=== PATIENT | male | born 1945 | race Caucasian/White ===

== ENCOUNTER 2016-11-22 09:30 | Emergency (ER) | payer OTHER ==
[~2016-11-22] VITALS: Ht 195.6 cm; Wt 130.0 kg
[~2016-11-22 09:30] MED LIST: BENA20TA PO; FURO40TA PO; GLIP10TA6 PO; METF500T4 PO; POTA-243 PO; SIMV20TA PO; SITA1TAB2 PO; VERA1TAB17 PO
[2016-11-22 09:32] VITALS: BP 136/83; PULSE 110; RESP 24; TEMP 98.4; O2SAT 94
[2016-11-22 11:00] VITALS: BP 168/97; PULSE 106; RESP 20; O2SAT 94
[2016-11-22 11:43] VITALS: O2SAT 94
[2016-11-22] MEDS ORDERED: SODIUM CHLORIDE 0.9% FLUSH 10 ML FLUSH IVF PRN (11:45)
[2016-11-22 11:57] LABS: AUTOMATED NEUTROPHIL # 4.5 TH/MM3 (1.8-7.7); BASOPHIL # 0.1 TH/MM3 (0-0.2); BASOPHIL % 1.2 % (0.0-2.0); EOSINOPHIL # 0.4 TH/MM3 (0-0.4); EOSINOPHIL % 5.2 % (0.0-4.0); HEMO FLAGS DIFF FINAL; LYMPH % 18.1 % (9.0-44.0); LYMPHOCYTE # 1.3 TH/MM3 (1.0-4.8); MEAN CELL VOLUME 92.7 FL (80.0-100.0); MEAN CORPUSCULAR HEMOGLOBIN 30.9 PG (27.0-34.0); MEAN CORPUSCULAR HGB CONC 33.3 % (32.0-36.0); MONO % 11.9 % (0.0-8.0); NEUT % 63.6 % (16.0-70.0); PLATELET COUNT 286 TH/MM3 (150-450); RED BLOOD COUNT 3.77 MIL/MM3 (4.50-5.90); RED CELL DISTRIBUTION WIDTH 13.7 % (11.6-17.2); WHITE BLOOD COUNT 7.1 TH/MM3 (4.0-11.0)
--- NOTE | 2016-11-22 12:01 | PD ---
HPI Chief Complaint: Edema Time Seen by Provider: 11:26 Travel History International Travel<30 days: No Contact w/Intl Traveler<30days: No Traveled to known affect area: No History of Present Illness HPI Patient is a 68-year-old male presenting to evaluation of bilateral lower extremity edema, worse on the right than the left. Patient presents with neighbors who noticed his legs were swollen and he has wounds to his legs as well. Patient is legally blind and was unable to assess it. Patient states is painful, a 6 out of 10 and feels like pins and needles. He denies any fever, chills, nausea, vomiting, chest pain, shortness of breath. Patient has a history significant for type 2 diabetes, likely not well controlled patient does not have a voice glucometer. He also has a history of hypertension, hyperlipidemia. He denies any history of congestive heart failure. Patient has been applying lotion to his legs. He has no other complaints at this time. PFSH Past Medical History Cardiovascular Problems: Yes High Cholesterol: Yes Diabetes: Yes Patient Takes Glucophage: Yes Hypertension: Yes Past Surgical History Eye Surgery: Yes (bernardo ) Social History Alcohol Use: Yes Tobacco Use: No Substance Use: No Allergies-Medications (Allergen,Severity, Reaction): Coded Allergies: Sulfa (Sulfonamide Antibiotics) (Unverified Allergy, Severe, TONGUE SWELLING, 11/22/16) Reported Meds & Prescriptions Reported Meds & Active Scripts Active Keflex (Cephalexin) 500 Mg Cap 500 Mg PO Q12H 10 Days Reported Verapamil ER 24 HR (Verapamil HCl) 240 Mg Tab 240 Mg PO BID Simvastatin 20 Mg Tab 20 Mg PO HS Klor-Con 10 (Potassium Chloride) 10 Meq Tab 10 Meq PO DAILY Metformin ER (Metformin HCl) 500 Mg Nicanor 500 Mg PO DAILY With evening meal Januvia (Sitagliptin Phosphate) 100 Mg Tab 100 Mg PO DAILY Glipizide 10 Mg Tab 10 Mg PO HS Take 30 minutes before a meal Furosemide 40 Mg Tab 40 Mg PO DAILY Benazepril (Benazepril HCl) 20 Mg Tab 20 Mg PO BID Review of Systems Except as stated in HPI: all other systems reviewed are Neg Cardiovascular: Positive: Tachycardia, Edema Respiratory: No: Shortness of Breath Gastrointestinal: No: Nausea, Abdominal Pain Musculoskeletal: Positive: Myalgias Physical Exam Narrative GENERAL: Obese, well-developed, alert male. Resting comfortably in no acute distress. SKIN: Warm and dry. Chronic ulcerations to bilateral lower extremities. Left first toe is erythematous and edematous with a central scabbed lesion. HEAD: Atraumatic. Normocephalic. EYES: Pupils equal and round. No scleral icterus. No injection or drainage. ENT: No nasal bleeding or discharge. Mucous membranes pink and moist. NECK: Trachea midline. No JVD. CARDIOVASCULAR: Tachycardic. RESPIRATORY: No accessory muscle use. Clear to auscultation. Breath sounds equal bilaterally. GASTROINTESTINAL: Abdomen soft, non-tender, nondistended. Hepatic and splenic margins not palpable. MUSCULOSKELETAL: Extremities without clubbing, cyanosis. 1+ edema to the right lower extremity, trace edema to the left lower extremity. 2+ dorsalis pedal pulses bilaterally. No obvious deformities. NEUROLOGICAL: Awake and alert. No obvious cranial nerve deficits. Motor grossly within normal limits. Five out of 5 muscle strength in the arms and legs. Normal speech. PSYCHIATRIC: Appropriate mood and affect; insight and judgment normal. Data Data Last Documented VS Vital Signs Date Time Temp Pulse Resp B/P (MAP) Pulse Ox O2 Delivery O2 Flow Rate FiO2 11/22/16 13:59 11/22/16 13:30 97 19 97 Room Air 11/22/16 09:32 98.4 Orders Orders Complete Blood Count With Diff (11/22/16 11:36) Comprehensive Metabolic Panel (11/22/16 11:36) B-Type Natriuretic Peptide (11/22/16 11:36) Magnesium (Mg) (11/22/16 11:36) Urinalysis - C+S If Indicated (11/22/16 11:36) Iv Access Insert/Monitor (11/22/16 11:36) Electrocardiogram (11/22/16 11:36) Ecg Monitoring (11/22/16 11:36) Oximetry (11/22/16 11:36) Oxygen Administration (11/22/16 11:36) Chest, Single Ap (11/22/16 11:36) Us Leg Venous Doppler (11/22/16 11:36) Sodium Chloride 0.9% Flush (Ns Flush) (11/22/16 11:45) Blood Culture (11/22/16 11:36) Furosemide Inj (Lasix Inj) (11/22/16 13:00) Metoprolol Tartrate Inj (Lopressor Inj) (11/22/16 13:30) Ceftriaxone Inj (Rocephin Inj) (11/22/16 14:45) Labs Laboratory Tests Test 11/22/16 10:55 11/22/16 11:40 White Blood Count 7.1 TH/MM3 Red Blood Count 3.77 MIL/MM3 Hemoglobin 11.7 GM/DL Hematocrit 35.0 % Mean Corpuscular Volume 92.7 FL Mean Corpuscular Hemoglobin 30.9 PG Mean Corpuscular Hemoglobin Concent 33.3 % Red Cell Distribution Width 13.7 % Platelet Count 286 TH/MM3 Mean Platelet Volume 8.0 FL Neutrophils (%) (Auto) 63.6 % Lymphocytes (%) (Auto) 18.1 % Monocytes (%) (Auto) 11.9 % Eosinophils (%) (Auto) 5.2 % Basophils (%) (Auto) 1.2 % Neutrophils # (Auto) 4.5 TH/MM3 Lymphocytes # (Auto) 1.3 TH/MM3 Monocytes # (Auto) 0.8 TH/MM3 Eosinophils # (Auto) 0.4 TH/MM3 Basophils # (Auto) 0.1 TH/MM3 CBC Comment DIFF FINAL Differential Comment Blood Urea Nitrogen 19 MG/DL Creatinine 1.48 MG/DL Random Glucose 111 MG/DL Total Protein 7.5 GM/DL Albumin 3.4 GM/DL Calcium Level 8.8 MG/DL Magnesium Level 1.7 MG/DL Alkaline Phosphatase 68 U/L Aspartate Amino Transf (AST/SGOT) 10 U/L Alanine Aminotransferase (ALT/SGPT) 15 U/L Total Bilirubin 0.5 MG/DL Sodium Level 142 MEQ/L Potassium Level 4.1 MEQ/L Chloride Level 107 MEQ/L Carbon Dioxide Level 26.4 MEQ/L Anion Gap 9 MEQ/L Estimat Glomerular Filtration Rate 47 ML/MIN B-Type Natriuretic Peptide 360 PG/ML Urine Color LIGHT-YELLOW Urine Turbidity CLEAR Urine pH 5.5 Urine Specific [place] 1.005 Urine Protein NEG mg/dL Urine Glucose (UA) NEG mg/dL Urine Ketones NEG mg/dL Urine Occult Blood NEG Urine Nitrite NEG Urine Bilirubin NEG Urine Urobilinogen LESS THAN 2.0 MG/DL Urine Leukocyte Esterase NEG Urine WBC LESS THAN 1 /hpf Microscopic Urinalysis Comment CULT NOT INDICATED MDM Medical Decision Making Medical Screen Exam Complete: Yes Emergency Medical Condition: Yes Interpretation(s) Vital Signs Date Time Temp Pulse Resp B/P (MAP) Pulse Ox O2 Delivery O2 Flow Rate FiO2 11/22/16 11:43 94 Room Air 11/22/16 11:00 106 20 168/97 (120) 94 11/22/16 10:50 90 20 Room Air 11/22/16 09:32 98.4 110 24 136/83 (100) 94 Room Air Differential Diagnosis Cellulitis versus chronic venous stasis ulceration versus less likely DVT versus sepsis versus other Narrative Course Patient is a 71 year-old male presenting to emergency Department for evaluation of bilateral lower extremity edema worse on the right than the left as well as sores to his right lower leg. Sores appear chronic in nature, there was mild edema noted. Labs and imaging ordered and pending. Patient's vital signs are stable, is mildly tachycardic on arrival, heart rate is currently 104. CBC is unremarkable no acute abnormalities identified. BNP is 360, Lasix 40 mg IV times one dose given. Chemistry with a BUN and creatinine of 19/1.48 Urinalysis unremarkable Right lower extremity ultrasound is negative for DVT, chest x-ray shows normal exam except for mild diffuse interstitial prominence. Again findings appear consistent in nature, patient does not appear to be septic , he appears well, labs are reassuring. Discussed with my attending physician. Patient was placed on Keflex prophylactically. He is encouraged to follow up with his primary doctor. Patient is encouraged to keep legs elevated, maintain adequate fluid intake. He was encouraged to return to emergency department for any new or worsening symptoms. Patient was given dose of Lopressor prior to leaving the emergency department. He missed his midday dose of carvedilol. Patient also reported that he is on a water pill and potassium at home which she does not have with him. Diagnosis Primary Impression: Diabetic ulcer of right lower leg Additional Impressions: Leg edema Elevated brain natriuretic peptide (BNP) level Referrals: Primary Care Physician 2 days Patient Instructions: General Instructions, Leg Edema (ED) Additional Instructions: Keep legs elevated Follow-up with your primary doctor Continue medications as previously prescribed Return to emergency department for any new or worsening symptoms Complete full course of antibiotics as prescribed Med/Other Pt SpecificInfo: Prescription(s) given Scripts Mupirocin Topical (Mupirocin Topical) 2 % Oint 1 APPLIC TOPICAL BID for Mgmt Bacterial Infection, #22 GM 1 Refill Prov: Shagufta Kauffman 11/22/16 Cephalexin (Keflex) 500 Mg Cap 500 MG PO Q12H for Infection for 10 Days, CAP 0 Refills Prov: Shagufta Kauffman 11/22/16 Disposition: 01 DISCHARGE HOME Condition: Stable Shagufta Kauffman Nov 22, 2016 12:01
[2016-11-22 12:12] LABS: BLOOD, URINE NEG (NEG); GLUCOSE,URINE NEG (NEG); KETONE, URINE NEG (NEG); NITRITE,URINE NEG (NEG); PH, URINE 5.5 (5.0-8.5); URINE COLOR LIGHT-YELLOW (YELLW/STRAW)
[2016-11-22 12:18] LABS: COMMENT (UR) CULT NOT INDICATED; CULTURE IF INDICATED CULT NOT INDICATED
--- NOTE | 2016-11-22 12:18 | RADRPT ---
EXAM DATE/TIME: 11/22/2016 11:52 [facility] COMPARISON: No previous studies available for comparison. INDICATIONS : Right leg edema. MEDICAL HISTORY : Hypercholesterolemia. Hypertension. Diabetes. SURGICAL HISTORY : Bilateral eye surgery. ENCOUNTER: Initial ACUITY: 2 weeks PAIN SCORE: 6/10 LOCATION: Right leg. TECHNIQUE: Venous ultrasound of the leg was performed from the inguinal ligament to the proximal calf. Real-yuimko e, color Doppler and spectral tracing, compression and augmentation techniques were used. FINDINGS: There is normal compressibility of the deep venous system from the inguinal region to the proximal ca lf. No echogenic clot is seen in the lumen of the common femoral, femoral, popliteal, and posterior tibial veins. There is a normal response of the venous system to proximal and distal augmentation an d respiration. CONCLUSION: No evidence of deep venous thrombosis within the right lower extremity. Loki Cowan MD on November 22, 2016 at 12:16 Board Certified Radiologist. This report was verified electronically.
[2016-11-22 12:25] LABS: ALKALINE PHOSPHATASE 68 U/L (45-117); ALT (GPT) 15 U/L (12-78); AST (GOT) 10 U/L (15-37); BLOOD UREA NITROGEN 19 MG/DL (7-18); GLOMERULAR FILTRATION RATE 47 ML/MIN (>89); MAGNESIUM 1.7 MG/DL (1.5-2.5); POTASSIUM 4.1 MEQ/L (3.5-5.1); SODIUM (NA) 142 MEQ/L (136-145); TOTAL BILIRUBIN ADULT 0.5 MG/DL (0.2-1.0)
[2016-11-22 12:26] LABS: ANION GAP 9 MEQ/L (5-15); BICARBONATE 26.4 MEQ/L (21.0-32.0); CHLORIDE 107 MEQ/L (98-107)
--- NOTE | 2016-11-22 12:42 | RADRPT ---
EXAM DATE/TIME: 11/22/2016 11:46 [facility] COMPARISON: No previous studies available for comparison. INDICATIONS : Short of breath. MEDICAL HISTORY : None. SURGICAL HISTORY : None. ENCOUNTER: Initial ACUITY: 1 day PAIN SCORE: 0/10 LOCATION: Bilateral chest FINDINGS: A single view of the chest demonstrates the lungs to be symmetrically aerated without evidence of mas s, infiltrate or effusion. The cardiomediastinal contours are unremarkable. Osseous structures are intact. CONCLUSION: Normal examination except for mild diffuse interstitial prominence. Zeeshan Oliveira MD on November 22, 2016 at 12:41 Board Certified Radiologist. This report was verified electronically.
[2016-11-22] MEDS ORDERED: FUROSEMIDE 40 MG/4 ML VIAL IV PUSH ONE (13:00)
[2016-11-22] MEDS ORDERED: CEPH-460 PO (13:11)
[2016-11-22 13:30] VITALS: BP 149/87; PULSE 97; RESP 19; O2SAT 97
[2016-11-22] MEDS ORDERED: METOPROLOL TARTRATE 5 MG/5 ML VIAL IV PUSH ONE (13:30)
[2016-11-22] MEDS ORDERED: MUPI2OIN TOPICAL (14:34)
--- NOTE | 2016-11-22 20:59 | EKG ---
Date Performed: 11/22/2016 Time Performed: 11:49:43 PTAGE: 71 years EKG: ATRIAL FIBRILLATION WITH RAPID VENTRICULAR RESPONSE MODERATE INTRAVENTRICULAR CONDUCTION DE LAY ABNORMAL RHYTHM ECG Compared to the PREVIOUS TRACING a fib now present DOCTOR: Elsa Whitten Interpretating Date/Time 11/22/2016 20:58:53
== END 2016-11-22 14:48 | disposition home or self-care (01) ==
LOC: NEPE 09:30
DX: E11.622 Type 2 diabetes mellitus with other skin ulcer (principal); L97.919 Non-pressure chronic ulcer of unspecified part of right lower leg with unspecified severity; I10 Essential (primary) hypertension; Z79.84 Long term (current) use of oral hypoglycemic drugs
CPT/HCPCS: 71010; 80053; 81001; 83735; 83880; 85025; 87040; 93005; 93971; 96372; 96374; 99285; J0696; J1940

== ENCOUNTER 2017-01-01 19:13 | Inpatient (IN) | payer OTHER, MEDICARE ==
[~2017-01-01] VITALS: Ht 190.5 cm; Wt 134.3 kg
[~2017-01-01 19:13] MED LIST changes: +CEPH-460 PO; +KLOR10TA PO; +MUPI2OIN TOPICAL; -POTA-243 PO
[2017-01-01 19:17] VITALS: BP 137/90; PULSE 123; RESP 18; TEMP 98.2; O2SAT 92
[2017-01-01 19:56] VITALS: BP 149/116; PULSE 102; RESP 20; O2SAT 94
[2017-01-01 20:01] VITALS: RESP 20; O2SAT 94
--- NOTE | 2017-01-01 20:05 | PD ---
HPI Chief Complaint: Edema Time Seen by Provider: 19:43 Travel History International Travel<30 days: No Contact w/Intl Traveler<30days: No Traveled to known affect area: No History of Present Illness HPI The patient is a 71 year old male who presents to the [facility] emergency department with a history of reportedly experiencing chest tightness that began yesterday evening. The patient reports that the pain is been coming and going. He reports the pain at this time is a 4 out of 10 in severity. He denies ever having this in the past. He denies any prior history of myocardial infarction or congestive heart failure. He does however report having lower extremity edema and being on a water pill for this. He did take this is morning. He denies taking his aspirin today. He reports that he normally takes an adult aspirin in the evening. The patient additionally reports having new onset of edema of his scrotum. He denies ever having swelling of the site in the past. He reports that he has been able to urinate, however it seems to be spreading everywhere. He denies having any dysuria. He denies having any abdominal pain, nausea, vomiting, or diarrhea. He reports having some dyspnea on exertion. The patient reports that he is currently on an antibiotic for open wounds on his legs. The patient has the prescription bottle available in his pocket. The prescription is for Augmentin 875 mg filled by his primary care physician, Dr. Mullen. Otherwise on review of systems, the patient denies having any recent known fevers, cough, congestion, neck pain, other urinary symptoms, or neurologic symptoms. Unfortunately, the patient is a poor historian regarding his medical history. The patient is unsure of the medications that he is on. The patient is also legally blind and has no written down record of his medications. [facility] Past Medical History Narrative Medical The patient's past medical history is significant for according to the electronic medical record and history of hyperlipidemia, diabetes mellitus, hypertension, history of being blind, history of lower extremity edema, history of phlebitis. Hx Anticoagulant Therapy: Yes (asa) Cardiovascular Problems: Yes High Cholesterol: Yes Diabetes: Yes Patient Takes Glucophage: Yes Hypertension: Yes Tetanus Vaccination: < 5 Years Influenza Vaccination: No Past Surgical History Narrative Surgical Patient's past surgical history is significant for eye surgery. Eye Surgery: Yes (bernardo ) Social History Alcohol Use: Yes Tobacco Use: No Substance Use: No Allergies-Medications (Allergen,Severity, Reaction): Coded Allergies: Sulfa (Sulfonamide Antibiotics) (Unverified Allergy, Severe, TONGUE SWELLING, 01/01/17) Reported Meds & Prescriptions Reported Meds & Active Scripts Active Mupirocin Topical (Mupirocin) 2 % Oint 1 Applic TOPICAL BID Keflex (Cephalexin) 500 Mg Cap 500 Mg PO Q12H 10 Days Reported Verapamil ER 24 HR (Verapamil HCl) 240 Mg Tab 240 Mg PO BID Simvastatin 20 Mg Tab 20 Mg PO HS Klor-Con 10 (Potassium Chloride) 10 Meq Tab 10 Meq PO DAILY Metformin ER (Metformin HCl) 500 Mg Nicanor 500 Mg PO DAILY With evening meal Januvia (Sitagliptin Phosphate) 100 Mg Tab 100 Mg PO DAILY Glipizide 10 Mg Tab 10 Mg PO HS Take 30 minutes before a meal Furosemide 40 Mg Tab 40 Mg PO DAILY Benazepril (Benazepril HCl) 20 Mg Tab 20 Mg PO BID Review of Systems Except as stated in HPI: all other systems reviewed are Neg General / Constitutional: No: Fever Eyes: No: Visual changes HENT: No: Headaches Cardiovascular: Positive: Chest Pain or Discomfort, Edema, No: Dyspnea on exertion Respiratory: Positive: Shortness of Breath Gastrointestinal: No: Nausea, Vomiting, Diarrhea, Abdominal Pain Genitourinary: No: Dysuria Musculoskeletal: No: Pain Skin: No Rash Neurologic: No: Weakness Psychiatric: No: Depression Endocrine: No: Polydipsia Hematologic/Lymphatic: No: Easy Bruising Physical Exam Narrative General: The patient is a well-developed well-nourished male in no acute distress. The patient is disheveled appearing on examination. Head and Neck exam: Head is normocephalic atraumatic. Eyes: EOMI, pupils are equal round and reactive to light. Nose: Midline septum with pink mucous membranes Mouth: Dentition unremarkable. Moist mucus membranes. Posterior oropharynx is not erythematous. No tonsillar hypertrophy. Uvula midline. Airway patent. Neck: No palpable lymphadenopathy. No nuchal rigidity. No thyromegaly. Cardiovascular: Irregularly irregular with a rate in the 120 without murmurs, gallops, or rubs. Intermittent pulse deficit to the extremities consistent with atrial fibrillation on simultaneous auscultation and palpation of the radial artery. Lungs: He has decreased breath sounds in bilateral bases. No rhonchi, no crackles. Abdomen: Soft, without tenderness to palpation in all 4 quadrants of the abdomen. No guarding, rebound, or rigidity. Normal bowel sounds are audible. No tenderness on palpation of McBurney's point. Extremities: No clubbing or cyanosis. The patient has 2+ pitting edema bilateral lower extremities. The patient has wounds noted on the right lower extremity that appear to be related to venous stasis changes, some ulceration is noted. No obvious infection is noted at this time. There is minimal drainage. The drainage will be cultured. 2+ pulses in all 4 extremities. Back: No spinous process tenderness to palpation. No costovertebral angle tenderness to palpation. Neurologic Exam: Grossly nonfocal. Skin Exam: Skin is warm and dry. Data Data Last Documented VS Vital Signs Date Time Temp Pulse Resp B/P (MAP) Pulse Ox O2 Delivery O2 Flow Rate FiO2 01/01/17 20:33 94 18 147/75 (99) 94 Nasal Cannula 2.00 01/01/17 19:17 98.2 Orders Orders Electrocardiogram (01/01/17 19:58) Complete Blood Count With Diff (01/01/17 19:58) Comprehensive Metabolic Panel (01/01/17 19:58) Creatine Kinase (Cpk) (01/01/17 19:58) Ckmb (Isoenzyme) Profile (01/01/17 19:58) Troponin I (01/01/17 19:58) B-Type Natriuretic Peptide (01/01/17 19:58) Prothrombin Time / Inr (Pt) (01/01/17 19:58) Act Partial Throm Time (Ptt) (01/01/17 19:58) C-Reactive Protein (Crp) (01/01/17 19:58) Lipase (01/01/17 19:58) Urinalysis - C+S If Indicated (01/01/17 19:58) Magnesium (Mg) (01/01/17 19:58) Thyroid Stimulating Hormone (01/01/17 19:58) Chest, Single Ap (01/01/17 19:58) Iv Access Insert/Monitor (01/01/17 19:58) Ecg Monitoring (01/01/17 19:58) Oximetry (01/01/17 19:58) Aspirin Chew (Aspirin Chew) (01/01/17 20:15) Nitroglycerin 2% Oint (Nitroglycerin 2% (01/01/17 20:15) Nitroglycerin Sl (Nitrostat Sl) (01/01/17 20:15) Diltiazem Inj (Cardizem Inj) (01/01/17 20:15) Diltiazem Inj (Cardizem Inj) (01/01/17 20:15) Furosemide Inj (Lasix Inj) (01/01/17 21:45) Admit Order (Ed Use Only) (01/01/17 21:46) Labs Laboratory Tests Test 01/01/17 20:05 01/01/17 21:00 White Blood Count 7.1 TH/MM3 Red Blood Count 4.15 MIL/MM3 Hemoglobin 12.6 GM/DL Hematocrit 38.2 % Mean Corpuscular Volume 92.1 FL Mean Corpuscular Hemoglobin 30.3 PG Mean Corpuscular Hemoglobin Concent 32.9 % Red Cell Distribution Width 15.7 % Platelet Count 259 TH/MM3 Mean Platelet Volume 8.0 FL Neutrophils (%) (Auto) 69.1 % Lymphocytes (%) (Auto) 15.9 % Monocytes (%) (Auto) 10.3 % Eosinophils (%) (Auto) 3.6 % Basophils (%) (Auto) 1.1 % Neutrophils # (Auto) 4.9 TH/MM3 Lymphocytes # (Auto) 1.1 TH/MM3 Monocytes # (Auto) 0.7 TH/MM3 Eosinophils # (Auto) 0.3 TH/MM3 Basophils # (Auto) 0.1 TH/MM3 CBC Comment DIFF FINAL Differential Comment Prothrombin Time 11.8 SEC Prothromb Time International Ratio 1.1 RATIO Activated Partial Thromboplast Time 23.6 SEC Blood Urea Nitrogen 21 MG/DL Creatinine 1.88 MG/DL Random Glucose 90 MG/DL Total Protein 6.4 GM/DL Albumin 3.4 GM/DL Calcium Level 8.6 MG/DL Magnesium Level 1.3 MG/DL Alkaline Phosphatase 63 U/L Aspartate Amino Transf (AST/SGOT) 22 U/L Alanine Aminotransferase (ALT/SGPT) 30 U/L Total Bilirubin 0.7 MG/DL Sodium Level 138 MEQ/L Potassium Level 3.6 MEQ/L Chloride Level 105 MEQ/L Carbon Dioxide Level 23.9 MEQ/L Anion Gap 9 MEQ/L Estimat Glomerular Filtration Rate 35 ML/MIN Total Creatine Kinase 82 U/L Troponin I 0.03 NG/ML C-Reactive Protein LESS THAN 0.29 MG/DL B-Type Natriuretic Peptide 522 PG/ML Lipase 294 U/L Thyroid Stimulating Hormone 3rd Gen 3.160 uIU/ML Urine Color LIGHT-YELLOW Urine Turbidity CLEAR Urine pH 5.5 Urine Specific [place] 1.003 Urine Protein NEG mg/dL Urine Glucose (UA) NEG mg/dL Urine Ketones NEG mg/dL Urine Occult Blood NEG Urine Nitrite NEG Urine Bilirubin NEG Urine Urobilinogen LESS THAN 2.0 MG/DL Urine Leukocyte Esterase NEG Urine RBC LESS THAN 1 /hpf Urine WBC LESS THAN 1 /hpf Microscopic Urinalysis Comment CULT NOT INDICATED MDM Medical Decision Making Medical Screen Exam Complete: Yes Emergency Medical Condition: Yes Medical Record Reviewed: Yes Interpretation(s) Last Impressions Chest X-Ray 01/01/171957 Signed Impressions: Service Date/Time: Sunday, January 01, 2017 20:10 - CONCLUSION: CHF Oneal Robbins MD Differential Diagnosis Acute coronary syndrome, versus congestive heart failure, versus atrial fibrillation with RVR, versus sepsis related to a skin infection Narrative Course During the course of the patients emergency department visit, the patients history, examination, and differential diagnosis were reviewed with the patient. The patient was placed on a school bus monitor with oximetry and frequent blood pressure monitoring. The patient had IV access obtained and blood work sent for analysis. The patient was placed on a school bus monitor with oximetry and blood pressure monitoring. An ECG was done on arrival. The patient's ECG reveals atrial fibrillation with RVR with heart rate of 113, QRS duration is 118 ms, QTC 399 ms. Moderate intraventricular conduction delay is noted. No acute ST segment elevation is noted. T waves are inverted in V4, V5, V6. The patient was initially provided aspirin 324 mg by mouth 1. Nitroglycerin sublingual to 5 minutes 3, nitroglycerin 1 inch to the chest wall. Cardizem 20 mg bolus followed by a drip if his heart rate is not maintained less than 100 bpm. The patients laboratory studies were reviewed and remarkable for a white count of 7.1, hemoglobin 12.6, platelets 259 with 10.3 monocytes, CMP is remarkable for a BUN of 21, creatinine 1.88, magnesium 1.3, initial set of cardiac enzymes are negative, C-reactive protein less than 0.29, BNP is 522, lipase 294, TSH 3.16, PT 11.8, PTT 23.6, urinalysis within normal limits, x-ray reveals fluid overload consistent with congestive heart failure. I review the records reveals that the patient has previously had atrial fibrillation on an ECG done in November during an emergency department visit. A prior BNP also revealed elevation at and November. The patient was given Lasix 60 mg IV. The patient will be admitted to the hospital for continued evaluation and treatment. The patients results were discussed with the patient, including the plan of care. I explained that further testing and/ or monitoring is indicated based on the patients history, examination, and/ or laboratory findings. Therefore, I recommended admission for additional evaluation. The patient expressed understanding and was agreeable with this plan. The patient was admitted to the hospital in stable condition and sent to a bed under the care of the [facility] service. Physician Communication Physician Communication The patient's case is discussed with Dr. Pryor who did agree to admit the patient for further evaluation and treatment at this time. Diagnosis Primary Impression: Atrial fibrillation with RVR Additional Impression: Acute exacerbation of congestive heart failure Qualified Codes: I50.9 - Heart failure, unspecified Admitting Information Admitting Physician Requests: Admit Yajaira Oliveros MD Jan 01, 2017 20:05
[2017-01-01] MEDS ORDERED: DILTIAZEM HCL 25 MG/5 ML VIAL IV ONE (20:15)
[2017-01-01] MEDS ORDERED: ASPIRIN 81 MG CHEW TAB CHEW ONE (20:15)
[2017-01-01] MEDS ORDERED: NITROGLYCERIN 0.4 MG SL 25 TABS/BTL SL PRN (20:15)
[2017-01-01] MEDS ORDERED: DILTIAZEM INJ 125 MG in SODIUM CHLORIDE 0.9% INJ 100 ML IV PRN (20:15)
[2017-01-01] MEDS ORDERED: NITROGLYCERIN 2% OINT 1 GM PACKET TOPICAL ONE (20:15)
--- NOTE | 2017-01-01 20:26 | RADRPT ---
EXAM DATE/TIME: 01/01/2017 20:10 [facility] COMPARISON: CHEST SINGLE AP, November 22, 2016, 11:46. INDICATIONS : Chest pain. MEDICAL HISTORY : Hypercholesterolemia. Hypertension. Diabetes. SURGICAL HISTORY : Bilateral eye surgery. ENCOUNTER: Initial ACUITY: 1 day PAIN SCORE: 5/10 LOCATION: Bilateral chest FINDINGS: Cardiac silhouette is enlarged. There is diffuse bilateral interstitial prominence and perihilar and basilar alveolar opacities with small effusions. CONCLUSION: CHF Oneal Robbins MD on January 01, 2017 at 20:24 Board Certified Radiologist. This report was verified electronically.
[2017-01-01 20:31] LABS: AUTOMATED NEUTROPHIL # 4.9 TH/MM3 (1.8-7.7); BASOPHIL # 0.1 TH/MM3 (0-0.2); BASOPHIL % 1.1 % (0.0-2.0); EOSINOPHIL # 0.3 TH/MM3 (0-0.4); EOSINOPHIL % 3.6 % (0.0-4.0); HEMATOCRIT 38.2 % (39.0-51.0); HEMO FLAGS DIFF FINAL; LYMPH % 15.9 % (9.0-44.0); LYMPHOCYTE # 1.1 TH/MM3 (1.0-4.8); MEAN CELL VOLUME 92.1 FL (80.0-100.0); MEAN CORPUSCULAR HEMOGLOBIN 30.3 PG (27.0-34.0); MEAN CORPUSCULAR HGB CONC 32.9 % (32.0-36.0); MONO % 10.3 % (0.0-8.0); NEUT % 69.1 % (16.0-70.0); PLATELET COUNT 259 TH/MM3 (150-450); RED BLOOD COUNT 4.15 MIL/MM3 (4.50-5.90); RED CELL DISTRIBUTION WIDTH 15.7 % (11.6-17.2); WHITE BLOOD COUNT 7.1 TH/MM3 (4.0-11.0)
[2017-01-01 20:33] VITALS: BP 147/75; PULSE 94; RESP 18; O2SAT 94
[2017-01-01 20:38] LABS: APTT (PATIENT) 23.6 SEC (24.3-30.1); INTERNATIONAL NORMALIZED RATIO 1.1 RATIO; PROTHROMBIN TIME - PATIENT 11.8 SEC (9.8-11.6)
[2017-01-01 20:50] LABS: ALT (GPT) 30 U/L (12-78); ANION GAP 9 MEQ/L (5-15); AST (GOT) 22 U/L (15-37); BICARBONATE 23.9 MEQ/L (21.0-32.0); BLOOD UREA NITROGEN 21 MG/DL (7-18); CHLORIDE 105 MEQ/L (98-107); GLOMERULAR FILTRATION RATE 35 ML/MIN (>89); MAGNESIUM 1.3 MG/DL (1.5-2.5); POTASSIUM 3.6 MEQ/L (3.5-5.1); SODIUM (NA) 138 MEQ/L (136-145)
[2017-01-01 20:58] LABS: ALKALINE PHOSPHATASE 63 U/L (45-117); TOTAL BILIRUBIN ADULT 0.7 MG/DL (0.2-1.0)
[2017-01-01 21:07] LABS: CREATINE KINASE 82 U/L (39-308)
[2017-01-01 21:23] LABS: BLOOD, URINE NEG (NEG); COMMENT (UR) CULT NOT INDICATED; CULTURE IF INDICATED CULT NOT INDICATED; GLUCOSE,URINE NEG (NEG); KETONE, URINE NEG (NEG); NITRITE,URINE NEG (NEG); PH, URINE 5.5 (5.0-8.5); URINE COLOR LIGHT-YELLOW (YELLW/STRAW)
[2017-01-01] MEDS ORDERED: FUROSEMIDE 40 MG/4 ML VIAL IV PUSH ONE (21:45)
[2017-01-01] MEDS ORDERED: NALOXONE HCL 0.4 MG/ML AMP IV PUSH PRN (22:15)
[2017-01-01] MEDS ORDERED: POTASSIUM CHLORIDE 20 MEQ CONTROLLED RELEASE TAB PO ONE (22:15)
[2017-01-01 22:45] VITALS: BP 151/78; PULSE 89; RESP 18; O2SAT 94
[2017-01-02] VITALS (10 sets, daily range): BP systolic 126–161; BP diastolic 80–92; PULSE 96–133; RESP 18–28; TEMP 96.7–98.1; O2SAT 88–95
--- NOTE | 2017-01-02 02:14 | HHI.HP ---
HPI Service [facility] Primary Care Physician Kandy Mullen MD Admission Diagnosis Cp R/o [place], chf exacerbation, afib with rvr Diagnoses: Chief Complaint: cp,sob Travel History International Travel<30 Days: No Contact w/Intl Traveler <30 Da: No Traveled to Known Affected Are: No History of Present Illness Written by CATARINA Calhoun acting as scribe for [Konstantin] on 01/02/17 at 02: 11. 71 y/o male with a history of HTN, DM, Irregular heart beat ? AFIB, bilateral lymphedema, and blindness presented to the ED with scrotum swelling, chest pain and shortness of breath. He states for the last 3 days his scrotum has been swollen and he has been short of breath. Yesterday he had a slight tightening chest pain prior to taking a 2 mile walk and after the walk it was worse, and he could not catch his breath and his legs began to swell. He states he takes diuretics at home but is unsure why. He does complain of a non productive cough , and mild fever (unknown temp). Denies dysuria, diarrhea,nausea, or vomiting. PCP: Dr Mullen Review of Systems Except as stated in HPI: all other systems reviewed are Neg Past Family Social History Past Medical History HTN DM CHF unknown Irregular heartbeat Lymphedema Blind Afib not on any medication Past Surgical History eye surgeries x 17 Reported Medications Reported Meds & Active Scripts Active Mupirocin Topical (Mupirocin) 2 % Oint 1 Applic TOPICAL BID Keflex (Cephalexin) 500 Mg Cap 500 Mg PO Q12H 10 Days Reported Verapamil ER 24 HR (Verapamil HCl) 240 Mg Tab 240 Mg PO BID Simvastatin 20 Mg Tab 20 Mg PO HS Klor-Con 10 (Potassium Chloride) 10 Meq Tab 10 Meq PO DAILY Metformin ER (Metformin HCl) 500 Mg Nicanor 500 Mg PO DAILY With evening meal Januvia (Sitagliptin Phosphate) 100 Mg Tab 100 Mg PO DAILY Glipizide 10 Mg Tab 10 Mg PO HS Take 30 minutes before a meal Furosemide 40 Mg Tab 40 Mg PO DAILY Benazepril (Benazepril HCl) 20 Mg Tab 20 Mg PO BID Allergies: Coded Allergies: Sulfa (Sulfonamide Antibiotics) (Unverified Allergy, Severe, TONGUE SWELLING, 01/01/17) Active Ordered Medications Current Medications Medications (Trade) Dose Ordered Sig/Rosalie Route Start Time Stop Time Status Last Admin (Nitrostat Sl) 0.4 mg Q5M PRN SL 01/01/17 20:15 01/01/17 20:24 (NS Flush) 2 ml UNSCH PRN IV FLUSH 01/01/17 22:15 (NS Flush) 2 ml BID IV FLUSH 01/02/17 09:00 (Narcan Inj) 0.4 mg UNSCH PRN IV PUSH 01/01/17 22:15 (Ecotrin Ec) 325 mg DAILY PO 01/02/17 09:00 (Lasix Inj) 40 mg BID@,18 IV PUSH 01/02/17 09:00 Family History Mom: rheumatic fever, heart disease Social History Tobacco use: Quit 20 years ago Alcohol use: Socially Illicit drug use: Denies Patient lives alone Physical Exam Vital Signs Vital Signs Date Time Temp Pulse Resp B/P (MAP) Pulse Ox O2 Delivery O2 Flow Rate FiO2 01/02/17 01:41 28 01/02/17 01:16 96.7 109 20 126/91 (103) 93 01/02/17 00:55 01/02/17 00:41 96 20 137/90 (106) 93 Nasal Cannula 4.00 01/01/17 22:45 89 18 151/78 (102) 94 Nasal Cannula 4.00 01/01/17 20:33 94 18 147/75 (99) 94 Nasal Cannula 2.00 01/01/17 20:01 20 94 Nasal Cannula 3.00 01/01/17 19:56 102 20 89 Room Air 01/01/17 19:56 102 20 149/116 (127) 94 Nasal Cannula 3.00 01/01/17 19:17 98.2 123 18 137/90 (106) 92 Room Air Physical Exam GENERAL: This is a well-nourished, blind patient, in no apparent distress. Only sob on exertion. SKIN: Weeping bilateral legs with open lesions HEAD: Atraumatic. Normocephalic. EYES: Pupils equal round and reactive. ENT: Nose without bleeding, purulent drainage or septal hematoma. Airway patent. NECK: Trachea midline. No JVD CARDIOVASCULAR: Regular rate and irregular rhythm without murmurs, gallops, or rubs. RESPIRATORY: Diminished breath sounds No wheezes, rales, or rhonchi. GASTROINTESTINAL: Abdomen soft, non-tender, nondistended. No guarding. MUSCULOSKELETAL: Bilateral lower extremity edema. No calf tenderness. NEUROLOGICAL: Awake and alert. Motor and sensory grossly within normal limits. Normal speech. Laboratory Laboratory Tests Test 01/01/17 20:05 01/01/17 21:00 White Blood Count 7.1 Red Blood Count 4.15 Hemoglobin 12.6 Hematocrit 38.2 Mean Corpuscular Volume 92.1 Mean Corpuscular Hemoglobin 30.3 Mean Corpuscular Hemoglobin Concent 32.9 Red Cell Distribution Width 15.7 Platelet Count 259 Mean Platelet Volume 8.0 Neutrophils (%) (Auto) 69.1 Lymphocytes (%) (Auto) 15.9 Monocytes (%) (Auto) 10.3 Eosinophils (%) (Auto) 3.6 Basophils (%) (Auto) 1.1 Neutrophils # (Auto) 4.9 Lymphocytes # (Auto) 1.1 Monocytes # (Auto) 0.7 Eosinophils # (Auto) 0.3 Basophils # (Auto) 0.1 CBC Comment DIFF FINAL Differential Comment Prothrombin Time 11.8 Prothromb Time International Ratio 1.1 Activated Partial Thromboplast Time 23.6 Blood Urea Nitrogen 21 Creatinine 1.88 Random Glucose 90 Total Protein 6.4 Albumin 3.4 Calcium Level 8.6 Magnesium Level 1.3 Alkaline Phosphatase 63 Aspartate Amino Transf (AST/SGOT) 22 Alanine Aminotransferase (ALT/SGPT) 30 Total Bilirubin 0.7 Sodium Level 138 Potassium Level 3.6 Chloride Level 105 Carbon Dioxide Level 23.9 Anion Gap 9 Estimat Glomerular Filtration Rate 35 Total Creatine Kinase 82 Troponin I 0.03 C-Reactive Protein LESS THAN 0.29 B-Type Natriuretic Peptide 522 Lipase 294 Thyroid Stimulating Hormone 3rd Gen 3.160 Urine Color LIGHT-YELLOW Urine Turbidity CLEAR Urine pH 5.5 Urine Specific [place] 1.003 Urine Protein NEG Urine Glucose (UA) NEG Urine Ketones NEG Urine Occult Blood NEG Urine Nitrite NEG Urine Bilirubin NEG Urine Urobilinogen LESS THAN 2.0 Urine Leukocyte Esterase NEG Urine RBC LESS THAN 1 Urine WBC LESS THAN 1 Microscopic Urinalysis Comment CULT NOT INDICATED Date/Time Source Procedure Growth Status 01/01/17 22:45 Wound Leg Gram Stain Pending Received 01/01/17 22:45 Wound Leg Wound Culture Pending Received Result Diagram: 01/01/17200401/01/172004 Imaging Last Impressions Chest X-Ray 01/01/171957 Signed Impressions: Service Date/Time: Sunday, January 01, 2017 20:10 - CONCLUSION: CHF MD Noemi Cornejo VTE Risk Assessment Noemi VTE Risk Assessment: Mod/High Risk (score >= 2) Caprini Risk Assessment Model Point Value = 1 Point Value = 2 Point Value = 3 Point Value = 5 Age 41-60 Minor surgery BMI > 25 kg/m2 Swollen legs Varicose veins or History of unexplained or recurrent spontaneous Oral contraceptives or hormone replacement Sepsis (< 1 month) Serious lung disease, including pneumonia (< 1 month) Abnormal pulmonary function Acute myocardial infarction Congestive heart failure (< 1 month) History of inflammatory bowel disease Medical patient at bed rest Age 61-74 Arthroscopic surgery Major open surgery (> 45 min) Laparoscopic surgery (> 45 min) Malignancy Confined to bed (> 72 hours) Immobilizing plaster cast Central venous access Age >= 75 History of VTE Family history of VTE Factor V Leiden Prothrombin [id number] Lupus anticoagulant Anticardiolipin antibodies Elevated serum homocysteine Heparin-induced thrombocytopenia Other congenital or acquired thrombophilia Stroke (< 1 month) Elective arthroplasty Hip, pelvis, or leg fracture Acute spinal cord injury (< 1 month) Prophylaxis Regimen Total Risk Factor Score Risk Level Prophylaxis Regimen 0-1 Low Early ambulation 2 Moderate Order ONE of the following: *Sequential Compression Device (SCD) *Heparin 5000 units SQ BID 3-4 Higher Order ONE of the following medications: *Heparin 5000 units SQ TID *Enoxaparin/Lovenox 40 mg SQ daily (WT < 150 kg, CrCl > 30 mL/min) *Enoxaparin/Lovenox 30 mg SQ daily (WT < 150 kg, CrCl > 10-29 mL/min) *Enoxaparin/Lovenox 30 mg SQ BID (WT < 150 kg, CrCl > 30 mL/min) AND/OR *Sequential Compression Device (SCD) 5 or more Highest Order ONE of the following medications: *Heparin 5000 units SQ TID (Preferred with Epidurals) *Enoxaparin/Lovenox 40 mg SQ daily (WT < 150 kg, CrCl > 30 mL/min) *Enoxaparin/Lovenox 30 mg SQ daily (WT < 150 kg, CrCl > 10-29 mL/min) *Enoxaparin/Lovenox 30 mg SQ BID (WT < 150 kg, CrCl > 30 mL/min) AND *Sequential Compression Device (SCD) Assessment and Plan Problem List: (1) CHF exacerbation ICD Code: I50.9 - Heart failure, unspecified (2) Afib ICD Code: I48.91 - Unspecified atrial fibrillation Status: Chronic Assessment and Plan 71 y/o male with a history of HTN, DM, Irregular heart beat ? AFIB, bilateral lymphedema, and blindness presented to the ED with scrotum swelling, chest pain and shortness of breath. CHF exacerbation, new onset Chest x ray reviewed and shows CHF BNP 522 -Lasix IV BID -2 D echo ordered -Consult cardiology for assistance Afib, new onset EKG reviewed and shows Afib RVR -Cardizem given in ED, hold drip for now -Patient will need intermediate manager anticoagulation, he does not want Coumadin, and states he falls down about once a month. Chest pain, atypical, r/o ACS Troponin .03 -ASA ordered -Serial troponin and EKG DM, chronic -Accu checks with SSI -Order home medications when med rec is verified HTN, chronic -Order home medications when med rec is verified DVT prophylaxis: Lovenox This note was transcribed by phil [Sandra Arroyo]. I, Dr. Alia Pryor personally performed the history, physical exam, and medical decision making; and confirmed the accuracy of the information in the transcribed note. Authenticated by Dr. Alia Pryor on 01/02/17 at 02:11. Discussed Condition With Patient and RN Physician Certification 2 Midnight Certification Type: Admission for Inpatient Services Order for Inpatient Services The services are ordered in accordance with Medicare regulations or non- Medicare payer requirements, as applicable. In the case of services not specified as inpatient-only, they are appropriately provided as inpatient services in accordance with the 2-midnight benchmark. Estimated LOS (days): 2 days is the estimated time the patient will need to remain in the hospital, assuming treatment plan goals are met and no additional complications. Post-Hospital Plan: Home Problem Qualifiers (1) CHF exacerbation: Qualified Codes: I50.23 - Acute on chronic systolic (congestive) heart failure (2) Afib: Qualified Codes: I48.91 - Unspecified atrial fibrillation Sandra Arroyo Jan 02, 2017 02:14 Alia Pryor MD Jan 11, 2017 12:10
[2017-01-02] MEDS ORDERED: GLUCAGON 1 MG/ML VIAL OTHER PRN (03:00)
[2017-01-02] MEDS ORDERED: DEXTROSE 50% IN WATER 50 ML VIAL(D50) IV PUSH PRN (03:00)
[2017-01-02] MEDS: ENOXAPARIN SODIUM 150 MG/ML SYRINGE SQ SCH ×2 (06:23→15:00)
[2017-01-02] MEDS: INSULIN ASPART SUPPLEMENTAL SCALE SQ SCH ×4 (08:00→21:16)
[2017-01-02] MEDS: ASPIRIN EC 325 MG TABEC PO SCH (08:50)
[2017-01-02] MEDS: FUROSEMIDE 40 MG/4 ML VIAL IV PUSH SCH ×2 (08:51→17:43)
[2017-01-02] MEDS: SODIUM CHLORIDE 0.9% FLUSH 10 ML FLUSH IV FLUSH SCH ×2 (08:52→21:14)
[2017-01-02 09:13] LABS: AUTOMATED NEUTROPHIL # 6.6 TH/MM3 (1.8-7.7); BASOPHIL # 0.1 TH/MM3 (0-0.2); BASOPHIL % 0.9 % (0.0-2.0); EOSINOPHIL # 0.2 TH/MM3 (0-0.4); EOSINOPHIL % 2.7 % (0.0-4.0); HEMO FLAGS DIFF FINAL; LYMPH % 13.6 % (9.0-44.0); LYMPHOCYTE # 1.2 TH/MM3 (1.0-4.8); MEAN CELL VOLUME 92.1 FL (80.0-100.0); MEAN CORPUSCULAR HEMOGLOBIN 29.9 PG (27.0-34.0); MEAN CORPUSCULAR HGB CONC 32.4 % (32.0-36.0); MONO % 9.1 % (0.0-8.0); NEUT % 73.7 % (16.0-70.0); PLATELET COUNT 239 TH/MM3 (150-450); RED BLOOD COUNT 4.45 MIL/MM3 (4.50-5.90); WHITE BLOOD COUNT 8.9 TH/MM3 (4.0-11.0)
[2017-01-02 10:50] LABS: BLOOD UREA NITROGEN 19 MG/DL (7-18); GLOMERULAR FILTRATION RATE 44 ML/MIN (>89)
[2017-01-02 11:30] LABS: ALKALINE PHOSPHATASE 65 U/L (45-117); ALT (GPT) 31 U/L (12-78); AST (GOT) 32 U/L (15-37); BICARBONATE 17.6 MEQ/L (21.0-32.0); TOTAL BILIRUBIN ADULT 0.9 MG/DL (0.2-1.0)
[2017-01-02 11:44] LABS: CREATINE KINASE 88 U/L (39-308)
[2017-01-02 11:46] LABS: ANION GAP 13 MEQ/L (5-15); CHLORIDE 93 MEQ/L (98-107); POTASSIUM 3.6 MEQ/L (3.5-5.1)
[2017-01-02 11:49] LABS: SODIUM (NA) 124 MEQ/L (136-145)
--- NOTE | 2017-01-02 11:50 | RADRPT ---
EXAM DATE/TIME: 01/02/2017 09:01 [place] COMPARISON: No previous studies available for comparison. INDICATIONS : Bilateral leg swelling. MEDICAL HISTORY : Hypertension. Hypercholesterolemia. Diabetic. SURGICAL HISTORY : Eye surgery. ENCOUNTER: Initial ACUITY: 1 day PAIN SCORE: 0/10 LOCATION: Bilateral leg. TECHNIQUE: Venous ultrasound of the left and right leg was performed from the inguinal ligament to the proximal calf. Real-time, color Doppler and spectral tracing, compression and augmentation techniques were us ed. FINDINGS: RIGHT LEG: There is normal compressibility of the deep venous system from the inguinal region to the proximal ca lf. No echogenic clot is seen in the lumen of the common femoral, femoral, popliteal, and posterior tibial veins. There is a normal response of the venous system to proximal and distal augmentation an d respiration. Edema is identified in the soft tissues of the lower leg. LEFT LEG: There is normal compressibility of the deep venous system from the inguinal region to the proximal ca lf. No echogenic clot is seen in the lumen of the common femoral, femoral, popliteal, and posterior tibial veins. There is a normal response of the venous system to proximal and distal augmentation an d respiration. Edema is identified in the soft tissues of the lower leg. CONCLUSION: 1. Edema in the soft tissues of the lower legs bilaterally. 2. However, no sonographic or Doppler findings of deep venous thrombosis Bandar Ricks MD on January 02, 2017 at 11:47 Board Certified Radiologist. This report was verified electronically.
--- NOTE | 2017-01-02 12:37 | PD.WCN.NOT ---
Wound Consult Description: Consult placed for wound management of bilateral lower extremity wounds per Dr Pryor Communicated with: Dr Lew Recommendation: Every 3 days and PRN for saturation or dislodgement: Cleanse right lower anterior leg with wound cleanser and gauze. Apply Maxorb II over wound bed and cover with 4x4 gauze. Secure with rolled gauze and tape. Do not apply tape to skin. Additional Information: Patient seen on for wound evaluation of right lower extremity. Left lower extremity is reddened, hard, tight, with a cobblestone appearance yet intact and dry. Right lower anterior leg is noted with 2 open areas with the proximal wound measuring 1.7cm x 1.3cm x 0.1cm of moist red non granulating tissue and yellow tissue with minimal yellow exudate noted on wound bed. Just underneath this wound bed is another wound measuring 4.8cm x 1.6cm x 0.1cm with a moist red non granulating wound bed and yellow tissue with ~50% dried yellow exudate and ~50% moist friable exudate. The wounds on right lower anterior leg are not actively draining nor have an odor. Periwound is noted with reddened hard cobblestone appearance. Wounds were cleansed with wound cleanser and gauze. Maxorb II was applied over wound beds and covered with 4x4 gauze secured with rolled gauze and tape. No tape was applied to skin. Justina Morillo [facility] Jan 02, 2017 12:37
--- NOTE | 2017-01-02 15:06 | HHI.HP ---
HPI Primary Care Physician Kandy Mullen MD History of Present Illness 71 y/o male with a history past medical history significant for HTN, DM, atrial fibrillation, bilateral lymphedema, and blindness presented to the ED with scrotum swelling, chest pain and shortness of breath. He states for the last 3 days his scrotum has been swollen and he has been short of breath. Yesterday he had a slight tightening chest pain prior to taking a 2 mile walk. He does complain of a non productive cough, and mild fever (unknown temp). Denies dysuria, diarrhea,nausea, or vomiting. Cardiology consulted for Afib and CHF management. Review of Systems Consitutional: DENIES: Fatigue, Fever, Chills, Weight gain, Weight loss Eyes: DENIES: Amaurosis Fugax, Change in vision HEENT: DENIES: Lightheadedness, Change in hearing Respiratory: COMPLAINS OF: See HPI, Shortness of breath Cardiovascular: COMPLAINS OF: See HPI, Chest pain Gastrointestinal: DENIES: Nausea, Vomiting, Change in bowel habits, Reflux, Bloody stools, Melena Genitourinary: DENIES: Urinary incontinence, Difficulty voiding Integumentary: DENIES: Rash Neurologic: DENIES: Tingling or numbness, Memory problems, Poor Balance, Stroke symptoms Musculoskeletal: DENIES: Joint pain, Muscle pain, Limited range of motion, Back pain Psychiatric: DENIES: Anxiety, Depression, Sleep disturbances Hematologic: DENIES: Bruising tendencies, Bleeding tendencies Endocrine: DENIES: Weight gain, Weight loss, Thyroid disease Past Family Social History Allergies: Coded Allergies: Sulfa (Sulfonamide Antibiotics) (Unverified Allergy, Severe, TONGUE SWELLING, 01/01/17) Past Medical History HTN DM CHF unknown Irregular heartbeat Lymphedema Blind Afib not on any medication Past Surgical History eye surgeries x 17 Reported Medications Reported Meds & Active Scripts Active Mupirocin Topical (Mupirocin) 2 % Oint 1 Applic TOPICAL BID Keflex (Cephalexin) 500 Mg Cap 500 Mg PO Q12H 10 Days Reported Verapamil ER 24 HR (Verapamil HCl) 240 Mg Tab 240 Mg PO BID Simvastatin 20 Mg Tab 20 Mg PO HS Klor-Con 10 (Potassium Chloride) 10 Meq Tab 10 Meq PO DAILY Metformin ER (Metformin HCl) 500 Mg Nicanor 500 Mg PO DAILY With evening meal Januvia (Sitagliptin Phosphate) 100 Mg Tab 100 Mg PO DAILY Glipizide 10 Mg Tab 10 Mg PO HS Take 30 minutes before a meal Furosemide 40 Mg Tab 40 Mg PO DAILY Benazepril (Benazepril HCl) 20 Mg Tab 20 Mg PO BID Active Ordered Medications Current Medications Medications (Trade) Dose Ordered Sig/Rosalie Route Start Time Stop Time Status Last Admin (Nitrostat Sl) 0.4 mg Q5M PRN SL 01/01/17 20:15 01/01/17 20:24 (NS Flush) 2 ml UNSCH PRN IV FLUSH 01/01/17 22:15 (NS Flush) 2 ml BID IV FLUSH 01/02/17 09:00 01/02/17 08:52 (Narcan Inj) 0.4 mg UNSCH PRN IV PUSH 01/01/17 22:15 (Ecotrin Ec) 325 mg DAILY PO 01/02/17 09:00 01/02/17 08:50 (Lasix Inj) 40 mg BID@09,18 IV PUSH 01/02/17 09:00 01/02/17 08:51 (D50w (Vial) Inj) 50 ml UNSCH PRN IV PUSH 01/02/17 03:00 (Glucagon Inj) 1 mg UNSCH PRN OTHER 01/02/17 03:00 (NovoLOG SUPPLEMENTAL SCALE) 1 ACHS SLIDING SCALE SQ 01/02/17 08:00 01/02/17 12:35 (Lovenox Inj) 130 mg Q12H SQ 01/02/17 03:00 01/02/17 06:23 (Duoneb Neb) 1 ampule Q6HR NEB PRN NEB 01/02/17 10:00 Physical Exam Vital Signs Vital Signs Date Time Temp Pulse Resp B/P (MAP) Pulse Ox O2 Delivery O2 Flow Rate FiO2 01/02/17 12:15 98.0 133 18 128/89 (102) 88 01/02/17 08:00 97.6 115 22 148/92 (110) 91 01/02/17 04:10 97.0 102 20 141/84 (103) 92 01/02/17 02:09 101 01/02/17 01:41 28 01/02/17 01:16 96.7 109 20 126/91 (103) 93 01/02/17 00:55 01/02/17 00:41 96 20 137/90 (106) 93 Nasal Cannula 4.00 01/01/17 22:45 89 18 151/78 (102) 94 Nasal Cannula 4.00 01/01/17 20:33 94 18 147/75 (99) 94 Nasal Cannula 2.00 01/01/17 20:01 20 94 Nasal Cannula 3.00 01/01/17 19:56 102 20 89 Room Air 01/01/17 19:56 102 20 149/116 (127) 94 Nasal Cannula 3.00 01/01/17 19:17 98.2 123 18 137/90 (106) 92 Room Air Physical Exam GENERAL: Well-nourished, well-developed patient. SKIN: Warm and dry. HEAD: Normocephalic. EYES: No scleral icterus. No injection or drainage. NECK: Supple, trachea midline. No JVD or lymphadenopathy. CARDIOVASCULAR: Regular rate and rhythm without murmurs, gallops, or rubs. RESPIRATORY: Breath sounds equal bilaterally. No accessory muscle use. GASTROINTESTINAL: Abdomen soft, non-tender, nondistended. EXTREMITIES: No cyanosis, or +++edema. Laboratory Laboratory Tests Test 01/01/17 20:05 01/01/17 21:00 01/02/17 05:45 01/02/17 08:15 White Blood Count 7.1 8.9 Red Blood Count 4.15 4.45 Hemoglobin 12.6 13.3 Hematocrit 38.2 41.0 Mean Corpuscular Volume 92.1 92.1 Mean Corpuscular Hemoglobin 30.3 29.9 Mean Corpuscular Hemoglobin Concent 32.9 32.4 Red Cell Distribution Width 15.7 16.0 Platelet Count 259 239 Mean Platelet Volume 8.0 8.4 Neutrophils (%) (Auto) 69.1 73.7 Lymphocytes (%) (Auto) 15.9 13.6 Monocytes (%) (Auto) 10.3 9.1 Eosinophils (%) (Auto) 3.6 2.7 Basophils (%) (Auto) 1.1 0.9 Neutrophils # (Auto) 4.9 6.6 Lymphocytes # (Auto) 1.1 1.2 Monocytes # (Auto) 0.7 0.8 Eosinophils # (Auto) 0.3 0.2 Basophils # (Auto) 0.1 0.1 CBC Comment DIFF FINAL DIFF FINAL Differential Comment Prothrombin Time 11.8 Prothromb Time International Ratio 1.1 Activated Partial Thromboplast Time 23.6 Blood Urea Nitrogen 21 19 Creatinine 1.88 1.56 Random Glucose 90 66 Total Protein 6.4 6.8 Albumin 3.4 3.3 Calcium Level 8.6 8.5 Magnesium Level 1.3 Alkaline Phosphatase 63 65 Aspartate Amino Transf (AST/SGOT) 22 32 Alanine Aminotransferase (ALT/SGPT) 30 31 Total Bilirubin 0.7 0.9 Sodium Level 138 124 Potassium Level 3.6 3.6 Chloride Level 105 93 Carbon Dioxide Level 23.9 17.6 Anion Gap 9 13 Estimat Glomerular Filtration Rate 35 44 Total Creatine Kinase 82 88 Troponin I 0.03 0.02 C-Reactive Protein LESS THAN 0.29 B-Type Natriuretic Peptide 522 Lipase 294 Thyroid Stimulating Hormone 3rd Gen 3.160 Urine Color LIGHT-YELLOW Urine Turbidity CLEAR Urine pH 5.5 Urine Specific [place] 1.003 Urine Protein NEG Urine Glucose (UA) NEG Urine Ketones NEG Urine Occult Blood NEG Urine Nitrite NEG Urine Bilirubin NEG Urine Urobilinogen LESS THAN 2.0 Urine Leukocyte Esterase NEG Urine RBC LESS THAN 1 Urine WBC LESS THAN 1 Microscopic Urinalysis Comment CULT NOT INDICATED Hematology Comments Test 01/02/17 12:25 Total Creatine Kinase 78 Troponin I 0.03 Date/Time Source Procedure Growth Status 01/01/17 22:45 Wound Leg Gram Stain - Final Resulted 01/01/17 22:45 Wound Leg Wound Culture - Preliminary IMMATURE GROWTH - REINCUBATE Resulted Result Diagram: 01/02/17 0815 01/02/17 0545 Imaging Last Impressions Lower Extremity Ultrasound 01/02/17 0000 Signed Impressions: Service Date/Time: Monday, January 02, 2017 09:01 - CONCLUSION: 1. Edema in the soft tissues of the lower legs bilaterally. 2. However, no sonographic or Doppler findings of deep venous thrombosis Bandar Ricks MD Chest X-Ray 01/01/171957 Signed Impressions: Service Date/Time: Sunday, January 01, 2017 20:10 - CONCLUSION: CHF MD Noemi Cornejo VTE Risk Assessment Noemi VTE Risk Assessment: Mod/High Risk (score >= 2) Caprini Risk Assessment Model Point Value = 1 Point Value = 2 Point Value = 3 Point Value = 5 Age 41-60 Minor surgery BMI > 25 kg/m2 Swollen legs Varicose veins or History of unexplained or recurrent spontaneous Oral contraceptives or hormone replacement Sepsis (< 1 month) Serious lung disease, including pneumonia (< 1 month) Abnormal pulmonary function Acute myocardial infarction Congestive heart failure (< 1 month) History of inflammatory bowel disease Medical patient at bed rest Age 61-74 Arthroscopic surgery Major open surgery (> 45 min) Laparoscopic surgery (> 45 min) Malignancy Confined to bed (> 72 hours) Immobilizing plaster cast Central venous access Age >= 75 History of VTE Family history of VTE Factor V Leiden Prothrombin [id number] Lupus anticoagulant Anticardiolipin antibodies Elevated serum homocysteine Heparin-induced thrombocytopenia Other congenital or acquired thrombophilia Stroke (< 1 month) Elective arthroplasty Hip, pelvis, or leg fracture Acute spinal cord injury (< 1 month) Prophylaxis Regimen Total Risk Factor Score Risk Level Prophylaxis Regimen 0-1 Low Early ambulation 2 Moderate Order ONE of the following: *Sequential Compression Device (SCD) *Heparin 5000 units SQ BID 3-4 Higher Order ONE of the following medications: *Heparin 5000 units SQ TID *Enoxaparin/Lovenox 40 mg SQ daily (WT < 150 kg, CrCl > 30 mL/min) *Enoxaparin/Lovenox 30 mg SQ daily (WT < 150 kg, CrCl > 10-29 mL/min) *Enoxaparin/Lovenox 30 mg SQ BID (WT < 150 kg, CrCl > 30 mL/min) AND/OR *Sequential Compression Device (SCD) 5 or more Highest Order ONE of the following medications: *Heparin 5000 units SQ TID (Preferred with Epidurals) *Enoxaparin/Lovenox 40 mg SQ daily (WT < 150 kg, CrCl > 30 mL/min) *Enoxaparin/Lovenox 30 mg SQ daily (WT < 150 kg, CrCl > 10-29 mL/min) *Enoxaparin/Lovenox 30 mg SQ BID (WT < 150 kg, CrCl > 30 mL/min) AND *Sequential Compression Device (SCD) Assessment and Plan Problem List: (1) CHF exacerbation ICD Codes: I50.9 - Heart failure, unspecified Plan: 71 y/o M with CHF symptoms, atrial fibrillation, and severe hyponatremia. EKG shows atrial fibrillation, ?old. No acute ST changes. Troponin negative. Recommendations 1. IV Lasix 40mg IV BID 2. Strict I&O 3. Daily weight 4. Low salt diet 5. Rate control for Afib with Cardizem drip 6. OAC recommended 7. Get 2Dechocardiogram to assess LV systolic function. 8. Nephro consult 9. TSH, Free T3 and T4 Thank you for the opportunity to take part in the care of this patient Further management to be determine (2) Afib ICD Codes: I48.91 - Unspecified atrial fibrillation (3) Laceration of right wrist ICD Codes: S61.511A - Laceration without foreign body of right wrist, initial encounter Status: Acute Problem Qualifiers (1) CHF exacerbation: Qualified Codes: I50.9 - Heart failure, unspecified (2) Afib: Qualified Codes: I48.91 - Unspecified atrial fibrillation Bahman Engel MD Jan 02, 2017 15:06
--- NOTE | 2017-01-02 15:43 | EKG ---
Date Performed: 01/01/2017 Time Performed: 19:38:57 PTAGE: 71 years EKG: ATRIAL FIBRILLATION WITH RAPID VENTRICULAR RESPONSE WITH ABERRANT CONDUCTION OR VENTRICULAR PREMATURE COMPLEXES BORDERLINE RIGHT AXIS DEVIATION LOW QRS VOLTAGE IN EXTREMITY LEADS MODERATE INTR AVENTRICULAR CONDUCTION DELAY NONSPECIFIC ST & T-WAVE ABNORMALITY ABNORMAL RHYTHM ECG INTERPRETATION BASED ON A DEFAULT AGE OF 40 YEARS Compared to prior tracing no significant change PREVIOUS TRACING : 11/22/2016 11.49 DOCTOR: Vinh Segura Interpretating Date/Time 01/02/2017 15:43:14
--- NOTE | 2017-01-02 15:43 | EKG ---
Date Performed: 01/02/2017 Time Performed: 02:47:48 PTAGE: 71 years EKG: Atrial fibrillation with rapid ventricular response with multifocal PVCs or aberrant ventri cular conduction Incomplete LBBB Poor R wave progression - probable normal variant Anterolateral ST-T changes are nonspecific Low QRS voltages in limb leads Abnormal ECG Compared to prior tracing no sig nificant change PREVIOUS TRACING : 01/01/2017 19.38 DOCTOR: Vinh Segura Interpretating Date/Time 01/02/2017 15:43:28
--- NOTE | 2017-01-02 15:44 | EKG ---
Date Performed: 01/02/2017 Time Performed: 09:41:04 PTAGE: 71 years EKG: ATRIAL FIBRILLATION WITH RAPID VENTRICULAR RESPONSE BORDERLINE RIGHT AXIS DEVIATION LOW QRS VOLTAGE IN EXTREMITY LEADS NONSPECIFIC ST & T-WAVE ABNORMALITY ABNORMAL RHYTHM ECG Compared to prior tracing no significant change PREVIOUS TRACING : 01/02/2017 02.47 DOCTOR: Vinh Segura Interpretating Date/Time 01/02/2017 15:43:37
[2017-01-02] MEDS: SODIUM CHLORIDE 0.9% FLUSH 10 ML FLUSH IV FLUSH PRN (17:43)
[2017-01-03] VITALS (11 sets, daily range): BP systolic 120–160; BP diastolic 80–98; PULSE 111–139; RESP 17–22; TEMP 97.2–98.4; O2SAT 92–99
[2017-01-03 02:31] LABS: BLOOD GAS BASE EXCESS 0.2 mmol/L (-2-2); BLOOD GAS CARBOXYHEMOGLOBIN 1.4 % (0-4); BLOOD GAS HCO3 24 mmol/L (22-26); BLOOD GAS METHEMOGLOBIN 0.6 % (0-2); BLOOD GAS O2 HGB SATURATION 89 % (90-100); BLOOD GAS OXYGEN CONTENT 15.8 Vol % (12.0-20.0); BLOOD GAS PCO2 34 mmHg (38-42); BLOOD GAS PO2 61 mmHG (61-120); BLOOD GAS TOTAL HGB 12.7 G/DL (12.0-16.0); TEMP CORR TO 98.6
[2017-01-03 02:32] LABS: CRITICAL VALUE YES; DRAW SITE LT RADIAL; LITER FLOW 12 L/M; NUMBER OF ARTERIAL PUNCTURES 1; OXYGEN DEVICE NONREB MASK; STAT NO; ULNAR PULSE PRESENT
[2017-01-03] MEDS: RESP: ALBUTEROL 2.5 MG/IPRATROPIUM 0.5 MG NEB (PRN) NEB (03:01)
[2017-01-03] MEDS: ENOXAPARIN SODIUM 150 MG/ML SYRINGE SQ SCH ×2 (03:33→14:40)
[2017-01-03] MEDS: RESP: ALBUTEROL 2.5 MG/IPRATROPIUM 0.5 MG NEB (SCH) NEB ×4 (04:00→21:32)
[2017-01-03] MEDS: INSULIN ASPART SUPPLEMENTAL SCALE SQ SCH ×4 (08:00→21:00)
[2017-01-03] MEDS: FUROSEMIDE 40 MG/4 ML VIAL IV PUSH SCH ×2 (08:07→17:50)
[2017-01-03] MEDS: SODIUM CHLORIDE 0.9% FLUSH 10 ML FLUSH IV FLUSH SCH ×2 (08:07→20:35)
[2017-01-03] MEDS: ASPIRIN EC 325 MG TABEC PO SCH (08:07)
[2017-01-03 08:28] LABS: HEMATOCRIT 37.3 % (39.0-51.0); MEAN CELL VOLUME 91.9 FL (80.0-100.0); MEAN CORPUSCULAR HGB CONC 33.8 % (32.0-36.0); PLATELET COUNT 206 TH/MM3 (150-450); RED BLOOD COUNT 4.06 MIL/MM3 (4.50-5.90); RED CELL DISTRIBUTION WIDTH 15.9 % (11.6-17.2); REVIEW FLAG FINAL; WHITE BLOOD COUNT 7.7 TH/MM3 (4.0-11.0)
[2017-01-03 09:23] LABS: BICARBONATE 25.2 MEQ/L (21.0-32.0)
[2017-01-03] MEDS: SODIUM CHLORIDE 0.9% FLUSH 10 ML FLUSH IV FLUSH PRN (17:50)
--- NOTE | 2017-01-03 18:34 | HHI.PR ---
Subjective Remarks Hypokalemia present this morning. She's had good diuresis through time. Decrease edema and peripheral limbs. Hypoxia remains. Hyponatremia improved. Objective Vital Signs Date Time Temp Pulse Resp B/P (MAP) Pulse Ox O2 Delivery O2 Flow Rate FiO2 01/03/17 16:00 98.1 121 20 120/86 (97) 98 01/03/17 15:46 99 Aerosol Mask 8.00 01/03/17 12:00 97.3 139 20 137/83 (101) 96 01/03/17 09:16 Partial Rebreather 01/03/17 08:00 117 01/03/17 08:00 97.6 126 19 148/85 (106) 96 01/03/17 06:04 98.4 124 22 160/80 (106) 92 01/03/17 05:48 93 Partial Rebreather 12.00 01/03/17 04:30 97 60 01/03/17 03:01 92 Partial Rebreather 12.00 01/03/17 00:00 97.2 111 22 152/98 (116) 92 01/02/17 20:00 132 01/02/17 20:00 98.1 128 22 161/86 (111) 93 I/O 01/02/17 01/02/17 01/02/17 01/03/17 01/03/17 01/03/17 07:00 15:00 23:00 07:00 15:00 23:00 Intake Total 480 ml 120 ml 1320 ml 600 ml 1440 ml Output Total 2400 ml 1680 ml 500 ml 350 ml Balance -1920 ml 120 ml -360 ml 100 ml 1090 ml Intake Oral 480 ml 120 ml 1320 ml 600 ml 1440 ml Output Urine Total 2400 ml 1680 ml 500 ml 350 ml # Bowel Movements 0 0 0 Result Diagram: 01/03/17 0656 01/03/17655 Objective Remarks GENERAL: NAD, A&Ox3 HEAD: Normocephalic. NECK: Supple, trachea midline. No lymphadenopathy. EYES: No scleral icterus. No injection or drainage. CARDIOVASCULAR: Regular rate and rhythm without murmurs, gallops, or rubs. RESPIRATORY: Breath sounds equal bilaterally. No accessory muscle use. Crackles at bases. GASTROINTESTINAL: Abdomen soft, non-tender, nondistended. MUSCULOSKELETAL: No cyanosis. Lower extremity edema present. SKIN: Warm and dry. NEURO: No focal neurological deficitis. A/P Problem List: (1) CHF exacerbation ICD Code: I50.9 - Heart failure, unspecified (2) Afib ICD Code: I48.91 - Unspecified atrial fibrillation Assessment and Plan Assessment and Plan 71-year-old male admitted secondary to CHF exacerbation and hypoxia. Hypoxia Pulmonary edema Peripheral edema Possible CHF Echocardiogram pending Cardiology following BNP was elevated admitted If echocardiogram is within normal limits we'll consider evaluation for pulmonary embolism Afib, new onset Afib RVR Stabilized after Cardizem Patient has no interest in anticoagulation Chest pain Negative workup Diabetes mellitus type 2 Follow blood sugars Insulin sliding scale Diabetic diet Hypertension Continue home treatments Follow blood pressures DVT prophylaxis Lovenox Problem Qualifiers (1) CHF exacerbation: Qualified Codes: I50.9 - Heart failure, unspecified (2) Afib: Qualified Codes: I48.91 - Unspecified atrial fibrillation Gurwinder Lew MD Jan 03, 2017 18:34
[2017-01-03] MEDS ORDERED: POTASSIUM CHLORIDE 10 MEQ CONTROLLED RELEASE TAB PO ONE (18:45)
--- NOTE | 2017-01-03 20:28 | ECHRPT ---
Indication: heart failure CONCLUSIONS Mildly dilated left ventricle. Wall thickness is normal. The left ventricular systolic function is severely reduced with an estimated ejection fraction less than 20%. There is diffuse global hypokinesis. Mitral annular calcification is present. Mild thickening of the mitral valve leaflet. Aortic valve sclerosis is present. The estimated pulmonary arterial pressure is 22 mmHg. BP: 151 / 78 HR: 125 Rhythm: Atrial fibrillation MEASUREMENTS (Male / Female) Normal Values Technical Quality:Good 2D ECHO LV Diastolic Diameter PLAX 6.2 cm 4.2 - 5.9 / 3.9 - 5.3 cm LV Systolic Diameter PLAX 5.9 cm IVS Diastolic Thickness 0.9 cm 0.6 - 1.0 / 0.6 - 0.9 cm LVPW Diastolic Thickness 0.8 cm 0.6 - 1.0 / 0.6 - 0.9 cm LV Relative Wall Thickness 0.3 RV Internal Dim ED PLAX 2.1 cm LA Systolic Diameter LX 4.6 cm 3.0 - 4.0 / 2.7 - 3.8 cm DOPPLER MV Peak Velocity 96.4 cm/s MV Peak Gradient 3.7 mmHg MV Mean Velocity 46.2 cm/s MV Mean Gradient 1.0 mmHg Mitral E Point Velocity 68.1 cm/s TR Peak Velocity 174.0 cm/s TR Peak Gradient 12.1 mmHg Right Atrial Pressure 10.0 mmHg Pulmonary Artery Systolic Pressu 22.1 mmHg Right Ventricular Systolic Press 22.1 mmHg FINDINGS LEFT VENTRICLE Mildly dilated left ventricle. Wall thickness is normal. The left ventricular systolic function is severely reduced with an estimated ejection fraction less than 20%. There is diffuse global hypokinesis. RIGHT VENTRICLE Normal right ventricular size and systolic function. LEFT ATRIUM The left atrial size is normal. RIGHT ATRIUM The right atrial size is normal. ATRIAL SEPTUM Normal atrial septal thickness without atrial level shunting by limited color doppler interrogation. AORTA The aortic root and proximal ascending aorta are normal in size on limited imaging. MITRAL VALVE Mitral annular calcification is present. Mild thickening of the mitral valve leaflet. AORTIC VALVE Aortic valve sclerosis is present. TRICUSPID VALVE The estimated pulmonary arterial pressure is 22 mmHg. PULMONARY VALVE No pulmonary valve regurgitation or stenosis. VESSELS The inferior vena cava is normal in size. PERICARDIUM No pericardial effusion. Elsa Whitten MD, FACC (Electronically Signed) Final Date:03 January 2017 20:27
[2017-01-04] VITALS (10 sets, daily range): BP systolic 117–186; BP diastolic 80–86; PULSE 114–126; RESP 18–20; TEMP 96.3–97.6; O2SAT 94–100
[2017-01-04] MEDS: ENOXAPARIN SODIUM 150 MG/ML SYRINGE SQ SCH ×2 (02:56→15:43)
[2017-01-04] MEDS: RESP: ALBUTEROL 2.5 MG/IPRATROPIUM 0.5 MG NEB (SCH) NEB ×4 (03:52→21:53)
[2017-01-04] MEDS: INSULIN ASPART SUPPLEMENTAL SCALE SQ SCH ×4 (08:00→20:19)
[2017-01-04] MEDS: ASPIRIN EC 325 MG TABEC PO SCH (08:09)
[2017-01-04] MEDS: FUROSEMIDE 40 MG/4 ML VIAL IV PUSH SCH ×2 (08:10→18:18)
[2017-01-04] MEDS: SODIUM CHLORIDE 0.9% FLUSH 10 ML FLUSH IV FLUSH SCH ×2 (08:10→20:23)
[2017-01-04 09:01] LABS: AUTOMATED NEUTROPHIL # 4.4 TH/MM3 (1.8-7.7); BASOPHIL # 0.1 TH/MM3 (0-0.2); BASOPHIL % 0.8 % (0.0-2.0); EOSINOPHIL # 0.2 TH/MM3 (0-0.4); EOSINOPHIL % 3.7 % (0.0-4.0); HEMATOCRIT 37.5 % (39.0-51.0); HEMO FLAGS DIFF FINAL; LYMPH % 17.7 % (9.0-44.0); LYMPHOCYTE # 1.2 TH/MM3 (1.0-4.8); MEAN CELL VOLUME 92.7 FL (80.0-100.0); MEAN CORPUSCULAR HEMOGLOBIN 30.5 PG (27.0-34.0); MEAN CORPUSCULAR HGB CONC 32.9 % (32.0-36.0); MONO % 12.5 % (0.0-8.0); NEUT % 65.3 % (16.0-70.0); PLATELET COUNT 198 TH/MM3 (150-450); RED BLOOD COUNT 4.04 MIL/MM3 (4.50-5.90); RED CELL DISTRIBUTION WIDTH 16.4 % (11.6-17.2); WHITE BLOOD COUNT 6.8 TH/MM3 (4.0-11.0)
[2017-01-04 09:23] LABS: AST (GOT) 16 U/L (15-37); BLOOD UREA NITROGEN 21 MG/DL (7-18); CHLORIDE 106 MEQ/L (98-107); GLOMERULAR FILTRATION RATE 45 ML/MIN (>89); POTASSIUM 3.4 MEQ/L (3.5-5.1); SODIUM (NA) 141 MEQ/L (136-145)
[2017-01-04 09:36] LABS: ALKALINE PHOSPHATASE 56 U/L (45-117); ANION GAP 11 MEQ/L (5-15); BICARBONATE 23.6 MEQ/L (21.0-32.0)
[2017-01-04 09:41] LABS: ALT (GPT) 23 U/L (12-78); TOTAL BILIRUBIN ADULT 0.8 MG/DL (0.2-1.0)
[2017-01-04] MEDS ORDERED: IOHEXOL 350 MG/ML 10 ML VIAL (for RAD DIAG) IVCONTRAST ONE (11:24)
--- NOTE | 2017-01-04 11:49 | RADRPT ---
EXAM DATE/TIME: 01/04/2017 11:11 [facility] COMPARISON: No previous studies available for comparison. INDICATIONS : Persisting hypoxia; evaluate for pulmonary embolism. IV CONTRAST: 99 cc Omnipaque 350 (iohexol) IV RADIATION DOSE: 23.37 CTDIvol (mGy) MEDICAL HISTORY : Cardiovascular disease. Hypertension. Diabetes mellitus type 2. SURGICAL HISTORY : None. ENCOUNTER: Initial ACUITY: 1 day PAIN SCALE: 0/10 LOCATION: chest TECHNIQUE: Volumetric scanning of the chest was performed using a pulmonary embolism protocol MIP images were re constructed. Using automated exposure control and adjustment of the mA and/or kV according to patien t size, radiation dose was kept as low as reasonably achievable to obtain optimal diagnostic quality images. DICOM format image data is available electronically for review and comparison. Follow-up recommendations for detected pulmonary nodules are based at a minimum on nodule size and pa tient risk factors according to Fleischner Society Guidelines. FINDINGS: PULMONARY ARTERIES: Pulmonary arteries are visualized to the proximal subsegmental level without evidence for intralumina l filling defect. More distal subsegmental branches are suboptimally visualized. Main pulmonary arter y is prominent in size measuring up to 3.6 in meters. LUNGS: Moderate to severe bilateral anterior upper lobe paraseptal emphysema. Bilateral upper lobe groundgla ss opacities and bilateral airspace consolidation in the lower lobes presumably compressive atelectas is secondary to pleural effusions. PLEURAE: Moderate bilateral, right greater left, pleural effusions. These measure simple fluid in density. MEDIASTINUM: Coronary calcifications. Heart is mildly enlarged. No significant pericardial effusion. No gross medi astinal adenopathy. MUSCULOSKELETAL: Bony remodeling involving the posterior right ninth rib, likely secondary prior trauma. No abnormal l ytic or blastic bony lesions. MISCELLANEOUS: The visualized upper abdominal organs demonstrate no acute abnormality. CONCLUSION: 1. Moderate to severe anterior upper lobe paraseptal emphysema. 2. Cardiomegaly with perihilar groundglass opacities consistent with pulmonary edema. 3. Moderate bilateral, right greater then left, simple pleural effusions with associated airspace dis ease in the lower lobes, presumably compressive atelectasis. 4. Coronary artery calcifications. Ralph Wynn MD on January 04, 2017 at 11:40 Board Certified Radiologist. This report was verified electronically.
--- NOTE | 2017-01-04 15:56 | ECHRPT ---
Indication: EF assessment of CHF CONCLUSIONS Limited study. Doppler interrogation of valves not done. The left ventricular systolic function is severely reduced with an estimated ejection fraction of 15-20%. Global hypokinesis. Mild left ventricular e nlargment with normal wall thickeness. Mild to moderate mitral annular calcification. Trileaflet aortic valve. Possible mild aortic sclerosis. BP: 186 / 80 HR: 139 Rhythm: Other MEASUREMENTS (Male / Female) Normal Values Technical Quality:Good 2D ECHO LV Diastolic Diameter PLAX 5.9 cm 4.2 - 5.9 / 3.9 - 5.3 cm LV Systolic Diameter PLAX 5.4 cm IVS Diastolic Thickness 1.3 cm 0.6 - 1.0 / 0.6 - 0.9 cm LVPW Diastolic Thickness 1.3 cm 0.6 - 1.0 / 0.6 - 0.9 cm LV Relative Wall Thickness 0.4 FINDINGS LEFT VENTRICLE Limited study. Doppler interrogation of valves not done. The left ventricular systolic function is severely reduced with an estimated ejection fraction of 15-20%. Global hypokinesis. Mild left ventricular e nlargment with normal wall thickeness. RIGHT VENTRICLE Normal right ventricular size and systolic function. LEFT ATRIUM The left atrial size is normal. RIGHT ATRIUM The right atrial size is normal. ATRIAL SEPTUM Normal atrial septal thickness AORTA The aortic root and proximal ascending aorta are normal in size on limited imaging. MITRAL VALVE Moderate mitral annular calcification. AORTIC VALVE Trileaflet aortic valve. Possible mild aortic sclerosis. TRICUSPID VALVE Structurally normal tricuspid valve. PULMONARY VALVE The pulmonary valve is not well visualized. VESSELS The inferior vena cava is normal in size. PERICARDIUM No pericardial effusion. Benoit Briceño MD (Electronically Signed) Final Date:04 January 2017 15:55
--- NOTE | 2017-01-04 16:50 | HHI.PR ---
Subjective Remarks Patient continues to diurese well. Hypoxia remains, though slightly improved. CTA of chest obtained today and shows no evidence of pulmonary embolus. He does have evidence of mild to moderate pleural effusion and scarring of the lungs which may represent COPD. Undiagnosed Baseline hypoxia could be present. Objective Vital Signs Date Time Temp Pulse Resp B/P (MAP) Pulse Ox O2 Delivery O2 Flow Rate FiO2 01/04/17 12:00 96.9 114 20 117/81 (93) 97 01/04/17 09:19 97 Nasal Cannula 4.00 01/04/17 08:00 96.9 114 19 120/86 (97) 94 01/04/17 04:30 136/82 (100) 01/04/17 04:00 96.4 116 18 186/80 (115) 97 01/04/17 03:55 94 Nasal Cannula 4.00 01/04/17 00:00 01/03/17 21:32 94 Nasal Cannula 4.00 01/03/17 20:00 121 01/03/17 20:00 98.4 130 17 127/87 (100) 92 I/O 01/03/17 01/03/17 01/03/17 01/04/17 01/04/17 01/04/17 07:00 15:00 23:00 07:00 15:00 23:00 Intake Total 600 ml 1440 ml 240 ml 240 ml Output Total 500 ml 350 ml 550 ml Balance 100 ml 1090 ml -310 ml 240 ml Intake Oral 600 ml 1440 ml 240 ml 240 ml Output Urine Total 500 ml 350 ml 550 ml # Bowel Movements 0 0 Result Diagram: 01/04/17 0728 01/04/17 0728 Objective Remarks GENERAL: NAD, A&Ox3 HEAD: Normocephalic. NECK: Supple, trachea midline. No lymphadenopathy. EYES: No scleral icterus. No injection or drainage. CARDIOVASCULAR: Regular rate and rhythm without murmurs, gallops, or rubs. RESPIRATORY: Breath sounds equal bilaterally. No accessory muscle use. Crackles at bases. GASTROINTESTINAL: Abdomen soft, non-tender, nondistended. MUSCULOSKELETAL: No cyanosis. Lower extremity edema present. SKIN: Warm and dry. NEURO: No focal neurological deficitis. A/P Problem List: (1) CHF exacerbation ICD Code: I50.9 - Heart failure, unspecified (2) Afib ICD Code: I48.91 - Unspecified atrial fibrillation Assessment and Plan Assessment and Plan 71-year-old male admitted secondary to CHF exacerbation and hypoxia. Continue diuresis and monitor for resolution of hypoxia. Hypoxia persists after fluid balance is achieved patient may need to discharge on oxygen. Labs reviewed. Slight increase in creatinine which may be secondary to diuresis. Continue to follow renal function. Labs ordered. Hypoxia Pulmonary edema Peripheral edema Possible CHF Echocardiogram pending Cardiology following BNP was elevated admitted If echocardiogram is within normal limits we'll consider evaluation for pulmonary embolism Afib, new onset Afib RVR Stabilized after Cardizem Patient has no interest in anticoagulation Chest pain Negative workup Diabetes mellitus type 2 Follow blood sugars Insulin sliding scale Diabetic diet Hypertension Continue home treatments Follow blood pressures DVT prophylaxis Lovenox Problem Qualifiers (1) CHF exacerbation: Qualified Codes: I50.9 - Heart failure, unspecified (2) Afib: Qualified Codes: I48.91 - Unspecified atrial fibrillation Gurwinder Lew MD Jan 04, 2017 16:50
[2017-01-04] MEDS ORDERED: PILL SPLITTER OTHER PRN (18:15)
[2017-01-04] MEDS ORDERED: METOPROLOL TARTRATE 25 MG TAB PO ONE (18:15)
[2017-01-05] VITALS (8 sets, daily range): BP systolic 94–144; BP diastolic 70–88; PULSE 58–130; RESP 19–21; TEMP 96.8–98.1; O2SAT 94–97
[2017-01-05] MEDS: ENOXAPARIN SODIUM 150 MG/ML SYRINGE SQ SCH ×2 (03:40→15:04)
[2017-01-05] MEDS: RESP: ALBUTEROL 2.5 MG/IPRATROPIUM 0.5 MG NEB (SCH) NEB ×4 (04:21→21:14)
[2017-01-05 06:04] LABS: AUTOMATED NEUTROPHIL # 4.5 TH/MM3 (1.8-7.7); BASOPHIL # 0.1 TH/MM3 (0-0.2); BASOPHIL % 0.9 % (0.0-2.0); EOSINOPHIL # 0.2 TH/MM3 (0-0.4); EOSINOPHIL % 3.6 % (0.0-4.0); HEMATOCRIT 35.5 % (39.0-51.0); HEMO FLAGS DIFF FINAL; LYMPH % 16.7 % (9.0-44.0); LYMPHOCYTE # 1.1 TH/MM3 (1.0-4.8); MEAN CELL VOLUME 92.8 FL (80.0-100.0); MEAN CORPUSCULAR HGB CONC 33.4 % (32.0-36.0); MONO % 10.9 % (0.0-8.0); NEUT % 67.9 % (16.0-70.0); PLATELET COUNT 209 TH/MM3 (150-450); RED BLOOD COUNT 3.83 MIL/MM3 (4.50-5.90); WHITE BLOOD COUNT 6.6 TH/MM3 (4.0-11.0)
[2017-01-05 06:24] LABS: ALT (GPT) 23 U/L (12-78); ANION GAP 10 MEQ/L (5-15); AST (GOT) 17 U/L (15-37); BLOOD UREA NITROGEN 23 MG/DL (7-18); CHLORIDE 103 MEQ/L (98-107); GLOMERULAR FILTRATION RATE 43 ML/MIN (>89); POTASSIUM 3.3 MEQ/L (3.5-5.1); SODIUM (NA) 138 MEQ/L (136-145)
[2017-01-05 06:26] LABS: ALKALINE PHOSPHATASE 66 U/L (45-117); TOTAL BILIRUBIN ADULT 0.6 MG/DL (0.2-1.0)
[2017-01-05] MEDS: INSULIN ASPART SUPPLEMENTAL SCALE SQ SCH ×4 (08:00→20:21)
[2017-01-05] MEDS: ASPIRIN EC 325 MG TABEC PO SCH (08:04)
[2017-01-05] MEDS: FUROSEMIDE 40 MG/4 ML VIAL IV PUSH SCH ×2 (08:04→17:32)
[2017-01-05] MEDS: SODIUM CHLORIDE 0.9% FLUSH 10 ML FLUSH IV FLUSH SCH ×2 (08:05→20:18)
[2017-01-05] MEDS ORDERED: POTASSIUM CHLORIDE 10 MEQ CONTROLLED RELEASE TAB PO ONE (08:30)
[2017-01-05] MEDS ORDERED: METOPROLOL TARTRATE 25 MG TAB PO SCH ×2 (09:00→21:00)
[2017-01-05] MEDS ORDERED: LACTULOSE SYRUP 20 GM/30 ML CUP PO PRN (13:15)
[2017-01-05] MEDS ORDERED: LACTULOSE SYRUP 20 GM/30 ML CUP PO ONE (13:15)
[2017-01-05] MEDS ORDERED: METOPROLOL TARTRATE 25 MG TAB PO ONE (13:15)
[2017-01-05] MEDS ORDERED: MAGNESIUM OXIDE 400 MG TAB PO ONE (15:00)
--- NOTE | 2017-01-05 15:12 | HHI.PR ---
Subjective Remarks Continue diuresis. Fluid loss may be causing electrolyte disturbance leading to tachycardia. Patient tachycardia overnight and has recurrent tachycardia today. Electrolytes replaced and beta harpal added. Objective Vital Signs Date Time Temp Pulse Resp B/P (MAP) Pulse Ox O2 Delivery O2 Flow Rate FiO2 01/05/17 12:00 98.1 130 20 94/70 (78) 96 01/05/17 08:00 97.1 58 19 123/88 (100) 97 01/05/17 07:30 95 Nasal Cannula 4.00 01/05/17 00:00 97.5 126 20 144/79 (100) 97 01/04/17 21:53 98 Nasal Cannula 4.00 01/04/17 20:03 126 01/04/17 20:00 96.3 121 20 126/81 (96) 96 01/04/17 16:00 97.6 119 19 136/82 (100) 100 I/O 01/04/17 01/04/17 01/04/17 01/05/17 01/05/17 01/05/17 07:00 15:00 23:00 07:00 15:00 23:00 Intake Total 240 ml 240 ml 1740 ml 240 ml 240 ml Output Total 550 ml 1450 ml 1000 ml Balance -310 ml 240 ml 290 ml -760 ml 240 ml Intake Oral 240 ml 240 ml 1740 ml 240 ml 240 ml Output Urine Total 550 ml 1450 ml 1000 ml # Bowel Movements 1 Result Diagram: 01/05/1751701/05/17517 Objective Remarks GENERAL: NAD, A&Ox3 HEAD: Normocephalic. NECK: Supple, trachea midline. No lymphadenopathy. EYES: No scleral icterus. No injection or drainage. CARDIOVASCULAR: Regular rate and rhythm without murmurs, gallops, or rubs. RESPIRATORY: Breath sounds equal bilaterally. No accessory muscle use. Crackles at bases. GASTROINTESTINAL: Abdomen soft, non-tender, nondistended. MUSCULOSKELETAL: No cyanosis. Lower extremity edema present. SKIN: Warm and dry. NEURO: No focal neurological deficitis. A/P Problem List: (1) CHF exacerbation ICD Code: I50.9 - Heart failure, unspecified (2) Afib ICD Code: I48.91 - Unspecified atrial fibrillation Assessment and Plan Assessment and Plan 71-year-old male admitted secondary to CHF exacerbation and hypoxia. Continue diuresis and monitor for resolution of hypoxia. 2 episodes of tachycardia. Treated with metoprolol added as a baseline preventative treatment and electrolytes are being addressed. Hypoxia persists after fluid balance is achieved patient may need to discharge on oxygen. Labs reviewed. Slight increase in creatinine which may be secondary to diuresis. Continue to follow renal function. Labs ordered. Hypoxia Pulmonary edema Peripheral edema Possible CHF Echocardiogram pending Cardiology following BNP was elevated admitted If echocardiogram is within normal limits we'll consider evaluation for pulmonary embolism Afib, new onset Afib RVR Stabilized after Cardizem Patient has no interest in anticoagulation Chest pain Negative workup Diabetes mellitus type 2 Follow blood sugars Insulin sliding scale Diabetic diet Hypertension Continue home treatments Follow blood pressures DVT prophylaxis Lovenox Problem Qualifiers (1) CHF exacerbation: Qualified Codes: I50.9 - Heart failure, unspecified (2) Afib: Qualified Codes: I48.91 - Unspecified atrial fibrillation Gurwinder Lew MD Jan 05, 2017 15:12
[2017-01-05] MEDS ORDERED: DILTIAZEM HCL 60 MG TAB PO ONE (16:00)
[2017-01-05] MEDS ORDERED: DIGOXIN 0.25 MG TAB PO ONE (16:45)
[2017-01-05] MEDS: DILTIAZEM HCL 30 MG TAB PO SCH (20:17)
[2017-01-05] MEDS: DOCUSATE SODIUM 100 MG CAP PO SCH (20:17)
[2017-01-05] MEDS ORDERED: ACETAMINOPHEN/HYDROcodone 325 MG/5 MG TAB PO ONE (20:45)
[2017-01-06] VITALS (9 sets, daily range): BP systolic 117–143; BP diastolic 75–91; PULSE 101–116; RESP 17–20; TEMP 95.5–98; O2SAT 87–98
[2017-01-06] MEDS: RESP: ALBUTEROL 2.5 MG/IPRATROPIUM 0.5 MG NEB (SCH) NEB ×4 (03:17→21:14)
[2017-01-06] MEDS: ENOXAPARIN SODIUM 150 MG/ML SYRINGE SQ SCH ×2 (04:12→15:00)
[2017-01-06] MEDS: DILTIAZEM HCL 30 MG TAB PO SCH ×4 (04:17→21:07)
[2017-01-06 07:46] LABS: HEMATOCRIT 38.9 % (39.0-51.0); MEAN CELL VOLUME 92.8 FL (80.0-100.0); MEAN CORPUSCULAR HEMOGLOBIN 30.9 PG (27.0-34.0); MEAN CORPUSCULAR HGB CONC 33.3 % (32.0-36.0); PLATELET COUNT 218 TH/MM3 (150-450); RED BLOOD COUNT 4.19 MIL/MM3 (4.50-5.90); RED CELL DISTRIBUTION WIDTH 15.9 % (11.6-17.2); REVIEW FLAG FINAL; WHITE BLOOD COUNT 5.9 TH/MM3 (4.0-11.0)
[2017-01-06] MEDS: INSULIN ASPART SUPPLEMENTAL SCALE SQ SCH ×4 (08:00→21:28)
[2017-01-06 08:12] LABS: MAGNESIUM 1.7 MG/DL (1.5-2.5); POTASSIUM 3.5 MEQ/L (3.5-5.1)
[2017-01-06] MEDS: MAGNESIUM OXIDE 400 MG TAB PO SCH (09:07)
[2017-01-06] MEDS: ASPIRIN EC 325 MG TABEC PO SCH (09:07)
[2017-01-06] MEDS: SODIUM CHLORIDE 0.9% FLUSH 10 ML FLUSH IV FLUSH SCH ×2 (09:08→21:08)
[2017-01-06] MEDS: DOCUSATE SODIUM 100 MG CAP PO SCH ×2 (09:08→21:07)
[2017-01-06] MEDS: FUROSEMIDE 40 MG TAB PO SCH (09:11)
--- NOTE | 2017-01-06 14:32 | HHI.PR ---
Subjective Remarks Today it appears diuresis has been pushed to maximum. Patient demonstrates on his blood work a concentration of his hemoglobin and his creatinine has started to increase. She has no new complaints. Oxygen is still present. Wound cultures have resulted. Objective Vital Signs Date Time Temp Pulse Resp B/P (MAP) Pulse Ox O2 Delivery O2 Flow Rate FiO2 01/06/17 12:00 98.0 114 17 143/80 (101) 94 01/06/17 11:13 97 Nasal Cannula 4.00 01/06/17 08:00 96.9 105 18 137/90 (106) 96 01/06/17 04:00 95.5 116 20 123/91 (102) 94 01/06/17 03:21 98 01/06/17 00:00 96.2 109 20 125/84 (98) 95 01/05/17 20:02 115 01/05/17 20:00 96.8 112 21 125/83 (97) 95 01/05/17 16:00 98.1 74 19 135/71 (92) 95 01/05/17 15:52 94 Nasal Cannula 4.00 I/O 01/05/17 01/05/17 01/05/17 01/06/17 01/06/17 01/06/17 07:00 15:00 23:00 07:00 15:00 23:00 Intake Total 240 ml 240 ml 1440 ml 240 ml Output Total 1000 ml 1850 ml 150 ml Balance -760 ml 240 ml -410 ml 90 ml Intake Oral 240 ml 240 ml 1440 ml 240 ml Output Urine Total 1000 ml 1850 ml 150 ml # Bowel Movements 3 Result Diagram: 01/06/1770601/06/17706 Objective Remarks GENERAL: NAD, A&Ox3 HEAD: Normocephalic. NECK: Supple, trachea midline. No lymphadenopathy. EYES: No scleral icterus. No injection or drainage. CARDIOVASCULAR: Regular rate and rhythm without murmurs, gallops, or rubs. RESPIRATORY: Breath sounds equal bilaterally. No accessory muscle use. Crackles at bases. GASTROINTESTINAL: Abdomen soft, non-tender, nondistended. MUSCULOSKELETAL: No cyanosis. Lower extremity edema present. SKIN: Warm and dry. NEURO: No focal neurological deficitis. A/P Problem List: (1) CHF exacerbation ICD Code: I50.9 - Heart failure, unspecified (2) Afib ICD Code: I48.91 - Unspecified atrial fibrillation Assessment and Plan Assessment and Plan 71-year-old male admitted secondary to CHF exacerbation and hypoxia. Diuresis transition to maintenance. Oxygen challenge, walk test ordered. Patient may need oxygen at discharge. By mouth antibiotic selection of possible based on wound cultures. Plan for discharge of this patient tomorrow, if renal function stable. Hypoxia Pulmonary edema Peripheral edema Possible CHF Echocardiogram pending Cardiology following BNP was elevated admitted If echocardiogram is within normal limits we'll consider evaluation for pulmonary embolism Afib, new onset Afib RVR Stabilized after Cardizem Patient has no interest in anticoagulation Chest pain Negative workup Diabetes mellitus type 2 Follow blood sugars Insulin sliding scale Diabetic diet Hypertension Continue home treatments Follow blood pressures DVT prophylaxis Lovenox Problem Qualifiers (1) CHF exacerbation: Qualified Codes: I50.9 - Heart failure, unspecified (2) Afib: Qualified Codes: I48.91 - Unspecified atrial fibrillation Gurwinder Lew MD Jan 06, 2017 14:31
[2017-01-07] VITALS (9 sets, daily range): BP systolic 112–139; BP diastolic 67–96; PULSE 102–123; RESP 18–22; TEMP 96.5–97.9; O2SAT 91–96
[2017-01-07] MEDS: ENOXAPARIN SODIUM 150 MG/ML SYRINGE SQ SCH ×2 (03:00→15:00)
[2017-01-07] MEDS: RESP: ALBUTEROL 2.5 MG/IPRATROPIUM 0.5 MG NEB (SCH) NEB (03:44)
[2017-01-07] MEDS: DILTIAZEM HCL 30 MG TAB PO SCH ×2 (04:23→10:02)
[2017-01-07 07:45] LABS: HEMATOCRIT 37.2 % (39.0-51.0); MEAN CELL VOLUME 93.5 FL (80.0-100.0); MEAN CORPUSCULAR HEMOGLOBIN 30.5 PG (27.0-34.0); MEAN CORPUSCULAR HGB CONC 32.7 % (32.0-36.0); PLATELET COUNT 219 TH/MM3 (150-450); RED BLOOD COUNT 3.98 MIL/MM3 (4.50-5.90); RED CELL DISTRIBUTION WIDTH 15.7 % (11.6-17.2); REVIEW FLAG FINAL; WHITE BLOOD COUNT 5.9 TH/MM3 (4.0-11.0)
[2017-01-07] MEDS: INSULIN ASPART SUPPLEMENTAL SCALE SQ SCH ×4 (08:00→20:25)
[2017-01-07 08:19] LABS: BICARBONATE 24.9 MEQ/L (21.0-32.0); POTASSIUM 3.7 MEQ/L (3.5-5.1)
[2017-01-07] MEDS: ASPIRIN EC 325 MG TABEC PO SCH (10:01)
[2017-01-07] MEDS: DOCUSATE SODIUM 100 MG CAP PO SCH ×2 (10:02→20:23)
[2017-01-07] MEDS: FUROSEMIDE 40 MG TAB PO SCH (10:02)
[2017-01-07] MEDS: SODIUM CHLORIDE 0.9% FLUSH 10 ML FLUSH IV FLUSH SCH ×2 (10:02→20:23)
[2017-01-07] MEDS: MAGNESIUM OXIDE 400 MG TAB PO SCH (10:03)
[2017-01-07] MEDS ORDERED: OXYGENDME NAS.CANULA (10:36)
--- NOTE | 2017-01-07 10:39 | HHI.FF ---
Face to Face Verification Diagnosis: (1) CHF exacerbation (2) Afib (3) Hypoxia Physical Therapy Order: Evaluate and Treat Home Health Nursing Order: Signs/symptoms of disease process CHF education Oxygen administration education Wound care and dressing changes I have seen patient Gurwinder Rodriguez on 01/07/17. My clinical findings support the need for the requested home health care services because: Ltd mobility - disease progression Patient has SOB Deconditioned w/ increased weakness Limited ability to care for self Need for psychosocial assistance High risk of falls Infection w/ risk of complications I certify that my clinical findings support that this patient is homebound because: Unsteady gait/balance Unsafe to leave home unassisted Unable to use public transportation Poor cardiac reserve Gurwinder Lew MD Jan 07, 2017 10:38
[2017-01-07] MEDS ORDERED: CARD180C5 PO (10:49)
[2017-01-07] MEDS ORDERED: LISI2.5T3 PO (10:49)
[2017-01-07] MEDS ORDERED: ASPI325T33 PO (10:49)
[2017-01-07] MEDS ORDERED: CARV3.125 PO (10:49)
--- NOTE | 2017-01-07 12:56 | HHI.PR ---
Subjective Remarks No new complaints from the patient. He failed his walk test will need home oxygen. Ejection fraction is estimated at 15-20%. This patient may need likely , awaiting cardiology input. Objective Vital Signs Date Time Temp Pulse Resp B/P (MAP) Pulse Ox O2 Delivery O2 Flow Rate FiO2 01/07/17 12:44 96 Nasal Cannula 2.00 01/07/17 12:00 96.7 118 18 137/96 (110) 96 01/07/17 08:00 111 01/07/17 08:00 97.1 102 19 136/78 (97) 92 01/07/17 04:00 97.9 122 19 125/90 (102) 91 01/07/17 00:00 97.3 123 18 139/67 (91) 92 01/06/17 21:05 95 Nasal Cannula 2.00 01/06/17 20:00 97.7 101 18 123/75 (91) 87 01/06/17 16:00 97.1 107 18 117/82 (94) 93 I/O 01/06/17 01/06/17 01/06/17 01/07/17 01/07/17 01/07/17 07:00 15:00 23:00 07:00 15:00 23:00 Intake Total 240 ml 1440 ml 240 ml Output Total 150 ml 1950 ml 200 ml Balance 90 ml -510 ml 40 ml Intake Oral 240 ml 1440 ml 240 ml Output Urine Total 150 ml 1950 ml 200 ml # Bowel Movements 0 Result Diagram: 01/07/17 0735 01/07/17 0735 Objective Remarks GENERAL: NAD, A&Ox3 HEAD: Normocephalic. NECK: Supple, trachea midline. No lymphadenopathy. EYES: No scleral icterus. No injection or drainage. CARDIOVASCULAR: Regular rate and rhythm without murmurs, gallops, or rubs. RESPIRATORY: Breath sounds equal bilaterally. No accessory muscle use. Crackles at bases. GASTROINTESTINAL: Abdomen soft, non-tender, nondistended. MUSCULOSKELETAL: No cyanosis. Lower extremity edema present. SKIN: Warm and dry. NEURO: No focal neurological deficitis. A/P Problem List: (1) CHF exacerbation ICD Code: I50.9 - Heart failure, unspecified (2) Afib ICD Code: I48.91 - Unspecified atrial fibrillation Assessment and Plan Assessment and Plan 71-year-old male admitted secondary to CHF exacerbation and hypoxia. Diuresis transition to maintenance. Oxygen challenge, walk test performed and patient failed. Oxygen will be set up for home. Discharge pending. Cardiology clearance pending. Opinion regarding LifeVest pending. Hypoxia Pulmonary edema Peripheral edema Possible CHF Echocardiogram pending Cardiology following BNP was elevated admitted If echocardiogram is within normal limits we'll consider evaluation for pulmonary embolism Afib, new onset Afib RVR Stabilized after Cardizem Patient has no interest in anticoagulation Chest pain Negative workup Diabetes mellitus type 2 Follow blood sugars Insulin sliding scale Diabetic diet Hypertension Continue home treatments Follow blood pressures DVT prophylaxis Lovenox Problem Qualifiers (1) CHF exacerbation: Qualified Codes: I50.9 - Heart failure, unspecified (2) Afib: Qualified Codes: I48.91 - Unspecified atrial fibrillation Gurwinder Lew MD Jan 07, 2017 12:56
[2017-01-07] MEDS ORDERED: AMPI500C8 PO (13:08)
[2017-01-07] MEDS ORDERED: LACTTAB8 PO (13:08)
[2017-01-07] MEDS ORDERED: LEVA500T33 PO (13:08)
[2017-01-07] MEDS ORDERED: DIGOXIN 0.5 MG/2 ML VIAL IV PUSH ONE (13:15)
[2017-01-07] MEDS: FUROSEMIDE 40 MG/4 ML VIAL IV PUSH SCH ×2 (15:03→21:04)
--- NOTE | 2017-01-07 15:49 | MB ---
cc: GAYATHRI CHOWDHURY M.D. DATE OF CONSULTATION: 01/07/2017. REASON FOR CONSULTATION: Uncompensated heart failure, atrial fibrillation with fast ventricular response. HISTORY OF PRESENT ILLNESS: Mr. Pryor is a 71-year-old gentleman with history of high blood pressure, hyperlipidemia, diabetes mellitus, obesity, atrial fibrillation admitted to the emergency room due to atrial fibrillation with fast ventricular response and uncompensated COPD. During hospitalization, echocardiogram indicated an ejection fraction of around 15%. The patient can barely walk a couple of steps without shortness of breath. Heart rate currently very difficult to control. I was consulted for further management. The chart was reviewed. The patient was evaluated. 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 ALLERGIES: SULFA. SOCIAL HISTORY: He stopped smoking ten years ago. He drinks once every two to three months. FAMILY HISTORY: Noncontributory to his current medical condition. MEDICATIONS: He is on: 1. Cardizem. 2. Lisinopril. 3. Coreg. 4. Lovenox. 5. Lasix. REVIEW OF SYSTEMS: Currently he refers shortness of breath even moving from the bed. No vomiting. No fever. PHYSICAL EXAMINATION: GENERAL: Alert, fully oriented. VITAL SIGNS: His blood pressure is 137/96, pulse of 118, respiratory rate of 20 to 22. LUNGS: Some minimal basal crackles. CARDIOVASCULAR: S1-S2 tachycardic irregular. ABDOMEN: Abdomen obese, no mass. No bruits. EXTREMITIES: Edema +2 to 3. EKGS: Electrocardiogram indicates atrial fibrillation, diffuse S-T changes. LABS: Creatinine 1.69, potassium 3.7, magnesium is 3.9 yesterday. Troponin less than 0.03. BNP on hospitalization at the beginning was 522 and that needs to be repeated. INR 1.1. ASSESSMENT AND RECOMMENDATIONS: Mr. Pryor has an ejection fraction of 15%. Apparently he is in active heart failure. Also his heart rate is very difficult to control. He was on Cardizem IV and Cardizem p.o. At this point, I need a new BNP. I am going to put him on Lasix IV for three doses, 40 milligrams q. 8 hours x3 and then re-evaluate him in the morning. Based on the labs, I am going to increase the Coreg to 6.25 twice a day. I am going to increase the Cardizem to 240 milligrams a day and increase the lisinopril to 20 milligrams a day. I was thinking about putting the patient on Entresto but I do not think he can afford the medication. I have added Digoxin 0.5 milligrams IV bolus and further evaluation in the morning. The creatinine is 1.67. He is still on Lovenox 130 twice a day; he is at 1 mg/kg; that will be re-evaluated in the morning based on the creatinine clearance. The gentleman was doing okay until suddenly. Ischemic workup will be necessary. I discussed the case with the gentleman. He is not showing too much interest in his condition. His condition is of care. His prognosis is guarded. I discussed the case with the admitting doctor. MD SEBASTIAN Dawkins/YVETTE /1:23 PM /3:39 PM
[2017-01-07] MEDS: RESP: ALBUTEROL 2.5 MG/IPRATROPIUM 0.5 MG NEB (PRN) NEB (16:29)
[2017-01-07] MEDS: CARVEDILOL 6.25 MG TAB PO SCH (20:23)
[2017-01-07] MEDS ORDERED: CARVEDILOL 3.125 MG TAB PO SCH (21:00)
[2017-01-08] VITALS: BP 118/86; PULSE 112; RESP 22; TEMP 97.1; O2SAT 93
[2017-01-08 04:00] VITALS: BP 120/82; PULSE 98; RESP 22; TEMP 96.2; O2SAT 93
[2017-01-08] MEDS: FUROSEMIDE 40 MG/4 ML VIAL IV PUSH SCH ×2 (06:30→15:00)
[2017-01-08 06:32] LABS: BICARBONATE 26.4 MEQ/L (21.0-32.0)
[2017-01-08 08:00] VITALS: BP 152/95; PULSE 104; RESP 19; TEMP 96.3; O2SAT 95
[2017-01-08] MEDS: INSULIN ASPART SUPPLEMENTAL SCALE SQ SCH ×4 (08:00→20:55)
[2017-01-08] MEDS ORDERED: LISINOPRIL 20 MG TAB PO SCH (09:00)
[2017-01-08] MEDS ORDERED: DILTIAZEM-CD 180 MG CAP ER PO SCH (09:00)
[2017-01-08] MEDS ORDERED: LISINOPRIL 5 MG TAB PO SCH (09:00)
[2017-01-08] MEDS: SODIUM CHLORIDE 0.9% FLUSH 10 ML FLUSH IV FLUSH SCH ×2 (09:00→20:55)
[2017-01-08] MEDS ORDERED: REGADENOSON INJ 0.4 MG/5 ML SYR ONE (09:10)
[2017-01-08] MEDS: CARVEDILOL 6.25 MG TAB PO SCH (10:03)
[2017-01-08] MEDS: DILTIAZEM-CD 240 MG CAP ER PO SCH (10:03)
[2017-01-08] MEDS: MAGNESIUM OXIDE 400 MG TAB PO SCH (10:04)
[2017-01-08] MEDS: ASPIRIN EC 325 MG TABEC PO SCH (10:04)
[2017-01-08] MEDS: DOCUSATE SODIUM 100 MG CAP PO SCH ×2 (10:04→20:54)
[2017-01-08] MEDS: ENOXAPARIN SODIUM 40 MG/0.4 ML SYRINGE SQ SCH (10:04)
[2017-01-08 16:00] VITALS: BP 141/83; PULSE 100; RESP 18; TEMP 97.5; O2SAT 98
--- NOTE | 2017-01-08 16:41 | HHI.PR ---
Subjective Remarks Feeling better Objective Vital Signs Date Time Temp Pulse Resp B/P (MAP) Pulse Ox O2 Delivery O2 Flow Rate FiO2 01/08/17 08:00 96.3 104 19 152/95 (114) 95 01/08/17 04:00 96.2 98 22 120/82 (95) 93 01/08/17 00:00 97.1 112 22 118/86 (97) 93 01/07/17 21:26 110 01/07/17 20:00 97.2 112 22 112/90 (97) 93 I/O 01/07/17 01/07/17 01/07/17 01/08/17 01/08/17 01/08/17 07:00 15:00 23:00 07:00 15:00 23:00 Intake Total 240 ml 1440 ml 480 ml Output Total 200 ml 2050 ml 1600 ml Balance 40 ml -610 ml -1120 ml Intake Oral 240 ml 1440 ml 480 ml Output Urine Total 200 ml 2050 ml 1600 ml # Bowel Movements 0 0 Result Diagram: 01/07/17 0735 01/08/17 0514 Imaging Alert, fully oriented, in bed Lungs: ventilated Heart: S1, S2 irregular Andomen: soft, no mass Ext: edema+2. PVD Last Impressions CT Angiography 01/04/17 0000 Signed Impressions: Service Date/Time: December 11:11 - CONCLUSION: 1. Moderate to severe anterior upper lobe paraseptal emphysema. 2. Cardiomegaly with perihilar groundglass opacities consistent with pulmonary edema. 3. Moderate bilateral, right greater then left, simple pleural effusions with associated airspace disease in the lower lobes, presumably compressive atelectasis. 4. Coronary artery calcifications. Ralph Wynn MD Lower Extremity Ultrasound 01/02/17 0000 Signed Impressions: Service Date/Time: Monday, January 02, 2017 09:01 - CONCLUSION: 1. Edema in the soft tissues of the lower legs bilaterally. 2. However, no sonographic or Doppler findings of deep venous thrombosis Bandar Ricks MD Chest X-Ray 01/01/171957 Signed Impressions: Service Date/Time: Sunday, January 01, 2017 20:10 - CONCLUSION: CHF Oneal Robbins MD Current Medications Medications (Trade) Dose Ordered Sig/Rosalie Route Start Time Stop Time Status Last Admin (Nitrostat Sl) 0.4 mg Q5M PRN SL 01/01/17 20:15 01/01/17 20:24 (NS Flush) 2 ml UNSCH PRN IV FLUSH 01/01/17 22:15 01/03/17 17:50 (NS Flush) 2 ml BID IV FLUSH 01/02/17 09:00 01/08/17 09:00 (Narcan Inj) 0.4 mg UNSCH PRN IV PUSH 01/01/17 22:15 (Ecotrin Ec) 325 mg DAILY PO 01/02/17 09:00 01/08/17 10:04 (D50w (Vial) Inj) 50 ml UNSCH PRN IV PUSH 01/02/17 03:00 (Glucagon Inj) 1 mg UNSCH PRN OTHER 01/02/17 03:00 (NovoLOG SUPPLEMENTAL SCALE) 1 ACHS SLIDING SCALE SQ 01/02/17 08:00 01/06/17 21:28 (Duoneb Neb) 1 ampule Q6HR NEB PRN NEB 01/02/17 10:00 01/07/17 16:29 (Pill Splitter) 1 ea UNSCH PRN OTHER 01/04/17 18:15 (Colace) 100 mg BID PO 01/05/17 21:00 01/08/17 10:04 (Lactulose Liq) 30 ml DAILY PRN PO 01/05/17 13:15 (Mag-Ox) 400 mg DAILY PO 01/06/17 09:00 01/09/17 08:59 01/08/17 10:04 (Coreg) 6.25 mg Q12HR PO 01/07/17 21:00 01/08/17 10:03 (Cardizem Cd) 240 mg DAILY PO 01/08/17 09:00 01/08/17 10:03 (Prinivil) 20 mg DAILY PO 01/08/17 09:00 01/08/17 10:04 (Lasix Inj) 40 mg Q8HR IV PUSH 01/07/17 14:00 01/08/17 15:00 (Lovenox Inj) 40 mg Q24H SQ 01/08/17 09:00 01/08/17 10:04 Assessment and Plan Problem List: (1) CHF exacerbation ICD Codes: I50.9 - Heart failure, unspecified Plan: Medication modified yesterday HR control. Doing better EF 15% Aldactone added will need a defib vest before DH (2) Afib ICD Codes: I48.91 - Unspecified atrial fibrillation Plan: HR control Coreg increased Will continue on current management Problem Qualifiers (1) CHF exacerbation: Qualified Codes: I50.9 - Heart failure, unspecified (2) Afib: Qualified Codes: I48.91 - Unspecified atrial fibrillation Antoine Renee MD Jan 08, 2017 16:41
--- NOTE | 2017-01-08 17:36 | HHI.PR ---
Subjective Remarks Patient eating dinner sitting on the edge of the bed Denied chest pain or short of breath He has lost 3 edema in the lower extremity Plan is to wait for LifeVest and continue cardiac workup Increase heart rate and increased creatinine today Objective Vitals Vital Signs Date Time Temp Pulse Resp B/P (MAP) Pulse Ox O2 Delivery O2 Flow Rate FiO2 01/08/17 16:00 97.5 100 18 141/83 (102) 98 01/08/17 08:00 96.3 104 19 152/95 (114) 95 01/08/17 04:00 96.2 98 22 120/82 (95) 93 01/08/17 00:00 97.1 112 22 118/86 (97) 93 01/07/17 21:26 110 01/07/17 20:00 97.2 112 22 112/90 (97) 93 I/O 01/07/17 01/07/17 01/07/17 01/08/17 01/08/17 01/08/17 07:00 15:00 23:00 07:00 15:00 23:00 Intake Total 240 ml 1440 ml 480 ml Output Total 200 ml 2050 ml 1600 ml 800 ml Balance 40 ml -610 ml -1120 ml -800 ml Intake Oral 240 ml 1440 ml 480 ml Output Urine Total 200 ml 2050 ml 1600 ml 800 ml # Bowel Movements 0 0 Result Diagram: 01/07/17 0735 01/08/17 0514 Objective Remarks GENERAL: Well nourished/well developed patient in no apparent distress CARDIOVASCULAR: Regular rate and rhythm without murmurs, gallops or rubs. RESPIRATORY: Bibasilar crackles. GASTROINTESTINAL: Abdomen soft, non-tender, nondistended. Normal active bowel sounds MUSCULOSKELETAL: Extremities without clubbing, cyanosis, but with 3+ pitting edema. NEURO: Alert & Oriented x4 to person, place, time, and situation. Moves all ext x4 A/P Problem List: (1) CHF exacerbation ICD Code: I50.9 - Heart failure, unspecified (2) Afib ICD Code: I48.91 - Unspecified atrial fibrillation Assessment and Plan Hypoxia Pulmonary edema CHF with lower extremity edema EF 15% New onset A. fib with RVR Diabetes mellitus Hypertension DVT prophylaxis with Lovenox Plan: Cardiology following, started on CHF regimen but the harpal, LAUREN inhibitor, diuretic Diuresis with Lasix Follow BMP and BNP Accu-Chek with ISS Continue home meds for hypertension Echocardiogram reviewed Problem Qualifiers (1) CHF exacerbation: Qualified Codes: I50.9 - Heart failure, unspecified (2) Afib: Qualified Codes: I48.91 - Unspecified atrial fibrillation Randy Shankar MD Jan 08, 2017 17:36
[2017-01-08 20:00] VITALS: BP 118/77; PULSE 80; RESP 20; TEMP 97.2; O2SAT 99
[2017-01-08] MEDS: CARVEDILOL 12.5 MG TAB PO SCH (20:54)
[2017-01-09] VITALS (7 sets, daily range): BP systolic 122–153; BP diastolic 67–96; PULSE 81–102; RESP 16–20; TEMP 96.1–97.2; O2SAT 90–98
[2017-01-09] MEDS: INSULIN ASPART SUPPLEMENTAL SCALE SQ SCH ×4 (07:55→21:00)
[2017-01-09 08:30] LABS: BICARBONATE 29.8 MEQ/L (21.0-32.0)
[2017-01-09 08:31] LABS: POTASSIUM 4.4 MEQ/L (3.5-5.1)
[2017-01-09] MEDS: ASPIRIN EC 325 MG TABEC PO SCH (10:46)
[2017-01-09] MEDS: DOCUSATE SODIUM 100 MG CAP PO SCH ×2 (10:46→21:42)
[2017-01-09] MEDS: SODIUM CHLORIDE 0.9% FLUSH 10 ML FLUSH IV FLUSH SCH ×2 (10:47→21:46)
[2017-01-09] MEDS: DILTIAZEM-CD 240 MG CAP ER PO SCH (10:47)
[2017-01-09] MEDS: LISINOPRIL 20 MG TAB PO SCH (10:47)
[2017-01-09] MEDS: SPIRONOLACTONE 25 MG TAB PO SCH (10:47)
[2017-01-09] MEDS: CARVEDILOL 12.5 MG TAB PO SCH ×2 (10:47→21:42)
[2017-01-09] MEDS: ENOXAPARIN SODIUM 40 MG/0.4 ML SYRINGE SQ SCH (10:48)
--- NOTE | 2017-01-09 11:15 | RADRPT ---
EXAM DATE/TIME: 01/08/2017 08:48 [facility] COMPARISON: No previous studies available for comparison. INDICATIONS : Atrial fibrillation. Congestive heart failure. DOSE: 30 mCi Tc99m Myoview at stress. 30.8 mCi Tc99m Myoview at rest. 0.4 mg Lexiscan STRESS SYMPTOMS: None noted. EJECTION FRACTION: Less than 25% MEDICAL HISTORY : Hypertension. SURGICAL HISTORY : None. ENCOUNTER: Initial ACUITY: 1 day PAIN SCALE: 4/10 LOCATION: Bilateral chest TECHNIQUE: The patient underwent pharmacologic stress with infusion of prescribed dose. Continuous ECG tracing was monitored during stress. Gated SPECT imaging was performed after stress and conventional SPECT i maging was performed at rest. The examination was performed on a SPECT/CT scanner, both attenuation and non-corrected datasets were reviewed. FINDINGS: DISTRIBUTION: The maximum perfused segment at stress is in the septal wall. PERFUSION STUDY: Prominence of the left ventricular cavity above the stress and rest images. There are fixed moderate severity perfusion defects involving the apex and apical segments of the anterior and inferior wall. No evidence of redistribution. The summed stress score is 4. GATED STUDY: Very poor wall motion seen on the gated images. CONCLUSION: 1. No evidence of stress-induced ischemia. 2. Fixed perfusion defects involving the apex and apical segments suggest prior infarction. 3. Very poor wall motion with global hypokinesia and possible dilation of left ventricular cavity. T his suggests possible cardiomyopathy. RISK CATEGORY: Intermediate (1-3% Annual Mortality Rate) Raheem Chanel MD on January 09, 2017 at 10:57 Board Certified Radiologist. This report was verified electronically.
--- NOTE | 2017-01-09 15:31 | HHI.PR ---
Subjective Remarks Resting in bed , mild short of breath, significant swelling in the lower extremity with status dermatitis and weeping on the right leg Objective Vitals Vital Signs Date Time Temp Pulse Resp B/P (MAP) Pulse Ox O2 Delivery O2 Flow Rate FiO2 01/09/17 12:00 96.9 89 16 142/67 (92) 90 01/09/17 08:00 96.5 98 18 126/88 (101) 92 01/09/17 04:00 96.1 102 18 153/96 (115) 91 01/09/17 00:00 96.1 87 20 122/87 (99) 98 01/08/17 20:30 Nasal Cannula 2.00 01/08/17 20:00 97.2 80 20 118/77 (91) 99 01/08/17 16:00 97.5 100 18 141/83 (102) 98 I/O 01/08/17 01/08/17 01/08/17 01/09/17 01/09/17 01/09/17 07:00 15:00 23:00 07:00 15:00 23:00 Intake Total 480 ml 480 ml Output Total 1600 ml 800 ml 1100 ml 250 ml Balance -1120 ml -800 ml -620 ml -250 ml Intake Oral 480 ml 480 ml Output Urine Total 1600 ml 800 ml 1100 ml 250 ml # Bowel Movements 0 Result Diagram: 01/07/17 0735 01/09/17 0610 Objective Remarks GENERAL: Well nourished/well developed patient in no apparent distress CARDIOVASCULAR: Regular rate and rhythm without murmurs, gallops or rubs. RESPIRATORY: Bibasilar crackles. GASTROINTESTINAL: Abdomen soft, non-tender, nondistended. Normal active bowel sounds MUSCULOSKELETAL: Extremities without clubbing, cyanosis, but with 3+ pitting edema. NEURO: Alert & Oriented x4 to person, place, time, and situation. Moves all ext x4 A/P Problem List: (1) CHF exacerbation ICD Code: I50.9 - Heart failure, unspecified (2) Afib ICD Code: I48.91 - Unspecified atrial fibrillation Assessment and Plan Hypoxia Pulmonary edema CHF with lower extremity edema EF 15% New onset A. fib with RVR Diabetes mellitus Hypertension DVT prophylaxis with Lovenox Plan: Cardiology following, started on CHF regimen but the harpal, LAUREN inhibitor, diuretic Diuresis with Lasix Follow BMP and BNP, creatinine dropped today to 1.4 Accu-Chek with ISS Continue home meds for hypertension Echocardiogram reviewed Problem Qualifiers (1) CHF exacerbation: Qualified Codes: I50.9 - Heart failure, unspecified (2) Afib: Qualified Codes: I48.91 - Unspecified atrial fibrillation Randy Shankar MD Jan 09, 2017 15:31
[2017-01-10] VITALS (10 sets, daily range): BP systolic 122–156; BP diastolic 69–90; PULSE 67–109; RESP 16–22; TEMP 96.9–98.9; O2SAT 90–95
[2017-01-10] MEDS: INSULIN ASPART SUPPLEMENTAL SCALE SQ SCH ×4 (07:34→21:42)
[2017-01-10] MEDS: SPIRONOLACTONE 25 MG TAB PO SCH (08:03)
[2017-01-10] MEDS: SODIUM CHLORIDE 0.9% FLUSH 10 ML FLUSH IV FLUSH SCH ×2 (08:03→21:41)
[2017-01-10] MEDS: ENOXAPARIN SODIUM 40 MG/0.4 ML SYRINGE SQ SCH (08:03)
[2017-01-10] MEDS: CARVEDILOL 12.5 MG TAB PO SCH ×2 (08:03→21:41)
[2017-01-10] MEDS: ASPIRIN EC 325 MG TABEC PO SCH (08:04)
[2017-01-10] MEDS: DOCUSATE SODIUM 100 MG CAP PO SCH ×2 (08:04→21:41)
[2017-01-10] MEDS: DILTIAZEM-CD 240 MG CAP ER PO SCH (08:04)
[2017-01-10] MEDS: LISINOPRIL 20 MG TAB PO SCH (08:04)
[2017-01-10 08:39] LABS: BICARBONATE 27.4 MEQ/L (21.0-32.0)
--- NOTE | 2017-01-10 12:43 | HHI.PR ---
Subjective Remarks Patient is desating in the 80's had to be placed on a partial Rebreather mask. Patient denies cp denies fevers or chills afebrile tachycardic with HR into 110's Objective Vitals Vital Signs Date Time Temp Pulse Resp B/P (MAP) Pulse Ox O2 Delivery O2 Flow Rate FiO2 01/10/17 11:48 92 Partial Rebreather 15.00 01/10/17 08:17 94 Nasal Cannula 3.00 01/10/17 08:00 97.4 99 16 142/84 (103) 94 01/10/17 04:00 Nasal Cannula 3.00 01/10/17 04:00 98.6 109 20 156/85 (108) 92 01/10/17 00:00 Nasal Cannula 2.00 01/10/17 00:00 98.6 67 22 150/90 (110) 90 01/09/17 20:12 82 01/09/17 20:00 Nasal Cannula 2.00 01/09/17 20:00 97.2 95 20 127/82 (97) 97 01/09/17 16:00 96.3 81 17 122/72 (89) 91 I/O 01/09/17 01/09/17 01/09/17 01/10/17 01/10/17 01/10/17 07:00 15:00 23:00 07:00 15:00 23:00 Intake Total 480 ml 400 ml 480 ml Output Total 1100 ml 250 ml 1100 ml 300 ml Balance -620 ml -250 ml -700 ml 180 ml Intake Oral 480 ml 400 ml 480 ml Output Urine Total 1100 ml 250 ml 1100 ml 300 ml # Bowel Movements 0 Result Diagram: 01/07/17 0735 01/10/1717 Imaging Last Impressions Myocardial Perfusion Scan Nuc Med 01/08/17 0000 Signed Impressions: Service Date/Time: Sunday, January 08, 2017 08:48 - CONCLUSION: 1. No evidence of stress-induced ischemia. 2. Fixed perfusion defects involving the apex and apical segments suggest prior infarction. 3. Very poor wall motion with global hypokinesia and possible dilation of left ventricular cavity. This suggests possible cardiomyopathy. RISK CATEGORY: Intermediate (1-3%% Annual Mortality Rate) Raheem Chanel MD CT Angiography 01/04/17 0000 Signed Impressions: Service Date/Time: December 11:11 - CONCLUSION: 1. Moderate to severe anterior upper lobe paraseptal emphysema. 2. Cardiomegaly with perihilar groundglass opacities consistent with pulmonary edema. 3. Moderate bilateral, right greater then left, simple pleural effusions with associated airspace disease in the lower lobes, presumably compressive atelectasis. 4. Coronary artery calcifications. Ralph Wynn MD Lower Extremity Ultrasound 01/02/17 0000 Signed Impressions: Service Date/Time: Monday, January 02, 2017 09:01 - CONCLUSION: 1. Edema in the soft tissues of the lower legs bilaterally. 2. However, no sonographic or Doppler findings of deep venous thrombosis Bandar Ricks MD Chest X-Ray 01/01/171957 Signed Impressions: Service Date/Time: Sunday, January 01, 2017 20:10 - CONCLUSION: CHF Oneal Robbins MD Objective Remarks AAOx3, moderate respiratory distress Diminished breath sounds BL, with diminished diffuse expiratory rhonchi and wheezing. S1S2 with regular rate and rhythm, no MRG abdomen soft, NT, ND RLE has 4 ulcers with purulent discharge and erythema surrounding the anterior leg. Medications and IVs Current Medications Medications (Trade) Dose Ordered Sig/Rosalie Route Start Time Stop Time Status Last Admin (Nitrostat Sl) 0.4 mg Q5M PRN SL 01/01/17 20:15 01/01/17 20:24 (NS Flush) 2 ml UNSCH PRN IV FLUSH 01/01/17 22:15 01/03/17 17:50 (NS Flush) 2 ml BID IV FLUSH 01/02/17 09:00 01/10/17 08:03 (Narcan Inj) 0.4 mg UNSCH PRN IV PUSH 01/01/17 22:15 (Ecotrin Ec) 325 mg DAILY PO 01/02/17 09:00 01/10/17 08:04 (D50w (Vial) Inj) 50 ml UNSCH PRN IV PUSH 01/02/17 03:00 (Glucagon Inj) 1 mg UNSCH PRN OTHER 01/02/17 03:00 (NovoLOG SUPPLEMENTAL SCALE) 1 ACHS SLIDING SCALE SQ 01/02/17 08:00 01/06/17 21:28 (Duoneb Neb) 1 ampule Q6HR NEB PRN NEB 01/02/17 10:00 01/07/17 16:29 (Pill Splitter) 1 ea UNSCH PRN OTHER 01/04/17 18:15 (Colace) 100 mg BID PO 01/05/17 21:00 01/10/17 08:04 (Lactulose Liq) 30 ml DAILY PRN PO 01/05/17 13:15 (Cardizem Cd) 240 mg DAILY PO 01/08/17 09:00 01/10/17 08:04 (Lovenox Inj) 40 mg Q24H SQ 01/08/17 09:00 01/10/17 08:03 (Coreg) 12.5 mg Q12HR PO 01/08/17 21:00 01/10/17 08:03 (Prinivil) 40 mg DAILY PO 01/09/17 09:00 01/10/17 08:04 (Aldactone) 25 mg DAILY PO 01/09/17 09:00 01/10/17 08:03 Urinary Catheter: No Vascular Central Line Catheter: No A/P Problem List: (1) CHF exacerbation ICD Code: I50.9 - Heart failure, unspecified Plan: The patient was admitted to the medical floor Cardiology consulted and following the patient. Was treated with IV Lasix, however not on IV Lasix now, as per records IV Lasix discontinued on 01/[address] Renee. 2-D echocardiogram showed a severely reduced left ventricular systolic function with an estimated ejection fraction of 15-20%. Global hypokinesis. Mild left ventricular enlargement with normal wall thickness. Mild to moderate mitral annular calcification and possible mild aortic sclerosis. I will resume Lasix 40 mg IV twice a day, repeat a chest x-ray and then an ABG stat. (2) Afib ICD Code: I48.91 - Unspecified atrial fibrillation Status: Chronic Plan: And Lori to monitor on telemetry. Telemetry shows rate controlled atrial fibrillation. Tenial diltiazem, carvedilol as per cardiology recommendations. The patient will need to be on chronic anti-correlation as Chads Vasc score is elevated (3) Acute hypoxemic respiratory failure ICD Code: J96.01 - Acute respiratory failure with hypoxia Plan: Patient today with moderate respiratory distress, oxygen saturation dropped down to the 80s as per RN verbal report and the patient has to be placed on a partial rebreather mask. I will check an ABG stat, chest x-ray stat, give Lasix 40 mg IV once and Solu- Medrol 125 maintenance IV once. The patient will be also transferred to the intensive care unit for closer monitoring. (4) New onset atrial fibrillation ICD Code: I48.91 - Unspecified atrial fibrillation Plan: Patient seen by cardiology who recommended and started the patient on Lasix 40 mg every 8 hours for 3 days, however did not get any more Lasix after this was discontinued. Coreg dose increased to 6.25 mg twice a day as well as Cardizem which was increased to 240 mg a day. LAUREN inhibitor dose was increased to 20 g per day. TSH obtained and was normal. Ischemic workup included troponins which remained negative. Nuclear stress testing was negative with signs of prior infarction. Nuclear stress testing also showed very poor wall motion with global hypokinesia and possible dilation of the left ventricular cavity. Suggesting possible cardiomyopathy. (5) HTN (hypertension) ICD Code: I10 - Essential (primary) hypertension Plan: Blood pressure with acceptable control on Coreg, diltiazem, lisinopril. Lori to monitor vital signs. (6) Cellulitis ICD Code: L03.90 - Cellulitis, unspecified Plan: Wound culture obtained on 01/01/17 grew Proteus Rainer arteries, Pseudomonas aeruginosa and Enterococcus faecalis. We'll start the patient on ceftazidime and ampicillin and consult infectious disease for further management. Continue with wound care management. Assessment and Plan GI prophylaxis: I'll add a PPI since patient is going to get a steroids. DVT prophylaxis: On Lovenox subcutaneous at therapeutic dose. 35 minutes of critical care time spent on patient care. Discharge Planning Transfer the patient to the intensive care unit. Problem Qualifiers (1) CHF exacerbation: Qualified Codes: I50.23 - Acute on chronic systolic (congestive) heart failure (2) Afib: Qualified Codes: I48.91 - Unspecified atrial fibrillation (3) HTN (hypertension): Qualified Codes: I10 - Essential (primary) hypertension (4) Cellulitis: Qualified Codes: L03.115 - Cellulitis of right lower limb River Joy MD Jan 10, 2017 12:43
[2017-01-10 13:33] LABS: BLOOD GAS BASE EXCESS 3.4 mmol/L (-2-2); BLOOD GAS CARBOXYHEMOGLOBIN 1.9 % (0-4); BLOOD GAS HCO3 27 mmol/L (22-26); BLOOD GAS METHEMOGLOBIN 0.8 % (0-2); BLOOD GAS O2 HGB SATURATION 89 % (90-100); BLOOD GAS OXYGEN CONTENT 14.8 Vol % (12.0-20.0); BLOOD GAS PCO2 42 mmHg (38-42); BLOOD GAS PO2 67 mmHg (61-120); BLOOD GAS TOTAL HGB 11.8 G/DL (12.0-16.0); TEMP CORR TO 98.6
[2017-01-10 13:34] LABS: CRITICAL VALUE YES; DRAW SITE RT RADIAL; LITER FLOW 15 L/M; NUMBER OF ARTERIAL PUNCTURES 1; OXYGEN DEVICE PARTIAL REBREATHER; STAT YES
[2017-01-10] MEDS ORDERED: methylPREDNISolone SOD SUCC 125 MG/2 ML VIAL IV PUSH ONE (14:00)
[2017-01-10] MEDS ORDERED: FUROSEMIDE 40 MG/4 ML VIAL IV PUSH ONE (14:00)
[2017-01-10] MEDS: cefTAZidime INJ 1,000 MG in SODIUM CHLORIDE 0.9% INJ 100 ML IV SCH (14:35)
--- NOTE | 2017-01-10 14:44 | RADRPT ---
EXAM DATE/TIME: 01/10/2017 12:49 [facility] COMPARISON: CT PULMONARY ANGIOGRAM, January 04, 2017, 11:11. CHEST SINGLE AP, January 01, 2017, 20:10. INDICATIONS : Shortness of breath. MEDICAL HISTORY : Hypertension. Hypercholesterolemia. Diabetes SURGICAL HISTORY : Eye surgery ENCOUNTER: Subsequent ACUITY: 1 week PAIN SCORE: 0/10 LOCATION: Bilateral chest FINDINGS: Perihilar infiltrates are noted consistent with moderate pulmonary edema versus pneumonia. Clinical correlation is recommended. The heart is enlarged. Moderate-sized bilateral pleural effusions are n oted. CONCLUSION: 1. Perihilar infiltrates consistent with moderate pulmonary edema versus pneumonia. Clinical correl ation is recommended. 2. Moderate-sized bilateral pleural effusions. 3. Cardiomegaly. Loki Cowan MD on January 10, 2017 at 14:26 Board Certified Radiologist. This report was verified electronically.
[2017-01-10] MEDS: AMPICILLIN INJ 1,000 MG in SODIUM CHLORIDE 0.9% INJ 100 ML IV SCH ×2 (16:00→23:11)
--- NOTE | 2017-01-10 16:31 | PD.ID.CON ---
History of Present Illness Service ID Consult Requested By Dr Torres Reason for Consult cellulitis RLE Primary Care Physician Kandy Mullen MD Diagnoses: History of Present Illness 71 y/o male with a history past medical history significant for HTN, DM, atrial fibrillation, bilateral lymphedema, and blindness presented to the ED with scrotum swelling, chest pain and shortness of breath. x 3 days Chest pain, non productive cough, and mild fever (unknown temp). Denies dysuria, diarrhea,nausea , or vomiting. Cardiology ff Afib and CHF management. Pt was noted to have superficial wound on R stephens and his cultreu grew proteus, enterococcus and PSAE No fever No leukocytosis Pt was transferred to ICU 2/ resp distress Review of Systems ROS Limitations: Poor Historian Past Family Social History Allergies: Coded Allergies: Sulfa (Sulfonamide Antibiotics) (Unverified Allergy, Severe, TONGUE SWELLING, 01/01/17) Past Medical History [place] DM CHF unknown Irregular heartbeat Lymphedema Blind Afib not on any medication Past Surgical History eye surgeries x 17 Active Ordered Medications Medications where reviewed in EMR Antibiotics Include: ampicillin ceftazidime Family History mother : rheumatic fever Social History remote Tobacco. + ETOH. No Illicit Drugs. Physical Exam Vital Signs Vital Signs Date Time Temp Pulse Resp B/P (MAP) Pulse Ox O2 Delivery O2 Flow Rate FiO2 01/10/17 16:00 98.9 81 21 143/73 (96) 93 01/10/17 12:00 96.9 86 17 122/69 (86) 90 01/10/17 11:48 92 Partial Rebreather 15.00 01/10/17 08:17 94 Nasal Cannula 3.00 01/10/17 08:00 97.4 99 16 142/84 (103) 94 01/10/17 04:00 Nasal Cannula 3.00 01/10/17 04:00 98.6 109 20 156/85 (108) 92 01/10/17 00:00 Nasal Cannula 2.00 01/10/17 00:00 98.6 67 22 150/90 (110) 90 01/09/17 20:12 82 01/09/17 20:00 Nasal Cannula 2.00 01/09/17 20:00 97.2 95 20 127/82 (97) 97 Physical Exam CONSTITUTIONAL/GENERAL: This is an adequately nourished patient, in no apparent distress. On Bypap TUBES/LINES/DRAINS: SKIN: No jaundice, rashes, or lesions. Skin temperature appropriate. Not diaphoretic. HEAD: Atraumatic. Normocephalic. EYES: Pupils equal and round and reactive. Extraocular motions intact. No scleral icterus. No injection or drainage. Fundi not examined. ENT: Hearing grossly normal. Nose without bleeding or purulent drainage. Oral mucosae without visible erythema, exudates, masses, or lesions. NECK: Trachea midline. Supple, nontender. CARDIOVASCULAR: Regular rate and rhythm without murmurs, gallops, or rubs. No JVD. Peripheral pulses symmetric. RESPIRATORY/CHEST: Symmetric, labored respirations. Clear to auscultation. Breath sounds equal bilaterally. No wheezes, rales, or rhonchi. GASTROINTESTINAL: Abdomen soft, non-tender, nondistended. No hepato-splenomegaly , or palpable masses. No guarding. Bowel sounds present. GENITOURINARY: Without palpable bladder distension. MUSCULOSKELETAL: Extremities without clubbing, cyanosis, BLE 3+ edema with chronic hyperpigmentation and mild erythema and clean based superficial partial thickness skin wound with minimal serous d/c. No joint tenderness or effusion noted. No calf tenderness. No mottling or clubbing. LYMPHATICS: No palpable cervical or supraclavicular adenopathy. NEUROLOGICAL: Awake and alert. Motor and sensory grossly within normal limits. Follows commands. Moves all extremities. PSYCHIATRIC: No obvious anxiety/depression. no apparent hallucinations or other psychotic thought process. Laboratory Laboratory Tests Test 01/10/17 07:17 01/10/17 13:23 Blood Urea Nitrogen 22 Creatinine 1.50 Random Glucose 141 Calcium Level 8.9 Sodium Level 139 Potassium Level 4.0 Chloride Level 103 Carbon Dioxide Level 27.4 Anion Gap 9 Estimat Glomerular Filtration Rate 46 B-Type Natriuretic Peptide 969 Blood Gas Puncture Site RT RADIAL Blood Gas Patient Temperature 98.6 Blood Gas HCO3 27 Blood Gas Base Excess 3.4 Blood Gas Oxygen Saturation 89 Arterial Blood pH 7.44 Arterial Blood Partial Pressure CO2 42 Arterial Blood Partial Pressure O2 67 Arterial Blood Oxygen Content 14.8 Arterial Blood Carboxyhemoglobin 1.9 Arterial Blood Methemoglobin 0.8 Blood Gas Hemoglobin 11.8 Oxygen Delivery Device PARTIAL REBREATHER Blood Gas Liter Flow 15 Date/Time Source Procedure Growth Status 01/10/17 11:39 Wound Leg Gram Stain Pending Received 01/10/17 11:39 Wound Leg Wound Culture Pending Received Result Diagram: 01/07/17 0735 01/10/17 0717 Imaging Last Impressions Myocardial Perfusion Scan Nuc Med 01/08/17 0000 Signed Impressions: Service Date/Time: Sunday, January 08, 2017 08:48 - CONCLUSION: 1. No evidence of stress-induced ischemia. 2. Fixed perfusion defects involving the apex and apical segments suggest prior infarction. 3. Very poor wall motion with global hypokinesia and possible dilation of left ventricular cavity. This suggests possible cardiomyopathy. RISK CATEGORY: Intermediate (1-3%% Annual Mortality Rate) Raheem Chanel MD CT Angiography 01/04/17 0000 Signed Impressions: Service Date/Time: December 11:11 - CONCLUSION: 1. Moderate to severe anterior upper lobe paraseptal emphysema. 2. Cardiomegaly with perihilar groundglass opacities consistent with pulmonary edema. 3. Moderate bilateral, right greater then left, simple pleural effusions with associated airspace disease in the lower lobes, presumably compressive atelectasis. 4. Coronary artery calcifications. Ralph Wynn MD Lower Extremity Ultrasound 01/02/17 0000 Signed Impressions: Service Date/Time: Monday, January 02, 2017 09:01 - CONCLUSION: 1. Edema in the soft tissues of the lower legs bilaterally. 2. However, no sonographic or Doppler findings of deep venous thrombosis Bandar Ricks MD Chest X-Ray 01/01/171957 Signed Impressions: Service Date/Time: Sunday, January 01, 2017 20:10 - CONCLUSION: CHF Oneal Robbins MD Assessment and Plan Assessment and Plan REsp distress BLE edema with cellulitis Superficial ulceration colonized vs superficially infected, polimicrobical DC ampicillin' Augmentin cont ceftazidime Discussed Condition With Kiesha Fernandes MD Jan 10, 2017 16:31
[2017-01-10] MEDS: FUROSEMIDE 40 MG/4 ML VIAL IV PUSH SCH (17:34)
[2017-01-10] MEDS: RESP: ALBUTEROL 2.5 MG/IPRATROPIUM 0.5 MG NEB (PRN) NEB (21:39)
[2017-01-11] VITALS (14 sets, daily range): BP systolic 107–165; BP diastolic 77–99; PULSE 85–130; RESP 17–29; TEMP 97.8–98.6; O2SAT 89–96
[2017-01-11] MEDS: ENOXAPARIN SODIUM 150 MG/ML SYRINGE SQ SCH ×2 (03:00→14:12)
[2017-01-11] MEDS: cefTAZidime INJ 1,000 MG in SODIUM CHLORIDE 0.9% INJ 100 ML IV SCH ×2 (03:00→14:11)
[2017-01-11] MEDS: INSULIN ASPART SUPPLEMENTAL SCALE SQ SCH ×4 (08:00→21:00)
[2017-01-11] MEDS: DOCUSATE SODIUM 100 MG CAP PO SCH (08:21)
[2017-01-11] MEDS: LISINOPRIL 20 MG TAB PO SCH (08:21)
[2017-01-11] MEDS: SPIRONOLACTONE 25 MG TAB PO SCH (08:21)
[2017-01-11] MEDS: ASPIRIN EC 325 MG TABEC PO SCH (08:21)
[2017-01-11] MEDS: DILTIAZEM-CD 240 MG CAP ER PO SCH (08:22)
[2017-01-11] MEDS: FUROSEMIDE 40 MG/4 ML VIAL IV PUSH SCH ×2 (08:22→18:00)
[2017-01-11] MEDS: AMOXICILLIN/CLAVULANATE K 500 MG TAB PO SCH ×3 (08:23→21:18)
[2017-01-11] MEDS: SODIUM CHLORIDE 0.9% FLUSH 10 ML FLUSH IV FLUSH SCH (08:23)
[2017-01-11] MEDS: CARVEDILOL 12.5 MG TAB PO SCH ×2 (08:25→21:18)
[2017-01-11 15:31] LABS: AUTOMATED NEUTROPHIL # 8.9 TH/MM3 (1.8-7.7); BASOPHIL % 0.1 % (0.0-2.0); EOSINOPHIL % 0.1 % (0.0-4.0); HEMATOCRIT 37.8 % (39.0-51.0); HEMO FLAGS DIFF FINAL; LYMPH % 6.4 % (9.0-44.0); LYMPHOCYTE # 0.7 TH/MM3 (1.0-4.8); MEAN CELL VOLUME 93.2 FL (80.0-100.0); MEAN CORPUSCULAR HEMOGLOBIN 30.6 PG (27.0-34.0); MEAN CORPUSCULAR HGB CONC 32.8 % (32.0-36.0); MONO % 9.3 % (0.0-8.0); NEUT % 84.1 % (16.0-70.0); PLATELET COUNT 265 TH/MM3 (150-450); RED BLOOD COUNT 4.06 MIL/MM3 (4.50-5.90); RED CELL DISTRIBUTION WIDTH 16.3 % (11.6-17.2); WHITE BLOOD COUNT 10.6 TH/MM3 (4.0-11.0)
[2017-01-11 15:48] LABS: ANION GAP 10 MEQ/L (5-15); AST (GOT) 19 U/L (15-37); BICARBONATE 30.5 MEQ/L (21.0-32.0); BLOOD UREA NITROGEN 30 MG/DL (7-18); CHLORIDE 101 MEQ/L (98-107); GLOMERULAR FILTRATION RATE 36 ML/MIN (>89); POTASSIUM 4.1 MEQ/L (3.5-5.1); SODIUM (NA) 141 MEQ/L (136-145)
[2017-01-11 15:52] LABS: ALKALINE PHOSPHATASE 66 U/L (45-117); ALT (GPT) 25 U/L (12-78); TOTAL BILIRUBIN ADULT 0.6 MG/DL (0.2-1.0)
[2017-01-11] MEDS ORDERED: LACTULOSE SYRUP 20 GM/30 ML CUP PO PRN (19:00)
[2017-01-11] MEDS ORDERED: SENNOSIDES 8.6 MG TAB PO PRN (19:00)
[2017-01-11] MEDS ORDERED: MAGNESIUM HYDROXIDE SUSP 30 ML CUP PO PRN (19:00)
[2017-01-11] MEDS ORDERED: BISACODYL 10 MG SUPP RECTAL PRN (19:00)
--- NOTE | 2017-01-11 19:07 | HHI.PR ---
Subjective Remarks late entry - patient seen earlier at 1:45 pm Patient states breathing is much improved denies fevers/chills creatinine trending up On ventimask with and fio2 of 50% Objective Vitals Vital Signs Date Time Temp Pulse Resp B/P (MAP) Pulse Ox O2 Delivery O2 Flow Rate FiO2 01/11/17 18:00 89 01/11/17 16:00 91 01/11/17 16:00 98.6 91 29 120/77 (91) 94 01/11/17 14:00 85 01/11/17 12:00 94 01/11/17 12:00 98.5 97 26 107/79 (88) 94 01/11/17 10:00 111 01/11/17 08:36 93 Venturi Mask 6.00 50 01/11/17 08:00 130 01/11/17 08:00 90 Partial Non-Rebreather 15.00 01/11/17 08:00 97.9 130 25 107/84 (92) 89 01/11/17 06:00 89 01/11/17 04:00 93 01/11/17 04:00 98.3 93 17 165/99 (121) 90 01/11/17 02:00 97 01/11/17 00:00 88 01/11/17 00:00 97.8 88 21 149/80 (103) 93 01/10/17 22:00 97 01/10/17 21:35 95 Partial Rebreather 15.00 01/10/17 20:00 94 Partial Non-Rebreather 15.00 01/10/17 20:00 98.6 90 22 139/86 (103) 92 01/10/17 20:00 90 I/O 01/10/17 01/10/17 01/10/17 01/11/17 01/11/17 01/11/17 07:00 15:00 23:00 07:00 15:00 23:00 Intake Total 480 ml 200 ml 200 ml 100 ml 1320 ml Output Total 300 ml 100 ml 400 ml 1100 ml Balance 180 ml -100 ml -200 ml 200 ml 100 ml 220 ml Intake Oral 480 ml 1320 ml IV Total 200 ml 200 ml 100 ml Output Urine Total 300 ml 100 ml 400 ml 1100 ml # Voids 1 # Bowel Movements 1 2 Result Diagram: 01/11/17 1500 11/2/17 1500 Imaging Last Impressions Chest X-Ray 01/10/17 0000 Signed Impressions: Service Date/Time: Tuesday, January 10, 2017 12:49 - CONCLUSION: 1. Perihilar infiltrates consistent with moderate pulmonary edema versus pneumonia. Clinical correlation is recommended. 2. Moderate-sized bilateral pleural effusions. 3. Cardiomegaly. Loki Cowan MD Myocardial Perfusion Scan Nuc Med 01/08/17 0000 Signed Impressions: Service Date/Time: Sunday, January 08, 2017 08:48 - CONCLUSION: 1. No evidence of stress-induced ischemia. 2. Fixed perfusion defects involving the apex and apical segments suggest prior infarction. 3. Very poor wall motion with global hypokinesia and possible dilation of left ventricular cavity. This suggests possible cardiomyopathy. RISK CATEGORY: Intermediate (1-3%% Annual Mortality Rate) Raheem Chanel MD CT Angiography 01/04/17 0000 Signed Impressions: Service Date/Time: December 11:11 - CONCLUSION: 1. Moderate to severe anterior upper lobe paraseptal emphysema. 2. Cardiomegaly with perihilar groundglass opacities consistent with pulmonary edema. 3. Moderate bilateral, right greater then left, simple pleural effusions with associated airspace disease in the lower lobes, presumably compressive atelectasis. 4. Coronary artery calcifications. Ralph Wynn MD Lower Extremity Ultrasound 01/02/17 0000 Signed Impressions: Service Date/Time: Monday, January 02, 2017 09:01 - CONCLUSION: 1. Edema in the soft tissues of the lower legs bilaterally. 2. However, no sonographic or Doppler findings of deep venous thrombosis Bandar Ricks MD Objective Remarks AAOx3, mild tachypnea, nad Diminished breath sounds BL, with diminished diffuse expiratory rhonchi and wheezing - improved from previous day S1S2 with regular rate and rhythm, no MRG abdomen soft, NT, ND RLE has 4 ulcers with purulent discharge and erythema surrounding the anterior leg. Medications and IVs Current Medications Medications (Trade) Dose Ordered Sig/Rosalie Route Start Time Stop Time Status Last Admin (Nitrostat Sl) 0.4 mg Q5M PRN SL 01/01/17 20:15 01/01/17 20:24 (NS Flush) 2 ml UNSCH PRN IV FLUSH 01/01/17 22:15 01/03/17 17:50 (NS Flush) 2 ml BID IV FLUSH 01/02/17 09:00 01/11/17 08:23 (Narcan Inj) 0.4 mg UNSCH PRN IV PUSH 01/01/17 22:15 (Ecotrin Ec) 325 mg DAILY PO 01/02/17 09:00 01/11/17 08:21 (D50w (Vial) Inj) 50 ml UNSCH PRN IV PUSH 01/02/17 03:00 (Glucagon Inj) 1 mg UNSCH PRN OTHER 01/02/17 03:00 (NovoLOG SUPPLEMENTAL SCALE) 1 ACHS SLIDING SCALE SQ 01/02/17 08:00 01/11/17 11:40 (Duoneb Neb) 1 ampule Q6HR NEB PRN NEB 01/02/17 10:00 01/10/17 21:39 (Pill Splitter) 1 ea UNSCH PRN OTHER 01/04/17 18:15 (Colace) 100 mg BID PO 01/05/17 21:00 01/11/17 08:21 (Lactulose Liq) 30 ml DAILY PRN PO 01/05/17 13:15 01/11/17 08:44 (Cardizem Cd) 240 mg DAILY PO 01/08/17 09:00 01/11/17 08:22 (Coreg) 12.5 mg Q12HR PO 01/08/17 21:00 01/11/17 08:25 (Prinivil) 40 mg DAILY PO 01/09/17 09:00 01/11/17 08:21 (Aldactone) 25 mg DAILY PO 01/09/17 09:00 01/11/17 08:21 (Lovenox Inj) 130 mg Q12H SQ 01/10/17 15:00 01/11/17 14:12 Ceftazidime 1000 mg/Sodium Chloride 100 ml @ 200 mls/hr Q12H IV 01/10/17 15:00 01/11/17 14:11 (Lasix Inj) 40 mg BID@09,18 IV PUSH 01/10/17 18:00 01/11/17 18:00 (Augmentin) 500 mg Q8HR PO 01/11/17 06:00 01/11/17 13:03 Urinary Catheter: No Vascular Central Line Catheter: No A/P Problem List: (1) CHF exacerbation ICD Code: I50.9 - Heart failure, unspecified Plan: The patient was admitted to the medical floor Cardiology consulted and following the patient. Was treated with IV Lasix, however not on IV Lasix now, as per records IV Lasix discontinued on 01/[address] Renee. 2-D echocardiogram showed a severely reduced left ventricular systolic function with an estimated ejection fraction of 15-20%. Global hypokinesis. Mild left ventricular enlargement with normal wall thickness. Mild to moderate mitral annular calcification and possible mild aortic sclerosis. I will resume Lasix 40 mg IV twice a day, repeat a chest x-ray and then an ABG stat. 01/11 Due to rise in creatinine will decrease Lasix dose to once a day. Patient respiratory status improving. Patient down to Ventimask form Non rebreather mask. Continue to provide supplemental oxygen to keep oxygen saturations more than 92%. (2) Afib ICD Code: I48.91 - Unspecified atrial fibrillation Status: Chronic Plan: And Lori to monitor on telemetry. Telemetry shows rate controlled atrial fibrillation. Tenial diltiazem, carvedilol as per cardiology recommendations. The patient will need to be on chronic anticoagulation as Chads Vasc score is elevated 01/11 Continue lovenox 130 mg SQ BID (3) Acute hypoxemic respiratory failure ICD Code: J96.01 - Acute respiratory failure with hypoxia Plan: Patient today with moderate respiratory distress, oxygen saturation dropped down to the 80s as per RN verbal report and the patient has to be placed on a partial rebreather mask. I will check an ABG stat, chest x-ray stat, give Lasix 40 mg IV once and Solu- Medrol 125 maintenance IV once. The patient will be also transferred to the intensive care unit for closer monitoring. 01/11 patient still with hypoxemic respiratory failure. ABG ordered on 06/10 showed a pH of 7.44, oxygen saturation of 89% with a PCO2 42. Continue supplemental oxygen, IV Lasix (4) New onset atrial fibrillation ICD Code: I48.91 - Unspecified atrial fibrillation Plan: Patient seen by cardiology who recommended and started the patient on Lasix 40 mg every 8 hours for 3 days, however did not get any more Lasix after this was discontinued. Coreg dose increased to 6.25 mg twice a day as well as Cardizem which was increased to 240 mg a day. LAUREN inhibitor dose was increased to 20 g per day. TSH obtained and was normal. Ischemic workup included troponins which remained negative. Nuclear stress testing was negative with signs of prior infarction. Nuclear stress testing also showed very poor wall motion with global hypokinesia and possible dilation of the left ventricular cavity. Suggesting possible cardiomyopathy. On Lovenox therapeutic dose for anticoagulation. (5) HTN (hypertension) ICD Code: I10 - Essential (primary) hypertension Plan: Blood pressure with stable control on Coreg, diltiazem, lisinopril. And Lori to monitor vital signs. (6) Cellulitis ICD Code: L03.90 - Cellulitis, unspecified Plan: Wound culture obtained on 01/01/17 grew Proteus Vulgaris Pseudomonas aeruginosa and Enterococcus faecalis. We'll start the patient on ceftazidime and ampicillin and consult infectious disease for further management. Continue with wound care management. 01/11 appreciate ID consultation recommendations. Ampicillin IV discontinued and the patient started on Augmentin, continue Ceftazidime. (7) ISI (acute kidney injury) ICD Code: N17.9 - Acute kidney failure, unspecified Plan: Acute kidney injury on chronic kidney disease stage III. Baseline creatinine around 1.4-1.5. Creatinine worsening today up to 1.8 from 1.5. Likely secondary to diureses. I will decrease the dose of IV Lasix to 40 mg by mouth daily from twice a day. We'll consult nephrology. Assessment and Plan GI prophylaxis: I'll add a PPI since patient is going to get a steroids. DVT prophylaxis: On Lovenox subcutaneous at therapeutic dose. Discharge Planning Continue to monitor the patient to intensive care unit. The patient still requiring elevated levels of oxygen. Problem Qualifiers (1) CHF exacerbation: Qualified Codes: I50.23 - Acute on chronic systolic (congestive) heart failure (2) Afib: Qualified Codes: I48.91 - Unspecified atrial fibrillation (3) HTN (hypertension): Qualified Codes: I10 - Essential (primary) hypertension (4) Cellulitis: Qualified Codes: L03.115 - Cellulitis of right lower limb River Joy MD Jan 11, 2017 19:06
[2017-01-11] MEDS: PANTOPRAZOLE SOD 40 MG DELAYED RELEASE TAB PO SCH (19:15)
[2017-01-11] MEDS: DOCUSATE SODIUM 50 MG/SENNA 8.6 MG TAB PO SCH (21:18)
[2017-01-12] VITALS (13 sets, daily range): BP systolic 120–145; BP diastolic 72–89; PULSE 71–109; RESP 15–22; TEMP 97.2–98.5; O2SAT 91–100
[2017-01-12] MEDS: ENOXAPARIN SODIUM 150 MG/ML SYRINGE SQ SCH ×2 (03:00→13:52)
[2017-01-12] MEDS: cefTAZidime INJ 1,000 MG in SODIUM CHLORIDE 0.9% INJ 100 ML IV SCH ×2 (04:08→13:51)
[2017-01-12] MEDS: SODIUM CHLORIDE 0.9% FLUSH 10 ML FLUSH IV FLUSH SCH ×3 (04:10→20:38)
[2017-01-12] MEDS: INSULIN ASPART SUPPLEMENTAL SCALE SQ SCH ×4 (08:00→20:37)
[2017-01-12] MEDS: ASPIRIN EC 325 MG TABEC PO SCH (08:42)
[2017-01-12] MEDS: DILTIAZEM-CD 240 MG CAP ER PO SCH (08:42)
[2017-01-12] MEDS: FUROSEMIDE 40 MG/4 ML VIAL IV PUSH SCH (08:42)
[2017-01-12] MEDS: SPIRONOLACTONE 25 MG TAB PO SCH (08:42)
[2017-01-12] MEDS: DOCUSATE SODIUM 50 MG/SENNA 8.6 MG TAB PO SCH ×2 (08:42→20:33)
[2017-01-12] MEDS: CARVEDILOL 12.5 MG TAB PO SCH ×2 (08:42→20:33)
[2017-01-12] MEDS: PANTOPRAZOLE SOD 40 MG DELAYED RELEASE TAB PO SCH (08:42)
[2017-01-12] MEDS: AMOXICILLIN/CLAVULANATE K 500 MG TAB PO SCH ×3 (08:44→20:33)
--- NOTE | 2017-01-12 13:02 | HHI.PR ---
Subjective Remarks Patient states status improving. The patient was downgraded from Ventimask down to a nasal cannula. 9 fevers or chills. Denies diarrhea. Objective Vitals Vital Signs Date Time Temp Pulse Resp B/P (MAP) Pulse Ox O2 Delivery O2 Flow Rate FiO2 01/12/17 10:00 83 01/12/17 08:52 92 Nasal Cannula 2.00 01/12/17 08:00 93 Venturi Mask 6.00 35 01/12/17 08:00 82 01/12/17 08:00 97.8 102 18 134/78 (96) 93 01/12/17 06:00 84 01/12/17 04:00 82 01/12/17 04:00 97.2 82 18 143/85 (104) 92 01/12/17 02:00 86 01/12/17 00:00 98.2 84 20 145/89 (107) 91 01/12/17 00:00 84 01/11/17 22:00 85 01/11/17 20:44 96 Venturi Mask 6.00 50 01/11/17 20:00 91 01/11/17 20:00 Venturi Mask 6.00 35 01/11/17 20:00 98.4 91 22 141/83 (102) 93 01/11/17 18:00 89 01/11/17 16:00 91 01/11/17 16:00 98.6 91 29 120/77 (91) 94 01/11/17 14:00 85 I/O 01/11/17 01/11/17 01/11/17 01/12/17 01/12/17 01/12/17 07:00 15:00 23:00 07:00 15:00 23:00 Intake Total 200 ml 100 ml 1320 ml 600 ml Output Total 1100 ml 520 ml Balance 200 ml 100 ml 220 ml 80 ml Intake Oral 1320 ml 500 ml IV Total 200 ml 100 ml 100 ml Output Urine Total 1100 ml 520 ml # Bowel Movements 2 0 Result Diagram: 01/11/17 1500 01/11/17 1500 Imaging Last Impressions Chest X-Ray 01/10/17 0000 Signed Impressions: Service Date/Time: Tuesday, January 10, 2017 12:49 - CONCLUSION: 1. Perihilar infiltrates consistent with moderate pulmonary edema versus pneumonia. Clinical correlation is recommended. 2. Moderate-sized bilateral pleural effusions. 3. Cardiomegaly. Loki Cowan MD Myocardial Perfusion Scan Nuc Med 01/08/17 0000 Signed Impressions: Service Date/Time: Sunday, January 08, 2017 08:48 - CONCLUSION: 1. No evidence of stress-induced ischemia. 2. Fixed perfusion defects involving the apex and apical segments suggest prior infarction. 3. Very poor wall motion with global hypokinesia and possible dilation of left ventricular cavity. This suggests possible cardiomyopathy. RISK CATEGORY: Intermediate (1-3%% Annual Mortality Rate) Raheem Chanel MD CT Angiography 01/04/17 0000 Signed Impressions: Service Date/Time: December 11:11 - CONCLUSION: 1. Moderate to severe anterior upper lobe paraseptal emphysema. 2. Cardiomegaly with perihilar groundglass opacities consistent with pulmonary edema. 3. Moderate bilateral, right greater then left, simple pleural effusions with associated airspace disease in the lower lobes, presumably compressive atelectasis. 4. Coronary artery calcifications. Ralph Wynn MD Lower Extremity Ultrasound 01/02/17 0000 Signed Impressions: Service Date/Time: Monday, January 02, 2017 09:01 - CONCLUSION: 1. Edema in the soft tissues of the lower legs bilaterally. 2. However, no sonographic or Doppler findings of deep venous thrombosis Bandar Ricks MD Objective Remarks AAOx3, mild tachypnea, nad Diminished breath sounds BL, clear to auscultation BL. S1S2 with regular rate and rhythm, no MRG abdomen soft, NT, ND RLE has 4 ulcers with purulent discharge and erythema surrounding the anterior leg. Medications and IVs Current Medications Medications (Trade) Dose Ordered Sig/Rosalie Route Start Time Stop Time Status Last Admin (Nitrostat Sl) 0.4 mg Q5M PRN SL 01/01/17 20:15 01/01/17 20:24 (NS Flush) 2 ml UNSCH PRN IV FLUSH 01/01/17 22:15 01/03/17 17:50 (NS Flush) 2 ml BID IV FLUSH 01/02/17 09:00 01/12/17 08:43 (Narcan Inj) 0.4 mg UNSCH PRN IV PUSH 01/01/17 22:15 (Ecotrin Ec) 325 mg DAILY PO 01/02/17 09:00 01/12/17 08:42 (D50w (Vial) Inj) 50 ml UNSCH PRN IV PUSH 01/02/17 03:00 (Glucagon Inj) 1 mg UNSCH PRN OTHER 01/02/17 03:00 (NovoLOG SUPPLEMENTAL SCALE) 1 ACHS SLIDING SCALE SQ 01/02/17 08:00 01/11/17 21:00 (Duoneb Neb) 1 ampule Q6HR NEB PRN NEB 01/02/17 10:00 01/10/17 21:39 (Pill Splitter) 1 ea UNSCH PRN OTHER 01/04/17 18:15 (Lactulose Liq) 30 ml DAILY PRN PO 01/05/17 13:15 01/11/17 08:44 (Cardizem Cd) 240 mg DAILY PO 01/08/17 09:00 01/12/17 08:42 (Coreg) 12.5 mg Q12HR PO 01/08/17 21:00 01/12/17 08:42 (Prinivil) 40 mg DAILY PO 01/09/17 09:00 Future Hold 01/11/17 08:21 (Aldactone) 25 mg DAILY PO 01/09/17 09:00 01/12/17 08:42 (Lovenox Inj) 130 mg Q12H SQ 01/10/17 15:00 01/12/17 13:52 Ceftazidime 1000 mg/Sodium Chloride 100 ml @ 200 mls/hr Q12H IV 01/10/17 15:00 01/12/17 13:51 (Augmentin) 500 mg Q8HR PO 01/11/17 06:00 01/12/17 13:54 (Gregoria-Colace) 1 tab BID PO 01/11/17 21:00 01/12/17 08:42 (Milk Of Magnesia Liq) 30 ml Q12H PRN PO 01/11/17 19:00 (Senokot) 17.2 mg Q12H PRN PO 01/11/17 19:00 (Dulcolax Supp) 10 mg DAILY PRN RECTAL 01/11/17 19:00 (Protonix) 40 mg DAILY PO 01/11/17 19:15 01/12/17 08:42 (Lasix Inj) 40 mg DAILY IV PUSH 01/12/17 09:00 01/12/17 08:42 Urinary Catheter: No A/P Problem List: (1) CHF exacerbation ICD Code: I50.9 - Heart failure, unspecified Plan: The patient was admitted to the medical floor Cardiology consulted and following the patient. Was treated with IV Lasix, however not on IV Lasix now, as per records IV Lasix discontinued on 01/[address] Renee. 2-D echocardiogram showed a severely reduced left ventricular systolic function with an estimated ejection fraction of 15-20%. Global hypokinesis. Mild left ventricular enlargement with normal wall thickness. Mild to moderate mitral annular calcification and possible mild aortic sclerosis. I will resume Lasix 40 mg IV twice a day, repeat a chest x-ray and then an ABG stat. 01/11 Due to rise in creatinine will decrease Lasix dose to once a day. Patient respiratory status improving. Patient down to Ventimask form Non rebreather mask. Continue to provide supplemental oxygen to keep oxygen saturations more than 92%. 01/12 Labs pending - consult nephrology due to rising creatinine. 1.8 on 01/11. (2) Afib ICD Code: I48.91 - Unspecified atrial fibrillation Status: Chronic Plan: And Lori to monitor on telemetry. Telemetry shows rate controlled atrial fibrillation. Tenial diltiazem, carvedilol as per cardiology recommendations. The patient will need to be on chronic anticoagulation as Chads Vasc score is elevated 01/12 Continue lovenox 130 mg SQ BID (3) Acute hypoxemic respiratory failure ICD Code: J96.01 - Acute respiratory failure with hypoxia Plan: Patient today with moderate respiratory distress, oxygen saturation dropped down to the 80s as per RN verbal report and the patient has to be placed on a partial rebreather mask. I will check an ABG stat, chest x-ray stat, give Lasix 40 mg IV once and Solu- Medrol 125 maintenance IV once. The patient will be also transferred to the intensive care unit for closer monitoring. 01/11 patient still with hypoxemic respiratory failure. ABG ordered on 06/10 showed a pH of 7.44, oxygen saturation of 89% with a PCO2 42. Continue supplemental oxygen, IV Lasix 01/12 Improving. Continue diuresis as above. Continue to taper o2. Consult pulmonary. (4) New onset atrial fibrillation ICD Code: I48.91 - Unspecified atrial fibrillation Plan: Patient seen by cardiology who recommended and started the patient on Lasix 40 mg every 8 hours for 3 days, however did not get any more Lasix after this was discontinued. Coreg dose increased to 6.25 mg twice a day as well as Cardizem which was increased to 240 mg a day. LAUREN inhibitor dose was increased to 20 g per day. TSH obtained and was normal. Ischemic workup included troponins which remained negative. Nuclear stress testing was negative with signs of prior infarction. Nuclear stress testing also showed very poor wall motion with global hypokinesia and possible dilation of the left ventricular cavity. Suggesting possible cardiomyopathy. 01/12 On Lovenox therapeutic dose for anticoagulation that will need to be transitioned to oral once patient more stable. (5) HTN (hypertension) ICD Code: I10 - Essential (primary) hypertension Plan: Blood pressure with stable control on Coreg, diltiazem, lisinopril. Continue to monitor vital signs. (6) Cellulitis ICD Code: L03.90 - Cellulitis, unspecified Plan: Wound culture obtained on 01/01/17 grew Proteus Vulgaris Pseudomonas aeruginosa and Enterococcus faecalis. We'll start the patient on ceftazidime and ampicillin and consult infectious disease for further management. Continue with wound care management. 01/11 appreciate ID consultation and recommendations. Ampicillin IV discontinued and the patient started on Augmentin, continue Ceftazidime. (7) ISI (acute kidney injury) ICD Code: N17.9 - Acute kidney failure, unspecified Plan: Acute kidney injury on chronic kidney disease stage III. Baseline creatinine around 1.4-1.5. Creatinine worsening today up to 1.8 from 1.5. Likely secondary to diureses. I will decrease the dose of IV Lasix to 40 mg by mouth daily from twice a day. Consult nephrology Assessment and Plan GI prophylaxis: I'll add a PPI since patient is going to get a steroids. DVT prophylaxis: On Lovenox subcutaneous at therapeutic dose. Discharge Planning Continue to monitor the patient to intensive care unit. Patient improving clinically. Possible transfer out of the unit in am if o2 stable. Problem Qualifiers (1) CHF exacerbation: Qualified Codes: I50.23 - Acute on chronic systolic (congestive) heart failure (2) Afib: Qualified Codes: I48.91 - Unspecified atrial fibrillation (3) HTN (hypertension): Qualified Codes: I10 - Essential (primary) hypertension (4) Cellulitis: Qualified Codes: L03.115 - Cellulitis of right lower limb River Joy MD Jan 12, 2017 13:02
[2017-01-12 16:25] LABS: HEMATOCRIT 37.6 % (39.0-51.0); MEAN CELL VOLUME 93.3 FL (80.0-100.0); MEAN CORPUSCULAR HEMOGLOBIN 30.5 PG (27.0-34.0); MEAN CORPUSCULAR HGB CONC 32.7 % (32.0-36.0); PLATELET COUNT 253 TH/MM3 (150-450); RED BLOOD COUNT 4.03 MIL/MM3 (4.50-5.90); RED CELL DISTRIBUTION WIDTH 16.6 % (11.6-17.2); REVIEW FLAG FINAL; WHITE BLOOD COUNT 7.2 TH/MM3 (4.0-11.0)
[2017-01-12 16:53] LABS: BICARBONATE 31.4 MEQ/L (21.0-32.0); POTASSIUM 3.4 MEQ/L (3.5-5.1)
--- NOTE | 2017-01-12 18:36 | MB ---
cc: MONET EL MD DATE OF CONSULTATION 01/12/17 REASON FOR CONSULTATION Elevated BUN and creatinine for evaluation. HISTORY OF PRESENT ILLNESS This is a 71-year-old male with past medical history of hypertension, diabetes mellitus, ischemic heart disease, congestive heart failure, atrial fibrillation, history of legal blindness, possible history of chronic kidney disease who came to the hospital with complaint of worsening shortness of breath and edema of the legs. I was called to see the patient because of elevated BUN and creatinine. The patient was found to have creatinine of 1.8 on admission which improved to 1.4-1.5 and now it has gone up to 1.8 and 1.6. The patient denies any previous history of known renal disease, but looking back in November of this year his creatinine was 1.4. There is one reading of 1.0 in 2011. The patient was found to be in congestive heart failure and he was given congestive heart failure and fluid overload and he was given diuretics. He has been passing a lot of urine and still has edema in the legs. His breathing is improving. He is currently on Venti-mask. He has been seen by cardiology and has an echocardiogram done which shows that he has a low ejection fraction of 15-20%. He denies any dysuria, hematuria but occasionally has difficulty in passing urine. There is no history of renal stone. PAST MEDICAL HISTORY 1. Hypertension, 2. Diabetes mellitus, 3. Congestive heart failure, 4. Chronic kidney disease, 5. History of lymphedema 6. Atrial fibrillation 7. Legal blindness PAST SURGICAL HISTORY History of multiple eye surgeries. REVIEW OF SYSTEMS The patient has generalized weakness, feeling tired, has worsening shortness of breath, but it is improving now. He has swelling in the legs. No nausea or vomiting. No abdominal pain. No dysuria or hematuria. Occasionally has difficulty in passing urine. SOCIAL HISTORY The patient has remote history of smoking, stopped 20 years ago. Occasionally drinks alcoholic beverages. FAMILY HISTORY Noncontributory. ALLERGIES SULFA MEDICATIONS Currently he is on following medications 1. Gregoria-Colace 1 tablet b.i.d., 2. Aspirin 325 mg daily, 3. Cardizem 240 mg once a day, 4. Aldactone 25 mg once a day, 5. Protonix 40 mg once a day 6. Lasix 40 mg IV daily, 7. Coreg 12.5 mg once a day 8. Augmentin 500 mg q. 8-hour 9. Insulin aspart sliding scale 10. Nitroglycerin. 11. Senokot 12. Dulcolax PHYSICAL EXAMINATION GENERAL: The patient is awake, alert. He is not in acute distress. VITAL SIGNS: His last blood pressure is 120/86, no hypotensive episode except one reading of 94/70, oxygen saturation on Venti-mask is 92%. HEENT: He has bilateral corneal opacification. Conjunctivae are pale. NECK: Supple. JVD is slightly elevated. LUNGS: The patient has bilateral decreased air entry with basilar rales and scattered wheezing. HEART: S1, S2 regular rhythm. ABDOMEN: Distended, soft lax. There is no tenderness. EXTREMITIES: Bilateral 2+ edema LABORATORY DATA WBC count is 7.2, hemoglobin 12.3, platelet count of 253, neutrophils 84%. Sodium 141, potassium 3.4, chloride 102, bicarb 31.4, BUN 32, creatinine 1.6, glucose 211, calcium 8.4, AST, ALT normal, total protein 6.7, albumin is 3.0, BNP is 969, INR is 1.1. Urinalysis showing that there is no protein. IMAGING STUDIES The patient had a perfusion scan of the heart done which shows no evidence of a stress-induced ischemia, fixed perfusion defect involving the apex in the apical segments. Poor wall motion with global hypokinesia. Chest x-ray was done which shows that he has moderate bilateral pleural effusion, cardiomegaly and interstitial infiltrate. ASSESSMENT/PLAN 1. Congestive heart failure and fluid overload status. 2. Chronic kidney disease with some acute worsening. 3. Anemia. 4. Diabetes mellitus 5. Hypertension 6. History of legal blindness. 7. Wound infection in the leg with lymphedema The patient has bilateral edema in the legs and has a wound with infection. He is currently on ceftriaxone. He has no proteinuria and the creatinine has been in the range of 1.4-1.5, which is probably his baseline. 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 At present, I agree with continuing the diuretics and try to get the edema down and watch the urine output and the BUN and creatinine. I will get the ultrasound of the kidneys to see the kidney size and the echogenicity. Avoid any nephrotoxins. Thank you for the consultation and I will follow the patient while he is in the hospital. MD KEN Dhaliwal/ /5:14 PM /6:27 PM
--- NOTE | 2017-01-12 19:25 | RADRPT ---
EXAM DATE/TIME: 01/12/2017 17:27 [facility] COMPARISON: No previous studies available for comparison. INDICATIONS : Increased BUN/Creatnine. MEDICAL HISTORY : Congestive heart failure. Hypertension. Anticoagulant therapy. Dyspnea. Diabetes. SURGICAL HISTORY : Bilateral eye surgery. Right foot surgery. ENCOUNTER: Initial ACUITY: 1 day PAIN SCORE: 0/10 LOCATION: Bilateral flank MEASUREMENTS: RIGHT KIDNEY: 12.2 x 4.6 x 5.4 cm LEFT KIDNEY: 11.7 x 4.2 x 5.9 cm FINDINGS: Small left pleural effusion. RIGHT KIDNEY: Renal cortex is normal in thickness and slightly increased in echotexture. No hydronephrosis, stone, or mass except for 3 tiny cortical cysts. LEFT KIDNEY: Renal cortex is normal in thickness and echotexture. No hydronephrosis, stone, or mass. BLADDER: Within normal limits given the degree of distension. CONCLUSION: Three cortical cysts on the right. Small left pleural effusion. Slight increased echogenicity to the right kidney. Zeeshan Oliveira MD on January 12, 2017 at 19:21 Board Certified Radiologist. This report was verified electronically.
--- NOTE | 2017-01-12 19:39 | HHI.IDPN ---
Subjective Subjective Remarks pt is doing OK On NC O2 afebrile Antibiotics ceffaz augmentin Allergies: Coded Allergies: Sulfa (Sulfonamide Antibiotics) (Unverified Allergy, Severe, TONGUE SWELLING, 01/01/17) Objective . Vital Signs Date Time Temp Pulse Resp B/P (MAP) Pulse Ox O2 Delivery O2 Flow Rate FiO2 01/12/17 18:00 109 01/12/17 16:00 71 01/12/17 16:00 98.5 71 17 132/79 (96) 92 01/12/17 14:00 78 01/12/17 12:00 98.1 80 15 120/86 (97) 92 01/12/17 12:00 80 01/12/17 10:00 83 01/12/17 08:52 92 Nasal Cannula 2.00 01/12/17 08:00 93 Venturi Mask 6.00 35 01/12/17 08:00 82 01/12/17 08:00 97.8 102 18 134/78 (96) 93 01/12/17 06:00 84 01/12/17 04:00 82 01/12/17 04:00 97.2 82 18 143/85 (104) 92 01/12/17 02:00 86 01/12/17 00:00 98.2 84 20 145/89 (107) 91 01/12/17 00:00 84 01/11/17 22:00 85 01/11/17 20:44 96 Venturi Mask 6.00 50 01/11/17 20:00 91 01/11/17 20:00 Venturi Mask 6.00 35 01/11/17 20:00 98.4 91 22 141/83 (102) 93 01/12/17 01/12/17 01/13/17 15:00 23:00 07:00 Intake Total 1350 ml Output Total 1800 ml Balance -450 ml Intake Oral 1350 ml Output Urine Total 1800 ml # Bowel Movements 0 . Laboratory Tests Test 01/11/17 15:00 01/12/17 15:54 White Blood Count 10.6 TH/MM3 7.2 TH/MM3 Red Blood Count 4.06 MIL/MM3 4.03 MIL/MM3 Hemoglobin 12.4 GM/DL 12.3 GM/DL Hematocrit 37.8 % 37.6 % Mean Corpuscular Volume 93.2 FL 93.3 FL Mean Corpuscular Hemoglobin 30.6 PG 30.5 PG Mean Corpuscular Hemoglobin Concent 32.8 % 32.7 % Red Cell Distribution Width 16.3 % 16.6 % Platelet Count 265 TH/MM3 253 TH/MM3 Mean Platelet Volume 8.5 FL 8.1 FL Neutrophils (%) (Auto) 84.1 % Lymphocytes (%) (Auto) 6.4 % Monocytes (%) (Auto) 9.3 % Eosinophils (%) (Auto) 0.1 % Basophils (%) (Auto) 0.1 % Neutrophils # (Auto) 8.9 TH/MM3 Lymphocytes # (Auto) 0.7 TH/MM3 Monocytes # (Auto) 1.0 TH/MM3 Eosinophils # (Auto) 0.0 TH/MM3 Basophils # (Auto) 0.0 TH/MM3 CBC Comment DIFF FINAL Differential Comment Laboratory Tests Test 01/11/17 15:00 01/12/17 15:54 Blood Urea Nitrogen 30 MG/DL 32 MG/DL Creatinine 1.85 MG/DL 1.63 MG/DL Random Glucose 160 MG/DL 211 MG/DL Total Protein 6.7 GM/DL Albumin 3.0 GM/DL Calcium Level 8.7 MG/DL 8.4 MG/DL Phosphorus Level 3.9 MG/DL Magnesium Level 2.0 MG/DL Alkaline Phosphatase 66 U/L Aspartate Amino Transf (AST/SGOT) 19 U/L Alanine Aminotransferase (ALT/SGPT) 25 U/L Total Bilirubin 0.6 MG/DL Sodium Level 141 MEQ/L 141 MEQ/L Potassium Level 4.1 MEQ/L 3.4 MEQ/L Chloride Level 101 MEQ/L 102 MEQ/L Carbon Dioxide Level 30.5 MEQ/L 31.4 MEQ/L Anion Gap 10 MEQ/L 8 MEQ/L Estimat Glomerular Filtration Rate 36 ML/MIN 42 ML/MIN Microbiology Date/Time Source Procedure Growth Status 01/10/17 11:39 Wound Leg Gram Stain - Final Resulted 01/10/17 11:39 Wound Culture - Preliminary Pseudomonas Species Gram Negative Gurjit Resulted Imaging Last Impressions Renal Ultrasound 01/12/17 0000 Signed Impressions: Service Date/Time: Thursday, January 12, 2017 17:27 - CONCLUSION: Three cortical cysts on the right. Small left pleural effusion. Slight increased echogenicity to the right kidney. Zeeshan Oliveira MD Chest X-Ray 01/10/17 0000 Signed Impressions: Service Date/Time: Tuesday, January 10, 2017 12:49 - CONCLUSION: 1. Perihilar infiltrates consistent with moderate pulmonary edema versus pneumonia. Clinical correlation is recommended. 2. Moderate-sized bilateral pleural effusions. 3. Cardiomegaly. Loki Cowan MD Myocardial Perfusion Scan [facility] 01/08/17 0000 Signed Impressions: Service Date/Time: Sunday, January 08, 2017 08:48 - CONCLUSION: 1. No evidence of stress-induced ischemia. 2. Fixed perfusion defects involving the apex and apical segments suggest prior infarction. 3. Very poor wall motion with global hypokinesia and possible dilation of left ventricular cavity. This suggests possible cardiomyopathy. RISK CATEGORY: Intermediate (1-3%% Annual Mortality Rate) Raheem Chanel MD CT Angiography 01/04/17 0000 Signed Impressions: Service Date/Time: December 11:11 - CONCLUSION: 1. Moderate to severe anterior upper lobe paraseptal emphysema. 2. Cardiomegaly with perihilar groundglass opacities consistent with pulmonary edema. 3. Moderate bilateral, right greater then left, simple pleural effusions with associated airspace disease in the lower lobes, presumably compressive atelectasis. 4. Coronary artery calcifications. Ralph Wynn MD Lower Extremity Ultrasound 01/02/17 0000 Signed Impressions: Service Date/Time: Monday, January 02, 2017 09:01 - CONCLUSION: 1. Edema in the soft tissues of the lower legs bilaterally. 2. However, no sonographic or Doppler findings of deep venous thrombosis Bandar Ricks MD Physical Exam CONSTITUTIONAL/GENERAL: This is an adequately nourished patient, in no apparent distress. On Bypap TUBES/LINES/DRAINS: SKIN: No jaundice, rashes, or lesions. CARDIOVASCULAR: Regular rate and rhythm without murmurs, gallops, or rubs. No JVD. Peripheral pulses symmetric. RESPIRATORY/CHEST: Symmetric, labored respirations. Clear to auscultation GASTROINTESTINAL: Abdomen soft, non-tender, nondistended. No hepato-splenomegaly , or palpable masses. No guarding. Bowel sounds present. MUSCULOSKELETAL: Extremities without clubbing, cyanosis, Improved edema with chronic hyperpigmentation and just minimal erythema wound is dry prominent tree bark bowden NEUROLOGICAL: Awake and alert. Motor and sensory grossly within normal limits. Follows commands. Moves all extremities. PSYCHIATRIC: calm Assessment & Plan Remarks REsp distress -re soolved BLE edema with cellulitis - improved Superficial ulceration colonized vs superficially infected, polimicrobical PSAE, proteus aenterococci cont Augmentin cont ceftazidime when ready for DC switch ceftaz to levaquine PO cont abx for 10 days (thru 01/19); longer course (14) days if protracted improving will see as needed Kiesha Segura MD Jan 12, 2017 19:39
--- NOTE | 2017-01-12 20:04 | MB ---
cc: ROXIE VALENCIA M.D. DATE OF CONSULTATION: 01/12/2017. REASON FOR CONSULTATION: Respiratory distress and pulmonary infiltrates. HISTORY OF PRESENT ILLNESS: This is a 70-year-old white male with past medical history of hypertension, diabetes mellitus, chronic atrial fibrillation, CHF, bilateral chronic leg edema and blindness who was admitted with cellulitis and scrotal swelling. The patient also was in respiratory distress and was having a cough with expectoration. He was thus admitted to the intensive care unit and treated for congestive heart failure and had been on a VentiMask at 40%. The patient has also been started on broad-spectrum antibiotic coverage for cellulitis and presently is on Augmentin and ceftazidime. He has no chest pains. He does have a cough with expectoration but his leg swelling has subsided. There is no history of fevers or chills. He denies any leg or calf muscle pains. PAST MEDICAL HISTORY: His past history has included: 1. Diabetes mellitus. 2. Hypertension. 3. Lymphedema of both legs. 4. Blindness. 5. The patient has had surgeries on his eyes. ALLERGIES: SULFA DRUGS. MEDICATIONS: The medication list included: 1. Verapamil 240 milligrams a day. 2. Simvastatin 20 milligrams at bedtime. 3. Klor-Con 10 milliequivalents daily. 4. Januvia 100 milligrams daily. 5. Glipizide 10 milligrams at bedtime. 6. Lasix 40 milligrams daily. 7. Benazepril 20 milligrams three times a day. FAMILY HISTORY: Noncontributory. HABITS: The patient has a past history of smoking for over twenty years. No significant alcohol use. REVIEW OF SYSTEMS: The patient has had some weight gain, leg swelling, epigastric distress, and nausea. Denies any blackout spells. He does have urinary frequency. Denies flank pain. He has had joint pains. He has some rash in his lower extremities. PHYSICAL EXAMINATION: GENERAL: This is an elderly moderately obese white male who is alert and mildly dyspneic and orthopneic. VITAL SIGNS: Blood pressure is 130/60, pulse is 85, respirations 22, temperature 98. HEAD, EYES, EARS, NOSE, THROAT: Head normocephalic. The pupils are reactive. There is a corneal opacity. Throat is clear. NECK: The neck is supple with mild venous distention. Trachea is midline. No thyroid enlargement. CHEST: Decreased breath sounds at the bases with bibasilar crackles. HEART: Heart sounds are irregular. S1-S2 with no murmur, no S3. ABDOMEN: Abdomen soft and obese with the liver felt just below the right costal margin. The bowel sounds are active. EXTREMITIES: 3+ edema with pigmentation of the skin with stasis dermatitis and lymphedema. Peripheral pulses are not well palpable. NEUROLOGIC: Neurologically he is moving all his extremities with 1+ reflexes. No gross motor deficits. Cranial nerves are grossly intact. RECTAL: Rectal exam is deferred. IMPRESSION: 1. Pulmonary edema with bibasilar effusions. 2. Cardiomyopathy and congestive heart failure. 3. Chronic obstructive pulmonary disease. 4. Bibasilar atelectasis with possible pneumonia. 5. Chronic kidney disease. 6. Lymphedema. PLAN: 1. The patient will be maintained on 02 at four liters nasal cannula. 2. He will be placed on DuoNeb solution with nebulizer four times a day. 3. We will get an ultrasound examination of the chest to evaluate the adhesions and thoracentesis planned if necessary. 4. The patient will be maintained on anticoagulants and Lasix 40 milligrams IV today. 5. Antibiotic therapy per infectious disease service which includes Augmentin twice a day and Cardizem 240 milligrams p.o. daily. 6. Pulmonary function studies will be ordered when he is clinically stable. 7. A BiPAP will be used at night if he desaturates below 90%. Thank you, Dr. Torres, for this consultation. MD AILYN Bentley/YVETTE /6:46 PM /7:49 PM
--- NOTE | 2017-01-12 20:51 | RADRPT ---
EXAM DATE/TIME: 01/12/2017 19:44 [facility] COMPARISON: No previous studies available for comparison. INDICATIONS : Pleural effusion. MEDICAL HISTORY : Congestive heart failure. Hypertension. Anticoagulant therapy. Dyspnea. Diabetes. SURGICAL HISTORY : Bilateral eye surgery. Right foot surgery. ENCOUNTER: Initial ACUITY: 1 day PAIN SCORE: 2/10 LOCATION: Right chest MEASUREMENTS: SKIN TO PARIETAL PLEURA: 2.4 cm SKIN TO MAX SAFE DEPTH: 5.6 cm ESTIMATED FLUID VOLUME: 873.4 cc FLUID COMPOSITION: simple FINDINGS: Pleural effusion as above. A leonel was placed on the skin surface superficial to the pleural fluid col lection. CONCLUSION: Large pleural effusion with measurements as above. Zeeshan Oliveira MD on January 12, 2017 at 20:48 Board Certified Radiologist. This report was verified electronically.
[2017-01-12] MEDS ORDERED: POTASSIUM CHLORIDE 25 MEQ EFFERVESCENT TAB PO ONE (21:30)
[2017-01-12] MEDS ORDERED: POTASSIUM CHLORIDE 20 MEQ CONTROLLED RELEASE TAB PO ONE (21:30)
[2017-01-13] VITALS (11 sets, daily range): BP systolic 103–159; BP diastolic 62–107; PULSE 78–119; RESP 18–22; TEMP 97.6–98.6; O2SAT 88–95
[2017-01-13] MEDS: ENOXAPARIN SODIUM 150 MG/ML SYRINGE SQ SCH (03:00)
--- NOTE | 2017-01-13 03:12 | RADRPT ---
EXAM DATE/TIME: 01/13/2017 02:10 [facility] COMPARISON: CHEST SINGLE AP, January 10, 2017, 12:49. INDICATIONS : Shortness of breath, possible pulmonary disease. MEDICAL HISTORY : Hypertension. Hypercholesterolemia. Diabetes mellitus type II. SURGICAL HISTORY : None. ENCOUNTER: Subsequent ACUITY: 1 week PAIN SCORE: 0/10 LOCATION: Bilateral chest FINDINGS: Single AP view of the chest. Bilateral pulmonary parenchymal opacity with lower lung zone prominence and bilateral pulmonary vasculature indistinctness. Moderate-sized bilateral pleural effusions. Cardi ac silhouette enlarged. CONCLUSION: No significant change in bilateral pulmonary parenchymal opacity likely representing pulmonary edema, pleural effusions, and cardiac silhouette enlargement. Edin Cotto MD on January 13, 2017 at 3:04 Board Certified Radiologist. This report was verified electronically.
[2017-01-13] MEDS: cefTAZidime INJ 1,000 MG in SODIUM CHLORIDE 0.9% INJ 100 ML IV SCH ×2 (03:34→15:00)
[2017-01-13] MEDS: RESP: ALBUTEROL 2.5 MG/IPRATROPIUM 0.5 MG NEB (PRN) NEB (05:58)
[2017-01-13] MEDS: AMOXICILLIN/CLAVULANATE K 500 MG TAB PO SCH ×3 (06:32→21:28)
[2017-01-13] MEDS: INSULIN ASPART SUPPLEMENTAL SCALE SQ SCH ×4 (08:00→21:00)
[2017-01-13] MEDS: SODIUM CHLORIDE 0.9% FLUSH 10 ML FLUSH IV FLUSH SCH ×2 (08:49→21:28)
[2017-01-13] MEDS: FUROSEMIDE 40 MG/4 ML VIAL IV PUSH SCH (08:49)
[2017-01-13] MEDS: DOCUSATE SODIUM 50 MG/SENNA 8.6 MG TAB PO SCH ×2 (08:49→21:28)
[2017-01-13] MEDS: PANTOPRAZOLE SOD 40 MG DELAYED RELEASE TAB PO SCH (08:50)
[2017-01-13] MEDS: DILTIAZEM-CD 240 MG CAP ER PO SCH (08:50)
[2017-01-13] MEDS: CARVEDILOL 12.5 MG TAB PO SCH ×2 (08:50→21:28)
[2017-01-13] MEDS: SPIRONOLACTONE 25 MG TAB PO SCH (08:50)
--- NOTE | 2017-01-13 11:57 | HHI.NPPN ---
Subjective History of Present Illness 71-year-old male with past medical history of hypertension, diabetes mellitus, ischemic heart disease, congestive heart failure, atrial fibrillation, history of legal blindness, possible history of chronic kidney disease who came to the hospital with complaint of worsening shortness of breath and edema of the legs. I was called to see the patient because of elevated BUN and creatinine. The patient was found to have creatinine of 1.8 on admission. Additional Remarks Patient is alert, breathing is better, no nausea, eating better. Review of Systems General Constitutional: Fatigue Respiratory Lungs: SOB, Wheeze Cardiovascular Cardiac: Edema, [place] Objective Data Data Vital Signs Date Time Temp Pulse Resp B/P (MAP) Pulse Ox O2 Delivery O2 Flow Rate FiO2 01/13/17 07:50 Nasal Cannula 4.00 01/13/17 06:00 99 01/13/17 05:12 87 01/13/17 04:00 98.0 119 20 103/62 (76) 95 01/13/17 02:00 85 01/13/17 00:00 98.3 95 20 141/82 (101) 92 01/12/17 20:00 98.3 89 22 131/72 (91) 100 01/12/17 20:00 89 01/12/17 20:00 Nasal Cannula 4.00 35 01/12/17 19:45 96 Nasal Cannula 5.00 01/12/17 18:00 109 01/12/17 16:00 71 01/12/17 16:00 98.5 71 17 132/79 (96) 92 01/12/17 14:00 78 01/12/17 12:00 98.1 80 15 120/86 (97) 92 01/12/17 12:00 80 -: 01/12/17 1554 01/12/17 1554 Physical Exam General Appearance: No Acute Distress, Comfortable Eyes Eye Exam: Pupils Equal Throat Throat Exam: Oral Mucosa [place] & Moist Pulmonary Resp Exam: No Distress, Rhonchi, Decreased Bases, Diminished Breath Sounds Cardiology CV Exam: Regular, Normal Sinus Rhythm Gastrointestinal/Abdomen GI Exam: Soft, Non-Tender, Bowel Sounds Present Extremeties Extremities Exam: Moderate Edema, Pitting Edema, Dependent Edema Neurologic Neuro Exam: Alert, Awake, Oriented Psychiatric Psych Exam: Appropriate Responses Assessment/Plan Assessment Summary: ISI/Acute Renal Failure, Fluid/Volume Overload, Hypertension, CKD Stage III Electrolyte Assessment: Hypokalemia Problem List: (1) Stage 3 chronic kidney disease ICD Codes: N18.3 - Chronic kidney disease, stage 3 (moderate) (2) Hypoxia ICD Codes: R09.02 - Hypoxemia (3) HTN (hypertension) ICD Codes: I10 - Essential (primary) hypertension (4) New onset atrial fibrillation ICD Codes: I48.91 - Unspecified atrial fibrillation (5) Cellulitis ICD Codes: L03.90 - Cellulitis, unspecified (6) CHF exacerbation ICD Codes: I50.9 - Heart failure, unspecified (7) ISI (acute kidney injury) ICD Codes: N17.9 - Acute kidney failure, unspecified Plan Patient has good urine out put. On Lasix and Aldactone. Creatinine is slightly better. K is low and replaced. If Creatinine stable, will increase diuretics. Continue Augmentin and Ceftazidime. Problem Qualifiers (1) HTN (hypertension): Qualified Codes: I10 - Essential (primary) hypertension (2) Cellulitis: Qualified Codes: L03.115 - Cellulitis of right lower limb (3) CHF exacerbation: Qualified Codes: I50.23 - Acute on chronic systolic (congestive) heart failure Cuco Malone MD Jan 13, 2017 11:57
[2017-01-13] MEDS: ASPIRIN EC 325 MG TABEC PO SCH (13:50)
--- NOTE | 2017-01-13 13:50 | HHI.PR ---
Subjective Remarks He is better. Good output.No chest pain or fever.US of chest shows a Moderate effusion on Right . Objective Vital Signs Date Time Temp Pulse Resp B/P (MAP) Pulse Ox O2 Delivery O2 Flow Rate FiO2 01/13/17 07:50 Nasal Cannula 4.00 01/13/17 06:00 99 01/13/17 05:12 87 01/13/17 04:00 98.0 119 20 103/62 (76) 95 01/13/17 02:00 85 01/13/17 00:00 98.3 95 20 141/82 (101) 92 01/12/17 20:00 98.3 89 22 131/72 (91) 100 01/12/17 20:00 89 01/12/17 20:00 Nasal Cannula 4.00 35 01/12/17 19:45 96 Nasal Cannula 5.00 01/12/17 18:00 109 01/12/17 16:00 71 01/12/17 16:00 98.5 71 17 132/79 (96) 92 01/12/17 14:00 78 I/O 01/12/17 01/12/17 01/12/17 01/13/17 01/13/17 01/13/17 07:00 15:00 23:00 07:00 15:00 23:00 Intake Total 600 ml 1350 ml 600 ml Output Total 520 ml 1800 ml 1200 ml Balance 80 ml -450 ml -600 ml Intake Oral 500 ml 1350 ml 500 ml IV Total 100 ml 100 ml Output Urine Total 520 ml 1800 ml 1200 ml # Bowel Movements 0 0 0 Result Diagram: 01/12/17 1554 01/12/17 1554 Objective Remarks GENERAL: This is an elderly moderately obese white male who is alert and mildly dyspneic and orthopneic. HEAD, EYES, EARS, NOSE, THROAT: Head normocephalic. The pupils are not reactive There is a corneal opacity. Throat is clear. NECK: The neck is supple with mild venous distention. Trachea is midline. No thyroid enlargement. CHEST: Decreased breath sounds at the bases with bibasilar crackles. HEART: Heart sounds are irregular. S1-S2 with no murmur, no S3. ABDOMEN: Abdomen soft and obese with the liver felt just below the right costal margin. The bowel sounds are active. EXTREMITIES: 3+ edema with pigmentation of the skin with stasis dermatitis and lymphedema. Peripheral pulses are not well palpable. NEUROLOGIC: Neurologically he is moving all his extremities with 1+ reflexes. No gross motor deficits. Cranial nerves are grossly intact. RECTAL: Rectal exam is deferred. Assessment and Plan Assessment and Plan IMPRESSION: 1. Pulmonary edema with bibasilar effusions. 2. Cardiomyopathy and congestive heart failure. 3. Chronic obstructive pulmonary disease. 4. Bibasilar atelectasis with possible pneumonia. 5. Chronic kidney disease. 6. Lymphedema. Plan : 1. Will cont diuretics. 2. Thoracentesis on right side Procedure and risks explained 3.O2 at 3 L. 4. Nebs qid Duoneb. 5. Continue antibiotics. 6. Coagulation profile in am Ryan Jolley MD Jan 13, 2017 13:50
[2017-01-13 14:37] LABS: AUTOMATED NEUTROPHIL # 4.8 TH/MM3 (1.8-7.7); BASOPHIL % 0.5 % (0.0-2.0); EOSINOPHIL # 0.1 TH/MM3 (0-0.4); EOSINOPHIL % 1.4 % (0.0-4.0); HEMO FLAGS DIFF FINAL; LYMPHOCYTE # 0.6 TH/MM3 (1.0-4.8); MEAN CELL VOLUME 93.4 FL (80.0-100.0); MEAN CORPUSCULAR HEMOGLOBIN 30.8 PG (27.0-34.0); MONO % 10.3 % (0.0-8.0); NEUT % 77.8 % (16.0-70.0); PLATELET COUNT 236 TH/MM3 (150-450); RED BLOOD COUNT 3.85 MIL/MM3 (4.50-5.90); RED CELL DISTRIBUTION WIDTH 16.4 % (11.6-17.2); WHITE BLOOD COUNT 6.1 TH/MM3 (4.0-11.0)
[2017-01-13 14:50] LABS: PROTHROMBIN TIME - PATIENT 11.4 SEC (9.8-11.6)
[2017-01-13 15:01] LABS: ANION GAP 9 MEQ/L (5-15); AST (GOT) 18 U/L (15-37); BICARBONATE 30.2 MEQ/L (21.0-32.0); BLOOD UREA NITROGEN 28 MG/DL (7-18); CHLORIDE 101 MEQ/L (98-107); GLOMERULAR FILTRATION RATE 41 ML/MIN (>89); POTASSIUM 3.9 MEQ/L (3.5-5.1); SODIUM (NA) 140 MEQ/L (136-145)
[2017-01-13 15:02] LABS: ALT (GPT) 31 U/L (12-78)
[2017-01-13 15:04] LABS: ALKALINE PHOSPHATASE 60 U/L (45-117); TOTAL BILIRUBIN ADULT 0.6 MG/DL (0.2-1.0)
--- NOTE | 2017-01-13 16:26 | HHI.PR ---
Subjective Remarks The patient states that he feels better, denies chest pain. Shortness of breath is improving. Denies fevers or chills. Down to 4 L nasal cannula. Objective Vitals Vital Signs Date Time Temp Pulse Resp B/P (MAP) Pulse Ox O2 Delivery O2 Flow Rate FiO2 01/13/17 07:50 Nasal Cannula 4.00 01/13/17 06:00 99 01/13/17 05:12 87 01/13/17 04:00 98.0 119 20 103/62 (76) 95 01/13/17 02:00 85 01/13/17 00:00 98.3 95 20 141/82 (101) 92 01/12/17 20:00 98.3 89 22 131/72 (91) 100 01/12/17 20:00 89 01/12/17 20:00 Nasal Cannula 4.00 35 01/12/17 19:45 96 Nasal Cannula 5.00 01/12/17 18:00 109 I/O 01/12/17 01/12/17 01/12/17 01/13/17 01/13/17 01/13/17 07:00 15:00 23:00 07:00 15:00 23:00 Intake Total 600 ml 1350 ml 600 ml Output Total 520 ml 1800 ml 1200 ml Balance 80 ml -450 ml -600 ml Intake Oral 500 ml 1350 ml 500 ml IV Total 100 ml 100 ml Output Urine Total 520 ml 1800 ml 1200 ml # Bowel Movements 0 0 0 Result Diagram: 01/13/17 1401 01/13/17 1401 Imaging Last Impressions Chest X-Ray 01/13/17 0600 Signed Impressions: Service Date/Time: Friday, January 13, 2017 02:10 - CONCLUSION: No significant change in bilateral pulmonary parenchymal opacity likely representing pulmonary edema, pleural effusions, and cardiac silhouette enlargement. Edin Cotto MD Renal Ultrasound 01/12/17 0000 Signed Impressions: Service Date/Time: Thursday, January 12, 2017 17:27 - CONCLUSION: Three cortical cysts on the right. Small left pleural effusion. Slight increased echogenicity to the right kidney. Zeeshan Oliveira MD Chest Ultrasound 01/12/17 0000 Signed Impressions: Service Date/Time: Thursday, January 12, 2017 19:44 - CONCLUSION: Large pleural effusion with measurements as above. Zeeshan Oliveira MD Myocardial Perfusion Scan Nuc Med 01/08/17 0000 Signed Impressions: Service Date/Time: Sunday, January 08, 2017 08:48 - CONCLUSION: 1. No evidence of stress-induced ischemia. 2. Fixed perfusion defects involving the apex and apical segments suggest prior infarction. 3. Very poor wall motion with global hypokinesia and possible dilation of left ventricular cavity. This suggests possible cardiomyopathy. RISK CATEGORY: Intermediate (1-3%% Annual Mortality Rate) Raheem Chanel MD CT Angiography 01/04/17 0000 Signed Impressions: Service Date/Time: December 11:11 - CONCLUSION: 1. Moderate to severe anterior upper lobe paraseptal emphysema. 2. Cardiomegaly with perihilar groundglass opacities consistent with pulmonary edema. 3. Moderate bilateral, right greater then left, simple pleural effusions with associated airspace disease in the lower lobes, presumably compressive atelectasis. 4. Coronary artery calcifications. Ralph Wynn MD Lower Extremity Ultrasound 01/02/17 0000 Signed Impressions: Service Date/Time: Monday, January 02, 2017 09:01 - CONCLUSION: 1. Edema in the soft tissues of the lower legs bilaterally. 2. However, no sonographic or Doppler findings of deep venous thrombosis Bandar Ricks MD Objective Remarks AAOx3, mild tachypnea, nad Diminished breath sounds BL the bases. No wheezing, rhonchi auscultated. S1S2 with regular rate and rhythm, no MRG abdomen soft, NT, ND RLE has 4 ulcers with purulent discharge and erythema surrounding the anterior leg. Medications and IVs Current Medications Medications (Trade) Dose Ordered Sig/Rosalie Route Start Time Stop Time Status Last Admin (Nitrostat Sl) 0.4 mg Q5M PRN SL 01/01/17 20:15 01/01/17 20:24 (NS Flush) 2 ml UNSCH PRN IV FLUSH 01/01/17 22:15 01/03/17 17:50 (NS Flush) 2 ml BID IV FLUSH 01/02/17 09:00 01/13/17 08:49 (Narcan Inj) 0.4 mg UNSCH PRN IV PUSH 01/01/17 22:15 (Ecotrin Ec) 325 mg DAILY PO 01/02/17 09:00 01/13/17 13:50 (D50w (Vial) Inj) 50 ml UNSCH PRN IV PUSH 01/02/17 03:00 (Glucagon Inj) 1 mg UNSCH PRN OTHER 01/02/17 03:00 (NovoLOG SUPPLEMENTAL SCALE) 1 ACHS SLIDING SCALE SQ 01/02/17 08:00 01/13/17 12:00 (Duoneb Neb) 1 ampule Q6HR NEB PRN NEB 01/02/17 10:00 01/13/17 05:58 (Pill Splitter) 1 ea UNSCH PRN OTHER 01/04/17 18:15 (Lactulose Liq) 30 ml DAILY PRN PO 01/05/17 13:15 01/11/17 08:44 (Cardizem Cd) 240 mg DAILY PO 01/08/17 09:00 01/13/17 08:50 (Coreg) 12.5 mg Q12HR PO 01/08/17 21:00 01/13/17 08:50 (Prinivil) 40 mg DAILY PO 01/09/17 09:00 Future Hold 01/11/17 08:21 (Aldactone) 25 mg DAILY PO 01/09/17 09:00 01/13/17 08:50 (Lovenox Inj) 130 mg Q12H SQ 01/10/17 15:00 Future hold 01/13/17 03:00 Ceftazidime 1000 mg/Sodium Chloride 100 ml @ 200 mls/hr Q12H IV 01/10/17 15:00 01/13/17 15:00 (Augmentin) 500 mg Q8HR PO 01/11/17 06:00 01/13/17 13:50 (Gregoria-Colace) 1 tab BID PO 01/11/17 21:00 01/13/17 08:49 (Milk Of Magnesia Liq) 30 ml Q12H PRN PO 01/11/17 19:00 01/13/17 08:50 (Senokot) 17.2 mg Q12H PRN PO 01/11/17 19:00 01/13/17 08:50 (Dulcolax Supp) 10 mg DAILY PRN RECTAL 01/11/17 19:00 01/13/17 15:40 (Protonix) 40 mg DAILY PO 01/11/17 19:15 01/13/17 08:50 (Lasix Inj) 40 mg DAILY IV PUSH 01/12/17 09:00 01/13/17 08:49 A/P Problem List: (1) CHF exacerbation ICD Code: I50.9 - Heart failure, unspecified Plan: 11. Stress for The patient was admitted to the medical floor Cardiology consulted and following the patient. Was treated with IV Lasix, however not on IV Lasix now, as per records IV Lasix discontinued on 01/[address] Renee. 2-D echocardiogram showed a severely reduced left ventricular systolic function with an estimated ejection fraction of 15-20%. Global hypokinesis. Mild left ventricular enlargement with normal wall thickness. Mild to moderate mitral annular calcification and possible mild aortic sclerosis. I will resume Lasix 40 mg IV twice a day, repeat a chest x-ray and then an ABG stat. 01/11 Due to rise in creatinine will decrease Lasix dose to once a day. Patient respiratory status improving. Patient down to Ventimask form Non rebreather mask. Continue to provide supplemental oxygen to keep oxygen saturations more than 92%. 01/13 Continue with Lasix 40 mg IV daily. Creatinine trended down nicely from 1.8-1.6. (2) Afib ICD Code: I48.91 - Unspecified atrial fibrillation Status: Chronic Plan: And Lori to monitor on telemetry. Telemetry shows rate controlled atrial fibrillation. Tenial diltiazem, carvedilol as per cardiology recommendations. The patient will need to be on chronic anticoagulation as Chads Vasc score is elevated 01/12 Continue lovenox 130 mg SQ BID (3) Acute hypoxemic respiratory failure ICD Code: J96.01 - Acute respiratory failure with hypoxia Plan: Patient today with moderate respiratory distress, oxygen saturation dropped down to the 80s as per RN verbal report and the patient has to be placed on a partial rebreather mask. I will check an ABG stat, chest x-ray stat, give Lasix 40 mg IV once and Solu- Medrol 125 maintenance IV once. The patient will be also transferred to the intensive care unit for closer monitoring. 01/11 patient still with hypoxemic respiratory failure. ABG ordered on 06/10 showed a pH of 7.44, oxygen saturation of 89% with a PCO2 42. Continue supplemental oxygen, IV Lasix 01/12 Improving. Continue diuresis as above. Continue to taper o2. Consult pulmonary. 01/13 appreciate pulmonary recommendations. Repeat chest x-ray today shows no significant change in bilateral pulmonary parenchymal opacity likely representing pulmonary edema, pleural effusions and cardiac silhouette enlargement. A chest ultrasound performed on January 12 showed a large pleural effusion. The patient is for thoracentesis in a.m. by pulmonary. (4) New onset atrial fibrillation ICD Code: I48.91 - Unspecified atrial fibrillation Plan: Patient seen by cardiology who recommended and started the patient on Lasix 40 mg every 8 hours for 3 days, however did not get any more Lasix after this was discontinued. Coreg dose increased to 6.25 mg twice a day as well as Cardizem which was increased to 240 mg a day. LAUREN inhibitor dose was increased to 20 g per day. TSH obtained and was normal. Ischemic workup included troponins which remained negative. Nuclear stress testing was negative with signs of prior infarction. Nuclear stress testing also showed very poor wall motion with global hypokinesia and possible dilation of the left ventricular cavity. Suggesting possible cardiomyopathy. 01/12 On Lovenox therapeutic dose for anticoagulation that will need to be transitioned to oral once patient more stable. (5) HTN (hypertension) ICD Code: I10 - Essential (primary) hypertension Plan: Blood pressure with stable control on Coreg, diltiazem, lisinopril. Continue to monitor vital signs. (6) Cellulitis ICD Code: L03.90 - Cellulitis, unspecified Plan: Wound culture obtained on 01/01/17 grew Proteus Vulgaris Pseudomonas aeruginosa and Enterococcus faecalis. We'll start the patient on ceftazidime and ampicillin and consult infectious disease for further management. Continue with wound care management. 01/11 appreciate ID consultation and recommendations. Ampicillin IV discontinued and the patient started on Augmentin, continue Ceftazidime. (7) ISI (acute kidney injury) ICD Code: N17.9 - Acute kidney failure, unspecified Plan: Acute kidney injury on chronic kidney disease stage III. Baseline creatinine around 1.4-1.5. Creatinine worsening today up to 1.8 from 1.5. Likely secondary to diureses. I will decrease the dose of IV Lasix to 40 mg by mouth daily from twice a day. Consult nephrology- pending Creatinine improving. Continue to monitor BUN/creatinine, strict I's and O's, avoid nephrotoxins. Assessment and Plan GI prophylaxis: I'll add a PPI since patient is going to get a steroids. DVT prophylaxis: On Lovenox subcutaneous at therapeutic dose. Discharge Planning Continue to monitor the patient to intensive care unit. Patient improving clinically. Possible transfer out of the unit in am if o2 stable. Problem Qualifiers (1) CHF exacerbation: Qualified Codes: I50.23 - Acute on chronic systolic (congestive) heart failure (2) Afib: Qualified Codes: I48.91 - Unspecified atrial fibrillation (3) HTN (hypertension): Qualified Codes: I10 - Essential (primary) hypertension (4) Cellulitis: Qualified Codes: L03.115 - Cellulitis of right lower limb River Joy MD Jan 13, 2017 16:26
[2017-01-14] VITALS (16 sets, daily range): BP systolic 112–159; BP diastolic 64–92; PULSE 84–116; RESP 19–35; TEMP 97.3–98.6; O2SAT 87–96
[2017-01-14] MEDS: cefTAZidime INJ 1,000 MG in SODIUM CHLORIDE 0.9% INJ 100 ML IV SCH ×2 (02:29→14:18)
[2017-01-14] MEDS: AMOXICILLIN/CLAVULANATE K 500 MG TAB PO SCH ×3 (06:40→21:18)
[2017-01-14] MEDS: INSULIN ASPART SUPPLEMENTAL SCALE SQ SCH ×4 (08:00→21:00)
[2017-01-14] MEDS: FUROSEMIDE 40 MG/4 ML VIAL IV PUSH SCH (09:37)
[2017-01-14] MEDS: PANTOPRAZOLE SOD 40 MG DELAYED RELEASE TAB PO SCH (09:38)
[2017-01-14] MEDS: DOCUSATE SODIUM 50 MG/SENNA 8.6 MG TAB PO SCH ×2 (09:38→21:18)
[2017-01-14] MEDS: DILTIAZEM-CD 240 MG CAP ER PO SCH (09:38)
[2017-01-14] MEDS: CARVEDILOL 12.5 MG TAB PO SCH ×2 (09:38→21:18)
[2017-01-14] MEDS: SPIRONOLACTONE 25 MG TAB PO SCH (09:38)
[2017-01-14] MEDS: SODIUM CHLORIDE 0.9% FLUSH 10 ML FLUSH IV FLUSH SCH ×2 (09:39→21:19)
[2017-01-14] MEDS: ASPIRIN EC 325 MG TABEC PO SCH (14:18)
--- NOTE | 2017-01-14 14:19 | RADRPT ---
EXAM DATE/TIME: 01/14/2017 13:39 [facility] COMPARISON: CHEST SINGLE AP, January 13, 2017, 2:10. INDICATIONS : Status post thoracentesis. MEDICAL HISTORY : Hypertension. Hypercholesterolemia. Diabetes mellitus type II. SURGICAL HISTORY : None. ENCOUNTER: Subsequent ACUITY: 1 day PAIN SCORE: 0/10 LOCATION: Bilateral chest FINDINGS: Right pleural effusion has decreased, now very small. The associated right base consolidation is also much improved. Moderate pleural effusion and patchy air space consolidation on the left not significantly changed. Mild cardiomegaly is stable. No pneumothorax seen. CONCLUSION: 1. Decreased pleural effusion and basilar consolidation on the right. No pneumothorax. 2. Moderate pleural effusion and patchy airspace disease on the left not significantly changed. Oneal Nair MD on January 14, 2017 at 14:16 Board Certified Radiologist. This report was verified electronically.
[2017-01-14 15:29] LABS: PLEURAL FLUID LYMPHS 78 %
--- NOTE | 2017-01-14 18:03 | HHI.NPPN ---
Subjective History of Present Illness 71-year-old male with past medical history of hypertension, diabetes mellitus, ischemic heart disease, congestive heart failure, atrial fibrillation, history of legal blindness, possible history of chronic kidney disease who came to the hospital with complaint of worsening shortness of breath and edema of the legs. I was called to see the patient because of elevated BUN and creatinine. The patient was found to have creatinine of 1.8 on admission. Additional Remarks Patient is alert, breathing is better, no nausea, the swelling in the legs improving. Review of Systems General Constitutional: Fatigue Respiratory Lungs: SOB, Wheeze Cardiovascular Cardiac: Edema, [place] Objective Data Data 01/14/17 01/15/17 19:00 07:00 Intake Total 1225 ml Output Total 2160 ml Balance -935 ml Intake Oral 1225 ml Output Urine Total 960 ml Drainage Total 1200 ml # Bowel Movements 0 Vital Signs Date Time Temp Pulse Resp B/P (MAP) Pulse Ox O2 Delivery O2 Flow Rate FiO2 01/14/17 16:00 97.3 94 22 121/64 (83) 93 01/14/17 13:45 89 24 96 01/14/17 13:30 94 20 90 01/14/17 13:15 102 24 89 01/14/17 13:00 100 28 112/72 (85) 92 01/14/17 12:00 97.7 96 20 114/80 (91) 91 01/14/17 09:42 95 50 01/14/17 08:00 Nasal Cannula 6.00 01/14/17 08:00 97.9 96 20 159/92 (114) 91 01/14/17 06:00 94 01/14/17 04:00 95 01/14/17 04:00 98.5 95 20 144/92 (109) 93 01/14/17 02:00 84 01/14/17 00:00 84 01/14/17 00:00 98.6 84 19 140/87 (104) 90 01/13/17 22:00 91 01/13/17 20:23 92 Nasal Cannula 5.00 01/13/17 20:00 Nasal Cannula 6.00 01/13/17 20:00 98.4 81 18 146/83 (104) 89 01/13/17 20:00 81 -: 01/13/17 1401 01/13/17 1401 Microbiology 01/14/17 Fungal Smear - Final, Resulted NO FUNGAL ELEMENTS SEEN. 01/14/17 Fungal Culture, Resulted Pending 01/14/17 Acid Fast Stain, Received Pending 01/14/17 Mycobacterial Culture, Received Pending 01/14/17 Gram Stain - Final, Resulted 01/14/17 Body Fluid Culture, Resulted Pending Physical Exam General Appearance: No Acute Distress, Comfortable Eyes Eye Exam: Pupils Equal Throat Throat Exam: Oral Mucosa [place] & Moist Pulmonary Resp Exam: No Distress, Rhonchi, Decreased Bases, Diminished Breath Sounds Cardiology CV Exam: Regular, Normal Sinus Rhythm Gastrointestinal/Abdomen GI Exam: Soft, Non-Tender, Bowel Sounds Present Extremeties Extremities Exam: Moderate Edema, Pitting Edema, Dependent Edema Neurologic Neuro Exam: Alert, Awake, Oriented Psychiatric Psych Exam: Appropriate Responses Assessment/Plan Assessment Summary: ISI/Acute Renal Failure, Fluid/Volume Overload, Hypertension, CKD Stage III Electrolyte Assessment: Hypokalemia Problem List: (1) Stage 3 chronic kidney disease ICD Codes: N18.3 - Chronic kidney disease, stage 3 (moderate) (2) Hypoxia ICD Codes: R09.02 - Hypoxemia (3) HTN (hypertension) ICD Codes: I10 - Essential (primary) hypertension (4) New onset atrial fibrillation ICD Codes: I48.91 - Unspecified atrial fibrillation (5) Cellulitis ICD Codes: L03.90 - Cellulitis, unspecified (6) CHF exacerbation ICD Codes: I50.9 - Heart failure, unspecified (7) ISI (acute kidney injury) ICD Codes: N17.9 - Acute kidney failure, unspecified Plan Patient has good urine out put. On Lasix and Aldactone. Creatinine is stable. K is better. Continue Augmentin and Ceftazidime. Follow the urine out put and BMP. Problem Qualifiers (1) HTN (hypertension): Qualified Codes: I10 - Essential (primary) hypertension (2) Cellulitis: Qualified Codes: L03.115 - Cellulitis of right lower limb (3) CHF exacerbation: Qualified Codes: I50.23 - Acute on chronic systolic (congestive) heart failure Cuco Malone MD Jan 14, 2017 18:03
--- NOTE | 2017-01-14 18:49 | HHI.PR ---
Subjective Remarks The patient status post right thoracentesis been The patient states breathing has improved. As per RN the patient has been doing great after thoracentesis. Objective Vitals Vital Signs Date Time Temp Pulse Resp B/P (MAP) Pulse Ox O2 Delivery O2 Flow Rate FiO2 01/14/17 16:00 97.3 94 22 121/64 (83) 93 01/14/17 13:45 89 24 96 01/14/17 13:30 94 20 90 01/14/17 13:15 102 24 89 01/14/17 13:00 100 28 112/72 (85) 92 01/14/17 12:00 97.7 96 20 114/80 (91) 91 01/14/17 09:42 95 50 01/14/17 08:00 Nasal Cannula 6.00 01/14/17 08:00 97.9 96 20 159/92 (114) 91 01/14/17 06:00 94 01/14/17 04:00 95 01/14/17 04:00 98.5 95 20 144/92 (109) 93 01/14/17 02:00 84 01/14/17 00:00 84 01/14/17 00:00 98.6 84 19 140/87 (104) 90 01/13/17 22:00 91 01/13/17 20:23 92 Nasal Cannula 5.00 01/13/17 20:00 Nasal Cannula 6.00 01/13/17 20:00 98.4 81 18 146/83 (104) 89 01/13/17 20:00 81 I/O 01/13/17 01/13/17 01/13/17 01/14/17 01/14/17 01/14/17 07:00 15:00 23:00 07:00 15:00 23:00 Intake Total 600 ml 1900 ml 100 ml 1225 ml Output Total 1200 ml 1700 ml 947 ml 2160 ml Balance -600 ml 200 ml -847 ml -935 ml Intake Oral 500 ml 1800 ml 1225 ml IV Total 100 ml 100 ml 100 ml Output Urine Total 1200 ml 1700 ml 947 ml 960 ml Drainage Total 1200 ml # Bowel Movements 0 1 0 0 Result Diagram: 01/13/17 1401 01/13/17 1401 Imaging Last Impressions Chest X-Ray 01/14/17 0000 Signed Impressions: Service Date/Time: Saturday, January 14, 2017 13:39 - CONCLUSION: 1. Decreased pleural effusion and basilar consolidation on the right. No pneumothorax. 2. Moderate pleural effusion and patchy airspace disease on the left not significantly changed. Oneal Nair MD Renal Ultrasound 01/12/17 Signed Impressions: Service Date/Time: Thursday, January 12, 2017 17:27 - CONCLUSION: Three cortical cysts on the right. Small left pleural effusion. Slight increased echogenicity to the right kidney. Zeeshan Oliveira MD Chest Ultrasound 01/12/17 Signed Impressions: Service Date/Time: Thursday, January 12, 2017 19:44 - CONCLUSION: Large pleural effusion with measurements as above. Zeeshan Oliveira MD Myocardial Perfusion Scan Nuc Med 01/08/17 Signed Impressions: Service Date/Time: Sunday, January 08, 2017 08:48 - CONCLUSION: 1. No evidence of stress-induced ischemia. 2. Fixed perfusion defects involving the apex and apical segments suggest prior infarction. 3. Very poor wall motion with global hypokinesia and possible dilation of left ventricular cavity. This suggests possible cardiomyopathy. RISK CATEGORY: Intermediate (1-3%% Annual Mortality Rate) Raheem Chanel MD CT Angiography 01/04/17 Signed Impressions: Service Date/Time: December 11:11 - CONCLUSION: 1. Moderate to severe anterior upper lobe paraseptal emphysema. 2. Cardiomegaly with perihilar groundglass opacities consistent with pulmonary edema. 3. Moderate bilateral, right greater then left, simple pleural effusions with associated airspace disease in the lower lobes, presumably compressive atelectasis. 4. Coronary artery calcifications. Ralph Wynn MD Lower Extremity Ultrasound 01/02/17 Signed Impressions: Service Date/Time: Monday, January 02, 2017 09:01 - CONCLUSION: 1. Edema in the soft tissues of the lower legs bilaterally. 2. However, no sonographic or Doppler findings of deep venous thrombosis Bandar Ricks MD Objective Remarks AAOx3, mild tachypnea, nad Diminished breath sounds BL the bases. No wheezing, rhonchi auscultated. S1S2 with regular rate and rhythm, no MRG abdomen soft, NT, ND RLE has 4 ulcers with purulent discharge and erythema surrounding the anterior leg. Medications and IVs Current Medications Medications (Trade) Dose Ordered Sig/Rosalie Route Start Time Stop Time Status Last Admin (Nitrostat Sl) 0.4 mg Q5M PRN SL 01/01/17 20:15 01/01/17 20:24 (NS Flush) 2 ml UNSCH PRN IV FLUSH 01/01/17 22:15 01/03/17 17:50 (NS Flush) 2 ml BID IV FLUSH 01/02/17 09:00 01/14/17 09:39 (Narcan Inj) 0.4 mg UNSCH PRN IV PUSH 01/01/17 22:15 (Ecotrin Ec) 325 mg DAILY PO 01/02/17 09:00 01/14/17 14:18 (D50w (Vial) Inj) 50 ml UNSCH PRN IV PUSH 01/02/17 03:00 (Glucagon Inj) 1 mg UNSCH PRN OTHER 01/02/17 03:00 (NovoLOG SUPPLEMENTAL SCALE) 1 ACHS SLIDING SCALE SQ 01/02/17 08:00 01/14/17 17:00 (Duoneb Neb) 1 ampule Q6HR NEB PRN NEB 01/02/17 10:00 01/13/17 05:58 (Pill Splitter) 1 ea UNSCH PRN OTHER 01/04/17 18:15 (Lactulose Liq) 30 ml DAILY PRN PO 01/05/17 13:15 01/11/17 08:44 (Cardizem Cd) 240 mg DAILY PO 01/08/17 09:00 01/14/17 09:38 (Coreg) 12.5 mg Q12HR PO 01/08/17 21:00 01/14/17 09:38 (Prinivil) 40 mg DAILY PO 01/09/17 09:00 Future Hold 01/11/17 08:21 (Aldactone) 25 mg DAILY PO 01/09/17 09:00 01/14/17 09:38 (Lovenox Inj) 130 mg Q12H SQ 01/10/17 15:00 Future hold 01/13/17 03:00 Ceftazidime 1000 mg/Sodium Chloride 100 ml @ 200 mls/hr Q12H IV 01/10/17 15:00 01/14/17 14:18 (Augmentin) 500 mg Q8HR PO 01/11/17 06:00 01/14/17 14:18 (Gregoria-Colace) 1 tab BID PO 01/11/17 21:00 01/14/17 09:38 (Milk Of Dinorah Pozo) 30 ml Q12H PRN PO 01/11/17 19:00 01/13/17 08:50 (Senokot) 17.2 mg Q12H PRN PO 01/11/17 19:00 01/13/17 08:50 (Dulcolax Supp) 10 mg DAILY PRN RECTAL 01/11/17 19:00 01/13/17 15:40 (Protonix) 40 mg DAILY PO 01/11/17 19:15 01/14/17 09:38 (Lasix Inj) 40 mg DAILY IV PUSH 01/12/17 09:00 01/14/17 09:37 A/P Problem List: (1) CHF exacerbation ICD Code: I50.9 - Heart failure, unspecified Plan: 11. Stress for The patient was admitted to the medical floor Cardiology consulted and following the patient. Was treated with IV Lasix, however not on IV Lasix now, as per records IV Lasix discontinued on 01/[address] Renee. 2-D echocardiogram showed a severely reduced left ventricular systolic function with an estimated ejection fraction of 15-20%. Global hypokinesis. Mild left ventricular enlargement with normal wall thickness. Mild to moderate mitral annular calcification and possible mild aortic sclerosis. I will resume Lasix 40 mg IV twice a day, repeat a chest x-ray and then an ABG stat. 01/11 Due to rise in creatinine will decrease Lasix dose to once a day. Patient respiratory status improving. Patient down to Ventimask form Non rebreather mask. Continue to provide supplemental oxygen to keep oxygen saturations more than 92%. 01/13 Continue with Lasix 40 mg IV daily. Creatinine trended down nicely from 1.8-1.6. (2) Afib ICD Code: I48.91 - Unspecified atrial fibrillation Status: Chronic Plan: And Lori to monitor on telemetry. Telemetry shows rate controlled atrial fibrillation. Tenial diltiazem, carvedilol as per cardiology recommendations. The patient will need to be on chronic anticoagulation as Chads Vasc score is elevated 01/12 Continue lovenox 130 mg SQ BID 01/14 Lovenox held prior to thoracentesis. Resume as per pulmonology. (3) Acute hypoxemic respiratory failure ICD Code: J96.01 - Acute respiratory failure with hypoxia Plan: Patient today with moderate respiratory distress, oxygen saturation dropped down to the 80s as per RN verbal report and the patient has to be placed on a partial rebreather mask. I will check an ABG stat, chest x-ray stat, give Lasix 40 mg IV once and Solu- Medrol 125 maintenance IV once. The patient will be also transferred to the intensive care unit for closer monitoring. 01/11 patient still with hypoxemic respiratory failure. ABG ordered on 06/10 showed a pH of 7.44, oxygen saturation of 89% with a PCO2 42. Continue supplemental oxygen, IV Lasix 01/12 Improving. Continue diuresis as above. Continue to taper o2. Consult pulmonary. 01/13 appreciate pulmonary recommendations. Repeat chest x-ray today shows no significant change in bilateral pulmonary parenchymal opacity likely representing pulmonary edema, pleural effusions and cardiac silhouette enlargement. A chest ultrasound performed on January 12 showed a large pleural effusion. The patient is for thoracentesis in a.m. by pulmonary. 01/14 status post right thoracentesis. Respiratory status mildly improved. Continue to monitor vital signs. (4) New onset atrial fibrillation ICD Code: I48.91 - Unspecified atrial fibrillation Plan: Patient seen by cardiology who recommended and started the patient on Lasix 40 mg every 8 hours for 3 days, however did not get any more Lasix after this was discontinued. Coreg dose increased to 6.25 mg twice a day as well as Cardizem which was increased to 240 mg a day. LAUREN inhibitor dose was increased to 20 g per day. TSH obtained and was normal. Ischemic workup included troponins which remained negative. Nuclear stress testing was negative with signs of prior infarction. Nuclear stress testing also showed very poor wall motion with global hypokinesia and possible dilation of the left ventricular cavity. Suggesting possible cardiomyopathy. 01/12 On Lovenox therapeutic dose for anticoagulation that will need to be transitioned to oral once patient more stable. (5) HTN (hypertension) ICD Code: I10 - Essential (primary) hypertension Plan: Blood pressure with stable control on Coreg, diltiazem, lisinopril. Continue to monitor vital signs. (6) Cellulitis ICD Code: L03.90 - Cellulitis, unspecified Plan: Wound culture obtained on 01/01/17 grew Proteus Vulgaris Pseudomonas aeruginosa and Enterococcus faecalis. We'll start the patient on ceftazidime and ampicillin and consult infectious disease for further management. Continue with wound care management. 01/11 appreciate ID consultation and recommendations. Ampicillin IV discontinued and the patient started on Augmentin, continue Ceftazidime. (7) ISI (acute kidney injury) ICD Code: N17.9 - Acute kidney failure, unspecified Plan: Acute kidney injury on chronic kidney disease stage III. Baseline creatinine around 1.4-1.5. Creatinine worsening today up to 1.8 from 1.5. Likely secondary to diureses. I will decrease the dose of IV Lasix to 40 mg by mouth daily from twice a day. Creatinine improving. Continue to monitor BUN/creatinine, strict I's and O's, avoid nephrotoxins. 01/14 appreciate nephrology recommendations. As per nephrology probably CK V stage III with a baseline creatinine between 1.4 1.5. Follow-up kidney ultrasound. Assessment and Plan GI prophylaxis: I'll add a PPI since patient is going to get a steroids. DVT prophylaxis: On Lovenox subcutaneous at therapeutic dose. Discharge Planning Continue to monitor the patient to intensive care unit. Patient improving clinically. Possible transfer out of the unit in am if o2 stable. Problem Qualifiers (1) CHF exacerbation: Qualified Codes: I50.23 - Acute on chronic systolic (congestive) heart failure (2) Afib: Qualified Codes: I48.91 - Unspecified atrial fibrillation (3) HTN (hypertension): Qualified Codes: I10 - Essential (primary) hypertension (4) Cellulitis: Qualified Codes: L03.115 - Cellulitis of right lower limb River Joy MD Jan 14, 2017 18:49
[2017-01-15] VITALS (14 sets, daily range): BP systolic 110–167; BP diastolic 58–101; PULSE 74–126; RESP 19–26; TEMP 97.8–98.9; O2SAT 87–96
[2017-01-15] MEDS: cefTAZidime INJ 1,000 MG in SODIUM CHLORIDE 0.9% INJ 100 ML IV SCH ×2 (02:51→14:47)
[2017-01-15] MEDS: AMOXICILLIN/CLAVULANATE K 500 MG TAB PO SCH ×3 (05:54→21:56)
[2017-01-15] MEDS: INSULIN ASPART SUPPLEMENTAL SCALE SQ SCH ×4 (08:38→21:00)
[2017-01-15] MEDS: SODIUM CHLORIDE 0.9% FLUSH 10 ML FLUSH IV FLUSH PRN (08:39)
[2017-01-15] MEDS: SODIUM CHLORIDE 0.9% FLUSH 10 ML FLUSH IV FLUSH SCH (08:39)
[2017-01-15] MEDS: DILTIAZEM-CD 240 MG CAP ER PO SCH (08:39)
[2017-01-15] MEDS: CARVEDILOL 12.5 MG TAB PO SCH ×2 (08:39→21:56)
[2017-01-15] MEDS: SPIRONOLACTONE 25 MG TAB PO SCH (08:39)
[2017-01-15] MEDS: FUROSEMIDE 40 MG/4 ML VIAL IV PUSH SCH ×2 (08:39→17:03)
[2017-01-15] MEDS: PANTOPRAZOLE SOD 40 MG DELAYED RELEASE TAB PO SCH (08:40)
[2017-01-15] MEDS: ASPIRIN EC 325 MG TABEC PO SCH (08:40)
[2017-01-15] MEDS: DOCUSATE SODIUM 50 MG/SENNA 8.6 MG TAB PO SCH ×2 (08:40→21:56)
--- NOTE | 2017-01-15 09:51 | RADRPT ---
EXAM DATE/TIME: 01/15/2017 09:25 [facility] COMPARISON: CHEST SINGLE AP, January 14, 2017, 13:39. INDICATIONS : Shortness of breath. MEDICAL HISTORY : Hypertension. Hypercholesterolemia. Diabetes mellitus type II. SURGICAL HISTORY : None. ENCOUNTER: Subsequent ACUITY: 2 days PAIN SCORE: 0/10 LOCATION: Bilateral chest FINDINGS: Heart is enlarged. Moderate interstitial edema is present with developing consolidative changes righ t lung. There is no pneumothorax there is no significant fluid. CONCLUSION: Deterioration with increasing congestive failure and consolidative changes left lung. Josef Davis MD FACR on January 15, 2017 at 9:49 Board Certified Radiologist. This report was verified electronically.
[2017-01-15] MEDS: ENOXAPARIN SODIUM 150 MG/ML SYRINGE SQ SCH (14:46)
--- NOTE | 2017-01-15 14:55 | MR ---
cc: Ryan JOLLEY M.D. DATE: 01/14/2017 PROCEDURE Right thoracentesis. PREOPERATIVE DIAGNOSIS Right pleural effusion. ANESTHESIA 1% Xylocaine. SURGEON Dr. Jolley. PROCEDURE AND FINDINGS The patient was prepped with chlorhexidine solution to the right posterior back following which sterile drapes were applied. 1% Xylocaine was then injected into the intercostal space in the posterior axillary line, after which a small incision made with a scalpel blade, following which a 14-gauge catheter was inserted in the pleural space. This was connected to a vacuum bottle. Approximately 1200 ccs of serosanguineous fluid was aspirated, at which time the flow stopped. The patient tolerated the procedure well. Fluid was sent for cultures and cytology and other studies. Oneal Jolley MD JJOSÉ MIGUEL/ROMANA /1:06 PM /2:48 PM
--- NOTE | 2017-01-15 15:29 | HHI.PR ---
Subjective Remarks as per RN patient has been desating with exertion into the 70's patient denies cp on a partial rebreather mask afebrile Objective Vitals Vital Signs Date Time Temp Pulse Resp B/P (MAP) Pulse Ox O2 Delivery O2 Flow Rate FiO2 01/15/17 14:00 95 01/15/17 12:00 97.8 100 22 148/63 (91) 87 01/15/17 12:00 100 01/15/17 10:00 107 01/15/17 09:30 88 Nasal Cannula 6.00 Humidified 01/15/17 08:17 91 Partial Rebreather 12.00 01/15/17 08:00 90 Partial Non-Rebreather 15.00 01/15/17 08:00 98.3 116 23 125/92 (103) 87 01/15/17 08:00 113 01/15/17 06:00 126 01/15/17 05:27 102 22 90 01/15/17 04:00 98.5 109 25 167/101 (123) 91 01/15/17 04:00 109 01/15/17 02:00 91 01/15/17 00:00 81 01/15/17 00:00 98.4 81 19 129/89 (102) 92 01/14/17 22:00 94 Non-Rebreather 15.00 01/14/17 22:00 116 01/14/17 21:27 93 20 92 01/14/17 20:49 94 Nasal Cannula 4.00 01/14/17 20:00 93 01/14/17 20:00 98.6 93 35 124/68 (86) 87 01/14/17 20:00 Nasal Cannula 4.00 01/14/17 16:00 97.3 94 22 121/64 (83) 93 I/O 01/14/17 01/14/17 01/14/17 01/15/17 01/15/17 01/15/17 07:00 15:00 23:00 07:00 15:00 23:00 Intake Total 100 ml 1325 ml 100 ml Output Total 947 ml 2160 ml 630 ml Balance -847 ml -835 ml -530 ml Intake Oral 1225 ml IV Total 100 ml 100 ml 100 ml Output Urine Total 947 ml 960 ml 630 ml Drainage Total 1200 ml # Bowel Movements 0 0 0 Result Diagram: 01/13/17 1401 01/13/17 1401 Imaging Last Impressions Chest X-Ray 01/15/17 0000 Signed Impressions: Service Date/Time: Sunday, January 15, 2017 09:25 - CONCLUSION: Deterioration with increasing congestive failure and consolidative changes left lung. Josef Davis MD FACR Renal Ultrasound 01/12/17 0000 Signed Impressions: Service Date/Time: Thursday, January 12, 2017 17:27 - CONCLUSION: Three cortical cysts on the right. Small left pleural effusion. Slight increased echogenicity to the right kidney. Zeeshan Oliveira MD Chest Ultrasound 01/12/17 0000 Signed Impressions: Service Date/Time: Thursday, January 12, 2017 19:44 - CONCLUSION: Large pleural effusion with measurements as above. Zeeshan Oliveira MD Myocardial Perfusion Scan Nuc Med 01/08/17 0000 Signed Impressions: Service Date/Time: Sunday, January 08, 2017 08:48 - CONCLUSION: 1. No evidence of stress-induced ischemia. 2. Fixed perfusion defects involving the apex and apical segments suggest prior infarction. 3. Very poor wall motion with global hypokinesia and possible dilation of left ventricular cavity. This suggests possible cardiomyopathy. RISK CATEGORY: Intermediate (1-3%% Annual Mortality Rate) Raheem Chanel MD CT Angiography 01/04/17 0000 Signed Impressions: Service Date/Time: December 11:11 - CONCLUSION: 1. Moderate to severe anterior upper lobe paraseptal emphysema. 2. Cardiomegaly with perihilar groundglass opacities consistent with pulmonary edema. 3. Moderate bilateral, right greater then left, simple pleural effusions with associated airspace disease in the lower lobes, presumably compressive atelectasis. 4. Coronary artery calcifications. Ralph Wynn MD Lower Extremity Ultrasound 01/02/17 0000 Signed Impressions: Service Date/Time: Monday, January 02, 2017 09:01 - CONCLUSION: 1. Edema in the soft tissues of the lower legs bilaterally. 2. However, no sonographic or Doppler findings of deep venous thrombosis Bandar Rciks MD Objective Remarks AAOx3, mild tachypnea, nad Diminished breath sounds BL the bases. No wheezing, rhonchi auscultated. S1S2 with regular rate and rhythm, no MRG abdomen soft, NT, ND RLE has 4 ulcers with purulent discharge and erythema surrounding the anterior leg. Medications and IVs Current Medications Medications (Trade) Dose Ordered Sig/Rosalie Route Start Time Stop Time Status Last Admin (Nitrostat Sl) 0.4 mg Q5M PRN SL 01/01/17 20:15 01/01/17 20:24 (NS Flush) 2 ml UNSCH PRN IV FLUSH 01/01/17 22:15 01/15/17 08:39 (NS Flush) 2 ml BID IV FLUSH 01/02/17 09:00 01/15/17 08:39 (Narcan Inj) 0.4 mg UNSCH PRN IV PUSH 01/01/17 22:15 (Ecotrin Ec) 325 mg DAILY PO 01/02/17 09:00 01/15/17 08:40 (D50w (Vial) Inj) 50 ml UNSCH PRN IV PUSH 01/02/17 03:00 (Glucagon Inj) 1 mg UNSCH PRN OTHER 01/02/17 03:00 (NovoLOG SUPPLEMENTAL SCALE) 1 ACHS SLIDING SCALE SQ 01/02/17 08:00 01/15/17 11:27 (Duoneb Neb) 1 ampule Q6HR NEB PRN NEB 01/02/17 10:00 01/13/17 05:58 (Pill Splitter) 1 ea UNSCH PRN OTHER 01/04/17 18:15 (Lactulose Liq) 30 ml DAILY PRN PO 01/05/17 13:15 01/11/17 08:44 (Cardizem Cd) 240 mg DAILY PO 01/08/17 09:00 01/15/17 08:39 (Coreg) 12.5 mg Q12HR PO 01/08/17 21:00 01/15/17 08:39 (Prinivil) 40 mg DAILY PO 01/09/17 09:00 Future Hold 01/11/17 08:21 (Aldactone) 25 mg DAILY PO 01/09/17 09:00 01/15/17 08:39 (Lovenox Inj) 130 mg Q12H SQ 01/10/17 15:00 Future hold 01/15/17 14:46 Ceftazidime 1000 mg/Sodium Chloride 100 ml @ 200 mls/hr Q12H IV 01/10/17 15:00 01/15/17 14:47 (Augmentin) 500 mg Q8HR PO 01/11/17 06:00 01/15/17 14:46 (Gregoria-Colace) 1 tab BID PO 01/11/17 21:00 01/15/17 08:40 (Milk Of Magnorlin Liq) 30 ml Q12H PRN PO 01/11/17 19:00 01/13/17 08:50 (Senokot) 17.2 mg Q12H PRN PO 01/11/17 19:00 01/13/17 08:50 (Dulcolax Supp) 10 mg DAILY PRN RECTAL 01/11/17 19:00 01/13/17 15:40 (Protonix) 40 mg DAILY PO 01/11/17 19:15 01/15/17 08:40 (Lasix Inj) 40 mg DAILY IV PUSH 01/12/17 09:00 01/15/17 08:39 A/P Problem List: (1) CHF exacerbation ICD Code: I50.9 - Heart failure, unspecified Plan: . Stress for The patient was admitted to the medical floor Cardiology consulted and following the patient. Was treated with IV Lasix, however not on IV Lasix now, as per records IV Lasix discontinued on 01/[address] Renee. 2-D echocardiogram showed a severely reduced left ventricular systolic function with an estimated ejection fraction of 15-20%. Global hypokinesis. Mild left ventricular enlargement with normal wall thickness. Mild to moderate mitral annular calcification and possible mild aortic sclerosis. I will resume Lasix 40 mg IV twice a day, repeat a chest x-ray and then an ABG stat. 01/11 Due to rise in creatinine will decrease Lasix dose to once a day. Patient respiratory status improving. Patient down to Ventimask form Non rebreather mask. Continue to provide supplemental oxygen to keep oxygen saturations more than 92%. 01/13 Continue with Lasix 40 mg IV daily. Creatinine trended down nicely from 1.8-1.6. 01/15 order a chest x-ray today reviewed by me. It shows deterioration with increasing congestive failure and consolidative changes of the left lung. I will increase Lasix to 40 mg IV twice a day. (2) Acute hypoxemic respiratory failure ICD Code: J96.01 - Acute respiratory failure with hypoxia Plan: Patient today with moderate respiratory distress, oxygen saturation dropped down to the 80s as per RN verbal report and the patient has to be placed on a partial rebreather mask. I will check an ABG stat, chest x-ray stat, give Lasix 40 mg IV once and Solu- Medrol 125 maintenance IV once. The patient will be also transferred to the intensive care unit for closer monitoring. 01/11 patient still with hypoxemic respiratory failure. ABG ordered on 06/10 showed a pH of 7.44, oxygen saturation of 89% with a PCO2 42. Continue supplemental oxygen, IV Lasix 01/12 Improving. Continue diuresis as above. Continue to taper o2. Consult pulmonary. 01/13 appreciate pulmonary recommendations. Repeat chest x-ray today shows no significant change in bilateral pulmonary parenchymal opacity likely representing pulmonary edema, pleural effusions and cardiac silhouette enlargement. A chest ultrasound performed on January 12 showed a large pleural effusion. The patient is for thoracentesis in a.m. by pulmonary. 01/14 status post right thoracentesis. Respiratory status mildly improved. Continue to monitor vital signs. (3) New onset atrial fibrillation ICD Code: I48.91 - Unspecified atrial fibrillation Plan: Patient seen by cardiology who recommended and started the patient on Lasix 40 mg every 8 hours for 3 days, however did not get any more Lasix after this was discontinued. Coreg dose increased to 6.25 mg twice a day as well as Cardizem which was increased to 240 mg a day. LAUREN inhibitor dose was increased to 20 g per day. TSH obtained and was normal. Ischemic workup included troponins which remained negative. Nuclear stress testing was negative with signs of prior infarction. Nuclear stress testing also showed very poor wall motion with global hypokinesia and possible dilation of the left ventricular cavity. Suggesting possible cardiomyopathy. 01/12 On Lovenox therapeutic dose for anticoagulation that will need to be transitioned to oral once patient more stable. (4) HTN (hypertension) ICD Code: I10 - Essential (primary) hypertension Plan: Blood pressure with stable control on Coreg, diltiazem, lisinopril. Continue to monitor vital signs. (5) Cellulitis ICD Code: L03.90 - Cellulitis, unspecified Plan: Wound culture obtained on 01/01/17 grew Proteus Vulgaris Pseudomonas aeruginosa and Enterococcus faecalis. We'll start the patient on ceftazidime and ampicillin and consult infectious disease for further management. Continue with wound care management. 01/11 appreciate ID consultation and recommendations. Ampicillin IV discontinued and the patient started on Augmentin, continue Ceftazidime. (6) ISI (acute kidney injury) ICD Code: N17.9 - Acute kidney failure, unspecified Plan: Acute kidney injury on chronic kidney disease stage III. Baseline creatinine around 1.4-1.5. Creatinine worsening today up to 1.8 from 1.5. Likely secondary to diureses. I will decrease the dose of IV Lasix to 40 mg by mouth daily from twice a day. Creatinine improving. Continue to monitor BUN/creatinine, strict I's and O's, avoid nephrotoxins. 01/14 appreciate nephrology recommendations. As per nephrology probably CKD stage III with a baseline creatinine between 1.4 1.5. Follow-up kidney ultrasound. 01/15 kidney ultrasound shows 3 cortical cyst on the right. A small left pleural effusion. Slight increased echogenicity to the right kidney. Creatinine stable at 1.6. Follow-up nephrology recommendations. Assessment and Plan GI prophylaxis: I'll add a PPI since patient is going to get a steroids. DVT prophylaxis: On Lovenox subcutaneous at therapeutic dose. Discharge Planning Continue to monitor the patient to intensive care unit. Patient still with lab oxygen saturation going from nasal cannula to partial nonrebreather. Problem Qualifiers (1) CHF exacerbation: Qualified Codes: I50.23 - Acute on chronic systolic (congestive) heart failure (2) HTN (hypertension): Qualified Codes: I10 - Essential (primary) hypertension (3) Cellulitis: Qualified Codes: L03.115 - Cellulitis of right lower limb River Joy MD Jan 15, 2017 15:29
[2017-01-15] MEDS ORDERED: FUROSEMIDE 40 MG/4 ML VIAL IV PUSH ONE (15:30)
--- NOTE | 2017-01-15 19:12 | HHI.PR ---
Subjective Remarks He is better. Good output.No chest pain or fever. CXR still shows CHF but less effusions after thoracentesis Objective Vital Signs Date Time Temp Pulse Resp B/P (MAP) Pulse Ox O2 Delivery O2 Flow Rate FiO2 01/15/17 18:00 111 01/15/17 16:00 98.1 82 19 134/88 (103) 92 01/15/17 16:00 82 01/15/17 14:00 95 01/15/17 12:00 97.8 100 22 148/63 (91) 87 01/15/17 12:00 100 01/15/17 10:00 107 01/15/17 09:30 88 Nasal Cannula 6.00 Humidified 01/15/17 08:17 91 Partial Rebreather 12.00 01/15/17 08:00 90 Partial Non-Rebreather 15.00 01/15/17 08:00 98.3 116 23 125/92 (103) 87 01/15/17 08:00 113 01/15/17 06:00 126 01/15/17 05:27 102 22 90 01/15/17 04:00 98.5 109 25 167/101 (123) 91 01/15/17 04:00 109 01/15/17 02:00 91 01/15/17 00:00 81 01/15/17 00:00 98.4 81 19 129/89 (102) 92 01/14/17 22:00 94 Non-Rebreather 15.00 01/14/17 22:00 116 01/14/17 21:27 93 20 92 01/14/17 20:49 94 Nasal Cannula 4.00 01/14/17 20:00 93 01/14/17 20:00 98.6 93 35 124/68 (86) 87 01/14/17 20:00 Nasal Cannula 4.00 I/O 01/14/17 01/14/17 01/14/17 01/15/17 01/15/17 01/15/17 07:00 15:00 23:00 07:00 15:00 23:00 Intake Total 100 ml 1325 ml 100 ml 808 ml Output Total 947 ml 2160 ml 630 ml 1575 ml Balance -847 ml -835 ml -530 ml -767 ml Intake Oral 1225 ml 708 ml IV Total 100 ml 100 ml 100 ml 100 ml Output Urine Total 947 ml 960 ml 630 ml 1575 ml Drainage Total 1200 ml # Bowel Movements 0 0 0 Result Diagram: 01/13/17 1401 01/13/17 1401 Objective Remarks GENERAL: This is an elderly moderately obese white male who is alert and mildly dyspneic and orthopneic. HEAD, EYES, EARS, NOSE, THROAT: Head normocephalic. The pupils are not reactive There is a corneal opacity. Throat is clear. NECK: The neck is supple with mild venous distention. Trachea is midline. No thyroid enlargement. CHEST: Decreased breath sounds at the bases with bibasilar crackles. HEART: Heart sounds are irregular. S1-S2 with no murmur, no S3. ABDOMEN: Abdomen soft and obese with the liver felt just below the right costal margin. The bowel sounds are active. EXTREMITIES: 2+ edema with pigmentation of the skin with stasis dermatitis and lymphedema. Peripheral pulses are not well palpable. NEUROLOGIC: Neurologically he is moving all his extremities with 1+ reflexes. No gross motor deficits. Cranial nerves are grossly intact. RECTAL: Rectal exam is deferred. Assessment and Plan Assessment and Plan IMPRESSION: 1. Pulmonary edema with bibasilar effusions. 2. Cardiomyopathy and congestive heart failure. 3. Chronic obstructive pulmonary disease. 4. Bibasilar atelectasis with possible pneumonia. 5. Chronic kidney disease. 6. Lymphedema. Plan : 1. Will cont Lasix 40 gm IV BID 2. BMP ,CBC in am 3. O2 at 5 L. 4. Nebs qid Duoneb. 5. Continue antibiotics. 6. Chest Xray in am 7. Will use BiPaP at HS if sats <90. Ryan Jolley MD Jan 15, 2017 19:12
--- NOTE | 2017-01-15 19:32 | HHI.NPPN ---
Subjective History of Present Illness 71-year-old male with past medical history of hypertension, diabetes mellitus, ischemic heart disease, congestive heart failure, atrial fibrillation, history of legal blindness, possible history of chronic kidney disease who came to the hospital with complaint of worsening shortness of breath and edema of the legs. I was called to see the patient because of elevated BUN and creatinine. The patient was found to have creatinine of 1.8 on admission. Additional Remarks Patient is alert, breathing is better, no nausea, eating better. Review of Systems General Constitutional: Fatigue Respiratory Lungs: SOB, Wheeze Cardiovascular Cardiac: Edema, [place] Objective Data Data 01/15/17 01/16/17 19:00 07:00 Intake Total 808 ml Output Total 1575 ml Balance -767 ml Intake Oral 708 ml IV Total 100 ml Output Urine Total 1575 ml Vital Signs Date Time Temp Pulse Resp B/P (MAP) Pulse Ox O2 Delivery O2 Flow Rate FiO2 01/15/17 18:00 111 01/15/17 16:00 98.1 82 19 134/88 (103) 92 01/15/17 16:00 82 01/15/17 14:00 95 01/15/17 12:00 97.8 100 22 148/63 (91) 87 01/15/17 12:00 100 01/15/17 10:00 107 01/15/17 09:30 88 Nasal Cannula 6.00 Humidified 01/15/17 08:17 91 Partial Rebreather 12.00 01/15/17 08:00 90 Partial Non-Rebreather 15.00 01/15/17 08:00 98.3 116 23 125/92 (103) 87 01/15/17 08:00 113 01/15/17 06:00 126 01/15/17 05:27 102 22 90 01/15/17 04:00 98.5 109 25 167/101 (123) 91 01/15/17 04:00 109 01/15/17 02:00 91 01/15/17 00:00 81 01/15/17 00:00 98.4 81 19 129/89 (102) 92 01/14/17 22:00 94 Non-Rebreather 15.00 01/14/17 22:00 116 01/14/17 21:27 93 20 92 01/14/17 20:49 94 Nasal Cannula 4.00 01/14/17 20:00 93 01/14/17 20:00 98.6 93 35 124/68 (86) 87 01/14/17 20:00 Nasal Cannula 4.00 -: 01/13/17 1401 01/13/17 1401 Physical Exam General Appearance: No Acute Distress, Comfortable Eyes Eye Exam: Pupils Equal Throat Throat Exam: Oral Mucosa [place] & Moist Pulmonary Resp Exam: No Distress, Rhonchi, Decreased Bases, Diminished Breath Sounds Cardiology CV Exam: Regular, Normal Sinus Rhythm Gastrointestinal/Abdomen GI Exam: Soft, Non-Tender, Bowel Sounds Present Extremeties Extremities Exam: Moderate Edema, Pitting Edema, Dependent Edema Neurologic Neuro Exam: Alert, Awake, Oriented Psychiatric Psych Exam: Appropriate Responses Assessment/Plan Assessment Summary: ISI/Acute Renal Failure, Fluid/Volume Overload, Hypertension, CKD Stage III Electrolyte Assessment: Hypokalemia Problem List: (1) Stage 3 chronic kidney disease ICD Codes: N18.3 - Chronic kidney disease, stage 3 (moderate) (2) Hypoxia ICD Codes: R09.02 - Hypoxemia (3) HTN (hypertension) ICD Codes: I10 - Essential (primary) hypertension (4) New onset atrial fibrillation ICD Codes: I48.91 - Unspecified atrial fibrillation (5) Cellulitis ICD Codes: L03.90 - Cellulitis, unspecified (6) CHF exacerbation ICD Codes: I50.9 - Heart failure, unspecified (7) ISI (acute kidney injury) ICD Codes: N17.9 - Acute kidney failure, unspecified Plan Patient has good urine out put. On Lasix and Aldactone. Creatinine is stable. K is better. Continue Augmentin and Ceftazidime. Follow the urine out put and BMP. Edema is improving, has been in negative fluid balance. Problem Qualifiers (1) HTN (hypertension): Qualified Codes: I10 - Essential (primary) hypertension (2) Cellulitis: Qualified Codes: L03.115 - Cellulitis of right lower limb (3) CHF exacerbation: Qualified Codes: I50.23 - Acute on chronic systolic (congestive) heart failure Cuco Malone MD Jan 15, 2017 19:32
[2017-01-16] VITALS (20 sets, daily range): BP systolic 89–157; BP diastolic 2–84; PULSE 78–106; RESP 19–27; TEMP 97.6–99.2; O2SAT 87–99
[2017-01-16] MEDS: ENOXAPARIN SODIUM 150 MG/ML SYRINGE SQ SCH ×2 (03:00→16:10)
[2017-01-16] MEDS: AMOXICILLIN/CLAVULANATE K 500 MG TAB PO SCH ×3 (05:44→21:28)
[2017-01-16 05:46] LABS: HEMATOCRIT 35.9 % (39.0-51.0); MEAN CELL VOLUME 92.1 FL (80.0-100.0); MEAN CORPUSCULAR HEMOGLOBIN 30.7 PG (27.0-34.0); MEAN CORPUSCULAR HGB CONC 33.3 % (32.0-36.0); PLATELET COUNT 213 TH/MM3 (150-450); RED CELL DISTRIBUTION WIDTH 16.2 % (11.6-17.2); REVIEW FLAG FINAL; WHITE BLOOD COUNT 7.2 TH/MM3 (4.0-11.0)
[2017-01-16] MEDS: SODIUM CHLORIDE 0.9% FLUSH 10 ML FLUSH IV FLUSH SCH ×2 (05:46→08:01)
[2017-01-16 06:01] LABS: BICARBONATE 28.6 MEQ/L (21.0-32.0); POTASSIUM 3.5 MEQ/L (3.5-5.1)
[2017-01-16] MEDS: INSULIN ASPART SUPPLEMENTAL SCALE SQ SCH ×4 (08:00→21:28)
[2017-01-16] MEDS: SODIUM CHLORIDE 0.9% FLUSH 10 ML FLUSH IV FLUSH PRN (08:01)
[2017-01-16] MEDS: DOCUSATE SODIUM 50 MG/SENNA 8.6 MG TAB PO SCH ×2 (08:01→21:28)
[2017-01-16] MEDS: FUROSEMIDE 40 MG/4 ML VIAL IV PUSH SCH ×2 (08:02→17:37)
[2017-01-16] MEDS: DILTIAZEM-CD 240 MG CAP ER PO SCH (08:02)
[2017-01-16] MEDS: ASPIRIN EC 325 MG TABEC PO SCH (08:02)
[2017-01-16] MEDS: PANTOPRAZOLE SOD 40 MG DELAYED RELEASE TAB PO SCH (08:02)
[2017-01-16] MEDS: SPIRONOLACTONE 25 MG TAB PO SCH (08:02)
[2017-01-16] MEDS: CARVEDILOL 12.5 MG TAB PO SCH ×2 (08:02→21:28)
[2017-01-16] MEDS: cefTAZidime INJ 1,000 MG in SODIUM CHLORIDE 0.9% INJ 100 ML IV SCH (15:01)
--- NOTE | 2017-01-16 15:24 | HHI.PR ---
Subjective Remarks defereed entry - patient seen at 12:10pm patient states sob is improving. Case discussed with RN - patient has been dessating overnight and had to be placed on a non rebreather overnight. Patient now on 5 liters nasal canula. afebrile Objective Vitals Vital Signs Date Time Temp Pulse Resp B/P (MAP) Pulse Ox O2 Delivery O2 Flow Rate FiO2 01/16/17 12:00 97.9 83 27 99/69 (79) 95 01/16/17 12:00 83 01/16/17 11:00 91 27 119/69 (86) 90 01/16/17 10:09 96 Nasal Cannula 5.00 01/16/17 10:00 93 01/16/17 10:00 93 21 110/65 (80) 89 01/16/17 09:00 104 22 111/63 (79) 90 01/16/17 08:00 95 Nasal Cannula 4.00 01/16/17 08:00 106 01/16/17 08:00 97.6 106 23 110/84 (93) 95 01/16/17 07:00 102 21 107/71 (83) 99 01/16/17 06:00 84 01/16/17 04:00 84 01/16/17 04:00 97.8 96 24 157/81 (106) 95 01/16/17 02:00 78 01/16/17 00:00 98.8 87 23 141/2 (48) 96 01/16/17 00:00 79 01/15/17 22:00 74 01/15/17 20:00 Partial Non-Rebreather 10.00 60 01/15/17 20:00 98.9 100 26 110/58 (75) 96 01/15/17 20:00 77 01/15/17 18:00 111 01/15/17 16:00 98.1 82 19 134/88 (103) 92 01/15/17 16:00 82 I/O 01/15/17 01/15/17 01/15/17 01/16/17 01/16/17 01/16/17 07:00 15:00 23:00 07:00 15:00 23:00 Intake Total 100 ml 808 ml 300 ml Output Total 630 ml 1575 ml 1250 ml Balance -530 ml -767 ml -950 ml Intake Oral 708 ml 200 ml IV Total 100 ml 100 ml 100 ml Output Urine Total 630 ml 1575 ml 1250 ml # Bowel Movements 0 Result Diagram: 01/16/17 0503 01/16/17 0503 Imaging Last Impressions Chest X-Ray 01/15/17 0000 Signed Impressions: Service Date/Time: Sunday, January 15, 2017 09:25 - CONCLUSION: Deterioration with increasing congestive failure and consolidative changes left lung. Josef Davis MD FACR Renal Ultrasound 01/12/17 0000 Signed Impressions: Service Date/Time: Thursday, January 12, 2017 17:27 - CONCLUSION: Three cortical cysts on the right. Small left pleural effusion. Slight increased echogenicity to the right kidney. Zeeshan Oliveira MD Chest Ultrasound 01/12/17 0000 Signed Impressions: Service Date/Time: Thursday, January 12, 2017 19:44 - CONCLUSION: Large pleural effusion with measurements as above. Zeeshan Oliveira MD Myocardial Perfusion Scan Nuc Med 01/08/17 0000 Signed Impressions: Service Date/Time: Sunday, January 08, 2017 08:48 - CONCLUSION: 1. No evidence of stress-induced ischemia. 2. Fixed perfusion defects involving the apex and apical segments suggest prior infarction. 3. Very poor wall motion with global hypokinesia and possible dilation of left ventricular cavity. This suggests possible cardiomyopathy. RISK CATEGORY: Intermediate (1-3%% Annual Mortality Rate) Raheem Chanel MD CT Angiography 01/04/17 0000 Signed Impressions: Service Date/Time: December 11:11 - CONCLUSION: 1. Moderate to severe anterior upper lobe paraseptal emphysema. 2. Cardiomegaly with perihilar groundglass opacities consistent with pulmonary edema. 3. Moderate bilateral, right greater then left, simple pleural effusions with associated airspace disease in the lower lobes, presumably compressive atelectasis. 4. Coronary artery calcifications. Ralph Wynn MD Lower Extremity Ultrasound 01/02/17 0000 Signed Impressions: Service Date/Time: Monday, January 02, 2017 09:01 - CONCLUSION: 1. Edema in the soft tissues of the lower legs bilaterally. 2. However, no sonographic or Doppler findings of deep venous thrombosis Bandar Ricks MD Objective Remarks AAOx3, mild tachypnea, nad Diminished breath sounds BL the bases. No wheezing, rhonchi auscultated. S1S2 with regular rate and rhythm, no MRG abdomen soft, NT, ND RLE has 4 ulcers with purulent discharge and erythema surrounding the anterior leg. Medications and IVs Current Medications Medications (Trade) Dose Ordered Sig/Rosalie Route Start Time Stop Time Status Last Admin (Nitrostat Sl) 0.4 mg Q5M PRN SL 01/01/17 20:15 01/01/17 20:24 (NS Flush) 2 ml UNSCH PRN IV FLUSH 01/01/17 22:15 01/16/17 08:01 (NS Flush) 2 ml BID IV FLUSH 01/02/17 09:00 01/16/17 08:01 (Narcan Inj) 0.4 mg UNSCH PRN IV PUSH 01/01/17 22:15 (Ecotrin Ec) 325 mg DAILY PO 01/02/17 09:00 01/16/17 08:02 (D50w (Vial) Inj) 50 ml UNSCH PRN IV PUSH 01/02/17 03:00 (Glucagon Inj) 1 mg UNSCH PRN OTHER 01/02/17 03:00 (NovoLOG SUPPLEMENTAL SCALE) 1 ACHS SLIDING SCALE SQ 01/02/17 08:00 01/16/17 21:28 (Duoneb Neb) 1 ampule Q6HR NEB PRN NEB 01/02/17 10:00 01/13/17 05:58 (Pill Splitter) 1 ea UNSCH PRN OTHER 01/04/17 18:15 (Lactulose Liq) 30 ml DAILY PRN PO 01/05/17 13:15 01/11/17 08:44 (Cardizem Cd) 240 mg DAILY PO 01/08/17 09:00 01/16/17 08:02 (Coreg) 12.5 mg Q12HR PO 01/08/17 21:00 01/16/17 21:28 (Prinivil) 40 mg DAILY PO 01/09/17 09:00 Future Hold 01/11/17 08:21 (Aldactone) 25 mg DAILY PO 01/09/17 09:00 01/16/17 08:02 (Lovenox Inj) 130 mg Q12H SQ 01/10/17 15:00 Future hold 01/16/17 16:10 Ceftazidime 1000 mg/Sodium Chloride 100 ml @ 200 mls/hr Q12H IV 01/10/17 15:00 01/16/17 15:01 (Augmentin) 500 mg Q8HR PO 01/11/17 06:00 01/16/17 21:28 (Gregoria-Colace) 1 tab BID PO 01/11/17 21:00 01/16/17 21:28 (Milk Of Magnorlin Liq) 30 ml Q12H PRN PO 01/11/17 19:00 01/13/17 08:50 (Senokot) 17.2 mg Q12H PRN PO 01/11/17 19:00 01/13/17 08:50 (Dulcolax Supp) 10 mg DAILY PRN RECTAL 01/11/17 19:00 01/13/17 15:40 (Protonix) 40 mg DAILY PO 01/11/17 19:15 01/16/17 08:02 (Lasix Inj) 40 mg BID@09,18 IV PUSH 01/15/17 18:00 01/16/17 17:37 A/P Problem List: (1) CHF exacerbation ICD Code: I50.9 - Heart failure, unspecified Plan: 11. Stress for The patient was admitted to the medical floor Cardiology consulted and following the patient. Was treated with IV Lasix, however not on IV Lasix now, as per records IV Lasix discontinued on 01/[address] Renee. 2-D echocardiogram showed a severely reduced left ventricular systolic function with an estimated ejection fraction of 15-20%. Global hypokinesis. Mild left ventricular enlargement with normal wall thickness. Mild to moderate mitral annular calcification and possible mild aortic sclerosis. I will resume Lasix 40 mg IV twice a day, repeat a chest x-ray and then an ABG stat. 01/11 Due to rise in creatinine will decrease Lasix dose to once a day. Patient respiratory status improving. Patient down to Ventimask form Non rebreather mask. Continue to provide supplemental oxygen to keep oxygen saturations more than 92%. 01/13 Continue with Lasix 40 mg IV daily. Creatinine trended down nicely from 1.8-1.6. 01/15 order a chest x-ray today reviewed by me. It shows deterioration with increasing congestive failure and consolidative changes of the left lung. I will increase Lasix to 40 mg IV twice a day. 01/16 PAtient's respiratory status improving, continue Lasix IV BID. (2) Acute hypoxemic respiratory failure ICD Code: J96.01 - Acute respiratory failure with hypoxia Plan: Patient today with moderate respiratory distress, oxygen saturation dropped down to the 80s as per RN verbal report and the patient has to be placed on a partial rebreather mask. I will check an ABG stat, chest x-ray stat, give Lasix 40 mg IV once and Solu- Medrol 125 maintenance IV once. The patient will be also transferred to the intensive care unit for closer monitoring. 01/11 patient still with hypoxemic respiratory failure. ABG ordered on 06/10 showed a pH of 7.44, oxygen saturation of 89% with a PCO2 42. Continue supplemental oxygen, IV Lasix 01/12 Improving. Continue diuresis as above. Continue to taper o2. Consult pulmonary. 01/13 appreciate pulmonary recommendations. Repeat chest x-ray today shows no significant change in bilateral pulmonary parenchymal opacity likely representing pulmonary edema, pleural effusions and cardiac silhouette enlargement. A chest ultrasound performed on January 12 showed a large pleural effusion. The patient is for thoracentesis in a.m. by pulmonary. 01/16 Status post right thoracentesis. Respiratory status improving. Continue to monitor vital signs. (3) New onset atrial fibrillation ICD Code: I48.91 - Unspecified atrial fibrillation Plan: Patient seen by cardiology who recommended and started the patient on Lasix 40 mg every 8 hours for 3 days, however did not get any more Lasix after this was discontinued. Coreg dose increased to 6.25 mg twice a day as well as Cardizem which was increased to 240 mg a day. LAUREN inhibitor dose was increased to 20 g per day. TSH obtained and was normal. Ischemic workup included troponins which remained negative. Nuclear stress testing was negative with signs of prior infarction. Nuclear stress testing also showed very poor wall motion with global hypokinesia and possible dilation of the left ventricular cavity. Suggesting possible cardiomyopathy. 01/12 On Lovenox therapeutic dose for anticoagulation that will need to be transitioned to oral once patient more stable. (4) HTN (hypertension) ICD Code: I10 - Essential (primary) hypertension Plan: Blood pressure with stable control on Coreg, diltiazem, lisinopril. Continue to monitor vital signs. (5) Cellulitis ICD Code: L03.90 - Cellulitis, unspecified Plan: Wound culture obtained on 01/01/17 grew Proteus Vulgaris Pseudomonas aeruginosa and Enterococcus faecalis. We'll start the patient on ceftazidime and ampicillin and consult infectious disease for further management. Continue with wound care management. 01/11 appreciate ID consultation and recommendations. Ampicillin IV discontinued and the patient started on Augmentin, continue Ceftazidime. (6) ISI (acute kidney injury) ICD Code: N17.9 - Acute kidney failure, unspecified Plan: Acute kidney injury on chronic kidney disease stage III. Baseline creatinine around 1.4-1.5. Creatinine worsening today up to 1.8 from 1.5. Likely secondary to diureses. I will decrease the dose of IV Lasix to 40 mg by mouth daily from twice a day. Creatinine improving. Continue to monitor BUN/creatinine, strict I's and O's, avoid nephrotoxins. 01/14 appreciate nephrology recommendations. As per nephrology probably CKD stage III with a baseline creatinine between 1.4 1.5. Follow-up kidney ultrasound. 01/15 kidney ultrasound shows 3 cortical cyst on the right. A small left pleural effusion. Slight increased echogenicity to the right kidney. Creatinine stable at 1.6. Follow-up nephrology recommendations. 01/16 Creatinine continues to improve, down to 1.3, continue to monitor BUN and creatinine, strict I's and O's. Assessment and Plan GI prophylaxis: I'll add a PPI since patient is going to get a steroids. DVT prophylaxis: On Lovenox subcutaneous at therapeutic dose. Discharge Planning Continue to monitor the patient to intensive care unit. Patient still with lab oxygen saturation going from nasal cannula to partial nonrebreather. If patient remains on nasal canula overnight then can be transfered to the medical floor. Problem Qualifiers (1) CHF exacerbation: Qualified Codes: I50.23 - Acute on chronic systolic (congestive) heart failure (2) HTN (hypertension): Qualified Codes: I10 - Essential (primary) hypertension (3) Cellulitis: Qualified Codes: L03.115 - Cellulitis of right lower limb River Joy MD Jan 16, 2017 15:23
--- NOTE | 2017-01-16 19:08 | HHI.PR ---
Subjective Remarks He feels better. Good output with lasix. No chest pain or fever. CXR still shows CHF but less effusions after thoracentesis Objective Vital Signs Date Time Temp Pulse Resp B/P (MAP) Pulse Ox O2 Delivery O2 Flow Rate FiO2 01/16/17 18:00 106 01/16/17 18:00 106 27 110/72 (85) 99 01/16/17 17:00 80 19 128/73 (91) 97 01/16/17 16:00 98.0 78 21 121/75 (90) 94 01/16/17 16:00 78 01/16/17 15:00 83 25 116/74 (88) 94 01/16/17 14:00 79 19 101/63 (76) 93 01/16/17 14:00 79 01/16/17 13:00 79 24 89/59 (69) 87 01/16/17 12:00 97.9 83 27 99/69 (79) 95 01/16/17 12:00 83 01/16/17 11:00 91 27 119/69 (86) 90 01/16/17 10:09 96 Nasal Cannula 5.00 01/16/17 10:00 93 01/16/17 10:00 93 21 110/65 (80) 89 01/16/17 09:00 104 22 111/63 (79) 90 01/16/17 08:00 95 Nasal Cannula 4.00 01/16/17 08:00 106 01/16/17 08:00 97.6 106 23 110/84 (93) 95 01/16/17 07:00 102 21 107/71 (83) 99 01/16/17 06:00 84 01/16/17 04:00 84 01/16/17 04:00 97.8 96 24 157/81 (106) 95 01/16/17 02:00 78 01/16/17 00:00 98.8 87 23 141/2 (48) 96 01/16/17 00:00 79 01/15/17 22:00 74 01/15/17 20:00 Partial Non-Rebreather 10.00 60 01/15/17 20:00 98.9 100 26 110/58 (75) 96 01/15/17 20:00 77 I/O 01/15/17 01/15/17 01/15/17 01/16/1717 11/7/17 07:00 15:00 23:00 07:00 15:00 23:00 Intake Total 100 ml 808 ml 300 ml 708 ml Output Total 630 ml 1575 ml 1250 ml 952 ml Balance -530 ml -767 ml -950 ml -244 ml Intake Oral 708 ml 200 ml 708 ml IV Total 100 ml 100 ml 100 ml Output Urine Total 630 ml 1575 ml 1250 ml 952 ml # Bowel Movements 0 Result Diagram: 01/16/17 0503 01/16/17 0503 Objective Remarks GENERAL: This is an elderly moderately obese white male who is alert . HEAD, EYES, EARS, NOSE, THROAT: Head normocephalic. The pupils are not reactive There is a corneal opacity. Throat is clear. NECK: The neck is supple with mild venous distention. Trachea is midline. No thyroid enlargement. CHEST: Decreased breath sounds at the bases with bibasilar crackles. HEART: Heart sounds are irregular. S1-S2 with no murmur, no S3. ABDOMEN: Abdomen soft and obese with the liver felt just below the right costal margin. The bowel sounds are active. EXTREMITIES: 1 + edema with pigmentation of the skin with stasis dermatitis and lymphedema. Peripheral pulses are not well palpable. NEUROLOGIC: Neurologically he is moving all his extremities with 1+ reflexes. No gross motor deficits. RECTAL: Rectal exam is deferred. Assessment and Plan Assessment and Plan IMPRESSION: 1. Pulmonary edema with bibasilar effusions. 2. Cardiomyopathy and congestive heart failure. 3. Chronic obstructive pulmonary disease. 4. Bibasilar atelectasis with possible pneumonia. 5. Chronic kidney disease. 6. Lymphedema. Plan : 1. Will cont Lasix 40 gm IV BID 2. BMP,CBC in am 3. O2 at 4 L. 4. Nebs qid Duoneb. 5. Continue antibiotics. 6. Up in chair . 7. Will use BiPaP at HS if sats <90. Ryan Jolley MD Jan 16, 2017 19:08
--- NOTE | 2017-01-16 21:51 | HHI.NPPN ---
Subjective History of Present Illness 71-year-old male with past medical history of hypertension, diabetes mellitus, ischemic heart disease, congestive heart failure, atrial fibrillation, history of legal blindness, possible history of chronic kidney disease who came to the hospital with complaint of worsening shortness of breath and edema of the legs. I was called to see the patient because of elevated BUN and creatinine. The patient was found to have creatinine of 1.8 on admission. Additional Remarks Patient is alert, breathing is better, now eating well, not in distress. Review of Systems General Constitutional: Fatigue Respiratory Lungs: SOB, Wheeze Cardiovascular Cardiac: Edema, [place] Objective Data Data 01/16/17 01/17/17 19:00 07:00 Intake Total 708 ml Output Total 952 ml Balance -244 ml Intake Oral 708 ml Output Urine Total 952 ml Vital Signs Date Time Temp Pulse Resp B/P (MAP) Pulse Ox O2 Delivery O2 Flow Rate FiO2 01/16/17 21:23 96 Nasal Cannula 2.00 01/16/17 18:00 106 01/16/17 18:00 106 27 110/72 (85) 99 01/16/17 17:00 80 19 128/73 (91) 97 01/16/17 16:00 98.0 78 21 121/75 (90) 94 01/16/17 16:00 78 01/16/17 15:00 83 25 116/74 (88) 94 01/16/17 14:00 79 19 101/63 (76) 93 01/16/17 14:00 79 01/16/17 13:00 79 24 89/59 (69) 87 01/16/17 12:00 97.9 83 27 99/69 (79) 95 01/16/17 12:00 83 01/16/17 11:00 91 27 119/69 (86) 90 01/16/17 10:09 96 Nasal Cannula 5.00 01/16/17 10:00 93 01/16/17 10:00 93 21 110/65 (80) 89 01/16/17 09:00 104 22 111/63 (79) 90 01/16/17 08:00 95 Nasal Cannula 4.00 01/16/17 08:00 106 01/16/17 08:00 97.6 106 23 110/84 (93) 95 01/16/17 07:00 102 21 107/71 (83) 99 01/16/17 06:00 84 01/16/17 04:00 84 01/16/17 04:00 97.8 96 24 157/81 (106) 95 01/16/17 02:00 78 01/16/17 00:00 98.8 87 23 141/2 (48) 96 01/16/17 00:00 79 01/15/17 22:00 74 -: 01/16/17 0503 01/16/17 0503 Physical Exam General Appearance: No Acute Distress, Comfortable Eyes Eye Exam: Pupils Equal Throat Throat Exam: Oral Mucosa Johnston & Moist Pulmonary Resp Exam: No Distress, Rhonchi, Decreased Bases, Diminished Breath Sounds Cardiology CV Exam: Regular, Normal Sinus Rhythm Gastrointestinal/Abdomen GI Exam: Soft, Non-Tender, Bowel Sounds Present Extremeties Extremities Exam: Moderate Edema, Pitting Edema, Dependent Edema Neurologic Neuro Exam: Alert, Awake, Oriented Psychiatric Psych Exam: Appropriate Responses Assessment/Plan Assessment Summary: ISI/Acute Renal Failure, Fluid/Volume Overload, Hypertension, CKD Stage III Electrolyte Assessment: Hypokalemia Problem List: (1) Stage 3 chronic kidney disease ICD Codes: N18.3 - Chronic kidney disease, stage 3 (moderate) (2) Hypoxia ICD Codes: R09.02 - Hypoxemia (3) HTN (hypertension) ICD Codes: I10 - Essential (primary) hypertension (4) New onset atrial fibrillation ICD Codes: I48.91 - Unspecified atrial fibrillation (5) Cellulitis ICD Codes: L03.90 - Cellulitis, unspecified (6) CHF exacerbation ICD Codes: I50.9 - Heart failure, unspecified (7) ISI (acute kidney injury) ICD Codes: N17.9 - Acute kidney failure, unspecified Plan Patient has good urine out put. On Lasix and Aldactone. Creatinine is slowly improving. K is better. Continue Augmentin and Ceftazidime. Follow the urine out put and BMP. Edema is improving, has been in negative fluid balance. Avoid Nephrotoxins, still requiring more O2 off and on. Problem Qualifiers (1) HTN (hypertension): Qualified Codes: I10 - Essential (primary) hypertension (2) Cellulitis: Qualified Codes: L03.115 - Cellulitis of right lower limb (3) CHF exacerbation: Qualified Codes: I50.23 - Acute on chronic systolic (congestive) heart failure Cuco Malone MD Jan 16, 2017 21:51
[2017-01-17] VITALS (14 sets, daily range): BP systolic 100–153; BP diastolic 62–89; PULSE 78–113; RESP 18–20; TEMP 97.8–99; O2SAT 92–100
[2017-01-17] MEDS: ENOXAPARIN SODIUM 150 MG/ML SYRINGE SQ SCH ×2 (03:00→14:12)
[2017-01-17] MEDS: cefTAZidime INJ 1,000 MG in SODIUM CHLORIDE 0.9% INJ 100 ML IV SCH ×2 (03:06→14:12)
[2017-01-17] MEDS: INSULIN ASPART SUPPLEMENTAL SCALE SQ SCH ×4 (08:00→21:00)
[2017-01-17] MEDS: AMOXICILLIN/CLAVULANATE K 500 MG TAB PO SCH ×3 (08:00→21:00)
[2017-01-17] MEDS: FUROSEMIDE 40 MG/4 ML VIAL IV PUSH SCH ×2 (08:51→17:27)
[2017-01-17] MEDS: CARVEDILOL 12.5 MG TAB PO SCH ×2 (08:51→21:00)
[2017-01-17] MEDS: DOCUSATE SODIUM 50 MG/SENNA 8.6 MG TAB PO SCH ×2 (08:52→21:00)
[2017-01-17] MEDS: DILTIAZEM-CD 240 MG CAP ER PO SCH (08:52)
[2017-01-17] MEDS: PANTOPRAZOLE SOD 40 MG DELAYED RELEASE TAB PO SCH (08:52)
[2017-01-17] MEDS: ASPIRIN EC 325 MG TABEC PO SCH (08:52)
[2017-01-17] MEDS: SPIRONOLACTONE 25 MG TAB PO SCH (08:58)
[2017-01-17] MEDS: SODIUM CHLORIDE 0.9% FLUSH 10 ML FLUSH IV FLUSH SCH ×2 (09:00→21:00)
[2017-01-17] MEDS ORDERED: PROPOFOL 500 MG/50 ML INJ 50 ML ONE (09:34)
--- NOTE | 2017-01-17 09:57 | HHI.PR ---
Subjective Remarks Pt states he is feeling a better. No worsening sob. Leg edema slowly improving but still there. urinating well. Discussed w RN, she just switched him down to 2 L NC. Pt states he is tolerating it well so far. Objective Vitals Vital Signs Date Time Temp Pulse Resp B/P (MAP) Pulse Ox O2 Delivery O2 Flow Rate FiO2 01/17/17 08:27 92 Nasal Cannula 5.00 01/17/17 08:00 82 01/17/17 08:00 94 Nasal Cannula 2.00 01/17/17 08:00 97.9 99 19 153/73 (99) 93 01/17/17 06:00 82 01/17/17 04:00 98.0 85 20 138/89 (105) 98 01/17/17 04:00 82 01/17/17 02:00 84 01/17/17 00:00 99.0 84 18 121/82 (95) 96 01/17/17 00:00 84 01/16/17 22:00 82 01/16/17 21:23 96 Nasal Cannula 2.00 01/16/17 20:00 Nasal Cannula 5.00 60 01/16/17 20:00 99.2 83 23 104/69 (81) 96 01/16/17 20:00 84 01/16/17 18:00 106 01/16/17 18:00 106 27 110/72 (85) 99 01/16/17 17:00 80 19 128/73 (91) 97 01/16/17 16:00 98.0 78 21 121/75 (90) 94 01/16/17 16:00 78 01/16/17 15:00 83 25 116/74 (88) 94 01/16/17 14:00 79 19 101/63 (76) 93 01/16/17 14:00 79 01/16/17 13:00 79 24 89/59 (69) 87 01/16/17 12:00 97.9 83 27 99/69 (79) 95 01/16/17 12:00 83 01/16/17 11:00 91 27 119/69 (86) 90 01/16/17 10:09 96 Nasal Cannula 5.00 01/16/17 10:00 93 01/16/17 10:00 93 21 110/65 (80) 89 I/O 11/701/16/17 01/16/17 01/17/17 01/17/17 01/17/17 07:00 15:00 23:00 07:00 15:00 23:00 Intake Total 300 ml 708 ml 330 ml Output Total 1250 ml 952 ml 600 ml Balance -950 ml -244 ml -270 ml Intake Oral 200 ml 708 ml 200 ml IV Total 100 ml 130 ml Output Urine Total 1250 ml 952 ml 600 ml Result Diagram: 01/16/17 0503 01/16/17 0503 Imaging Last Impressions Chest X-Ray 01/15/17 0000 Signed Impressions: Service Date/Time: Sunday, January 15, 2017 09:25 - CONCLUSION: Deterioration with increasing congestive failure and consolidative changes left lung. Josef Davis MD FACR Renal Ultrasound 01/12/17 0000 Signed Impressions: Service Date/Time: Thursday, January 12, 2017 17:27 - CONCLUSION: Three cortical cysts on the right. Small left pleural effusion. Slight increased echogenicity to the right kidney. Zeeshan Oliveira MD Chest Ultrasound 01/12/17 0000 Signed Impressions: Service Date/Time: Thursday, January 12, 2017 19:44 - CONCLUSION: Large pleural effusion with measurements as above. Zeeshan Oliveira MD Myocardial Perfusion Scan Nuc Med 01/08/17 0000 Signed Impressions: Service Date/Time: Sunday, January 08, 2017 08:48 - CONCLUSION: 1. No evidence of stress-induced ischemia. 2. Fixed perfusion defects involving the apex and apical segments suggest prior infarction. 3. Very poor wall motion with global hypokinesia and possible dilation of left ventricular cavity. This suggests possible cardiomyopathy. RISK CATEGORY: Intermediate (1-3%% Annual Mortality Rate) Raheem Chanel MD CT Angiography 01/04/17 0000 Signed Impressions: Service Date/Time: December 11:11 - CONCLUSION: 1. Moderate to severe anterior upper lobe paraseptal emphysema. 2. Cardiomegaly with perihilar groundglass opacities consistent with pulmonary edema. 3. Moderate bilateral, right greater then left, simple pleural effusions with associated airspace disease in the lower lobes, presumably compressive atelectasis. 4. Coronary artery calcifications. Ralph Wynn MD Lower Extremity Ultrasound 01/02/17 0000 Signed Impressions: Service Date/Time: Monday, January 02, 2017 09:01 - CONCLUSION: 1. Edema in the soft tissues of the lower legs bilaterally. 2. However, no sonographic or Doppler findings of deep venous thrombosis Bandar Ricks MD Objective Remarks AAOx3, sitting up on recliner. NC in place. HR appears regular, no murmurs. Diminished breath sounds BL the bases. No wheezing, rhonchi auscultated. abdomen soft, NT, ND RLE has 4 ulcers currently w dressing in place. A/P Problem List: (1) CHF exacerbation ICD Code: I50.9 - Heart failure, unspecified (2) Acute hypoxemic respiratory failure ICD Code: J96.01 - Acute respiratory failure with hypoxia (3) New onset atrial fibrillation ICD Code: I48.91 - Unspecified atrial fibrillation (4) HTN (hypertension) ICD Code: I10 - Essential (primary) hypertension (5) Cellulitis ICD Code: L03.90 - Cellulitis, unspecified (6) ISI (acute kidney injury) ICD Code: N17.9 - Acute kidney failure, unspecified Assessment and Plan (1) CHF exacerbation Cardiology consulted and following the patient. Was treated with IV Lasix, however not on IV Lasix now, as per records IV Lasix discontinued on 01/[address] Renee. 2-D echocardiogram showed a severely reduced left ventricular systolic function with an estimated ejection fraction of 15-20%. Global hypokinesis. Mild left ventricular enlargement with normal wall thickness. Mild to moderate mitral annular calcification and possible mild aortic sclerosis. I will resume Lasix 40 mg IV twice a day, repeat a chest x-ray and then an ABG stat. 01/11 Due to rise in creatinine will decrease Lasix dose to once a day. Patient respiratory status improving. Patient down to Ventimask form Non rebreather mask. Continue to provide supplemental oxygen to keep oxygen saturations more than 92%. 01/13 Continue with Lasix 40 mg IV daily. Creatinine trended down nicely from 1.8-1.6. 01/15 order a chest x-ray today reviewed by me. It shows deterioration with increasing congestive failure and consolidative changes of the left lung. I will increase Lasix to 40 mg IV twice a day. 01/16 Patient's respiratory status improving, continue Lasix IV BID. 01/17 Pt feeling better, oxygen requirement improving, down to 2 L this morning. continue IV lasix. (2) Acute hypoxemic respiratory failure 01/11 patient still with hypoxemic respiratory failure. ABG ordered on 06/10 showed a pH of 7.44, oxygen saturation of 89% with a PCO2 42. Continue supplemental oxygen, IV Lasix 01/12 Improving. Continue diuresis as above. Continue to taper o2. Consult pulmonary. 01/13 appreciate pulmonary recommendations. Repeat chest x-ray today shows no significant change in bilateral pulmonary parenchymal opacity likely representing pulmonary edema, pleural effusions and cardiac silhouette enlargement. A chest ultrasound performed on January 12 showed a large pleural effusion. The patient is for thoracentesis in a.m. by pulmonary. 01/16 Status post right thoracentesis. Respiratory status improving. Continue to monitor vital signs. 01/17 improving, fluid culture neg x 48 hours (3) New onset atrial fibrillation Patient seen by cardiology who recommended and started the patient on Lasix 40 mg every 8 hours for 3 days, however did not get any more Lasix after this was discontinued. on Coreg dose 12.5 mg twice a day, Cardizem 240 mg a day. lisinopril on hold. TSH normal. troponins negative. Nuclear stress testing was negative with signs of prior infarction. Nuclear stress testing also showed very poor wall motion with global hypokinesia and possible dilation of the left ventricular cavity. Suggesting possible cardiomyopathy. 01/17 On Lovenox therapeutic dose for anticoagulation. I will start him on coumadin today 5mg po daily, monitor INR, pharmacy consult in place. coumadin education (4) HTN (hypertension) Blood pressure with stable control on Coreg, diltiazem Continue to monitor vital signs. resume lisinopril once Cr better (5) Cellulitis Wound culture obtained on 01/01/17 grew Proteus Vulgaris Pseudomonas aeruginosa and Enterococcus faecalis. s/p ceftazidime and ampicillin. ID following now on augmentin and ceftazidime. Continue with wound care management. (6) ISI (acute kidney injury) Acute kidney injury on chronic kidney disease stage III. Baseline creatinine around 1.4-1.5. nephrology following. kidney ultrasound shows 3 cortical cyst on the right. A small left pleural effusion. Slight increased echogenicity to the right kidney. continue to monitor BUN and creatinine, strict I's and O's. DVT prophylaxis: On Lovenox subcutaneous at therapeutic dose. started coumadin Discharge Planning Pt was just transitioned to 2L NC this morning, monitor closely, if he is able to remain stable on 2 L, transfer out of the ICU. Per ID, when ready for DC switch ceftaz to levaquine PO, cont abx for 10 days ( thru 01/19); longer course (14) days, see ID note. started on coumadin today (on therapeutic lovenox). monitor INR anticipate d/c in 2-3 days if he continues to improve switch to po lasix in AM Problem Qualifiers (1) CHF exacerbation: Qualified Codes: I50.23 - Acute on chronic systolic (congestive) heart failure (2) HTN (hypertension): Qualified Codes: I10 - Essential (primary) hypertension (3) Cellulitis: Qualified Codes: L03.115 - Cellulitis of right lower limb Cat Moody MD Jan 17, 2017 09:57
[2017-01-17] MEDS: WARFARIN SOD 5 MG TAB PO SCH (15:41)
--- NOTE | 2017-01-17 19:42 | HHI.PR ---
Subjective Remarks On O2 at 3 L and is better. Good output with IV lasix. No chest pain or fever. CXR still shows CHF but less effusions after thoracentesis Objective Vital Signs Date Time Temp Pulse Resp B/P (MAP) Pulse Ox O2 Delivery O2 Flow Rate FiO2 01/17/17 18:00 92 01/17/17 16:00 97.8 78 20 101/64 (76) 01/17/17 16:00 78 01/17/17 14:00 78 01/17/17 12:00 91 01/17/17 12:00 98.0 91 20 100/62 (75) 94 01/17/17 10:00 113 01/17/17 08:27 92 Nasal Cannula 5.00 01/17/17 08:00 82 01/17/17 08:00 94 Nasal Cannula 2.00 01/17/17 08:00 97.9 99 19 153/73 (99) 93 01/17/17 06:00 82 01/17/17 04:00 98.0 85 20 138/89 (105) 98 01/17/17 04:00 82 01/17/17 02:00 84 01/17/17 00:00 99.0 84 18 121/82 (95) 96 01/17/17 00:00 84 01/16/17 22:00 82 01/16/17 21:23 96 Nasal Cannula 2.00 01/16/17 20:00 Nasal Cannula 5.00 60 01/16/17 20:00 99.2 83 23 104/69 (81) 96 01/16/17 20:00 84 I/O 01/16/17 01/16/17 01/16/17 01/17/17 01/17/17 01/17/17 07:00 15:00 23:00 07:00 15:00 23:00 Intake Total 300 ml 708 ml 330 ml 98 ml Output Total 1250 ml 952 ml 600 ml 540 ml Balance -950 ml -244 ml -270 ml 98 ml -540 ml Intake Oral 200 ml 708 ml 200 ml IV Total 100 ml 130 ml 98 ml Output Urine Total 1250 ml 952 ml 600 ml 540 ml Result Diagram: 01/16/17 0503 01/16/17 0503 Objective Remarks GENERAL: This is an elderly moderately obese white male who is alert . HEAD, EYES, EARS, NOSE, THROAT: Head normocephalic. The pupils are not reactive There is a corneal opacity. Throat is clear. NECK: The neck is supple with mild venous distention. Trachea is midline. No thyroid enlargement. CHEST: Decreased breath sounds at the bases with Occ bibasilar crackles. HEART: Heart sounds are irregular. S1-S2 with no murmur, no S3. ABDOMEN: Abdomen soft and obese with the liver felt just below the right costal margin. The bowel sounds are active. EXTREMITIES: 1 + edema with pigmentation of the skin with stasis dermatitis and lymphedema. Peripheral pulses are not well palpable. NEUROLOGIC: Neurologically he is moving all his extremities with 1+ reflexes. No gross motor deficits. Assessment and Plan Assessment and Plan IMPRESSION: 1. Pulmonary edema with bibasilar effusions. 2. Cardiomyopathy and congestive heart failure. 3. Chronic obstructive pulmonary disease. 4. Bibasilar atelectasis with possible pneumonia. 5. Chronic kidney disease. 6. Lymphedema. Plan : 1. Will cont Lasix 40 gm IV BID 2. BMP,CXR in am 3. O2 at 4 L. 4. Nebs qid Duoneb. 5. Continue antibiotics. 6. Transfer to [facility] in am 7. Will use BiPaP at HS if sats <90. Ryan Jolley MD Jan 17, 2017 19:42
--- NOTE | 2017-01-17 20:57 | HHI.NPPN ---
Subjective History of Present Illness 71-year-old male with past medical history of hypertension, diabetes mellitus, ischemic heart disease, congestive heart failure, atrial fibrillation, history of legal blindness, possible history of chronic kidney disease who came to the hospital with complaint of worsening shortness of breath and edema of the legs. I was called to see the patient because of elevated BUN and creatinine. The patient was found to have creatinine of 1.8 on admission. Additional Remarks Patient is alert, breathing is better, sitting on chair, not in distress. Review of Systems General Constitutional: Fatigue Respiratory Lungs: SOB, Wheeze Cardiovascular Cardiac: Edema, [place] Objective Data Data 01/17/17 01/18/17 19:00 07:00 Intake Total 98 ml Output Total 540 ml Balance -442 ml IV Total 98 ml Output Urine Total 540 ml Vital Signs Date Time Temp Pulse Resp B/P (MAP) Pulse Ox O2 Delivery O2 Flow Rate FiO2 01/17/17 18:00 92 01/17/17 16:00 97.8 78 20 101/64 (76) 01/17/17 16:00 78 01/17/17 14:00 78 01/17/17 12:00 91 01/17/17 12:00 98.0 91 20 100/62 (75) 94 01/17/17 10:00 113 01/17/17 08:27 92 Nasal Cannula 5.00 01/17/17 08:00 82 01/17/17 08:00 94 Nasal Cannula 2.00 01/17/17 08:00 97.9 99 19 153/73 (99) 93 01/17/17 06:00 82 01/17/17 04:00 98.0 85 20 138/89 (105) 98 01/17/17 04:00 82 01/17/17 02:00 84 01/17/17 00:00 99.0 84 18 121/82 (95) 96 01/17/17 00:00 84 01/16/17 22:00 82 01/16/17 21:23 96 Nasal Cannula 2.00 -: 01/16/17 0503 01/16/17 0503 Physical Exam General Appearance: No Acute Distress, Comfortable Eyes Eye Exam: Pupils Equal Throat Throat Exam: Oral Mucosa [place] & Moist Pulmonary Resp Exam: No Distress, Rhonchi, Decreased Bases, Diminished Breath Sounds Cardiology CV Exam: Regular, Normal Sinus Rhythm Gastrointestinal/Abdomen GI Exam: Soft, Non-Tender, Bowel Sounds Present Extremeties Extremities Exam: Moderate Edema, Pitting Edema, Dependent Edema Neurologic Neuro Exam: Alert, Awake, Oriented Psychiatric Psych Exam: Appropriate Responses Assessment/Plan Assessment Summary: ISI/Acute Renal Failure, Fluid/Volume Overload, Hypertension, CKD Stage III Electrolyte Assessment: Hypokalemia Problem List: (1) Stage 3 chronic kidney disease ICD Codes: N18.3 - Chronic kidney disease, stage 3 (moderate) (2) Hypoxia ICD Codes: R09.02 - Hypoxemia (3) HTN (hypertension) ICD Codes: I10 - Essential (primary) hypertension (4) New onset atrial fibrillation ICD Codes: I48.91 - Unspecified atrial fibrillation (5) Cellulitis ICD Codes: L03.90 - Cellulitis, unspecified (6) CHF exacerbation ICD Codes: I50.9 - Heart failure, unspecified (7) ISI (acute kidney injury) ICD Codes: N17.9 - Acute kidney failure, unspecified Plan Patient has good urine out put. On Lasix and Aldactone. Creatinine is slowly improving. K is better. Continue Augmentin and Ceftazidime. Follow the urine out put and BMP. Edema is improving, has been in negative fluid balance. Avoid Nephrotoxins, Edema is better and now with nasal cannula. Follow the BMP. Problem Qualifiers (1) HTN (hypertension): Qualified Codes: I10 - Essential (primary) hypertension (2) Cellulitis: Qualified Codes: L03.115 - Cellulitis of right lower limb (3) CHF exacerbation: Qualified Codes: I50.23 - Acute on chronic systolic (congestive) heart failure Cuco Malone MD Jan 17, 2017 20:57
[2017-01-18] VITALS (13 sets, daily range): BP systolic 113–157; BP diastolic 75–109; PULSE 75–136; RESP 20–30; TEMP 98.1–98.6; O2SAT 81–94
[2017-01-18] MEDS: ENOXAPARIN SODIUM 150 MG/ML SYRINGE SQ SCH ×2 (03:00→15:00)
[2017-01-18] MEDS: cefTAZidime INJ 1,000 MG in SODIUM CHLORIDE 0.9% INJ 100 ML IV SCH ×2 (03:45→15:00)
--- NOTE | 2017-01-18 06:01 | RADRPT ---
EXAM DATE/TIME: 01/18/2017 03:41 [place] COMPARISON: CHEST SINGLE AP, January 15, 2017, 9:25. INDICATIONS : Shortness of breath, possible pulmonary disease. MEDICAL HISTORY : Hypertension. Hypercholesterolemia. Diabetes mellitus type II. SURGICAL HISTORY : None. ENCOUNTER: Subsequent ACUITY: 1 week PAIN SCORE: 0/10 LOCATION: Bilateral chest FINDINGS: The cardiac silhouette is enlarged in transverse diameter. There are findings of congestive heart jonel lure with interstitial and alveolar opacity bilaterally. The findings are improved when compared with the prior exam. Small bilateral pleural effusions are identified. CONCLUSION: 1. Cardiomegaly and findings of congestive heart failure. The findings are improved when compared wit h the prior exam. Tyler Burns MD on January 18, 2017 at 5:59 Board Certified Radiologist. This report was verified electronically.
[2017-01-18] MEDS: AMOXICILLIN/CLAVULANATE K 500 MG TAB PO SCH ×3 (06:18→20:52)
[2017-01-18] MEDS: INSULIN ASPART SUPPLEMENTAL SCALE SQ SCH ×4 (07:44→20:52)
[2017-01-18] MEDS: DOCUSATE SODIUM 50 MG/SENNA 8.6 MG TAB PO SCH ×2 (08:35→20:52)
[2017-01-18] MEDS: DILTIAZEM-CD 240 MG CAP ER PO SCH (08:35)
[2017-01-18] MEDS: CARVEDILOL 12.5 MG TAB PO SCH ×2 (08:35→20:52)
[2017-01-18] MEDS: SPIRONOLACTONE 25 MG TAB PO SCH (08:35)
[2017-01-18] MEDS: SODIUM CHLORIDE 0.9% FLUSH 10 ML FLUSH IV FLUSH SCH ×2 (08:36→20:52)
[2017-01-18] MEDS: FUROSEMIDE 40 MG/4 ML VIAL IV PUSH SCH ×2 (08:36→17:24)
[2017-01-18] MEDS: ASPIRIN EC 325 MG TABEC PO SCH (09:00)
--- NOTE | 2017-01-18 10:31 | HHI.PR ---
Subjective Remarks Follow-up for shortness of breath and cellulitis next Shortness of breath but better, no chest pain, right lower extremity pain better , swelling is also a lot better. Good urine output. He brought. Objective Vitals Vital Signs Date Time Temp Pulse Resp B/P (MAP) Pulse Ox O2 Delivery O2 Flow Rate FiO2 01/18/17 10:00 124 01/18/17 08:00 94 Nasal Cannula 2.00 01/18/17 08:00 98.1 136 30 157/109 (125) 94 01/18/17 08:00 124 01/18/17 06:00 96 01/18/17 04:00 95 01/18/17 04:00 98.2 90 20 135/75 (95) 90 01/18/17 02:00 87 01/18/17 00:00 80 01/18/17 00:00 98.3 80 20 136/88 (104) 89 01/17/17 22:00 82 01/17/17 20:00 91 01/17/17 20:00 98.0 91 20 112/82 (92) 100 01/17/17 20:00 95 Nasal Cannula 2.00 01/17/17 19:27 99 Nasal Cannula 3.50 01/17/17 18:00 92 01/17/17 16:00 97.8 78 20 101/64 (76) 01/17/17 16:00 78 01/17/17 14:00 78 01/17/17 12:00 91 01/17/17 12:00 98.0 91 20 100/62 (75) 94 I/O 01/17/17 01/17/17 01/17/17 01/18/17 01/18/17 01/18/17 07:00 15:00 23:00 07:00 15:00 23:00 Intake Total 330 ml 98 ml 580 ml Output Total 600 ml 540 ml 850 ml Balance -270 ml 98 ml -540 ml -270 ml Intake Oral 200 ml 480 ml IV Total 130 ml 98 ml 100 ml Output Urine Total 600 ml 540 ml 850 ml # Bowel Movements 0 Result Diagram: 01/16/17 0503 01/16/17 0503 Objective Remarks AAOx3, sitting up on recliner. NC in place. Regular rate and rhythm, no murmurs Decreased breath sounds on the left, no wheezing, occasional rhonchi, no crackles Abdomen soft nontender Trace edema especially in the right, right lower extremity ulcers dressings in place Alert, awake, oriented to self and place. A/P Problem List: (1) CHF exacerbation ICD Code: I50.9 - Heart failure, unspecified (2) Acute hypoxemic respiratory failure ICD Code: J96.01 - Acute respiratory failure with hypoxia (3) New onset atrial fibrillation ICD Code: I48.91 - Unspecified atrial fibrillation (4) HTN (hypertension) ICD Code: I10 - Essential (primary) hypertension (5) Cellulitis ICD Code: L03.90 - Cellulitis, unspecified (6) ISI (acute kidney injury) ICD Code: N17.9 - Acute kidney failure, unspecified Assessment and Plan Acute systolic CHF exacerbation-Cardiology consulted and following the patient, echocardiogram showed a severely reduced left ventricular systolic function with an estimated ejection fraction of 15-20%. Global hypokinesis. Mild left ventricular enlargement with normal wall thickness. Mild to moderate mitral annular calcification and possible mild aortic sclerosis., Chest x-ray showed increasing CHF and consolidation at the left lung, Lasix increased, respiratory status improving, on oxygen, stable. Continue Lasix for now, check BMP tomorrow. Acute hypoxemic respiratory failure- ABG ordered on 06/10 showed a pH of 7.44 , oxygen saturation of 89% with a PCO2 42. Continue supplemental oxygen, IV Lasix, improving, pulmonary following, Status post thoracenteses, negative pleural fluid studies so far New onset atrial fibrillation-cardiology following, continue Coreg 12.5 m twice a day, increase Cardizem to 300 mg daily, lisinopril on hold, TSH normal. Troponins negative. Nuclear stress testing was negative with signs of prior infarction. Nuclear stress testing also showed very poor wall motion with global hypokinesia and possible dilation of the left ventricular cavity. Suggesting possible cardiomyopathy. On Lovenox, Coumadin started, monitor INR, still subtherapeutic. Hypertension-stable, continue Coreg and Cardizem, resume lisinopril as creatinine is better. Increase Cardizem as above. Cellulitis-Wound culture obtained on 01/01/17 grew Proteus Vulgaris Pseudomonas aeruginosa and Enterococcus faecalis. s/p ceftazidime and ampicillin. ID following now on augmentin and ceftazidime, finish antibiotics either 01/19 or 11/14/17 the pending her clinical picture. Continue with wound care management. Acute renal failure on top of chronic kidney disease stage III- Baseline creatinine around 1.4-1.5, nephrology following. kidney ultrasound shows 3 cortical cyst on the right. A small left pleural effusion. Slight increased echogenicity to the right kidney. On Lasix, monitor BMP. Creatinine now at baseline at 1.39. Recheck BMP tomorrow. Start physical therapy, consult case management DVT prophylaxis: On Lovenox subcutaneous at therapeutic dose. started on Coumadin, INR subtherapeutic. Discharge Planning Transfer to [facility]. Per ID, when ready for DC switch ceftaz to levaquine PO, cont abx for 10 days ( thru 01/19); longer course (14) days, see ID note. Follow INR, anticipate discharge in 1-2 days. Problem Qualifiers (1) CHF exacerbation: Qualified Codes: I50.23 - Acute on chronic systolic (congestive) heart failure (2) HTN (hypertension): Qualified Codes: I10 - Essential (primary) hypertension (3) Cellulitis: Qualified Codes: L03.115 - Cellulitis of right lower limb Zabrina Medina MD Jan 18, 2017 10:31
[2017-01-18 13:19] LABS: AUTOMATED NEUTROPHIL # 3.8 TH/MM3 (1.8-7.7); BASOPHIL % 0.9 % (0.0-2.0); EOSINOPHIL # 0.2 TH/MM3 (0-0.4); EOSINOPHIL % 4.1 % (0.0-4.0); HEMATOCRIT 37.5 % (39.0-51.0); HEMO FLAGS DIFF FINAL; LYMPH % 15.9 % (9.0-44.0); LYMPHOCYTE # 0.9 TH/MM3 (1.0-4.8); MEAN CORPUSCULAR HEMOGLOBIN 30.4 PG (27.0-34.0); MEAN CORPUSCULAR HGB CONC 32.7 % (32.0-36.0); MONO % 11.3 % (0.0-8.0); NEUT % 67.8 % (16.0-70.0); PLATELET COUNT 282 TH/MM3 (150-450); RED BLOOD COUNT 4.04 MIL/MM3 (4.50-5.90); RED CELL DISTRIBUTION WIDTH 16.5 % (11.6-17.2); WHITE BLOOD COUNT 5.5 TH/MM3 (4.0-11.0)
[2017-01-18 13:21] LABS: PROTHROMBIN TIME - PATIENT 11.2 SEC (9.8-11.6)
[2017-01-18 13:35] LABS: BICARBONATE 29.4 MEQ/L (21.0-32.0); POTASSIUM 3.9 MEQ/L (3.5-5.1)
--- NOTE | 2017-01-18 15:33 | HHI.NPPN ---
Subjective History of Present Illness 71-year-old male with past medical history of hypertension, diabetes mellitus, ischemic heart disease, congestive heart failure, atrial fibrillation, history of legal blindness, possible history of chronic kidney disease who came to the hospital with complaint of worsening shortness of breath and edema of the legs. I was called to see the patient because of elevated BUN and creatinine. The patient was found to have creatinine of 1.8 on admission. Additional Remarks Patient is alert, breathing is better, sitting on chair,clinically same, with nasal cannula. Review of Systems General Constitutional: Fatigue Respiratory Lungs: SOB, Wheeze Cardiovascular Cardiac: Edema, [place] Objective Data Data Vital Signs Date Time Temp Pulse Resp B/P (MAP) Pulse Ox O2 Delivery O2 Flow Rate FiO2 01/18/17 14:00 75 01/18/17 12:00 98 01/18/17 12:00 98.1 98 20 113/75 (88) 01/18/17 10:00 124 01/18/17 08:00 94 Nasal Cannula 2.00 01/18/17 08:00 98.1 136 30 157/109 (125) 94 01/18/17 08:00 124 01/18/17 06:00 96 01/18/17 04:00 95 01/18/17 04:00 98.2 90 20 135/75 (95) 90 01/18/17 02:00 87 01/18/17 00:00 80 01/18/17 00:00 98.3 80 20 136/88 (104) 89 01/17/17 22:00 82 01/17/17 20:00 91 01/17/17 20:00 98.0 91 20 112/82 (92) 100 01/17/17 20:00 95 Nasal Cannula 2.00 01/17/17 19:27 99 Nasal Cannula 3.50 01/17/17 18:00 92 01/17/17 16:00 97.8 78 20 101/64 (76) 01/17/17 16:00 78 -: 01/18/17 1211 01/18/17 1250 Physical Exam General Appearance: No Acute Distress, Comfortable Eyes Eye Exam: Pupils Equal Throat Throat Exam: Oral Mucosa [place] & Moist Pulmonary Resp Exam: No Distress, Rhonchi, Decreased Bases, Diminished Breath Sounds Cardiology CV Exam: Regular, Normal Sinus Rhythm Gastrointestinal/Abdomen GI Exam: Soft, Non-Tender, Bowel Sounds Present Extremeties Extremities Exam: Moderate Edema, Pitting Edema, Dependent Edema Neurologic Neuro Exam: Alert, Awake, Oriented Psychiatric Psych Exam: Appropriate Responses Assessment/Plan Assessment Summary: ISI/Acute Renal Failure, Fluid/Volume Overload, Hypertension, CKD Stage III Electrolyte Assessment: Hypokalemia Problem List: (1) Stage 3 chronic kidney disease ICD Codes: N18.3 - Chronic kidney disease, stage 3 (moderate) (2) Hypoxia ICD Codes: R09.02 - Hypoxemia (3) HTN (hypertension) ICD Codes: I10 - Essential (primary) hypertension (4) New onset atrial fibrillation ICD Codes: I48.91 - Unspecified atrial fibrillation (5) Cellulitis ICD Codes: L03.90 - Cellulitis, unspecified (6) CHF exacerbation ICD Codes: I50.9 - Heart failure, unspecified (7) ISI (acute kidney injury) ICD Codes: N17.9 - Acute kidney failure, unspecified Plan Patient has good urine out put. On Lasix and Aldactone. Creatinine is increase to 1.55. now. K is better. Continue Augmentin and Ceftazidime. Follow the urine out put and BMP. Edema is improving, has been in negative fluid balance. Avoid Nephrotoxins, Edema is better and now with nasal cannula. Most likely has chronic kidney disease. Continue diuretics. Problem Qualifiers (1) HTN (hypertension): Qualified Codes: I10 - Essential (primary) hypertension (2) Cellulitis: Qualified Codes: L03.115 - Cellulitis of right lower limb (3) CHF exacerbation: Qualified Codes: I50.23 - Acute on chronic systolic (congestive) heart failure Cuco Malone MD Jan 18, 2017 15:33
[2017-01-18] MEDS: WARFARIN SOD 5 MG TAB PO SCH (15:55)
[2017-01-18] MEDS ORDERED: WARFARIN SOD 2.5 MG TAB PO ONE (16:00)
--- NOTE | 2017-01-18 20:49 | HHI.PR ---
Subjective Remarks On O2 at 2 L and is improved. No chest pain or fever. Labs stable..CR 1.5. Objective Vital Signs Date Time Temp Pulse Resp B/P (MAP) Pulse Ox O2 Delivery O2 Flow Rate FiO2 01/18/17 20:20 94 Nasal Cannula 6.00 01/18/17 18:00 79 01/18/17 16:00 98.2 83 24 113/80 (91) 81 01/18/17 16:00 83 01/18/17 14:00 75 01/18/17 12:00 98 01/18/17 12:00 98.1 98 20 113/75 (88) 01/18/17 10:00 124 01/18/17 08:00 94 Nasal Cannula 2.00 01/18/17 08:00 98.1 136 30 157/109 (125) 94 01/18/17 08:00 124 01/18/17 06:00 96 01/18/17 04:00 95 01/18/17 04:00 98.2 90 20 135/75 (95) 90 01/18/17 02:00 87 01/18/17 00:00 80 01/18/17 00:00 98.3 80 20 136/88 (104) 89 01/17/17 22:00 82 I/O 01/17/17 01/17/17 01/17/17 01/18/17 01/18/17 01/18/17 07:00 15:00 23:00 07:00 15:00 23:00 Intake Total 330 ml 98 ml 580 ml Output Total 600 ml 540 ml 850 ml 950 ml Balance -270 ml 98 ml -540 ml -270 ml -950 ml Intake Oral 200 ml 480 ml IV Total 130 ml 98 ml 100 ml Output Urine Total 600 ml 540 ml 850 ml 950 ml # Bowel Movements 0 Result Diagram: 01/18/17 1211 01/18/17 1250 Objective Remarks GENERAL: This is an elderly moderately obese white male who is alert . HEAD, EYES, EARS, NOSE, THROAT: Head normocephalic. The pupils are not reactive There is a corneal opacity. Throat is clear. NECK: The neck is supple with mild venous distention. Trachea is midline. No thyroid enlargement. CHEST: Decreased breath sounds at the bases with Occ bibasilar crackles and wheezes. HEART: Heart sounds are irregular. S1-S2 with no murmur, no S3. ABDOMEN: Abdomen soft and obese with the liver felt just below the right costal margin. The bowel sounds are active. EXTREMITIES: 1 + edema with pigmentation of the skin with stasis dermatitis and lymphedema. Peripheral pulses are not well palpable. NEUROLOGIC: Neurologically he is moving all his extremities with 1+ reflexes. No gross motor deficits. Assessment and Plan Assessment and Plan IMPRESSION: 1. Pulmonary edema with bibasilar effusions. 2. Cardiomyopathy and congestive heart failure. 3. Chronic obstructive pulmonary disease. 4. Bibasilar atelectasis with possible pneumonia. 5. Chronic kidney disease. 6. Lymphedema. Plan : 1.Change Lasix 20 mg IV BID 2. BMP,CBC in am 3. O2 at 4 L. 4. Nebs qid Duoneb. 5. Continue antibiotics. 6. Transfer to [facility]. 7. PFT with bronchodilator Ryan Jolley MD Jan 18, 2017 20:49
[2017-01-19] VITALS (14 sets, daily range): BP systolic 115–139; BP diastolic 73–99; PULSE 77–108; RESP 18–39; TEMP 97.8–98.8; O2SAT 84–96
[2017-01-19] MEDS: ENOXAPARIN SODIUM 150 MG/ML SYRINGE SQ SCH ×2 (03:00→14:39)
[2017-01-19] MEDS: cefTAZidime INJ 1,000 MG in SODIUM CHLORIDE 0.9% INJ 100 ML IV SCH ×2 (03:57→14:39)
[2017-01-19] MEDS: AMOXICILLIN/CLAVULANATE K 500 MG TAB PO SCH ×3 (05:34→22:08)
[2017-01-19 07:00] LABS: PROTHROMBIN TIME - PATIENT 11.4 SEC (9.8-11.6)
[2017-01-19 07:32] LABS: BICARBONATE 29.5 MEQ/L (21.0-32.0); POTASSIUM 3.6 MEQ/L (3.5-5.1)
[2017-01-19] MEDS: INSULIN ASPART SUPPLEMENTAL SCALE SQ SCH ×4 (08:00→21:00)
[2017-01-19] MEDS: DILTIAZEM-CD 300 MG CAP ER PO SCH (08:13)
[2017-01-19] MEDS: SPIRONOLACTONE 25 MG TAB PO SCH (08:14)
[2017-01-19] MEDS: CARVEDILOL 12.5 MG TAB PO SCH ×2 (08:14→21:00)
[2017-01-19] MEDS: DOCUSATE SODIUM 50 MG/SENNA 8.6 MG TAB PO SCH ×2 (08:14→21:00)
[2017-01-19] MEDS: ASPIRIN EC 325 MG TABEC PO SCH (08:14)
[2017-01-19] MEDS: SODIUM CHLORIDE 0.9% FLUSH 10 ML FLUSH IV FLUSH SCH ×2 (08:15→21:00)
[2017-01-19] MEDS: FUROSEMIDE 20 MG/2 ML VIAL IV PUSH SCH ×2 (08:15→17:12)
--- NOTE | 2017-01-19 10:45 | HHI.PR ---
Subjective Remarks sitting with no acute distress. denies chest pain or sob. on four and half liters of oxygen via N/C. d/w the RN. Objective Vitals Vital Signs Date Time Temp Pulse Resp B/P (MAP) Pulse Ox O2 Delivery O2 Flow Rate FiO2 01/19/17 10:00 93 01/19/17 08:00 98.1 108 20 135/83 (100) 91 01/19/17 08:00 Nasal Cannula 5.00 01/19/17 08:00 108 01/19/17 07:05 90 Nasal Cannula 6.00 01/19/17 06:00 89 01/19/17 04:00 98.2 97 32 139/96 (110) 90 01/19/17 04:00 97 01/19/17 02:00 88 01/19/17 00:00 98.7 84 18 135/77 (96) 95 01/19/17 00:00 84 01/18/17 22:00 83 01/18/17 20:20 94 Nasal Cannula 6.00 01/18/17 20:00 93 Nasal Cannula 2.50 01/18/17 20:00 86 01/18/17 20:00 98.6 86 21 130/86 (101) 93 01/18/17 18:00 79 01/18/17 16:00 98.2 83 24 113/80 (91) 81 01/18/17 16:00 83 01/18/17 14:00 75 01/18/17 12:00 98 01/18/17 12:00 98.1 98 20 113/75 (88) I/O 01/18/17 01/18/17 01/18/17 01/19/17 01/19/17 01/19/17 07:00 15:00 23:00 07:00 15:00 23:00 Intake Total 580 ml 100 ml 580 ml Output Total 850 ml 950 ml 650 ml Balance -270 ml -850 ml -70 ml Intake Oral 480 ml 480 ml IV Total 100 ml 100 ml 100 ml Output Urine Total 850 ml 950 ml 650 ml # Bowel Movements 0 0 Result Diagram: 01/18/17 1211 01/19/17 0619 Imaging Last Impressions Chest X-Ray 01/18/17 06 Signed Impressions: Service Date/Time: January 03:41 - CONCLUSION: 1. Cardiomegaly and findings of congestive heart failure. The findings are improved when compared with the prior exam. Tyler Burns MD Renal Ultrasound 01/12/17 Signed Impressions: Service Date/Time: Thursday, January 12, 2017 17:27 - CONCLUSION: Three cortical cysts on the right. Small left pleural effusion. Slight increased echogenicity to the right kidney. Zeeshan Oliveira MD Chest Ultrasound 01/12/17 Signed Impressions: Service Date/Time: Thursday, January 12, 2017 19:44 - CONCLUSION: Large pleural effusion with measurements as above. Zeeshan Oliveira MD Myocardial Perfusion Scan Nuc Med 01/08/17 Signed Impressions: Service Date/Time: Sunday, January 08, 2017 08:48 - CONCLUSION: 1. No evidence of stress-induced ischemia. 2. Fixed perfusion defects involving the apex and apical segments suggest prior infarction. 3. Very poor wall motion with global hypokinesia and possible dilation of left ventricular cavity. This suggests possible cardiomyopathy. RISK CATEGORY: Intermediate (1-3%% Annual Mortality Rate) Raheem Chanel MD CT Angiography 01/04/17 Signed Impressions: Service Date/Time: December 11:11 - CONCLUSION: 1. Moderate to severe anterior upper lobe paraseptal emphysema. 2. Cardiomegaly with perihilar groundglass opacities consistent with pulmonary edema. 3. Moderate bilateral, right greater then left, simple pleural effusions with associated airspace disease in the lower lobes, presumably compressive atelectasis. 4. Coronary artery calcifications. Ralph Wynn MD Lower Extremity Ultrasound 01/02/17 Signed Impressions: Service Date/Time: Monday, January 02, 2017 09:01 - CONCLUSION: 1. Edema in the soft tissues of the lower legs bilaterally. 2. However, no sonographic or Doppler findings of deep venous thrombosis Bandar Ricks MD Objective Remarks GENERAL: This is a well-nourished, well-developed patient, in no apparent distress. CARDIOVASCULAR: Regular rate and regular rhythm without murmurs, gallops, or rubs. RESPIRATORY: Clear to auscultation. Breath sounds equal bilaterally. No wheezes , rales, or rhonchi. GASTROINTESTINAL: Abdomen soft, non-tender, nondistended. Normal, active bowel sounds MUSCULOSKELETAL: Extremities with bilateral pedal edema. NEURO: Alert & Oriented x4 to person, place, time, situation. Moves all ext x4 Medications and IVs Current Medications Aspirin (Aspirin Chew) 324 mg ONCE ONCE CHEW Last administered on 01/01/17 20:23; Start 01/01/17 at 20:15; Stop 01/01/17 at 20:16; Status DC Nitroglycerin (Nitroglycerin 2% Oint) 1 inch ONCE ONCE TOPICAL Last administered on 01/01/17 20:23; Start 01/01/17 at 20:15; Stop 01/01/17 at 20 :16; Status DC Nitroglycerin (Nitrostat Sl) 0.4 mg Q5M PRN SL CHEST PAIN Last administered on 01/01/17 20:24; Start 01/01/17 at 20:15 Diltiazem HCl (Cardizem Inj) 15 mg ONCE ONCE IV Last administered on 20:23; Start 01/01/17 at 20:15; Stop 01/01/17 at 20:16; Status DC Diltiazem HCl 125 mg/Sodium Chloride 125 ml @ 5 mls/hr TITRATE PRN IV tachycardia; Start 01/01/17 at 20:15; Stop 01/02/17 at 00:13; Status DC Furosemide (Lasix Inj) 60 mg ONCE ONCE IV PUSH Last administered on 21:53; Start 01/01/17 at 21:45; Stop 01/01/17 at 21:46; Status DC Sodium Chloride (NS Flush) 2 ml UNSCH PRN IV FLUSH FLUSH AFTER USING IV ACCESS Last administered on 01/16/17 08:01; Start 01/01/17 at 22:15 Sodium Chloride (NS Flush) 2 ml BID IV FLUSH Last administered on 01/19/17 08 :15; Start 01/02/17 at 09:00 Naloxone HCl (Narcan Inj) 0.4 mg UNSCH PRN IV PUSH SEE LABEL COMMENTS; Start 01/01/17 at 22:15 Aspirin (Ecotrin Ec) 325 mg DAILY PO Last administered on 01/19/17 08:14; Start 01/02/17 at 09:00 Furosemide (Lasix Inj) 40 mg BID@09,18 IV PUSH Last administered on 01/05/17 17:32; Start 01/02/17 at 09:00; Stop 01/06/17 at 08:20; Status DC Potassium Chloride (KCl) 40 meq ONCE ONCE PO Last administered on 01/02/17 00:34; Start 01/01/17 at 22:15; Stop 01/01/17 at 22:16; Status DC Dextrose (D50w (Vial) Inj) 50 ml UNSCH PRN IV PUSH HYPOGLYCEMIA-SEE COMMENTS; Start 01/02/17 at 03:00 Glucagon (Glucagon Inj) 1 mg UNSCH PRN OTHER HYPOGLYCEMIA-SEE COMMENTS; Start 01/02/17 at 03:00 Insulin Aspart (NovoLOG SUPPLEMENTAL SCALE) 1 ACHS SLIDING SCALE SQ Last administered on 01/18/17 20:52; Start 01/02/17 at 08:00 Enoxaparin Sodium (Lovenox Inj) 130 mg Q12H SQ Last administered on 01/07/17 15:00; Start 01/02/17 at 03:00; Stop 01/07/17 at 15:36; Status DC Albuterol/ Ipratropium (Duoneb Neb) 1 ampule Q6HR NEB PRN NEB Wheezing or SOB Last administered on 01/13/17 05:58; Start 01/02/17 at 10:00 Albuterol/ Ipratropium (Duoneb Neb) 1 ampule Q6HR NEB NEB Last administered on 01/07/17 03:44; Start 01/03/17 at 04:00; Stop 01/07/17 at 03:59; Status DC Potassium Chloride (KCl) 30 meq ONCE ONCE PO Last administered on 01/03/17 18:41; Start 01/03/17 at 18:45; Stop 01/03/17 at 18:46; Status DC Iohexol (Omnipaque 350 Inj) 99 ml STK-MED ONCE IVCONTRAST Last administered on 01/04/17 11:24; Start 01/04/17 at 11:24; Stop 01/04/17 at 11:25; Status DC Metoprolol Tartrate (Lopressor) 25 mg ONCE ONCE PO Last administered on 18:17; Start 01/04/17 at 18:15; Stop 01/04/17 at 18:16; Status DC Metoprolol Tartrate (Lopressor) 12.5 mg Q12HR PO Last administered on 08:04; Start 01/05/17 at 09:00; Stop 01/05/17 at 13:03; Status DC Miscellaneous (Pill Splitter) 1 ea UNSCH PRN OTHER SEE LABEL COMMENTS; Start 01/04/17 at 18:15 Potassium Chloride (KCl) 30 meq ONCE ONCE PO Last administered on 01/05/17 09:02; Start 01/05/17 at 08:30; Stop 01/05/17 at 08:31; Status DC Docusate Sodium (Colace) 100 mg BID PO Last administered on 01/11/17 08:21; Start 01/05/17 at 21:00; Stop 01/11/17 at 19:02; Status DC Lactulose (Lactulose Liq) 30 ml ONCE ONCE PO Last administered on 01/05/17 13:45; Start 01/05/17 at 13:15; Stop 01/05/17 at 13:37; Status DC Lactulose (Lactulose Liq) 30 ml DAILY PRN PO SEVERE CONSTIPATION Last administered on 01/11/17 08:44; Start 01/05/17 at 13:15 Metoprolol Tartrate (Lopressor) 25 mg ONCE ONCE PO Last administered on 13:45; Start 01/05/17 at 13:15; Stop 01/05/17 at 13:37; Status DC Metoprolol Tartrate (Lopressor) 25 mg Q12HR PO ; Start 01/05/17 at 21:00; Stop 01/05/17 at 21:00; Status DC Magnesium Oxide (Mag-Ox) 400 mg ONCE ONCE PO Last administered on 01/05/17 15:04; Start 01/05/17 at 15:00; Stop 01/05/17 at 15:01; Status DC Magnesium Oxide (Mag-Ox) 400 mg DAILY PO Last administered on 01/08/17 10:04 ; Start 01/06/17 at 09:00; Stop 01/09/17 at 08:59; Status DC Diltiazem HCl (Cardizem) 30 mg Q6H PO Last administered on 01/07/17 10:02; Start 01/05/17 at 22:00; Stop 01/07/17 at 13:22; Status DC Diltiazem HCl (Cardizem) 60 mg ONCE ONCE PO Last administered on 01/05/17 15 :50; Start 01/05/17 at 16:00; Stop 01/05/17 at 16:01; Status DC Digoxin (Lanoxin) 0.25 mg ONCE ONCE PO Last administered on 01/05/17 17:33; Start 01/05/17 at 16:45; Stop 01/05/17 at 16:46; Status DC Acetaminophen/ Hydrocodone Bitart ([place] 5-325 Mg) 1 tab ONCE ONCE PO Last administered on 01/05/17 21:12; Start 01/05/17 at 20:45; Stop 01/05/17 at 20 :46; Status DC Furosemide (Lasix) 40 mg DAILY PO Last administered on 01/07/17 10:02; Start 01/06/17 at 09:00; Stop 01/07/17 at 13:22; Status DC Diltiazem HCl (Cardizem Cd) 180 mg DAILY PO ; Start 01/08/17 at 09:00; Stop at 09:00; Status DC Lisinopril (Prinivil) 2.5 mg DAILY PO ; Start 01/08/17 at 09:00; Stop at 09:00; Status DC Carvedilol (Coreg) 3.125 mg Q12HR PO ; Start 01/07/17 at 21:00; Stop 01/07/17 at 21:00; Status DC Carvedilol (Coreg) 6.25 mg Q12HR PO Last administered on 01/08/17 10:03; Start 01/07/17 at 21:00; Stop 01/08/17 at 16:37; Status DC Diltiazem HCl (Cardizem Cd) 240 mg DAILY PO Last administered on 01/18/17 08: 35; Start 01/08/17 at 09:00; Stop 01/18/17 at 11:02; Status DC Lisinopril (Prinivil) 20 mg DAILY PO Last administered on 01/08/17 10:04; Start 01/08/17 at 09:00; Stop 01/08/17 at 16:37; Status DC Furosemide (Lasix Inj) 40 mg Q8HR IV PUSH Last administered on 01/08/17 15:00 ; Start 01/07/17 at 14:00; Stop 01/08/17 at 16:37; Status DC Digoxin (Lanoxin Inj) 0.5 mg ONCE ONCE IV PUSH Last administered on 15:02; Start 01/07/17 at 13:15; Stop 01/07/17 at 13:32; Status DC Enoxaparin Sodium (Lovenox Inj) 40 mg Q24H SQ Last administered on 01/10/17 08 :03; Start 01/08/17 at 09:00; Stop 01/10/17 at 13:11; Status DC Regadenoson (Lexiscan Inj) 0.4 mg STK-MED ONCE .ROUTE Last administered on 09:10; Start 01/08/17 at 09:10; Stop 01/08/17 at 09:11; Status DC Carvedilol (Coreg) 12.5 mg Q12HR PO Last administered on 01/19/17 08:14; Start 01/08/17 at 21:00 Lisinopril (Prinivil) 40 mg DAILY PO Last administered on 01/11/17 08:21; Start 01/09/17 at 09:00; Status Future Hold Spironolactone (Aldactone) 25 mg DAILY PO Last administered on 01/19/17 08:14 ; Start 01/09/17 at 09:00 Furosemide (Lasix Inj) 40 mg ONCE ONCE IV PUSH Last administered on 01/10/17 13:54; Start 01/10/17 at 14:00; Stop 01/10/17 at 14:01; Status DC Methylprednisolone Sodium Succinate (SoluMEDROL INJ) 125 mg ONCE ONCE IV PUSH Last administered on 01/10/17 13:54; Start 01/10/17 at 14:00; Stop 01/10/17 at 14:01; Status DC Enoxaparin Sodium (Lovenox Inj) 130 mg Q12H SQ Last administered on 01/19/17 03:00; Start 01/10/17 at 15:00; Status Future hold Ampicillin Sodium 1000 mg/Sodium Chloride 100 ml @ 400 mls/hr Q6H IV Last administered on 01/10/17 23:11; Start 01/10/17 at 16:00; Stop 01/11/17 at 00:35 ; Status DC Ceftazidime 1000 mg/Sodium Chloride 100 ml @ 200 mls/hr Q12H IV Last administered on 01/19/17 03:57; Start 01/10/17 at 15:00 Furosemide (Lasix Inj) 40 mg BID@09,18 IV PUSH Last administered on 01/11/17 18:00; Start 01/10/17 at 18:00; Stop 01/11/17 at 19:06; Status DC Amoxicillin/ Clavulanate Potassium (Augmentin) 500 mg Q8HR PO Last administered on 01/19/17 05:34; Start 01/11/17 at 06:00 Senna/Docusate Sodium (Gregoria-Colace) 1 tab BID PO Last administered on 08:14; Start 01/11/17 at 21:00 Magnesium Hydroxide (Milk Of Magnesia Liq) 30 ml Q12H PRN PO Mild constipation Last administered on 01/13/17 08:50; Start 01/11/17 at 19:00 Sennosides (Senokot) 17.2 mg Q12H PRN PO Moderate constipation Last administered on 01/13/17 08:50; Start 01/11/17 at 19:00 Bisacodyl (Dulcolax Supp) 10 mg DAILY PRN RECTAL SEVERE CONSITIPATION Last administered on 01/13/17 15:40; Start 01/11/17 at 19:00 Lactulose (Lactulose Liq) 30 ml DAILY PRN PO SEVERE CONSITIPATION; Start at 19:00; Status UNV Pantoprazole Sodium (Protonix) 40 mg DAILY PO Last administered on 01/17/17 08 :52; Start 01/11/17 at 19:15; Stop 01/17/17 at 10:08; Status DC Furosemide (Lasix Inj) 40 mg DAILY IV PUSH Last administered on 01/15/17 08:39 ; Start 01/12/17 at 09:00; Stop 01/15/17 at 16:34; Status DC Potassium Chloride (KCl) 20 meq ONCE ONCE PO Last administered on 01/12/17 21 :56; Start 01/12/17 at 21:30; Stop 01/12/17 at 21:31; Status DC Potassium Bicarb/ Potassium Chloride (K-Lyte Cl Eff) 25 meq ONCE ONCE PO Last administered on 01/12/17 21:56; Start 01/12/17 at 21:30; Stop 01/12/17 at 21:31; Status DC Furosemide (Lasix Inj) 40 mg BID@09,18 IV PUSH Last administered on 01/18/17 17:24; Start 01/15/17 at 18:00; Stop 01/18/17 at 20:51; Status DC Furosemide (Lasix Inj) 40 mg ONCE ONCE IV PUSH Last administered on 01/15/17 16:00; Start 01/15/17 at 15:30; Stop 01/15/17 at 16:33; Status DC Propofol 50 ml @ As Directed STK-MED ONCE .ROUTE ; Start 01/17/17 at 09:34; Stop 01/17/17 at 09:35; Status DC Warfarin Sodium (Coumadin) 5 mg DAILY@1600 PO Last administered on 01/18/17 15 :55; Start 01/17/17 at 16:00 Patient Medication Teaching (Coumadin Booklet) 1 ONCE ONCE OTHER Last administered on 01/17/17 12:00; Start 01/17/17 at 12:00; Stop 01/17/17 at 12:01 ; Status DC Pharmacy Profile Note 0 ml @ 0 mls/hr UNSCH OTHER ; Start 01/17/17 at 10:15 Patient Medication Teaching (Coumadin Booklet) 1 ONCE ONCE OTHER ; Start at 10:15; Stop 01/17/17 at 10:45; Status DC Diltiazem HCl (Cardizem Cd) 300 mg DAILY PO Last administered on 01/19/17 08: 13; Start 01/19/17 at 09:00 Warfarin Sodium (Coumadin) 2.5 mg ONCE ONCE PO Last administered on 01/18/17 15:55; Start 01/18/17 at 16:00; Stop 01/18/17 at 16:01; Status DC Furosemide (Lasix Inj) 20 mg BID@09,18 IV PUSH Last administered on 01/19/17 08:15; Start 01/19/17 at 09:00 A/P Problem List: (1) CHF exacerbation ICD Code: I50.9 - Heart failure, unspecified (2) Acute hypoxemic respiratory failure ICD Code: J96.01 - Acute respiratory failure with hypoxia (3) New onset atrial fibrillation ICD Code: I48.91 - Unspecified atrial fibrillation (4) HTN (hypertension) ICD Code: I10 - Essential (primary) hypertension (5) Cellulitis ICD Code: L03.90 - Cellulitis, unspecified (6) ISI (acute kidney injury) ICD Code: N17.9 - Acute kidney failure, unspecified Assessment and Plan A/P Acute systolic CHF exacerbation-Cardiology consulted and following the patient, echocardiogram showed a severely reduced left ventricular systolic function with an estimated ejection fraction of 15-20%. Global hypokinesis. Mild left ventricular enlargement with normal wall thickness. Mild to moderate mitral annular calcification and possible mild aortic sclerosis., Chest x-ray showed increasing CHF and consolidation at the left lung, Lasix increased, respiratory status improving, on oxygen, stable. Continue Lasix for now. Acute hypoxemic respiratory failure- ABG ordered on 06/10 showed a pH of 7.44 , oxygen saturation of 89% with a PCO2 42. Continue supplemental oxygen, IV Lasix, improving, pulmonary following, Status post thoracenteses, negative pleural fluid studies so far. d/w the RN; will titrate down the oxygen to keep O2 sat >90%. New onset atrial fibrillation-cardiology following, continue Coreg 12.5 m twice a day, increase Cardizem to 300 mg daily, lisinopril on hold, TSH normal. Troponins negative. Nuclear stress testing was negative with signs of prior infarction. Nuclear stress testing also showed very poor wall motion with global hypokinesia and possible dilation of the left ventricular cavity. Suggesting possible cardiomyopathy. On Lovenox, Coumadin started, monitor INR, still subtherapeutic. Hypertension-stable, continue Coreg and Cardizem, will consider resuming lisinopril if creatinine remains stable. I Cellulitis-Wound culture obtained on 01/01/17 grew Proteus Vulgaris Pseudomonas aeruginosa and Enterococcus faecalis. s/p ceftazidime and ampicillin. ID following now on augmentin and ceftazidime, finish antibiotics 01/23/17 . Continue with wound care management. Acute renal failure on top of chronic kidney disease stage III- Baseline creatinine around 1.4-1.5, nephrology following. kidney ultrasound shows 3 cortical cyst on the right. A small left pleural effusion. Slight increased echogenicity to the right kidney. On Lasix, monitor BMP. Creatinine now at baseline at 1.39. Start physical therapy, consult case management DVT prophylaxis: On Lovenox subcutaneous at therapeutic dose. started on Coumadin, INR subtherapeutic. Discharge Planning discharge planning within the next 2-3 days if stable and cleared by consultants. of note the patient is currently on [id number] liters of oxygen; might need to consider walk test before discharge. Problem Qualifiers (1) CHF exacerbation: Qualified Codes: I50.23 - Acute on chronic systolic (congestive) heart failure (2) HTN (hypertension): Qualified Codes: I10 - Essential (primary) hypertension (3) Cellulitis: Qualified Codes: L03.115 - Cellulitis of right lower limb Amrita Akers MD Jan 19, 2017 10:45
--- NOTE | 2017-01-19 11:12 | HHI.NPPN ---
Subjective History of Present Illness 71-year-old male with past medical history of hypertension, diabetes mellitus, ischemic heart disease, congestive heart failure, atrial fibrillation, history of legal blindness, possible history of chronic kidney disease who came to the hospital with complaint of worsening shortness of breath and edema of the legs. I was called to see the patient because of elevated BUN and creatinine. The patient was found to have creatinine of 1.8 on admission. Additional Remarks Patient is alert, breathing is better, sitting on chair with nasal cannula, eating well, not in distress. Review of Systems General Constitutional: Fatigue Respiratory Lungs: SOB, Wheeze Cardiovascular Cardiac: Edema, [place] Objective Data Data Vital Signs Date Time Temp Pulse Resp B/P (MAP) Pulse Ox O2 Delivery O2 Flow Rate FiO2 01/19/17 10:00 93 01/19/17 08:00 98.1 108 20 135/83 (100) 91 01/19/17 08:00 Nasal Cannula 5.00 01/19/17 08:00 108 01/19/17 07:05 90 Nasal Cannula 6.00 01/19/17 06:00 89 01/19/17 04:00 98.2 97 32 139/96 (110) 90 01/19/17 04:00 97 01/19/17 02:00 88 01/19/17 00:00 98.7 84 18 135/77 (96) 95 01/19/17 00:00 84 01/18/17 22:00 83 01/18/17 20:20 94 Nasal Cannula 6.00 01/18/17 20:00 93 Nasal Cannula 2.50 01/18/17 20:00 86 01/18/17 20:00 98.6 86 21 130/86 (101) 93 01/18/17 18:00 79 01/18/17 16:00 98.2 83 24 113/80 (91) 81 01/18/17 16:00 83 01/18/17 14:00 75 01/18/17 12:00 98 01/18/17 12:00 98.1 98 20 113/75 (88) -: 01/18/17 1211 01/19/17 0619 Physical Exam General Appearance: No Acute Distress, Comfortable Eyes Eye Exam: Pupils Equal Throat Throat Exam: Oral Mucosa [place] & Moist Pulmonary Resp Exam: No Distress, Rhonchi, Decreased Bases, Diminished Breath Sounds Cardiology CV Exam: Regular, Normal Sinus Rhythm Gastrointestinal/Abdomen GI Exam: Soft, Non-Tender, Bowel Sounds Present Extremeties Extremities Exam: Moderate Edema, Pitting Edema, Dependent Edema Neurologic Neuro Exam: Alert, Awake, Oriented Psychiatric Psych Exam: Appropriate Responses Assessment/Plan Assessment Summary: ISI/Acute Renal Failure, Fluid/Volume Overload, Hypertension, CKD Stage III Electrolyte Assessment: Hypokalemia Problem List: (1) Stage 3 chronic kidney disease ICD Codes: N18.3 - Chronic kidney disease, stage 3 (moderate) (2) Hypoxia ICD Codes: R09.02 - Hypoxemia (3) HTN (hypertension) ICD Codes: I10 - Essential (primary) hypertension (4) New onset atrial fibrillation ICD Codes: I48.91 - Unspecified atrial fibrillation (5) Cellulitis ICD Codes: L03.90 - Cellulitis, unspecified (6) CHF exacerbation ICD Codes: I50.9 - Heart failure, unspecified (7) ISI (acute kidney injury) ICD Codes: N17.9 - Acute kidney failure, unspecified Plan Patient has good urine out put. On Lasix and Aldactone. K is better. Continue Augmentin and Ceftazidime. Follow the urine out put and BMP. Edema is improving, has been in negative fluid balance. Avoid Nephrotoxins, Edema is better and now with nasal cannula. Most likely has chronic kidney disease. Continue diuretics. Creatinine 1.4-1.5, possibly his baseline. Problem Qualifiers (1) HTN (hypertension): Qualified Codes: I10 - Essential (primary) hypertension (2) Cellulitis: Qualified Codes: L03.115 - Cellulitis of right lower limb (3) CHF exacerbation: Qualified Codes: I50.23 - Acute on chronic systolic (congestive) heart failure Cuco Malone MD Jan 19, 2017 11:12
[2017-01-19] MEDS ORDERED: hydrALAZINE HCL 20 MG/ML VIAL IV PUSH PRN (11:15)
[2017-01-19] MEDS: WARFARIN SOD 5 MG TAB PO SCH (15:21)
[2017-01-19] MEDS ORDERED: WARFARIN SOD 5 MG TAB PO ONE (16:00)
--- NOTE | 2017-01-19 19:51 | HHI.PR ---
Subjective Remarks On O2 at 2 L and feels good. No chest pain or fever. On IV lasix Objective Vital Signs Date Time Temp Pulse Resp B/P (MAP) Pulse Ox O2 Delivery O2 Flow Rate FiO2 01/19/17 18:00 78 01/19/17 16:00 77 01/19/17 16:00 97.8 77 20 129/73 (91) 96 01/19/17 14:00 104 01/19/17 12:00 101 01/19/17 12:00 98.8 101 39 124/99 (107) 84 01/19/17 10:00 93 01/19/17 08:00 98.1 108 20 135/83 (100) 91 01/19/17 08:00 Nasal Cannula 5.00 01/19/17 08:00 108 01/19/17 07:05 90 Nasal Cannula 6.00 01/19/17 06:00 89 01/19/17 04:00 98.2 97 32 139/96 (110) 90 01/19/17 04:00 97 01/19/17 02:00 88 01/19/17 00:00 98.7 84 18 135/77 (96) 95 01/19/17 00:00 84 01/18/17 22:00 83 01/18/17 20:20 94 Nasal Cannula 6.00 01/18/17 20:00 93 Nasal Cannula 2.50 01/18/17 20:00 86 01/18/17 20:00 98.6 86 21 130/86 (101) 93 I/O 01/18/17 01/18/17 01/18/17 01/19/17 01/19/17 01/19/17 07:00 15:00 23:00 07:00 15:00 23:00 Intake Total 580 ml 100 ml 580 ml 1440 ml Output Total 850 ml 950 ml 650 ml 1200 ml Balance -270 ml -850 ml -70 ml 240 ml Intake Oral 480 ml 480 ml 1440 ml IV Total 100 ml 100 ml 100 ml Output Urine Total 850 ml 950 ml 650 ml 1200 ml # Bowel Movements 0 0 1 Result Diagram: 01/18/17 1211 01/19/17 0619 Objective Remarks GENERAL: This is an elderly moderately obese white male who is alert . HEAD, EYES, EARS, NOSE, THROAT: Head normocephalic. The pupils are not reactive There is a corneal opacity. Throat is clear. NECK: The neck is supple with no venous distention. Trachea is midline. No thyroid enlargement. CHEST: Decreased breath sounds at the bases with Occ bibasilar crackles. HEART: Heart sounds are irregular. S1-S2 with no murmur, no S3. ABDOMEN: Abdomen soft and obese with the liver felt just below the right costal margin. The bowel sounds are active. EXTREMITIES: 1 + edema with pigmentation of the skin with stasis dermatitis and lymphedema. Peripheral pulses are not well palpable. NEUROLOGIC: Neurologically he is moving all his extremities with 1+ reflexes. No gross motor deficits. Assessment and Plan Assessment and Plan IMPRESSION: 1. Pulmonary edema with bibasilar effusions. 2. Cardiomyopathy and congestive heart failure. 3. Chronic obstructive pulmonary disease. 4. Bibasilar atelectasis with possible pneumonia. 5. Chronic kidney disease. 6. Lymphedema. Plan : 1 Cont Lasix 20 mg IV BID 2. BMP, in am 3. O2 at 2 L. 4. Nebs qid Duoneb. 5. Continue antibiotics.Switch to PO 6. Transfer to tele. 7. PFT with bronchodilator. Ryan Jolley MD Jan 19, 2017 19:51
[2017-01-20] VITALS (10 sets, daily range): BP systolic 101–151; BP diastolic 61–87; PULSE 75–98; RESP 19–20; TEMP 98.1–98.9; O2SAT 90–98
[2017-01-20] MEDS: ENOXAPARIN SODIUM 150 MG/ML SYRINGE SQ SCH ×2 (03:00→15:28)
[2017-01-20] MEDS: cefTAZidime INJ 1,000 MG in SODIUM CHLORIDE 0.9% INJ 100 ML IV SCH ×2 (03:39→15:28)
[2017-01-20 05:25] LABS: INTERNATIONAL NORMALIZED RATIO 1.1 RATIO; PROTHROMBIN TIME - PATIENT 12.4 SEC (9.8-11.6)
[2017-01-20] MEDS: AMOXICILLIN/CLAVULANATE K 500 MG TAB PO SCH ×3 (06:40→21:16)
[2017-01-20] MEDS: INSULIN ASPART SUPPLEMENTAL SCALE SQ SCH ×4 (08:00→21:00)
[2017-01-20] MEDS: SODIUM CHLORIDE 0.9% FLUSH 10 ML FLUSH IV FLUSH SCH ×2 (09:00→21:17)
[2017-01-20] MEDS: CARVEDILOL 12.5 MG TAB PO SCH ×2 (09:27→21:16)
[2017-01-20] MEDS: DOCUSATE SODIUM 50 MG/SENNA 8.6 MG TAB PO SCH ×2 (09:28→21:16)
[2017-01-20] MEDS: ASPIRIN EC 325 MG TABEC PO SCH (09:28)
[2017-01-20] MEDS: DILTIAZEM-CD 300 MG CAP ER PO SCH (09:28)
[2017-01-20] MEDS: FUROSEMIDE 20 MG/2 ML VIAL IV PUSH SCH ×2 (09:28→17:51)
[2017-01-20] MEDS: SPIRONOLACTONE 25 MG TAB PO SCH (09:28)
--- NOTE | 2017-01-20 10:37 | HHI.PR ---
Subjective Remarks Stable for transfer out of ICU today. Atrial fibrillation remains but heart rate is relatively stable. No new complaints from the patient. Objective Vital Signs Date Time Temp Pulse Resp B/P (MAP) Pulse Ox O2 Delivery O2 Flow Rate FiO2 01/20/17 08:29 90 Nasal Cannula 4.00 01/20/17 08:00 100 Nasal Cannula 5.00 01/20/17 08:00 87 01/20/17 08:00 98.6 89 20 151/87 (108) 97 01/20/17 04:00 85 01/20/17 04:00 98.6 85 20 135/78 (97) 94 01/20/17 02:00 79 01/20/17 00:00 98.7 75 19 143/84 (103) 98 01/20/17 00:00 75 01/19/17 22:00 86 01/19/17 20:00 98.4 88 18 115/85 (95) 96 01/19/17 20:00 100 Nasal Cannula 5.00 01/19/17 20:00 88 01/19/17 19:19 96 Nasal Cannula 4.00 01/19/17 18:00 78 01/19/17 16:00 77 01/19/17 16:00 97.8 77 20 129/73 (91) 96 01/19/17 14:00 104 01/19/17 12:00 101 01/19/17 12:00 98.8 101 39 124/99 (107) 84 I/O 01/19/17 01/19/17 01/19/17 01/20/17 01/20/17 01/20/17 07:00 15:00 23:00 07:00 15:00 23:00 Intake Total 580 ml 1440 ml 240 ml Output Total 650 ml 1200 ml 900 ml Balance -70 ml 240 ml -660 ml Intake Oral 480 ml 1440 ml 240 ml IV Total 100 ml Output Urine Total 650 ml 1200 ml 900 ml # Bowel Movements 0 1 Result Diagram: 01/18/17 1211 01/19/17 0619 Objective Remarks GENERAL: NAD, A&Ox3 HEAD: Normocephalic. NECK: Supple, trachea midline. No lymphadenopathy. EYES: No scleral icterus. No injection or drainage. CARDIOVASCULAR: Regular rate and rhythm without murmurs, gallops, or rubs. RESPIRATORY: Breath sounds equal bilaterally. No accessory muscle use. Crackles at bases. GASTROINTESTINAL: Abdomen soft, non-tender, nondistended. MUSCULOSKELETAL: No cyanosis. Lower extremity edema present. SKIN: Warm and dry. NEURO: No focal neurological deficitis. A/P Problem List: (1) CHF exacerbation ICD Code: I50.9 - Heart failure, unspecified (2) Afib ICD Code: I48.91 - Unspecified atrial fibrillation Status: Chronic Assessment and Plan Assessment and Plan 71-year-old male admitted secondary to CHF exacerbation and hypoxia. Repeat walk test. Like this prior to discharge. Transfer out of ICU today. Hypoxia Pulmonary edema Peripheral edema Possible CHF Echocardiogram pending Cardiology following BNP was elevated admitted If echocardiogram is within normal limits we'll consider evaluation for pulmonary embolism Afib, new onset Afib RVR Stabilized after Cardizem Patient has no interest in anticoagulation Chest pain Negative workup Diabetes mellitus type 2 Follow blood sugars Insulin sliding scale Diabetic diet Hypertension Continue home treatments Follow blood pressures DVT prophylaxis Lovenox Problem Qualifiers (1) CHF exacerbation: Qualified Codes: I50.23 - Acute on chronic systolic (congestive) heart failure (2) Afib: Qualified Codes: I48.91 - Unspecified atrial fibrillation Gurwinder Lew MD Jan 20, 2017 10:37
--- NOTE | 2017-01-20 15:36 | HHI.NPPN ---
Subjective History of Present Illness 71-year-old male with past medical history of hypertension, diabetes mellitus, ischemic heart disease, congestive heart failure, atrial fibrillation, history of legal blindness, possible history of chronic kidney disease who came to the hospital with complaint of worsening shortness of breath and edema of the legs. I was called to see the patient because of elevated BUN and creatinine. The patient was found to have creatinine of 1.8 on admission. Additional Remarks Patient is alert, breathing is better, sitting on chair with nasal cannula, eating well, not in distress. Review of Systems General Constitutional: Fatigue Respiratory Lungs: SOB, Wheeze Cardiovascular Cardiac: Edema, [place] Objective Data Data 01/20/17 01/21/17 19:00 07:00 Intake Total 320 ml Output Total 550 ml Balance -230 ml Intake Oral 320 ml Output Urine Total 550 ml Vital Signs Date Time Temp Pulse Resp B/P (MAP) Pulse Ox O2 Delivery O2 Flow Rate FiO2 01/20/17 14:15 88 01/20/17 12:00 98.6 98 20 125/87 (100) 97 01/20/17 12:00 87 01/20/17 10:00 87 01/20/17 08:29 90 Nasal Cannula 4.00 01/20/17 08:00 100 Nasal Cannula 5.00 01/20/17 08:00 87 01/20/17 08:00 98.6 89 20 151/87 (108) 97 01/20/17 04:00 85 01/20/17 04:00 98.6 85 20 135/78 (97) 94 01/20/17 02:00 79 01/20/17 00:00 98.7 75 19 143/84 (103) 98 01/20/17 00:00 75 01/19/17 22:00 86 01/19/17 20:00 98.4 88 18 115/85 (95) 96 01/19/17 20:00 100 Nasal Cannula 5.00 01/19/17 20:00 88 01/19/17 19:19 96 Nasal Cannula 4.00 01/19/17 18:00 78 01/19/17 16:00 77 01/19/17 16:00 97.8 77 20 129/73 (91) 96 -: 01/18/17 1211 01/19/17 0619 Physical Exam General Appearance: No Acute Distress, Comfortable Eyes Eye Exam: Pupils Equal Throat Throat Exam: Oral Mucosa [place] & Moist Pulmonary Resp Exam: No Distress, Rhonchi, Decreased Bases, Diminished Breath Sounds Cardiology CV Exam: Regular, Normal Sinus Rhythm Gastrointestinal/Abdomen GI Exam: Soft, Non-Tender, Bowel Sounds Present Extremeties Extremities Exam: Moderate Edema, Pitting Edema, Dependent Edema Neurologic Neuro Exam: Alert, Awake, Oriented Psychiatric Psych Exam: Appropriate Responses Assessment/Plan Assessment Summary: ISI/Acute Renal Failure, Fluid/Volume Overload, Hypertension, CKD Stage III Electrolyte Assessment: Hypokalemia Problem List: (1) Stage 3 chronic kidney disease ICD Codes: N18.3 - Chronic kidney disease, stage 3 (moderate) (2) Hypoxia ICD Codes: R09.02 - Hypoxemia (3) HTN (hypertension) ICD Codes: I10 - Essential (primary) hypertension (4) New onset atrial fibrillation ICD Codes: I48.91 - Unspecified atrial fibrillation (5) Cellulitis ICD Codes: L03.90 - Cellulitis, unspecified (6) CHF exacerbation ICD Codes: I50.9 - Heart failure, unspecified (7) IIS (acute kidney injury) ICD Codes: N17.9 - Acute kidney failure, unspecified Plan Patient has good urine out put. On Lasix and Aldactone. K is better. Continue Augmentin and Ceftazidime. Follow the urine out put and BMP. Edema is improving, has been in negative fluid balance. Avoid Nephrotoxins, Edema is better and now with nasal cannula. Most likely has chronic kidney disease. Continue diuretics. Creatinine 1.4-1.5, possibly his baseline. Dr. Stahl to follow Sunday Problem Qualifiers (1) HTN (hypertension): Qualified Codes: I10 - Essential (primary) hypertension (2) Cellulitis: Qualified Codes: L03.115 - Cellulitis of right lower limb (3) CHF exacerbation: Qualified Codes: I50.23 - Acute on chronic systolic (congestive) heart failure Abbey Cool MD Jan 20, 2017 15:36
--- NOTE | 2017-01-20 15:37 | HHI.PR ---
Subjective Remarks On O2 at 2 L and improved No chest pain or fever. On IV lasix . Good output. Objective Vital Signs Date Time Temp Pulse Resp B/P (MAP) Pulse Ox O2 Delivery O2 Flow Rate FiO2 01/20/17 14:15 88 01/20/17 12:00 98.6 98 20 125/87 (100) 97 01/20/17 12:00 87 01/20/17 10:00 87 01/20/17 08:29 90 Nasal Cannula 4.00 01/20/17 08:00 100 Nasal Cannula 5.00 01/20/17 08:00 87 01/20/17 08:00 98.6 89 20 151/87 (108) 97 01/20/17 04:00 85 01/20/17 04:00 98.6 85 20 135/78 (97) 94 01/20/17 02:00 79 01/20/17 00:00 98.7 75 19 143/84 (103) 98 01/20/17 00:00 75 01/19/17 22:00 86 01/19/17 20:00 98.4 88 18 115/85 (95) 96 01/19/17 20:00 100 Nasal Cannula 5.00 01/19/17 20:00 88 01/19/17 19:19 96 Nasal Cannula 4.00 01/19/17 18:00 78 01/19/17 16:00 77 01/19/17 16:00 97.8 77 20 129/73 (91) 96 I/O 01/19/17 01/19/17 01/19/17 01/20/17 01/20/17 01/20/17 07:00 15:00 23:00 07:00 15:00 23:00 Intake Total 580 ml 1440 ml 240 ml 320 ml Output Total 650 ml 1200 ml 900 ml 550 ml Balance -70 ml 240 ml -660 ml -230 ml Intake Oral 480 ml 1440 ml 240 ml 320 ml IV Total 100 ml Output Urine Total 650 ml 1200 ml 900 ml 550 ml # Bowel Movements 0 1 Result Diagram: 01/18/17 1211 01/19/17 0619 Objective Remarks GENERAL: This is an elderly moderately obese white male who is alert . HEAD, EYES, EARS, NOSE, THROAT: Head normocephalic. The pupils are not reactive There is a corneal opacity. Throat is clear. NECK: The neck is supple with no venous distention. Trachea is midline. No thyroid enlargement. CHEST: Decreased breath sounds at the bases with Occ bibasilar crackles.Wheeze + HEART: Heart sounds are irregular. S1-S2 with no murmur, no S3. ABDOMEN: Abdomen soft and obese with the liver felt just below the right costal margin. The bowel sounds are active. EXTREMITIES: 1 + edema with pigmentation of the skin with stasis dermatitis and lymphedema. Peripheral pulses are not well palpable. NEUROLOGIC: Neurologically he is moving all his extremities with 1+ reflexes. No gross motor deficits. Assessment and Plan Assessment and Plan IMPRESSION: 1. Pulmonary edema with bibasilar effusions. 2. Cardiomyopathy and congestive heart failure. 3. Chronic obstructive pulmonary disease. 4. Bibasilar atelectasis with possible pneumonia. 5. Chronic kidney disease. 6. Lymphedema. Plan : 1 Cont Lasix 20 mg IV BID 2. CBC BMP, in am 3. O2 at 2 L. 4. Nebs qid Duoneb. 5. Continue antibiotics PO 6. Cardiology evaluation 7. PFT with bronchodilator. Ryan Jolley MD Jan 20, 2017 15:37
[2017-01-20] MEDS ORDERED: DEFIB EXTERNAL (15:57)
[2017-01-20] MEDS: WARFARIN SOD 7.5 MG TAB PO SCH (16:00)
[2017-01-21] VITALS (8 sets, daily range): BP systolic 109–139; BP diastolic 56–83; PULSE 68–110; RESP 18–21; TEMP 97.5–98.8; O2SAT 96–100
[2017-01-21] MEDS: cefTAZidime INJ 1,000 MG in SODIUM CHLORIDE 0.9% INJ 100 ML IV SCH ×2 (02:30→15:24)
[2017-01-21] MEDS: ENOXAPARIN SODIUM 150 MG/ML SYRINGE SQ SCH ×2 (02:30→15:00)
[2017-01-21] MEDS: AMOXICILLIN/CLAVULANATE K 500 MG TAB PO SCH ×3 (06:11→20:56)
[2017-01-21] MEDS: INSULIN ASPART SUPPLEMENTAL SCALE SQ SCH ×4 (08:00→20:56)
[2017-01-21 08:07] LABS: AUTOMATED NEUTROPHIL # 3.3 TH/MM3 (1.8-7.7); BASOPHIL # 0.1 TH/MM3 (0-0.2); BASOPHIL % 1.2 % (0.0-2.0); EOSINOPHIL # 0.2 TH/MM3 (0-0.4); EOSINOPHIL % 3.2 % (0.0-4.0); HEMATOCRIT 35.3 % (39.0-51.0); HEMO FLAGS DIFF FINAL; MEAN CELL VOLUME 92.4 FL (80.0-100.0); MEAN CORPUSCULAR HEMOGLOBIN 30.2 PG (27.0-34.0); MEAN CORPUSCULAR HGB CONC 32.7 % (32.0-36.0); MONO % 11.3 % (0.0-8.0); NEUT % 64.3 % (16.0-70.0); PLATELET COUNT 239 TH/MM3 (150-450); RED BLOOD COUNT 3.81 MIL/MM3 (4.50-5.90); RED CELL DISTRIBUTION WIDTH 16.7 % (11.6-17.2); WHITE BLOOD COUNT 5.1 TH/MM3 (4.0-11.0)
[2017-01-21 08:15] LABS: INTERNATIONAL NORMALIZED RATIO 1.2 RATIO; PROTHROMBIN TIME - PATIENT 12.8 SEC (9.8-11.6)
[2017-01-21 08:36] LABS: ALT (GPT) 34 U/L (12-78); ANION GAP 7 MEQ/L (5-15); AST (GOT) 20 U/L (15-37); BICARBONATE 30.1 MEQ/L (21.0-32.0); BLOOD UREA NITROGEN 21 MG/DL (7-18); CHLORIDE 104 MEQ/L (98-107); GLOMERULAR FILTRATION RATE 46 ML/MIN (>89); POTASSIUM 3.8 MEQ/L (3.5-5.1); SODIUM (NA) 141 MEQ/L (136-145)
[2017-01-21 08:39] LABS: ALKALINE PHOSPHATASE 58 U/L (45-117); TOTAL BILIRUBIN ADULT 0.4 MG/DL (0.2-1.0)
[2017-01-21] MEDS: CARVEDILOL 12.5 MG TAB PO SCH ×2 (09:10→20:56)
[2017-01-21] MEDS: ASPIRIN EC 325 MG TABEC PO SCH (09:10)
[2017-01-21] MEDS: SPIRONOLACTONE 25 MG TAB PO SCH (09:10)
[2017-01-21] MEDS: FUROSEMIDE 80 MG TAB PO SCH (09:10)
[2017-01-21] MEDS: DILTIAZEM-CD 300 MG CAP ER PO SCH (09:10)
[2017-01-21] MEDS: DOCUSATE SODIUM 50 MG/SENNA 8.6 MG TAB PO SCH ×2 (09:10→20:56)
[2017-01-21] MEDS: SODIUM CHLORIDE 0.9% FLUSH 10 ML FLUSH IV FLUSH SCH ×2 (09:12→20:56)
--- NOTE | 2017-01-21 14:14 | HHI.PR ---
Subjective Remarks Patient failed oxygen walk test. He will need home oxygen at discharge. Pending placement of LifeVest. Renal function has been stable and near baseline status. Objective Vital Signs Date Time Temp Pulse Resp B/P (MAP) Pulse Ox O2 Delivery O2 Flow Rate FiO2 01/21/17 12:11 98.8 93 18 123/63 (83) 97 01/21/17 08:11 98.2 110 18 115/72 (86) 96 01/21/17 04:00 97.9 88 19 139/82 (101) 96 01/21/17 00:43 68 01/21/17 00:00 Nasal Cannula 2.00 01/21/17 00:00 97.5 81 21 136/83 (100) 96 01/20/17 21:00 Nasal Cannula 2.00 01/20/17 20:00 98.1 86 19 112/61 (78) 94 01/20/17 17:37 3.00 01/20/17 16:00 98.9 92 20 101/63 (76) 94 01/20/17 14:15 88 I/O 01/20/17 01/20/17 01/20/17 01/21/17 01/21/17 01/21/17 07:00 15:00 23:00 07:00 15:00 23:00 Intake Total 240 ml 320 ml 0 ml 340 ml Output Total 900 ml 550 ml 100 ml 350 ml Balance -660 ml -230 ml -100 ml -10 ml Intake Oral 240 ml 320 ml 240 ml IV Total 0 ml 100 ml Output Urine Total 900 ml 550 ml 100 ml 350 ml Result Diagram: 01/21/17 0746 01/21/17 0746 Objective Remarks GENERAL: NAD, A&Ox3 HEAD: Normocephalic. NECK: Supple, trachea midline. No lymphadenopathy. EYES: No scleral icterus. No injection or drainage. CARDIOVASCULAR: Regular rate and rhythm without murmurs, gallops, or rubs. RESPIRATORY: Breath sounds equal bilaterally. No accessory muscle use. Crackles at bases. GASTROINTESTINAL: Abdomen soft, non-tender, nondistended. MUSCULOSKELETAL: No cyanosis. Lower extremity edema present. SKIN: Warm and dry. NEURO: No focal neurological deficitis. A/P Problem List: (1) CHF exacerbation ICD Code: I50.9 - Heart failure, unspecified (2) Afib ICD Code: I48.91 - Unspecified atrial fibrillation Status: Chronic Assessment and Plan Assessment and Plan 71-year-old male admitted secondary to CHF exacerbation and hypoxia. Hypoxia will remain, patient will be oxygen dependent at discharge. He failed his walk test. Plan to discharge patient when LifeVest available, this may be as early as tomorrow, LifeVest not available today. Hypoxia Pulmonary edema Peripheral edema Possible CHF Echocardiogram pending Cardiology following BNP was elevated admitted If echocardiogram is within normal limits we'll consider evaluation for pulmonary embolism Afib, new onset Afib RVR Stabilized after Cardizem Patient has no interest in anticoagulation Chest pain Negative workup Diabetes mellitus type 2 Follow blood sugars Insulin sliding scale Diabetic diet Hypertension Continue home treatments Follow blood pressures DVT prophylaxis Lovenox Problem Qualifiers (1) CHF exacerbation: Qualified Codes: I50.23 - Acute on chronic systolic (congestive) heart failure (2) Afib: Qualified Codes: I48.91 - Unspecified atrial fibrillation Gurwinder Lew MD Jan 21, 2017 14:14
--- NOTE | 2017-01-21 16:58 | HHI.PR ---
Subjective Remarks On O2 at 2 L and has a Life vest per cardiology. No chest pain or fever. On lasix and coumadin . Good output. Objective Vital Signs Date Time Temp Pulse Resp B/P (MAP) Pulse Ox O2 Delivery O2 Flow Rate FiO2 01/21/17 12:11 98.8 93 18 123/63 (83) 97 01/21/17 08:11 98.2 110 18 115/72 (86) 96 01/21/17 04:00 97.9 88 19 139/82 (101) 96 01/21/17 00:43 68 01/21/17 00:00 Nasal Cannula 2.00 01/21/17 00:00 97.5 81 21 136/83 (100) 96 01/20/17 21:00 Nasal Cannula 2.00 01/20/17 20:00 98.1 86 19 112/61 (78) 94 01/20/17 17:37 3.00 I/O 01/20/17 01/20/17 01/20/17 01/21/17 01/21/17 01/21/17 07:00 15:00 23:00 07:00 15:00 23:00 Intake Total 240 ml 320 ml 0 ml 340 ml Output Total 900 ml 550 ml 100 ml 350 ml Balance -660 ml -230 ml -100 ml -10 ml Intake Oral 240 ml 320 ml 240 ml IV Total 0 ml 100 ml Output Urine Total 900 ml 550 ml 100 ml 350 ml Result Diagram: 01/21/1746 01/21/1746 Objective Remarks GENERAL: This is an elderly moderately obese white male who is alert . HEAD, EYES, EARS, NOSE, THROAT: Head normocephalic. The pupils are not reactive There is a corneal opacity. Throat is clear. NECK: The neck is supple with no venous distention. Trachea is midline. No thyroid enlargement. CHEST: Decreased breath sounds at the bases with Occ bibasilar crackles. HEART: Heart sounds are irregular. S1-S2 with no murmur, no S3. ABDOMEN: Abdomen soft and obese with the liver felt just below the right costal margin. The bowel sounds are active. EXTREMITIES: No edema with pigmentation of the skin with stasis dermatitis and lymphedema. Peripheral pulses are not well palpable. NEUROLOGIC: Neurologically he is moving all his extremities with 1+ reflexes. No gross motor deficits. Assessment and Plan Assessment and Plan IMPRESSION: 1. Pulmonary edema with bibasilar effusions. 2. Cardiomyopathy and congestive heart failure. 3. Chronic obstructive pulmonary disease. 4. Bibasilar atelectasis with possible pneumonia. 5. Chronic kidney disease. 6. Lymphedema. Plan : 1 Change to Lasix 80 mg daily. 2. CBC BMP, in am 3. O2 at 2 L. 4. Nebs qid Duoneb. 5. Continue antibiotics per ID 6. Life vest 7. Continue coumadin 7.5 mg daily Ryan Jolley MD Jan 21, 2017 16:58
[2017-01-21] MEDS: WARFARIN SOD 7.5 MG TAB PO SCH (17:59)
[2017-01-22] VITALS (7 sets, daily range): BP systolic 114–134; BP diastolic 65–84; PULSE 57–106; RESP 18–20; TEMP 97.3–98.4; O2SAT 92–97
[2017-01-22] MEDS: ENOXAPARIN SODIUM 150 MG/ML SYRINGE SQ SCH ×2 (03:00→15:00)
[2017-01-22] MEDS: cefTAZidime INJ 1,000 MG in SODIUM CHLORIDE 0.9% INJ 100 ML IV SCH ×2 (03:13→16:52)
[2017-01-22] MEDS: AMOXICILLIN/CLAVULANATE K 500 MG TAB PO SCH ×3 (06:16→21:41)
[2017-01-22] MEDS: INSULIN ASPART SUPPLEMENTAL SCALE SQ SCH ×4 (08:00→21:41)
[2017-01-22 08:10] LABS: AUTOMATED NEUTROPHIL # 4.2 TH/MM3 (1.8-7.7); BASOPHIL # 0.1 TH/MM3 (0-0.2); BASOPHIL % 0.9 % (0.0-2.0); EOSINOPHIL # 0.2 TH/MM3 (0-0.4); EOSINOPHIL % 2.6 % (0.0-4.0); HEMATOCRIT 34.7 % (39.0-51.0); HEMO FLAGS DIFF FINAL; LYMPH % 17.7 % (9.0-44.0); LYMPHOCYTE # 1.1 TH/MM3 (1.0-4.8); MEAN CELL VOLUME 92.8 FL (80.0-100.0); MEAN CORPUSCULAR HEMOGLOBIN 30.7 PG (27.0-34.0); MEAN CORPUSCULAR HGB CONC 33.1 % (32.0-36.0); MONO % 8.8 % (0.0-8.0); PLATELET COUNT 241 TH/MM3 (150-450); RED BLOOD COUNT 3.74 MIL/MM3 (4.50-5.90); RED CELL DISTRIBUTION WIDTH 16.5 % (11.6-17.2); WHITE BLOOD COUNT 6.1 TH/MM3 (4.0-11.0)
[2017-01-22 08:18] LABS: INTERNATIONAL NORMALIZED RATIO 1.2 RATIO; PROTHROMBIN TIME - PATIENT 13.1 SEC (9.8-11.6)
[2017-01-22 08:32] LABS: ANION GAP 7 MEQ/L (5-15); BICARBONATE 29.1 MEQ/L (21.0-32.0); BLOOD UREA NITROGEN 24 MG/DL (7-18); CHLORIDE 104 MEQ/L (98-107); GLOMERULAR FILTRATION RATE 43 ML/MIN (>89); POTASSIUM 3.6 MEQ/L (3.5-5.1); SODIUM (NA) 140 MEQ/L (136-145)
[2017-01-22 08:34] LABS: ALT (GPT) 34 U/L (12-78); AST (GOT) 20 U/L (15-37)
[2017-01-22 08:36] LABS: ALKALINE PHOSPHATASE 58 U/L (45-117); TOTAL BILIRUBIN ADULT 0.4 MG/DL (0.2-1.0)
[2017-01-22] MEDS: DOCUSATE SODIUM 50 MG/SENNA 8.6 MG TAB PO SCH ×2 (10:04→21:40)
[2017-01-22] MEDS: ASPIRIN EC 325 MG TABEC PO SCH (10:05)
[2017-01-22] MEDS: FUROSEMIDE 80 MG TAB PO SCH (10:05)
[2017-01-22] MEDS: SPIRONOLACTONE 25 MG TAB PO SCH (10:05)
[2017-01-22] MEDS: CARVEDILOL 12.5 MG TAB PO SCH ×2 (10:05→21:41)
[2017-01-22] MEDS: DILTIAZEM-CD 300 MG CAP ER PO SCH (10:05)
[2017-01-22] MEDS: SODIUM CHLORIDE 0.9% FLUSH 10 ML FLUSH IV FLUSH SCH ×2 (10:06→21:41)
--- NOTE | 2017-01-22 14:03 | HHI.PR ---
Subjective Remarks LifeVest arrived. Patient reports burning with exposure to vest material. I am intending to find out if there are other material options. Objective Vital Signs Date Time Temp Pulse Resp B/P (MAP) Pulse Ox O2 Delivery O2 Flow Rate FiO2 01/22/17 12:00 97.4 106 18 130/65 (86) 95 01/22/17 08:47 94 Nasal Cannula 3.00 01/22/17 08:00 98.4 102 18 134/82 (99) 96 01/22/17 04:00 Nasal Cannula 2.00 01/22/17 04:00 98.3 89 18 114/81 (92) 93 01/22/17 00:00 98.2 92 20 120/84 (96) 92 01/22/17 00:00 Nasal Cannula 2.00 01/21/17 21:59 Nasal Cannula 3.00 01/21/17 21:05 Nasal Cannula 2.00 01/21/17 20:00 81 01/21/17 20:00 98.8 75 18 109/56 (73) 100 01/21/17 16:11 98.8 75 18 115/57 (76) 96 I/O 01/21/17 01/21/17 01/21/17 01/22/17 01/22/17 01/22/17 07:00 15:00 23:00 07:00 15:00 23:00 Intake Total 340 ml 1060 ml 240 ml Output Total 350 ml 1300 ml 800 ml Balance -10 ml -240 ml -560 ml Intake Oral 240 ml 960 ml 240 ml IV Total 100 ml 100 ml Output Urine Total 350 ml 1300 ml 800 ml # Bowel Movements 1 Result Diagram: 01/22/17 0645 01/22/17 0645 Objective Remarks GENERAL: NAD, A&Ox3 HEAD: Normocephalic. NECK: Supple, trachea midline. No lymphadenopathy. EYES: No scleral icterus. No injection or drainage. CARDIOVASCULAR: Regular rate and rhythm without murmurs, gallops, or rubs. RESPIRATORY: Breath sounds equal bilaterally. No accessory muscle use. Crackles at bases. GASTROINTESTINAL: Abdomen soft, non-tender, nondistended. MUSCULOSKELETAL: No cyanosis. Lower extremity edema present. SKIN: Warm and dry. NEURO: No focal neurological deficitis. A/P Problem List: (1) CHF exacerbation ICD Code: I50.9 - Heart failure, unspecified (2) Afib ICD Code: I48.91 - Unspecified atrial fibrillation Status: Chronic Assessment and Plan Assessment and Plan 71-year-old male admitted secondary to CHF exacerbation and hypoxia. Hypoxia will remain, patient will be oxygen dependent at discharge. He failed his walk test. Plan to discharge patient when LifeVest able to be worn. Hypoxia Pulmonary edema Peripheral edema Possible CHF Echocardiogram pending Cardiology following BNP was elevated admitted If echocardiogram is within normal limits we'll consider evaluation for pulmonary embolism Afib, new onset Afib RVR Stabilized after Cardizem Patient has no interest in anticoagulation Chest pain Negative workup Diabetes mellitus type 2 Follow blood sugars Insulin sliding scale Diabetic diet Hypertension Continue home treatments Follow blood pressures DVT prophylaxis Lovenox Problem Qualifiers (1) CHF exacerbation: Qualified Codes: I50.23 - Acute on chronic systolic (congestive) heart failure (2) Afib: Qualified Codes: I48.91 - Unspecified atrial fibrillation Gurwinder Lew MD Jan 22, 2017 14:03
[2017-01-22] MEDS ORDERED: WARFARIN SOD 2.5 MG TAB PO ONE (16:00)
[2017-01-22] MEDS: WARFARIN SOD 7.5 MG TAB PO SCH (16:51)
--- NOTE | 2017-01-22 19:26 | HHI.NPPN ---
Subjective History of Present Illness 71-year-old male with past medical history of hypertension, diabetes mellitus, ischemic heart disease, congestive heart failure, atrial fibrillation, history of legal blindness, possible history of chronic kidney disease who came to the hospital with complaint of worsening shortness of breath and edema of the legs. I was called to see the patient because of elevated BUN and creatinine. The patient was found to have creatinine of 1.8 on admission. Additional Remarks Patient is alert, breathing is better, sitting on chair with nasal cannula, feeling better. Review of Systems General Constitutional: Fatigue Respiratory Lungs: SOB, Wheeze Cardiovascular Cardiac: Edema, [place] Objective Data Data 01/22/17 01/23/17 19:00 07:00 Intake Total 960 ml Output Total 1200 ml Balance -240 ml Intake Oral 960 ml Output Urine Total 1200 ml # Bowel Movements 1 Vital Signs Date Time Temp Pulse Resp B/P (MAP) Pulse Ox O2 Delivery O2 Flow Rate FiO2 01/22/17 16:00 97.3 81 18 118/77 (91) 97 01/22/17 12:00 97.4 106 18 130/65 (86) 95 01/22/17 08:47 94 Nasal Cannula 3.00 01/22/17 08:00 98.4 102 18 134/82 (99) 96 01/22/17 08:00 57 01/22/17 08:00 96 Nasal Cannula 2.00 60 01/22/17 04:00 Nasal Cannula 2.00 01/22/17 04:00 98.3 89 18 114/81 (92) 93 01/22/17 00:00 98.2 92 20 120/84 (96) 92 01/22/17 00:00 Nasal Cannula 2.00 01/21/17 21:59 Nasal Cannula 3.00 01/21/17 21:05 Nasal Cannula 2.00 01/21/17 20:00 81 01/21/17 20:00 98.8 75 18 109/56 (73) 100 -: 01/22/17 0645 01/22/17 0645 Physical Exam General Appearance: No Acute Distress, Comfortable Eyes Eye Exam: Pupils Equal Throat Throat Exam: Oral Mucosa [place] & Moist Pulmonary Resp Exam: No Distress, Rhonchi, Decreased Bases, Diminished Breath Sounds Cardiology CV Exam: Regular, Normal Sinus Rhythm Gastrointestinal/Abdomen GI Exam: Soft, Non-Tender, Bowel Sounds Present Extremeties Extremities Exam: Moderate Edema, Pitting Edema, Dependent Edema Neurologic Neuro Exam: Alert, Awake, Oriented Psychiatric Psych Exam: Appropriate Responses Assessment/Plan Assessment Summary: ISI/Acute Renal Failure, Fluid/Volume Overload, Hypertension, CKD Stage III Electrolyte Assessment: Hypokalemia Problem List: (1) Stage 3 chronic kidney disease ICD Codes: N18.3 - Chronic kidney disease, stage 3 (moderate) (2) Hypoxia ICD Codes: R09.02 - Hypoxemia (3) HTN (hypertension) ICD Codes: I10 - Essential (primary) hypertension (4) New onset atrial fibrillation ICD Codes: I48.91 - Unspecified atrial fibrillation (5) Cellulitis ICD Codes: L03.90 - Cellulitis, unspecified (6) CHF exacerbation ICD Codes: I50.9 - Heart failure, unspecified (7) ISI (acute kidney injury) ICD Codes: N17.9 - Acute kidney failure, unspecified Plan Patient has good urine out put. On Lasix and Aldactone. K is better. Continue Augmentin and Ceftazidime. Follow the urine out put and BMP. Edema is improving, has been in negative fluid balance. Avoid Nephrotoxins, Edema is better and now with nasal cannula. Most likely has chronic kidney disease. Continue diuretics. Creatinine 1.4-1.5, possibly his baseline. Continue diuretics. Told also to restrict salt and fluid intake. Can be discharged from nephrology with out patient follow up. Problem Qualifiers (1) HTN (hypertension): Qualified Codes: I10 - Essential (primary) hypertension (2) Cellulitis: Qualified Codes: L03.115 - Cellulitis of right lower limb (3) CHF exacerbation: Qualified Codes: I50.23 - Acute on chronic systolic (congestive) heart failure Cuco Malone MD Jan 22, 2017 19:26
--- NOTE | 2017-01-22 19:33 | HHI.PR ---
Subjective Remarks On O2 at 2 L and feels better.On Coumadin now. No chest pain or fever. On lasix and output was good. Objective Vital Signs Date Time Temp Pulse Resp B/P (MAP) Pulse Ox O2 Delivery O2 Flow Rate FiO2 01/22/17 16:00 97.3 81 18 118/77 (91) 97 01/22/17 12:00 97.4 106 18 130/65 (86) 95 01/22/17 08:47 94 Nasal Cannula 3.00 01/22/17 08:00 98.4 102 18 134/82 (99) 96 01/22/17 08:00 57 01/22/17 08:00 96 Nasal Cannula 2.00 60 01/22/17 04:00 Nasal Cannula 2.00 01/22/17 04:00 98.3 89 18 114/81 (92) 93 01/22/17 00:00 98.2 92 20 120/84 (96) 92 01/22/17 00:00 Nasal Cannula 2.00 01/21/17 21:59 Nasal Cannula 3.00 01/21/17 21:05 Nasal Cannula 2.00 01/21/17 20:00 81 01/21/17 20:00 98.8 75 18 109/56 (73) 100 I/O 01/21/17 01/21/17 01/21/17 01/22/17 01/22/17 01/22/17 07:00 15:00 23:00 07:00 15:00 23:00 Intake Total 340 ml 1060 ml 240 ml 960 ml Output Total 350 ml 1300 ml 800 ml 1200 ml Balance -10 ml -240 ml -560 ml -240 ml Intake Oral 240 ml 960 ml 240 ml 960 ml IV Total 100 ml 100 ml Output Urine Total 350 ml 1300 ml 800 ml 1200 ml # Bowel Movements 1 1 Result Diagram: 01/22/17 0645 01/22/17 0645 Objective Remarks GENERAL: This is an elderly moderately obese white male who is alert . HEAD, EYES, EARS, NOSE, THROAT: Head normocephalic. The pupils are not reactive There is a corneal opacity. Throat is clear. NECK: The neck is supple with no venous distention. Trachea is midline. No thyroid enlargement. CHEST: Decreased breath sounds at the bases with bibasilar crackles. HEART: Heart sounds are irregular. S1-S2 with no murmur, no S3. ABDOMEN: Abdomen soft and obese with the liver felt just below the right costal margin. The bowel sounds are active. EXTREMITIES:1 + edema with pigmentation of the skin with stasis dermatitis and lymphedema. Peripheral pulses are not well palpable. NEUROLOGIC: Neurologically he is moving all his extremities with 1+ reflexes. No gross motor deficits. Assessment and Plan Assessment and Plan IMPRESSION: 1. Pulmonary edema with bibasilar effusions. 2. Cardiomyopathy and congestive heart failure. 3. Chronic obstructive pulmonary disease. 4. Bibasilar atelectasis with possible pneumonia. 5. Chronic kidney disease. 6. Lymphedema. Plan : 1 Cont Lasix 80 mg daily. 2. CBC BMP, in am 3. O2 at 2 L. Arrange home O2 4. Nebs qid Duoneb. 5. Continue antibiotics per ID 6. D/C Lovenox when INR >2.0 7. Continue coumadin 7.5 mg daily Ryan Jolley MD Jan 22, 2017 19:33
[2017-01-23] VITALS (10 sets, daily range): BP systolic 97–159; BP diastolic 57–94; PULSE 74–104; RESP 16–20; TEMP 97.1–98.8; O2SAT 95–97
[2017-01-23] MEDS: ENOXAPARIN SODIUM 150 MG/ML SYRINGE SQ SCH ×2 (03:00→15:00)
[2017-01-23] MEDS: cefTAZidime INJ 1,000 MG in SODIUM CHLORIDE 0.9% INJ 100 ML IV SCH (03:11)
[2017-01-23] MEDS: AMOXICILLIN/CLAVULANATE K 500 MG TAB PO SCH (06:13)
--- NOTE | 2017-01-23 06:48 | RADRPT ---
EXAM DATE/TIME: 01/23/2017 06:11 [facility] COMPARISON: CHEST SINGLE AP, January 15, 2017, 9:25. CHEST SINGLE AP, January 14, 2017, 13:39. CHEST SINGLE A P, January 18, 2017, 3:41. INDICATIONS : Short of breath, lower extremity edema MEDICAL HISTORY : Congestive heart failure. Hypertension Diabetes mellitus type II. SURGICAL HISTORY : None. ENCOUNTER: Subsequent ACUITY: 1 week PAIN SCORE: 0/10 LOCATION: Bilateral chest FINDINGS: A single view of the chest demonstrates bilateral lower lobe infiltrate with a moderate size left ple ural effusion. Cardiac silhouette remains slightly widened. Slight improvement in the appearance of t he upper lungs. Osseous structures are intact. CONCLUSION: Slight improvement of the upper lobes with less pulmonary vascular congestion. Basilar consolidations and left pleural effusion are unchanged. Zeeshan Oliveira MD on January 23, 2017 at 6:46 Board Certified Radiologist. This report was verified electronically.
[2017-01-23 07:12] LABS: AUTOMATED NEUTROPHIL # 4.1 TH/MM3 (1.8-7.7); BASOPHIL # 0.1 TH/MM3 (0-0.2); BASOPHIL % 1.1 % (0.0-2.0); EOSINOPHIL # 0.2 TH/MM3 (0-0.4); EOSINOPHIL % 2.5 % (0.0-4.0); HEMATOCRIT 36.3 % (39.0-51.0); HEMO FLAGS DIFF FINAL; LYMPH % 20.3 % (9.0-44.0); LYMPHOCYTE # 1.2 TH/MM3 (1.0-4.8); MEAN CELL VOLUME 92.7 FL (80.0-100.0); MEAN CORPUSCULAR HEMOGLOBIN 30.6 PG (27.0-34.0); NEUT % 67.1 % (16.0-70.0); PLATELET COUNT 230 TH/MM3 (150-450); RED BLOOD COUNT 3.91 MIL/MM3 (4.50-5.90); RED CELL DISTRIBUTION WIDTH 16.4 % (11.6-17.2); WHITE BLOOD COUNT 6.1 TH/MM3 (4.0-11.0)
[2017-01-23 07:24] LABS: INTERNATIONAL NORMALIZED RATIO 1.2 RATIO; PROTHROMBIN TIME - PATIENT 13.9 SEC (9.8-11.6)
[2017-01-23 07:38] LABS: ANION GAP 8 MEQ/L (5-15); AST (GOT) 21 U/L (15-37); BICARBONATE 26.6 MEQ/L (21.0-32.0); BLOOD UREA NITROGEN 22 MG/DL (7-18); CHLORIDE 105 MEQ/L (98-107); GLOMERULAR FILTRATION RATE 50 ML/MIN (>89); POTASSIUM 3.8 MEQ/L (3.5-5.1); SODIUM (NA) 140 MEQ/L (136-145)
[2017-01-23 07:39] LABS: ALT (GPT) 35 U/L (12-78)
[2017-01-23 07:41] LABS: ALKALINE PHOSPHATASE 60 U/L (45-117); TOTAL BILIRUBIN ADULT 0.4 MG/DL (0.2-1.0)
[2017-01-23] MEDS: ASPIRIN EC 325 MG TABEC PO SCH (09:16)
[2017-01-23] MEDS: FUROSEMIDE 80 MG TAB PO SCH (09:16)
[2017-01-23] MEDS: CARVEDILOL 12.5 MG TAB PO SCH ×2 (09:16→21:51)
[2017-01-23] MEDS: DILTIAZEM-CD 300 MG CAP ER PO SCH (09:16)
[2017-01-23] MEDS: SPIRONOLACTONE 25 MG TAB PO SCH (09:16)
[2017-01-23] MEDS: DOCUSATE SODIUM 50 MG/SENNA 8.6 MG TAB PO SCH ×2 (09:16→21:00)
[2017-01-23] MEDS: INSULIN ASPART SUPPLEMENTAL SCALE SQ SCH ×4 (09:17→21:52)
[2017-01-23] MEDS: SODIUM CHLORIDE 0.9% FLUSH 10 ML FLUSH IV FLUSH SCH ×2 (09:17→21:54)
--- NOTE | 2017-01-23 09:19 | HHI.PR ---
Subjective Remarks On O2 at 2 L and is up in a chair. On Coumadin now. No chest pain or fever. Output was good. Objective Vital Signs Date Time Temp Pulse Resp B/P (MAP) Pulse Ox O2 Delivery O2 Flow Rate FiO2 01/23/17 08:00 97.9 102 20 159/94 (115) 97 01/23/17 04:00 98.4 103 20 137/57 (83) 97 01/23/17 00:00 98.0 74 18 118/67 (84) 95 01/22/17 20:00 94 01/22/17 20:00 96 Nasal Cannula 3.00 01/22/17 20:00 97.9 75 20 129/73 (91) 96 01/22/17 16:00 97.3 81 18 118/77 (91) 97 01/22/17 12:00 97.4 106 18 130/65 (86) 95 I/O 01/22/17 01/22/17 01/22/17 01/23/17 01/23/17 01/23/17 07:00 15:00 23:00 07:00 15:00 23:00 Intake Total 240 ml 960 ml 480 ml Output Total 800 ml 1200 ml 500 ml Balance -560 ml -240 ml -20 ml Intake Oral 240 ml 960 ml 480 ml Output Urine Total 800 ml 1200 ml 500 ml # Bowel Movements 1 0 Result Diagram: 01/23/1735 01/23/17 0635 Objective Remarks GENERAL: This is an elderly moderately obese white male who is alert . HEAD, EYES, EARS, NOSE, THROAT: Head normocephalic. The pupils are not reactive There is a corneal opacity. Throat is clear. NECK: The neck is supple with no venous distention. Trachea is midline. No thyroid enlargement. CHEST: Decreased breath sounds at the bases with bibasilar crackles. HEART: Heart sounds are irregular. S1-S2 with no murmur, no S3. ABDOMEN: Abdomen soft and obese with the liver felt just below the right costal margin. The bowel sounds are active. EXTREMITIES:1 + edema with pigmentation of the skin with stasis dermatitis , ulcerations and lymphedema. Peripheral pulses are not well palpable. NEUROLOGIC: Neurologically he is moving all his extremities with 1+ reflexes. No gross motor deficits. Assessment and Plan Assessment and Plan IMPRESSION: 1. Pulmonary edema with bibasilar effusions. 2. Cardiomyopathy and congestive heart failure. 3. Chronic obstructive pulmonary disease. 4. Bibasilar atelectasis with possible pneumonia. 5. Chronic kidney disease. 6. Lymphedema. Plan : 1 Cont Lasix 80 mg daily. 2. BMP, in am 3. O2 at 2 L. Arrange home O2 4. Nebs qid Duoneb. 5. Continue antibiotics per ID 6. D/C Lovenox when INR >2.0 7. Continue coumadin 7.5 mg daily 8. Rehab Placement soon Ryan Jolley MD Jan 23, 2017 09:19
--- NOTE | 2017-01-23 10:00 | HHI.PR ---
Subjective Remarks LifeVest placement without turning and on will help rule out faulty wiring or battery as a source of patient's heat when he tried to LifeVest. Other than LifeVest placement he is appropriate for discharge. No new complaints from the patient today. Renal function improved. Objective Vital Signs Date Time Temp Pulse Resp B/P (MAP) Pulse Ox O2 Delivery O2 Flow Rate FiO2 01/23/17 08:00 97.9 102 20 159/94 (115) 97 01/23/17 04:00 98.4 103 20 137/57 (83) 97 01/23/17 00:00 98.0 74 18 118/67 (84) 95 01/22/17 20:00 94 01/22/17 20:00 96 Nasal Cannula 3.00 01/22/17 20:00 97.9 75 20 129/73 (91) 96 01/22/17 16:00 97.3 81 18 118/77 (91) 97 01/22/17 12:00 97.4 106 18 130/65 (86) 95 I/O 01/22/17 01/22/17 01/22/17 01/23/17 01/23/17 01/23/17 07:00 15:00 23:00 07:00 15:00 23:00 Intake Total 240 ml 960 ml 480 ml Output Total 800 ml 1200 ml 500 ml Balance -560 ml -240 ml -20 ml Intake Oral 240 ml 960 ml 480 ml Output Urine Total 800 ml 1200 ml 500 ml # Bowel Movements 1 0 Result Diagram: 01/23/17 0635 01/23/17 0635 Objective Remarks GENERAL: NAD, A&Ox3 HEAD: Normocephalic. NECK: Supple, trachea midline. No lymphadenopathy. EYES: No scleral icterus. No injection or drainage. CARDIOVASCULAR: Regular rate and rhythm without murmurs, gallops, or rubs. RESPIRATORY: Breath sounds equal bilaterally. No accessory muscle use. Crackles at bases. GASTROINTESTINAL: Abdomen soft, non-tender, nondistended. MUSCULOSKELETAL: No cyanosis. Lower extremity edema present. SKIN: Warm and dry. NEURO: No focal neurological deficitis. A/P Problem List: (1) CHF exacerbation ICD Code: I50.9 - Heart failure, unspecified (2) Afib ICD Code: I48.91 - Unspecified atrial fibrillation Status: Chronic Assessment and Plan Assessment and Plan 71-year-old male admitted secondary to CHF exacerbation and hypoxia. Hypoxia will remain, patient will be oxygen dependent at discharge. He failed his walk test. Repeat trial of LifeVest placement. Plan to discharge patient when LifeVest able to be worn. Hypoxia Pulmonary edema Peripheral edema Possible CHF Echocardiogram pending Cardiology following BNP was elevated admitted If echocardiogram is within normal limits we'll consider evaluation for pulmonary embolism Afib, new onset Afib RVR Stabilized after Cardizem Patient has no interest in anticoagulation Chest pain Negative workup Diabetes mellitus type 2 Follow blood sugars Insulin sliding scale Diabetic diet Hypertension Continue home treatments Follow blood pressures DVT prophylaxis Lovenox Problem Qualifiers (1) CHF exacerbation: Qualified Codes: I50.23 - Acute on chronic systolic (congestive) heart failure (2) Afib: Qualified Codes: I48.91 - Unspecified atrial fibrillation Gurwinder Lwe MD Jan 23, 2017 10:00
[2017-01-23] MEDS ORDERED: WARFARIN SOD 2.5 MG TAB PO ONE (16:00)
[2017-01-23] MEDS: WARFARIN SOD 7.5 MG TAB PO SCH (17:52)
--- NOTE | 2017-01-23 18:06 | HHI.PR ---
Addendum to Inpatient Note Additional Information pt seen today around 1615 pm full note to follow wounds healed, erythema resolved completed 14 days of abx - will dc ryland bass RN, Alexandra A. MD Jan 23, 2017 18:06
--- NOTE | 2017-01-23 18:42 | HHI.NPPN ---
Subjective History of Present Illness 71-year-old male with past medical history of hypertension, diabetes mellitus, ischemic heart disease, congestive heart failure, atrial fibrillation, history of legal blindness, possible history of chronic kidney disease who came to the hospital with complaint of worsening shortness of breath and edema of the legs. I was called to see the patient because of elevated BUN and creatinine. The patient was found to have creatinine of 1.8 on admission. Additional Remarks Patient is alert, breathing is better, sitting on chair with nasal cannula, clinically same. Review of Systems General Constitutional: Fatigue Respiratory Lungs: SOB, Wheeze Cardiovascular Cardiac: Edema, [place] Objective Data Data 01/23/17 01/24/17 19:00 07:00 Intake Total 680 ml Output Total 850 ml Balance -170 ml Intake Oral 680 ml Output Urine Total 850 ml # Voids 2 # Bowel Movements 3 Vital Signs Date Time Temp Pulse Resp B/P (MAP) Pulse Ox O2 Delivery O2 Flow Rate FiO2 01/23/17 18:00 97.1 98 18 109/74 (86) 97 01/23/17 17:48 97 Nasal Cannula 2.00 01/23/17 16:00 97.9 83 20 126/77 (93) 97 01/23/17 12:00 98.5 100 20 97/63 (74) 95 01/23/17 09:00 Nasal Cannula 2.00 01/23/17 08:02 104 01/23/17 08:00 97.9 102 20 159/94 (115) 97 01/23/17 04:00 98.4 103 20 137/57 (83) 97 01/23/17 00:00 98.0 74 18 118/67 (84) 95 01/22/17 20:00 94 01/22/17 20:00 96 Nasal Cannula 3.00 01/22/17 20:00 97.9 75 20 129/73 (91) 96 -: 01/23/17 0635 01/23/17 0635 Physical Exam General Appearance: No Acute Distress, Comfortable Eyes Eye Exam: Pupils Equal Throat Throat Exam: Oral Mucosa [place] & Moist Pulmonary Resp Exam: No Distress, Rhonchi, Decreased Bases, Diminished Breath Sounds Cardiology CV Exam: Regular, Normal Sinus Rhythm Gastrointestinal/Abdomen GI Exam: Soft, Non-Tender, Bowel Sounds Present Extremeties Extremities Exam: Moderate Edema, Pitting Edema, Dependent Edema Neurologic Neuro Exam: Alert, Awake, Oriented Psychiatric Psych Exam: Appropriate Responses Assessment/Plan Assessment Summary: ISI/Acute Renal Failure, Fluid/Volume Overload, Hypertension, CKD Stage III Electrolyte Assessment: Hypokalemia Problem List: (1) Stage 3 chronic kidney disease ICD Codes: N18.3 - Chronic kidney disease, stage 3 (moderate) (2) Hypoxia ICD Codes: R09.02 - Hypoxemia (3) HTN (hypertension) ICD Codes: I10 - Essential (primary) hypertension (4) New onset atrial fibrillation ICD Codes: I48.91 - Unspecified atrial fibrillation (5) Cellulitis ICD Codes: L03.90 - Cellulitis, unspecified (6) CHF exacerbation ICD Codes: I50.9 - Heart failure, unspecified (7) ISI (acute kidney injury) ICD Codes: N17.9 - Acute kidney failure, unspecified Plan Patient has good urine out put. On Lasix and Aldactone. K is better. Continue Augmentin and Ceftazidime. Follow the urine out put and BMP. Edema is improving, has been in negative fluid balance. Avoid Nephrotoxins, Edema is better and now with nasal cannula. Most likely has chronic kidney disease. Continue diuretics. Creatinine 1.4-1.5, possibly his baseline. Continue diuretics. Told also to restrict salt and fluid intake. Creatinine now 1.3, continue Lasix. Problem Qualifiers (1) HTN (hypertension): Qualified Codes: I10 - Essential (primary) hypertension (2) Cellulitis: Qualified Codes: L03.115 - Cellulitis of right lower limb (3) CHF exacerbation: Qualified Codes: I50.23 - Acute on chronic systolic (congestive) heart failure Cuco Malone MD Jan 23, 2017 18:42
--- NOTE | 2017-01-23 23:11 | HHI.IDPN ---
Subjective Subjective Remarks pt seen today around 1615 pm this is a delayed entry afebrile Antibiotics ceffaz augmentin Allergies: Coded Allergies: Sulfa (Sulfonamide Antibiotics) (Unverified Allergy, Severe, TONGUE SWELLING, 01/01/17) Objective . Vital Signs Date Time Temp Pulse Resp B/P (MAP) Pulse Ox O2 Delivery O2 Flow Rate FiO2 01/23/17 20:00 98.8 85 16 100/71 (81) 96 01/23/17 18:00 97.1 98 18 109/74 (86) 97 01/23/17 17:48 97 Nasal Cannula 2.00 01/23/17 16:00 97.9 83 20 126/77 (93) 97 01/23/17 12:00 98.5 100 20 97/63 (74) 95 01/23/17 09:00 Nasal Cannula 2.00 01/23/17 08:02 104 01/23/17 08:00 97.9 102 20 159/94 (115) 97 01/23/17 04:00 98.4 103 20 137/57 (83) 97 01/23/17 00:00 98.0 74 18 118/67 (84) 95 01/23/17 01/23/17 01/24/17 14:59 22:59 06:59 Intake Total 480 ml 200 ml Output Total 450 ml 400 ml Balance 30 ml -200 ml Intake Oral 480 ml 200 ml Output Urine Total 450 ml 400 ml # Voids 2 # Bowel Movements 0 3 . Laboratory Tests Test 01/22/17 06:45 01/23/17 06:35 White Blood Count 6.1 TH/MM3 6.1 TH/MM3 Red Blood Count 3.74 MIL/MM3 3.91 MIL/MM3 Hemoglobin 11.5 GM/DL 12.0 GM/DL Hematocrit 34.7 % 36.3 % Mean Corpuscular Volume 92.8 FL 92.7 FL Mean Corpuscular Hemoglobin 30.7 PG 30.6 PG Mean Corpuscular Hemoglobin Concent 33.1 % 33.0 % Red Cell Distribution Width 16.5 % 16.4 % Platelet Count 241 TH/MM3 230 TH/MM3 Mean Platelet Volume 8.8 FL 8.5 FL Neutrophils (%) (Auto) 70.0 % 67.1 % Lymphocytes (%) (Auto) 17.7 % 20.3 % Monocytes (%) (Auto) 8.8 % 9.0 % Eosinophils (%) (Auto) 2.6 % 2.5 % Basophils (%) (Auto) 0.9 % 1.1 % Neutrophils # (Auto) 4.2 TH/MM3 4.1 TH/MM3 Lymphocytes # (Auto) 1.1 TH/MM3 1.2 TH/MM3 Monocytes # (Auto) 0.5 TH/MM3 0.5 TH/MM3 Eosinophils # (Auto) 0.2 TH/MM3 0.2 TH/MM3 Basophils # (Auto) 0.1 TH/MM3 0.1 TH/MM3 CBC Comment DIFF FINAL DIFF FINAL Differential Comment Laboratory Tests Test 01/22/17 06:45 01/23/17 06:35 Blood Urea Nitrogen 24 MG/DL 22 MG/DL Creatinine 1.59 MG/DL 1.39 MG/DL Random Glucose 118 MG/DL 114 MG/DL Total Protein 6.2 GM/DL 6.4 GM/DL Albumin 2.9 GM/DL 3.0 GM/DL Calcium Level 8.7 MG/DL 8.9 MG/DL Alkaline Phosphatase 58 U/L 60 U/L Aspartate Amino Transf (AST/SGOT) 20 U/L 21 U/L Alanine Aminotransferase (ALT/SGPT) 34 U/L 35 U/L Total Bilirubin 0.4 MG/DL 0.4 MG/DL Sodium Level 140 MEQ/L 140 MEQ/L Potassium Level 3.6 MEQ/L 3.8 MEQ/L Chloride Level 104 MEQ/L 105 MEQ/L Carbon Dioxide Level 29.1 MEQ/L 26.6 MEQ/L Anion Gap 7 MEQ/L 8 MEQ/L Estimat Glomerular Filtration Rate 43 ML/MIN 50 ML/MIN Imaging Last Impressions Chest X-Ray 01/23/17 0600 Signed Impressions: Service Date/Time: Monday, January 23, 2017 06:11 - CONCLUSION: Slight improvement of the upper lobes with less pulmonary vascular congestion. Basilar consolidations and left pleural effusion are unchanged. Zeeshan Oliveira MD Renal Ultrasound 01/12/17 0000 Signed Impressions: Service Date/Time: Thursday, January 12, 2017 17:27 - CONCLUSION: Three cortical cysts on the right. Small left pleural effusion. Slight increased echogenicity to the right kidney. Zeeshan Oliveira MD Chest Ultrasound 01/12/17 0000 Signed Impressions: Service Date/Time: Thursday, January 12, 2017 19:44 - CONCLUSION: Large pleural effusion with measurements as above. Zeeshan Oliveira MD Myocardial Perfusion Scan Nuc Med 01/08/17 0000 Signed Impressions: Service Date/Time: Sunday, January 08, 2017 08:48 - CONCLUSION: 1. No evidence of stress-induced ischemia. 2. Fixed perfusion defects involving the apex and apical segments suggest prior infarction. 3. Very poor wall motion with global hypokinesia and possible dilation of left ventricular cavity. This suggests possible cardiomyopathy. RISK CATEGORY: Intermediate (1-3%% Annual Mortality Rate) Raheem Chanel MD CT Angiography 01/04/17 0000 Signed Impressions: Service Date/Time: December 11:11 - CONCLUSION: 1. Moderate to severe anterior upper lobe paraseptal emphysema. 2. Cardiomegaly with perihilar groundglass opacities consistent with pulmonary edema. 3. Moderate bilateral, right greater then left, simple pleural effusions with associated airspace disease in the lower lobes, presumably compressive atelectasis. 4. Coronary artery calcifications. Ralph Wynn MD Lower Extremity Ultrasound 01/02/17 0000 Signed Impressions: Service Date/Time: Monday, January 02, 2017 09:01 - CONCLUSION: 1. Edema in the soft tissues of the lower legs bilaterally. 2. However, no sonographic or Doppler findings of deep venous thrombosis Bandar Ricks MD Physical Exam CONSTITUTIONAL/GENERAL: This is an adequately nourished patient, in no apparent distress. On Bypap TUBES/LINES/DRAINS: SKIN: No jaundice, rashes, or lesions. RESPIRATORY/CHEST:unlabored respirations. MUSCULOSKELETAL: Improved edemna\ resoved erythema wounds appear haling nicely, all crusted oer prominent tree bark [place] NEUROLOGICAL: Awake and alert. Motor and sensory grossly within normal limits. Follows commands. Moves all extremities. PSYCHIATRIC: calm Assessment & Plan Remarks REsp distress -resolved BLE edema with cellulitis - resolved Superficial ulceration colonized vs superficially infected, polimicrobical PSAE, proteus aenterococci dc Augmentin dc ceftazidime dw RN will see as needed Kiesha Segura MD Jan 23, 2017 23:11
[2017-01-24] VITALS (8 sets, daily range): BP systolic 106–134; BP diastolic 73–87; PULSE 79–112; RESP 16–20; TEMP 97.5–98.2; O2SAT 94–98
[2017-01-24] MEDS: ENOXAPARIN SODIUM 150 MG/ML SYRINGE SQ SCH ×2 (03:49→16:48)
[2017-01-24] MEDS: SPIRONOLACTONE 25 MG TAB PO SCH (08:51)
[2017-01-24] MEDS: ASPIRIN EC 325 MG TABEC PO SCH (08:51)
[2017-01-24] MEDS: DOCUSATE SODIUM 50 MG/SENNA 8.6 MG TAB PO SCH ×2 (08:51→20:54)
[2017-01-24] MEDS: DILTIAZEM-CD 300 MG CAP ER PO SCH (08:51)
[2017-01-24] MEDS: FUROSEMIDE 80 MG TAB PO SCH (08:51)
[2017-01-24] MEDS: CARVEDILOL 12.5 MG TAB PO SCH ×2 (08:51→20:54)
[2017-01-24] MEDS: INSULIN ASPART SUPPLEMENTAL SCALE SQ SCH ×4 (08:55→20:54)
[2017-01-24] MEDS: SODIUM CHLORIDE 0.9% FLUSH 10 ML FLUSH IV FLUSH SCH ×2 (09:24→21:00)
[2017-01-24 10:50] LABS: AUTOMATED NEUTROPHIL # 3.9 TH/MM3 (1.8-7.7); BASOPHIL # 0.1 TH/MM3 (0-0.2); BASOPHIL % 0.9 % (0.0-2.0); EOSINOPHIL # 0.2 TH/MM3 (0-0.4); EOSINOPHIL % 2.8 % (0.0-4.0); HEMO FLAGS DIFF FINAL; MEAN CELL VOLUME 92.5 FL (80.0-100.0); MEAN CORPUSCULAR HEMOGLOBIN 30.7 PG (27.0-34.0); MEAN CORPUSCULAR HGB CONC 33.2 % (32.0-36.0); MONO % 9.7 % (0.0-8.0); NEUT % 69.6 % (16.0-70.0); PLATELET COUNT 228 TH/MM3 (150-450); RED CELL DISTRIBUTION WIDTH 16.5 % (11.6-17.2); WHITE BLOOD COUNT 5.6 TH/MM3 (4.0-11.0)
[2017-01-24 11:17] LABS: ANION GAP 9 MEQ/L (5-15); AST (GOT) 20 U/L (15-37); BICARBONATE 28.6 MEQ/L (21.0-32.0); BLOOD UREA NITROGEN 23 MG/DL (7-18); CHLORIDE 103 MEQ/L (98-107); GLOMERULAR FILTRATION RATE 43 ML/MIN (>89); POTASSIUM 3.6 MEQ/L (3.5-5.1); SODIUM (NA) 141 MEQ/L (136-145)
[2017-01-24 11:24] LABS: ALKALINE PHOSPHATASE 59 U/L (45-117); ALT (GPT) 35 U/L (12-78); TOTAL BILIRUBIN ADULT 0.4 MG/DL (0.2-1.0)
[2017-01-24 13:05] LABS: INTERNATIONAL NORMALIZED RATIO 1.2 RATIO; PROTHROMBIN TIME - PATIENT 13.7 SEC (9.8-11.6)
[2017-01-24] MEDS ORDERED: WARFARIN SOD 5 MG TAB PO ONE (16:00)
--- NOTE | 2017-01-24 16:40 | HHI.FF ---
Face to Face Verification Diagnosis: (1) CHF exacerbation (2) CHF (NYHA class IV, ACC/AHA stage D) (3) Stage 3 chronic kidney disease (4) Hypoxia (5) Cellulitis Physical Therapy Order: Evaluate and Treat Home Health Nursing Order: Signs/symptoms of disease process CHF education Oxygen administration education Wound care and dressing changes Instructions: Wound evaluation and dressing changes daily. May educate family/branch employment coordinator to do this and visit intermittently for wound evaluations till dry/healed. I have seen patient Gurwinder Rodriguez on 01/24/17. My clinical findings support the need for the requested home health care services because: Ltd mobility - disease progression Patient has SOB Deconditioned w/ increased weakness Med compliance is questionable Limited ability to care for self High risk of falls Infection w/ risk of complications I certify that my clinical findings support that this patient is homebound because: Hx COPD- exertion dyspnea/weakness Unsteady gait/balance Unsafe to leave home unassisted Unable to use public transportation Poor cardiac reserve Gurwinder Lew MD Jan 24, 2017 16:40
[2017-01-24] MEDS: WARFARIN SOD 7.5 MG TAB PO SCH (16:48)
--- NOTE | 2017-01-24 17:29 | HHI.DS ---
Discharge Summary Admission Date Jan 01, 2017 at 21:47 Discharge Date: Jan 24, 2017 Admitting Diagnosis Cp R/o UT, chf exacerbation, afib with rvr (1) CHF exacerbation ICD Code: I50.9 - Heart failure, unspecified Diagnosis: Principal (2) Acute hypoxemic respiratory failure ICD Code: J96.01 - Acute respiratory failure with hypoxia Diagnosis: Principal (3) New onset atrial fibrillation ICD Code: I48.91 - Unspecified atrial fibrillation Diagnosis: Principal (4) HTN (hypertension) ICD Code: I10 - Essential (primary) hypertension Diagnosis: Principal (5) Cellulitis ICD Code: L03.90 - Cellulitis, unspecified Diagnosis: Principal (6) ISI (acute kidney injury) ICD Code: N17.9 - Acute kidney failure, unspecified Diagnosis: Principal Procedures None Brief History - From Admission Written by CATARINA Calhoun acting as scribe for [Marilyng] on 01/02/17 at 02: 11. 71 y/o male with a history of HTN, DM, Irregular heart beat ? AFIB, bilateral lymphedema, and blindness presented to the ED with scrotum swelling, chest pain and shortness of breath. He states for the last 3 days his scrotum has been swollen and he has been short of breath. Yesterday he had a slight tightening chest pain prior to taking a 2 mile walk and after the walk it was worse, and he could not catch his breath and his legs began to swell. He states he takes diuretics at home but is unsure why. He does complain of a non productive cough , and mild fever (unknown temp). Denies dysuria, diarrhea,nausea, or vomiting. PCP: Dr Mullen CBC/BMP: 01/24/17 1003 01/24/17 1003 Significant Findings Laboratory Tests Test 01/22/17 06:45 01/23/17 06:35 01/24/17 10:03 01/24/17 12:23 Red Blood Count 3.74 MIL/MM3 (4.50-5.90) 3.91 MIL/MM3 (4.50-5.90) 4.00 MIL/MM3 (4.50-5.90) Hemoglobin 11.5 GM/DL (13.0-17.0) 12.0 GM/DL (13.0-17.0) 12.3 GM/DL (13.0-17.0) Hematocrit 34.7 % (39.0-51.0) 36.3 % (39.0-51.0) 37.0 % (39.0-51.0) Monocytes (%) (Auto) 8.8 % (0.0-8.0) 9.0 % (0.0-8.0) 9.7 % (0.0-8.0) Prothrombin Time 13.1 SEC (9.8-11.6) 13.9 SEC (9.8-11.6) 13.7 SEC (9.8-11.6) Blood Urea Nitrogen 24 MG/DL (7-18) 22 MG/DL (7-18) 23 MG/DL (7-18) Creatinine 1.59 MG/DL (0.60-1.30) 1.39 MG/DL (0.60-1.30) 1.60 MG/DL (0.60-1.30) Random Glucose 118 MG/DL (74-106) 114 MG/DL (74-106) 163 MG/DL (74-106) Total Protein 6.2 GM/DL (6.4-8.2) Albumin 2.9 GM/DL (3.4-5.0) 3.0 GM/DL (3.4-5.0) 3.0 GM/DL (3.4-5.0) Estimat Glomerular Filtration Rate 43 ML/MIN (>89) 50 ML/MIN (>89) 43 ML/MIN (>89) PE at Discharge GENERAL: This is a well-nourished, well-developed patient, in no apparent distress. CARDIOVASCULAR: Regular rate and regular rhythm without murmurs, gallops, or rubs. RESPIRATORY: Clear to auscultation. Breath sounds equal bilaterally. No wheezes , rales, or rhonchi. GASTROINTESTINAL: Abdomen soft, non-tender, nondistended. Normal, active bowel sounds MUSCULOSKELETAL: Extremities with bilateral pedal edema. NEURO: Alert & Oriented x4 to person, place, time, situation. Moves all ext x4 Hospital Course Mr. Pryor is a 71 year old male. He came in secondary to CHF exacerbation symptoms and to rule out UT. A. fib RVR was present. He also had a right lower extremity infection. He was discovered to have an ejection fraction less than 20%. Complete cardiac workup was performed. Rate control is obtained. Infection was treated with antibiotics and is now under control and antibiotic have been discontinued. LifeVest placement has occurred. Patient is now medically stable for discharge. He has caretakers at home. New treatments and changes in treatments listed below. As an outpatient he follows with Dr. Mullen, INR ordered as an outpatient in 3-5 days with results to Dr. Mullen. Pt Condition on Discharge: Stable Discharge Disposition: Disch w/ Home Health Serv Discharge Time: > 30 minutes Discharge Instructions DIET: Follow Instructions for: As Tolerated, No Restrictions Activities you can perform: Regular-No Restrictions Follow up Referrals: Cardiology - 1 Week with Maren PCP Follow-up - 1 Week SNF/[facility]/ with [facility] at Home New Medications: Defibrillator Jacket (Defibrillator Jacket) 1 Ea Device EA EXTERNAL ONCE for Defibrillation, #1 Energy = 150 Joules; VT Threshold = 150 BPM; VF Threshold = 200 BPM Use up to 90 days only Lisinopril (Lisinopril) 2.5 Mg Tab 2.5 MG PO DAILY for CHF, #30 TAB 0 Refills Oxygen (O2) (Oxygen (O2)) Device LITER ADRI.CANULA CONTINUOUS for Prevent Hypoxemia, #2 Oxygen Concentrator Portable Gaseous 2 L/min via Nasal Canula Continuous For [address] (Aspirin EC) 325 Mg Tabdr 325 MG PO DAILY for Blood Clot Prevention, #30 TAB Carvedilol (Coreg) 12.5 Mg Tab 12.5 MG PO Q12HR for Blood Pressure Management, #60 TAB Diltiazem CD 24 HR (Diltiazem CD 24 HR) 300 Mg Caper 300 MG PO DAILY for Blood Pressure Management, #30 CAP Furosemide (Furosemide) 80 Mg Tab 80 MG PO DAILY for Diuresis, #30 TAB Spironolactone (Aldactone) 25 Mg Tab 25 MG PO DAILY for Diuresis, #30 TAB Warfarin (Coumadin) 10 Mg Tab 10 MG PO DAILY@16 for Blood Clot Prevention, #30 TAB Continued Medications: Glipizide (Glipizide) 10 Mg Tab 10 MG PO HS for Blood Sugar Management, #30 TAB 0 Refills Take 30 minutes before a meal Metformin ER (Metformin ER) 500 Mg Nicanor 500 MG PO DAILY for Blood Sugar Management, TAB 0 Refills With evening meal Mupirocin Topical (Mupirocin Topical) 2 % Oint 1 APPLIC TOPICAL BID for Mgmt Bacterial Infection, #22 GM 1 Refill Potassium Chloride ER (Klor-Con 10) 10 Meq Tab 10 MEQ PO DAILY for Electrolyte Replacement, #30 TAB 0 Refills Simvastatin (Simvastatin) 20 Mg Tab 20 MG PO HS for Cholesterol Management, #30 TAB 0 Refills Sitagliptin (Januvia) 100 Mg Tab 100 MG PO DAILY for Blood Sugar Management, #30 TAB 0 Refills Discontinued Medications: Benazepril (Benazepril) 20 Mg Tab 20 MG PO BID for Blood Pressure Management, #60 TAB 0 Refills Cephalexin (Keflex) 500 Mg Cap 500 MG PO Q12H for Infection for 10 Days, CAP 0 Refills Furosemide (Furosemide) 40 Mg Tab 40 MG PO DAILY, #30 TAB 0 Refills Verapamil ER 24 HR (Verapamil ER 24 HR) 240 Mg Tab 240 MG PO BID, #30 TAB 0 Refills Gurwinder Lew MD Jan 24, 2017 17:29
[2017-01-24] MEDS ORDERED: COUM10TA PO (17:40)
[2017-01-24] MEDS ORDERED: FURO80TA PO (17:40)
[2017-01-24] MEDS ORDERED: CARV12.5 PO (17:40)
[2017-01-24] MEDS ORDERED: DILT300C3 PO (17:40)
[2017-01-24] MEDS ORDERED: SPIR25 PO (17:40)
--- NOTE | 2017-01-24 18:20 | HHI.PR ---
Subjective Remarks On O2 at 2 L and is up in a chair. On Coumadin now.Overall Better. Objective Vital Signs Date Time Temp Pulse Resp B/P (MAP) Pulse Ox O2 Delivery O2 Flow Rate FiO2 01/24/17 16:22 Nasal Cannula 2.00 01/24/17 16:15 98.2 84 20 120/74 (89) 98 01/24/17 12:12 Nasal Cannula 2.00 01/24/17 12:06 97.7 79 18 115/73 (87) 96 01/24/17 10:38 112 01/24/17 10:08 Nasal Cannula 2.00 01/24/17 09:38 Nasal Cannula 2.00 01/24/17 08:02 97.5 100 18 126/87 (100) 97 01/24/17 04:00 98.2 90 16 134/84 (101) 94 01/24/17 00:00 98.2 92 18 122/74 (90) 97 01/23/17 21:40 Nasal Cannula 2.00 01/23/17 20:00 98.8 85 16 100/71 (81) 96 01/23/17 19:54 98 I/O 01/23/17 01/23/17 01/23/17 01/24/17 01/24/17 01/24/17 07:00 15:00 23:00 07:00 15:00 23:00 Intake Total 480 ml 480 ml 200 ml 100 ml 720 ml Output Total 500 ml 450 ml 400 ml 900 ml 1700 ml Balance -20 ml 30 ml -200 ml -800 ml -980 ml Intake Oral 480 ml 480 ml 200 ml 720 ml IV Total 100 ml Output Urine Total 500 ml 450 ml 400 ml 900 ml 1700 ml # Voids 1 1 # Bowel Movements 0 1 2 0 Result Diagram: 01/24/17 1003 01/24/17 1003 Objective Remarks GENERAL: This is an elderly moderately obese white male who is alert . HEAD, EYES, EARS, NOSE, THROAT: Head normocephalic. The pupils are not reactive There is a corneal opacity. Throat is clear. NECK: The neck is supple with no venous distention. Trachea is midline. No thyroid enlargement. CHEST: Decreased breath sounds at the bases with Occ basilar crackles. HEART: Heart sounds are irregular. S1-S2 with no murmur, no S3. ABDOMEN: Abdomen soft and obese with the liver felt just below the right costal margin. The bowel sounds are active. EXTREMITIES:1 + edema with pigmentation of the skin with stasis dermatitis , ulcerations and lymphedema. Peripheral pulses are not well palpable. NEUROLOGIC: Neurologically he is moving all his extremities with 1+ reflexes. No gross motor deficits. Assessment and Plan Assessment and Plan IMPRESSION: 1. Pulmonary edema with bibasilar effusions. 2. Cardiomyopathy and congestive heart failure. 3. Chronic obstructive pulmonary disease. 4. Bibasilar atelectasis with possible pneumonia. 5. Chronic kidney disease. 6. Lymphedema. Plan : 1 Cont Lasix 40 mg daily. 2. BMP, in am 3. O2 at 2 L. Arrange home O2 4. Nebs qid Duoneb. 5. D/C antibiotics per ID 6. Will Get F/U Chest Xray in 2 weeks. 7. Home per Dr Lew 7. Continue coumadin 7.5 mg daily Ryan Jolley MD Jan 24, 2017 18:20
--- NOTE | 2017-01-24 18:26 | HHI.NPPN ---
Subjective History of Present Illness 71-year-old male with past medical history of hypertension, diabetes mellitus, ischemic heart disease, congestive heart failure, atrial fibrillation, history of legal blindness, possible history of chronic kidney disease who came to the hospital with complaint of worsening shortness of breath and edema of the legs. I was called to see the patient because of elevated BUN and creatinine. The patient was found to have creatinine of 1.8 on admission. Additional Remarks Patient is alert, breathing is better, still has leg edema, not in distress. Review of Systems General Constitutional: Fatigue Respiratory Lungs: SOB, Wheeze Cardiovascular Cardiac: Edema, [place] Objective Data Data 01/24/17 01/25/17 19:00 07:00 Intake Total 720 ml Output Total 1700 ml Balance -980 ml Intake Oral 720 ml Output Urine Total 1700 ml # Bowel Movements 0 Vital Signs Date Time Temp Pulse Resp B/P (MAP) Pulse Ox O2 Delivery O2 Flow Rate FiO2 01/24/17 16:22 Nasal Cannula 2.00 01/24/17 16:15 98.2 84 20 120/74 (89) 98 01/24/17 12:12 Nasal Cannula 2.00 01/24/17 12:06 97.7 79 18 115/73 (87) 96 01/24/17 10:38 112 01/24/17 10:08 Nasal Cannula 2.00 01/24/17 09:38 Nasal Cannula 2.00 01/24/17 08:02 97.5 100 18 126/87 (100) 97 01/24/17 04:00 98.2 90 16 134/84 (101) 94 01/24/17 00:00 98.2 92 18 122/74 (90) 97 01/23/17 21:40 Nasal Cannula 2.00 01/23/17 20:00 98.8 85 16 100/71 (81) 96 01/23/17 19:54 98 -: 01/24/17 1003 01/24/17 1003 Physical Exam General Appearance: No Acute Distress, Comfortable Eyes Eye Exam: Pupils Equal Throat Throat Exam: Oral Mucosa [place] & Moist Pulmonary Resp Exam: No Distress, Rhonchi, Decreased Bases, Diminished Breath Sounds Cardiology CV Exam: Regular, Normal Sinus Rhythm Gastrointestinal/Abdomen GI Exam: Soft, Non-Tender, Bowel Sounds Present Extremeties Extremities Exam: Moderate Edema, Pitting Edema, Dependent Edema Neurologic Neuro Exam: Alert, Awake, Oriented Psychiatric Psych Exam: Appropriate Responses Assessment/Plan Assessment Summary: ISI/Acute Renal Failure, Fluid/Volume Overload, Hypertension, CKD Stage III Electrolyte Assessment: Hypokalemia Problem List: (1) Stage 3 chronic kidney disease ICD Codes: N18.3 - Chronic kidney disease, stage 3 (moderate) (2) Hypoxia ICD Codes: R09.02 - Hypoxemia (3) HTN (hypertension) ICD Codes: I10 - Essential (primary) hypertension (4) New onset atrial fibrillation ICD Codes: I48.91 - Unspecified atrial fibrillation (5) Cellulitis ICD Codes: L03.90 - Cellulitis, unspecified (6) CHF exacerbation ICD Codes: I50.9 - Heart failure, unspecified (7) ISI (acute kidney injury) ICD Codes: N17.9 - Acute kidney failure, unspecified Plan Patient has good urine out put. On Lasix and Aldactone. K is better. Edema is improving, has been in negative fluid balance. Avoid Nephrotoxins, Most likely has chronic kidney disease. Continue diuretics. Creatinine 1.4-1.5, possibly his baseline. Told also to restrict salt and fluid intake. Creatinine increase to 1.5. Possible D/C. Will need out patient follow up. Problem Qualifiers (1) HTN (hypertension): Qualified Codes: I10 - Essential (primary) hypertension (2) Cellulitis: Qualified Codes: L03.115 - Cellulitis of right lower limb (3) CHF exacerbation: Qualified Codes: I50.23 - Acute on chronic systolic (congestive) heart failure Cuco Malone MD Jan 24, 2017 18:26
[2017-01-25] VITALS: BP 114/59; PULSE 65; RESP 18; TEMP 98.3; O2SAT 96
[2017-01-25] MEDS: ENOXAPARIN SODIUM 150 MG/ML SYRINGE SQ SCH (03:56)
[2017-01-25 04:00] VITALS: BP 131/84; PULSE 87; RESP 20; TEMP 97.9; O2SAT 99
[2017-01-25 07:45] VITALS: O2SAT 97
[2017-01-25 08:02] VITALS: BP 133/80; PULSE 79; RESP 18; TEMP 97.9; O2SAT 96
[2017-01-25] MEDS: DOCUSATE SODIUM 50 MG/SENNA 8.6 MG TAB PO SCH (09:00)
[2017-01-25] MEDS: INSULIN ASPART SUPPLEMENTAL SCALE SQ SCH ×2 (09:05→11:17)
[2017-01-25] MEDS: SODIUM CHLORIDE 0.9% FLUSH 10 ML FLUSH IV FLUSH SCH (09:10)
[2017-01-25] MEDS: FUROSEMIDE 80 MG TAB PO SCH (09:10)
[2017-01-25] MEDS: DILTIAZEM-CD 300 MG CAP ER PO SCH (09:10)
[2017-01-25] MEDS: ASPIRIN EC 325 MG TABEC PO SCH (09:10)
[2017-01-25] MEDS: CARVEDILOL 12.5 MG TAB PO SCH (09:10)
[2017-01-25] MEDS: SPIRONOLACTONE 25 MG TAB PO SCH (09:10)
[2017-01-25 11:29] LABS: AUTOMATED NEUTROPHIL # 3.6 TH/MM3 (1.8-7.7); BASOPHIL # 0.1 TH/MM3 (0-0.2); EOSINOPHIL # 0.1 TH/MM3 (0-0.4); EOSINOPHIL % 2.3 % (0.0-4.0); HEMATOCRIT 34.9 % (39.0-51.0); HEMO FLAGS DIFF FINAL; LYMPH % 18.5 % (9.0-44.0); MEAN CELL VOLUME 92.2 FL (80.0-100.0); MEAN CORPUSCULAR HEMOGLOBIN 30.5 PG (27.0-34.0); MEAN CORPUSCULAR HGB CONC 33.1 % (32.0-36.0); MONO % 9.1 % (0.0-8.0); NEUT % 69.1 % (16.0-70.0); PLATELET COUNT 226 TH/MM3 (150-450); RED BLOOD COUNT 3.78 MIL/MM3 (4.50-5.90); RED CELL DISTRIBUTION WIDTH 16.3 % (11.6-17.2); WHITE BLOOD COUNT 5.2 TH/MM3 (4.0-11.0)
[2017-01-25 11:43] LABS: ANION GAP 9 MEQ/L (5-15); AST (GOT) 17 U/L (15-37); BICARBONATE 28.6 MEQ/L (21.0-32.0); BLOOD UREA NITROGEN 25 MG/DL (7-18); CHLORIDE 103 MEQ/L (98-107); GLOMERULAR FILTRATION RATE 43 ML/MIN (>89); POTASSIUM 3.7 MEQ/L (3.5-5.1); SODIUM (NA) 141 MEQ/L (136-145)
[2017-01-25 11:46] LABS: ALKALINE PHOSPHATASE 56 U/L (45-117); ALT (GPT) 30 U/L (12-78); TOTAL BILIRUBIN ADULT 0.4 MG/DL (0.2-1.0)
[2017-01-25] MEDS ORDERED: WARFARIN SOD 10 MG TAB PO SCH (16:00)
== END 2017-01-25 15:52 | disposition home health service (06) | DRG 291 ==
LOC: NEPE 19:13 → NEDA 21:47 → N07A 01-02 00:58 → HIMN 01-10 14:50 → N04A 01-20 13:39
PROVIDERS: ADMIT Hospitalist; ATTEND Hospitalist
PROC: 0W993ZZ Drainage of Right Pleural Cavity, Percutaneous Approach (ICD-10-PCS; principal; 2017-01-14)
DX: I13.0 Hypertensive heart and chronic kidney disease with heart failure and stage 1 through stage 4 chronic kidney disease, or unspecified chronic kidney disease (principal); I50.23 Acute on chronic systolic (congestive) heart failure; J96.01 Acute respiratory failure with hypoxia; N17.9 Acute kidney failure, unspecified; E11.22 Type 2 diabetes mellitus with diabetic chronic kidney disease; L03.115 Cellulitis of right lower limb; E87.1 Hypo-osmolality and hyponatremia; J98.11 Atelectasis; J44.9 Chronic obstructive pulmonary disease, unspecified; S81.801A Unspecified open wound, right lower leg, initial encounter; I48.2 Chronic atrial fibrillation; N18.3 Chronic kidney disease, stage 3 (moderate); I87.2 Venous insufficiency (chronic) (peripheral); I42.9 Cardiomyopathy, unspecified; L30.9 Dermatitis, unspecified; H54.8 Legal blindness, as defined in USA; E78.00 Pure hypercholesterolemia, unspecified; I45.9 Conduction disorder, unspecified; N50.89 Other specified disorders of the male genital organs; E87.6 Hypokalemia; I87.8 Other specified disorders of veins; E66.9 Obesity, unspecified; Z86.72 Personal history of thrombophlebitis; Z87.891 Personal history of nicotine dependence; B96.4 Proteus (mirabilis) (morganii) as the cause of diseases classified elsewhere; B96.5 Pseudomonas (aeruginosa) (mallei) (pseudomallei) as the cause of diseases classified elsewhere; B95.2 Enterococcus as the cause of diseases classified elsewhere; Z79.84 Long term (current) use of oral hypoglycemic drugs
CPT/HCPCS: 32554; 36600; 71010; 71275; 76604; 76775; 76937; 78452; 80048; 80053; 81001; 82150; 82550; 82805; 82945; 82948; 83615; 83690; 83735; 83880; 83986; 84100; 84157; 84443; 84484; 85025; 85027; 85610; 85730; 86140; 87015; 87070; 87077; 87102; 87116; 87186; 87205; 87206; 87641; 89051; 93005; 93017; 93306; 93308; 93970; 94002; 94003; 94150; 94620; 94640; 94664; 96374; A9502; J0290; J0713; J1160; J1650; J1815; J1940; J2785; J2930; Q9967

== ENCOUNTER 2017-02-02 11:14 | Inpatient (IN) | payer OTHER, MEDICARE ==
[2017-02-02] VITALS (7 sets, daily range): BP systolic 74–107; BP diastolic 58–66; PULSE 63–103; RESP 18; TEMP 97.5–98.4; O2SAT 92–95
[~2017-02-02] VITALS: Ht 193 cm; Wt 141.0 kg
[~2017-02-02 11:14] MED LIST changes: +ASPI325T33 PO; -BENA20TA PO; +CARV12.5 PO; -CEPH-460 PO; +COUM10TA PO; +DEFIB EXTERNAL; +DILT300C3 PO; -FURO40TA PO; +FURO80TA PO; +LISI2.5T3 PO; +OXYGENDME NAS.CANULA; +SPIR25 PO; -VERA1TAB17 PO
[2017-02-02] MEDS ORDERED: SODIUM CHLOR 0.9% 1000 ML INJ 1,000 ML IV ONE (11:23)
[2017-02-02] MEDS ORDERED: SODIUM CHLORIDE 0.9% FLUSH 10 ML FLUSH IVF PRN (11:30)
[2017-02-02] MEDS ORDERED: HEPARIN-NS/PF INJ 0 ML ONE (11:32)
--- NOTE | 2017-02-02 11:42 | RADRPT ---
EXAM DATE/TIME: 02/02/2017 11:25 [place] COMPARISON: CHEST SINGLE AP, January 23, 2017, 6:11. INDICATIONS : Patient complains of bilateral chest pain for 1 day. MEDICAL HISTORY : Hypercholesterolemia. Hypertension Diabetes mellitus type II. SURGICAL HISTORY : None. ENCOUNTER: Initial ACUITY: 1 day PAIN SCORE: 10/10 LOCATION: Bilateral Chest. FINDINGS: Mild diffuse interstitial prominence. Stable bilateral lower lobe airspace disease with small, left g reater than right, pleural effusions. Cardiac silhouette is enlarged. Remainder of exam is unchanged. CONCLUSION: 1. Cardiomegaly with positive fluid balance. 2. Stable bilateral lower lobe airspace disease with small, left greater than right, pleural effusion roshan Wynn MD on February 02, 2017 at 11:39 Board Certified Radiologist. This report was verified electronically.
[2017-02-02 11:44] LABS: AUTOMATED NEUTROPHIL # 7.3 TH/MM3 (1.8-7.7); BASOPHIL # 0.1 TH/MM3 (0-0.2); BASOPHIL % 1.2 % (0.0-2.0); EOSINOPHIL # 0.1 TH/MM3 (0-0.4); EOSINOPHIL % 0.7 % (0.0-4.0); HEMATOCRIT 36.5 % (39.0-51.0); HEMO FLAGS DIFF FINAL; LYMPH % 10.6 % (9.0-44.0); MEAN CELL VOLUME 92.7 FL (80.0-100.0); MEAN CORPUSCULAR HEMOGLOBIN 30.7 PG (27.0-34.0); MEAN CORPUSCULAR HGB CONC 33.1 % (32.0-36.0); NEUT % 80.5 % (16.0-70.0); PLATELET COUNT 272 TH/MM3 (150-450); RED BLOOD COUNT 3.94 MIL/MM3 (4.50-5.90); RED CELL DISTRIBUTION WIDTH 16.5 % (11.6-17.2); WHITE BLOOD COUNT 9.1 TH/MM3 (4.0-11.0)
[2017-02-02 11:48] LABS: I-STAT POTASSIUM 4.1 MMOL/L (3.5-4.9)
[2017-02-02 11:52] LABS: APTT (PATIENT) 24.8 SEC (24.3-30.1); INTERNATIONAL NORMALIZED RATIO 1.1 RATIO; PROTHROMBIN TIME - PATIENT 11.9 SEC (9.8-11.6)
[2017-02-02 12:05] LABS: MAGNESIUM 1.5 MG/DL (1.5-2.5)
[2017-02-02] MEDS ORDERED: HEPARIN SODIUM - IV 10,000 UNITS/10 ML VIAL IV ONE (12:45)
[2017-02-02] MEDS ORDERED: SODIUM CHLORIDE 0.9% FLUSH 10 ML FLUSH IV FLUSH PRN (13:00)
[2017-02-02] MEDS ORDERED: NALOXONE HCL 0.4 MG/ML AMP IV PUSH PRN (13:00)
[2017-02-02] MEDS ORDERED: MAGNESIUM HYDROXIDE SUSP 30 ML CUP PO PRN (13:00)
[2017-02-02] MEDS ORDERED: LACTULOSE SYRUP 20 GM/30 ML CUP PO PRN (13:00)
[2017-02-02] MEDS ORDERED: SENNOSIDES 8.6 MG TAB PO PRN (13:00)
[2017-02-02] MEDS ORDERED: BISACODYL 10 MG SUPP RECTAL PRN (13:00)
[2017-02-02] MEDS ORDERED: GLUCAGON 1 MG/ML VIAL OTHER PRN (13:15)
[2017-02-02] MEDS ORDERED: DEXTROSE 50% IN WATER 50 ML VIAL(D50) IV PUSH PRN (13:15)
--- NOTE | 2017-02-02 13:16 | PD.CONS ---
HPI Consult Requested By Primary Care Physician Kandy Mullen MD History of Present Illness 71 y/o male with a history past medical history significant for HTN, DM, atrial fibrillation, severe LV systolic dysfunction EF 20% on last echo, ischemic cardiomyopathy fixed defect on MPI 12/2016, bilateral lymphedema, blindness and CKD presented to the ED with complaints of shortness of breath, nausea, pressure on the neck, PND. He states he might have not been complaint with medication or diet. He denies cough, fever, dysuria, diarrhea,nausea, or vomiting. Cardiology consulted for elevated troponin. Review of Systems Consitutional: DENIES: Fatigue, Fever, Chills, Weight gain, Weight loss Eyes: DENIES: Amaurosis Fugax, Change in vision HEENT: DENIES: Lightheadedness, Change in hearing Respiratory: COMPLAINS OF: Shortness of breath, DENIES: See HPI, Cough, Snoring , Wheezing, Sputum production Cardiovascular: COMPLAINS OF: See HPI, DENIES: Chest pain, Palpitations, Syncope, Tachycardia Gastrointestinal: COMPLAINS OF: Nausea, DENIES: Vomiting, Change in bowel habits, Reflux, Bloody stools, Melena Genitourinary: DENIES: Urinary incontinence, Difficulty voiding Integumentary: DENIES: Rash Musculoskeletal: DENIES: Joint pain, Muscle pain, Limited range of motion, Back pain Psychiatric: DENIES: Anxiety, Depression, Sleep disturbances Hematologic: DENIES: Bruising tendencies, Bleeding tendencies Endocrine: DENIES: Weight gain, Weight loss, Thyroid disease Past Family Social History Allergies: Coded Allergies: Sulfa (Sulfonamide Antibiotics) (Unverified Allergy, Severe, TONGUE SWELLING, 01/01/17) Past Medical History HTN DM CHF unknown Irregular heartbeat Lymphedema Blind Afib not on any medication Past Surgical History eye surgeries x 17 Reported Medications Reported Meds & Active Scripts Active Furosemide 80 Mg Tab 80 Mg PO DAILY Aldactone (Spironolactone) 25 Mg Tab 25 Mg PO DAILY Diltiazem CD 24 HR 300 Mg Caper 300 Mg PO DAILY Coreg (Carvedilol) 12.5 Mg Tab 12.5 Mg PO Q12HR Coumadin (Warfarin) 10 Mg Tab 10 Mg PO DAILY@16 Defibrillator Jacket (Device) 1 Ea Device Ea EXTERNAL ONCE Energy = 150 Joules; VT Threshold = 150 BPM; VF Threshold = 200 BPM Use up to 90 days only Aspirin EC (Aspirin) 325 Mg Tabdr 325 Mg PO DAILY Lisinopril 2.5 Mg Tab 2.5 Mg PO DAILY Oxygen (O2) Device Liter ADRI.CANULA CONTINUOUS Oxygen Concentrator Portable Gaseous 2 L/min via Nasal Canula Continuous For 99 months Mupirocin Topical (Mupirocin) 2 % Oint 1 Applic TOPICAL BID Reported Simvastatin 20 Mg Tab 20 Mg PO HS Klor-Con 10 (Potassium Chloride) 10 Meq Tab 10 Meq PO DAILY Metformin ER (Metformin HCl) 500 Mg Nicanor 500 Mg PO DAILY With evening meal Januvia (Sitagliptin Phosphate) 100 Mg Tab 100 Mg PO DAILY Glipizide 10 Mg Tab 10 Mg PO HS Take 30 minutes before a meal Active Ordered Medications Current Medications Medications (Trade) Dose Ordered Sig/Rosalie Route Start Time Stop Time Status Last Admin (NS Flush) 2 ml UNSCH PRN IVF 02/02/17 11:30 (Heparin Inj) 5,000 units UNSCH PRN IV 02/02/17 18:45 (Heparin Inj) 2,500 units UNSCH PRN IV 02/02/17 18:45 Heparin Sodium/ Dextrose 250 ml @ 10 mls/hr TITRATE PRN IV 02/02/17 12:45 (NS Flush) 2 ml UNSCH PRN IV FLUSH 02/02/17 13:00 UNV (NS Flush) 2 ml BID IV FLUSH 02/02/17 21:00 UNV (Narcan Inj) 0.4 mg UNSCH PRN IV PUSH 02/02/17 13:00 UNV (Milk Of Magnesia Liq) 30 ml Q12H PRN PO 02/02/17 13:00 UNV (Senokot) 17.2 mg Q12H PRN PO 02/02/17 13:00 UNV (Dulcolax Supp) 10 mg DAILY PRN RECTAL 02/02/17 13:00 UNV (Lactulose Liq) 30 ml DAILY PRN PO 02/02/17 13:00 UNV Family History Noncontributory Social History No alcohol No illicit drug use No smoking Physical Exam Vital Signs Vital Signs Date Time Temp Pulse Resp B/P (MAP) Pulse Ox O2 Delivery O2 Flow Rate FiO2 02/02/17 11:30 95 18 94 Room Air 02/02/17 11:30 98.4 101 18 107/65 (79) 92 Nasal Cannula 2.00 02/02/17 11:30 92 Nasal Cannula 2.00 02/02/17 11:30 92 Nasal Cannula 2.00 02/02/17 11:20 94 18 107/65 (79) 92 Physical Exam GENERAL: Well-nourished, well-developed patient. SKIN: Warm and dry. HEAD: Normocephalic. EYES: No scleral icterus. No injection or drainage. NECK: Supple, trachea midline. ++ JVD or lymphadenopathy. CARDIOVASCULAR: Irr Irr without murmurs, gallops, or rubs. RESPIRATORY: Breath sounds equal bilaterally. No accessory muscle use. GASTROINTESTINAL: Abdomen soft, non-tender, nondistended. EXTREMITIES: No cyanosis, or ++++edema. NEUROLOGICAL: Awake, alert, and oriented x 3. Non-focal. Laboratory Laboratory Tests Test 02/02/17 11:20 White Blood Count 9.1 Red Blood Count 3.94 Hemoglobin 12.1 Bedside Hemoglobin 12.9 Hematocrit 36.5 Bedside Hematocrit 38.0 Mean Corpuscular Volume 92.7 Mean Corpuscular Hemoglobin 30.7 Mean Corpuscular Hemoglobin Concent 33.1 Red Cell Distribution Width 16.5 Platelet Count 272 Mean Platelet Volume 8.4 Neutrophils (%) (Auto) 80.5 Lymphocytes (%) (Auto) 10.6 Monocytes (%) (Auto) 7.0 Eosinophils (%) (Auto) 0.7 Basophils (%) (Auto) 1.2 Neutrophils # (Auto) 7.3 Lymphocytes # (Auto) 1.0 Monocytes # (Auto) 0.6 Eosinophils # (Auto) 0.1 Basophils # (Auto) 0.1 CBC Comment DIFF FINAL Differential Comment Prothrombin Time 11.9 Prothromb Time International Ratio 1.1 Activated Partial Thromboplast Time 24.8 Bedside Sodium 139 Bedside Potassium 4.1 Bedside Chloride 101 Bedside Blood Urea Nitrogen 37 Bedside Creatinine 2.3 Bedside Glucose 235 Calcium Level 8.6 Magnesium Level 1.5 Total Creatine Kinase 91 Troponin I 0.78 B-Type Natriuretic Peptide 551 Result Diagram: 02/02/17 1120 Imaging Last Impressions Chest X-Ray 02/02/17 1123 Signed Impressions: Service Date/Time: Thursday, February 02, 2017 11:25 - CONCLUSION: 1. Cardiomegaly with positive fluid balance. 2. Stable bilateral lower lobe airspace disease with small, left greater than right, pleural effusions. Ralph Bozorgmanesh, MD Assessment and Plan Problem List: (1) ACS (acute coronary syndrome) ICD Codes: I24.9 - Acute ischemic heart disease, unspecified Plan: 71 y/o M with known ischemic cardiomyopathy admitted with acute on chronic systolic heart failure in the setting of noncompliance with medications and diet. Elevated 1 set of troponin, currently chest pain/neck pain free, no acute ST changes in EKG, but with significant difficulty on lying supine. ACS/ NSTEMI start Heparin drip if no contraindications as well as ASA, BB, statin, nitrates, O2 supplementation, aggressive IV diuresis, strict I&O, daily weight, Low salt diet and rate control for Afib. Continue cycling cardiac markers if cardiac markers continue to increase we can plan for LHC as soon as he is gets more compensated from HF and kidney function (Creat POC 2.3 vs baseline1.5). However overall prognosis guarded. Plan: 1. Admit to step-down unit 2. Cont ASA, Coreg, Cardizem, Zocor and Aldactone. Hold ACEi given ISI 3. Lasix 40mg IV BID 4. O2 supplementation 5. CMP 6. Avoid electrolytes abnormalities 7. Strict I&O, Daily weight, Low salt diet 8. Start Heparin drip 9. Cont cycling CE x3. Thank you for the opportunity to participate in the care of this patient Further management to be determine (2) HTN (hypertension) ICD Codes: I10 - Essential (primary) hypertension (3) Cellulitis ICD Codes: L03.90 - Cellulitis, unspecified (4) Hypoxia ICD Codes: R09.02 - Hypoxemia Status: Acute (5) Stage 3 chronic kidney disease ICD Codes: N18.3 - Chronic kidney disease, stage 3 (moderate) Status: Acute (6) CHF exacerbation ICD Codes: I50.9 - Heart failure, unspecified Status: Acute (7) CHF (NYHA class IV, ACC/AHA stage D) ICD Codes: I50.9 - Heart failure, unspecified Status: Acute (8) Afib ICD Codes: I48.91 - Unspecified atrial fibrillation Status: Chronic [place]-Bahman Moody MD Feb 02, 2017 13:16
--- NOTE | 2017-02-02 13:35 | PD ---
HPI Chief Complaint: STEMI Alert Time Seen by Provider: 11:23 Travel History International Travel<30 days: No Contact w/Intl Traveler<30days: No Traveled to known affect area: No History of Present Illness HPI This 71-year-old male multiple medical problems presents emergency department complaining of pressure-like chest discomfort. Patient was admitted about a month ago with CHF exacerbation, new onset A. fib, hypertension, acute kidney injury. 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 He was discharged with a pack past. Follow-up as an outpatient. He was seen by Dr. Quinn, and Dr. Sudeep Coelho at that time. Patient overall been doing well. Improvement of his lower 70 edema and scrotal edema that brought him to the ED then. Starting last night he started getting some pressure-like chest discomfort was worse this morning. His vani was reportedly making an abnormal noise. They called the nurse came to see him, he told him about the chest pain, and he called the ambulance. EMS EKG showed inferior ST elevations of about a millimeter and 3, less than a millimeter in 2 or aVF. He also had a suggestive of some reciprocal depressions in 1 and aVL. History Past Medical History Narrative Medical HTN DM CHF, chronic myopathy Irregular heartbeat Lymphedema Blindness Afib not on any medication Tetanus Vaccination: < 5 Years Influenza Vaccination: No Social History Alcohol Use: Yes Tobacco Use: No Allergies-Medications (Allergen,Severity, Reaction): Coded Allergies: Sulfa (Sulfonamide Antibiotics) (Unverified Allergy, Severe, TONGUE SWELLING, 01/01/17) Reported Meds & Prescriptions Reported Meds & Active Scripts Active Furosemide 80 Mg Tab 80 Mg PO DAILY Aldactone (Spironolactone) 25 Mg Tab 25 Mg PO DAILY Diltiazem CD 24 HR 300 Mg Caper 300 Mg PO DAILY Coreg (Carvedilol) 12.5 Mg Tab 12.5 Mg PO Q12HR Coumadin (Warfarin) 10 Mg Tab 10 Mg PO DAILY@16 Defibrillator Jacket (Device) 1 Ea Device Ea EXTERNAL ONCE Energy = 150 Joules; VT Threshold = 150 BPM; VF Threshold = 200 BPM Use up to 90 days only Aspirin EC (Aspirin) 325 Mg Tabdr 325 Mg PO DAILY Lisinopril 2.5 Mg Tab 2.5 Mg PO DAILY Oxygen (O2) Device Liter ADRI.CANULA CONTINUOUS Oxygen Concentrator Portable Gaseous 2 L/min via Nasal Canula Continuous For 99 months Mupirocin Topical (Mupirocin) 2 % Oint 1 Applic TOPICAL BID Reported Simvastatin 20 Mg Tab 20 Mg PO HS Klor-Con 10 (Potassium Chloride) 10 Meq Tab 10 Meq PO DAILY Metformin ER (Metformin HCl) 500 Mg Nicanor 500 Mg PO DAILY With evening meal Januvia (Sitagliptin Phosphate) 100 Mg Tab 100 Mg PO DAILY Glipizide 10 Mg Tab 10 Mg PO HS Take 30 minutes before a meal Review of Systems Except as stated in HPI: all other systems reviewed are Neg Physical Exam Narrative GENERAL: 71-year-old man, nontoxic appearing. Obese. Blind. SKIN: Focused skin assessment warm/dry. HEAD: Atraumatic. Normocephalic. EYES: Blind. ENT: No nasal bleeding or discharge. Mucous membranes pink and moist. NECK: Trachea midline. No JVD. CARDIOVASCULAR: Regular rate and rhythm. No murmur appreciated. RESPIRATORY: No accessory muscle use. Clear to auscultation. Breath sounds equal bilaterally. GASTROINTESTINAL: Abdomen soft, non-tender, nondistended. Hepatic and splenic margins not palpable. MUSCULOSKELETAL: Significant chronic appearing lymphedema both lower Lisandra. A couple weeping wounds. NEUROLOGICAL: Awake and alert. No obvious cranial nerve deficits. Motor grossly within normal limits. Normal speech. PSYCHIATRIC: Irritable. Data Data Last Documented VS Vital Signs Date Time Temp Pulse Resp B/P (MAP) Pulse Ox O2 Delivery O2 Flow Rate FiO2 02/02/17 11:30 95 18 94 Room Air 02/02/17 11:30 98.4 107/65 (79) 2.00 Orders Orders Troponin I (02/02/17 11:23) Ckmb (Isoenzyme) Profile (02/02/17 11:23) Complete Blood Count With Diff (02/02/17 11:23) I-Stat Profile (02/02/17 11:23) I-Stat Creatinine (02/02/17 11:23) Calcium (02/02/17 11:23) Magnesium (Mg) (02/02/17 11:23) Prothrombin Time / Inr (Pt) (02/02/17 11:23) Act Partial Throm Time (Ptt) (02/02/17 11:23) B-Type Natriuretic Peptide (02/02/17 11:23) Chest, Single Ap (02/02/17 11:23) Electrocardiogram (02/02/17 11:23) Oxygen Administration (02/02/17 11:23) Iv Access Insert/Monitor (02/02/17 11:23) Oximetry (02/02/17 11:23) Sodium Chlor 0.9% 1000 Ml Inj (Ns 1000 M (02/02/17 11:23) Sodium Chloride 0.9% Flush (Ns Flush) (02/02/17 11:30) Heparin-Ns/Pf Inj (Heparin-Ns/Pf Inj) (02/02/17 11:32) B-Type Natriuretic Peptide (02/02/17 11:40) Consult Cardiology (02/02/17 ) Heparin Inj (Heparin Inj) (02/02/17 12:45) Heparin Inj (Heparin Inj) (02/02/17 18:45) Heparin Inj (Heparin Inj) (02/02/17 18:45) Heparin-D5w 25,000 U/250 Ml (Heparin-D5w (02/02/17 12:45) Act Partial Throm Time (Ptt) (02/02/17 12:34) Prothrombin Time / Inr (Pt) (02/02/17 12:34) Cbc No Diff, Includes Plts (02/02/17 12:34) Cbc No Diff, Includes Plts (02/05/17 06:00) Act Partial Throm Time (Ptt) (02/02/17 19:34) Occult Blood (Hemoccult) Stool (02/02/17 12:34) Admit Order (Ed Use Only) (02/02/17 ) Labs Laboratory Tests Test 02/02/17 11:20 White Blood Count 9.1 TH/MM3 Red Blood Count 3.94 MIL/MM3 Hemoglobin 12.1 GM/DL Bedside Hemoglobin 12.9 G/DL Hematocrit 36.5 % Bedside Hematocrit 38.0 % Mean Corpuscular Volume 92.7 FL Mean Corpuscular Hemoglobin 30.7 PG Mean Corpuscular Hemoglobin Concent 33.1 % Red Cell Distribution Width 16.5 % Platelet Count 272 TH/MM3 Mean Platelet Volume 8.4 FL Neutrophils (%) (Auto) 80.5 % Lymphocytes (%) (Auto) 10.6 % Monocytes (%) (Auto) 7.0 % Eosinophils (%) (Auto) 0.7 % Basophils (%) (Auto) 1.2 % Neutrophils # (Auto) 7.3 TH/MM3 Lymphocytes # (Auto) 1.0 TH/MM3 Monocytes # (Auto) 0.6 TH/MM3 Eosinophils # (Auto) 0.1 TH/MM3 Basophils # (Auto) 0.1 TH/MM3 CBC Comment DIFF FINAL Differential Comment Prothrombin Time 11.9 SEC Prothromb Time International Ratio 1.1 RATIO Activated Partial Thromboplast Time 24.8 SEC Bedside Sodium 139 MMOL/L Bedside Potassium 4.1 MMOL/L Bedside Chloride 101 MMOL/L Bedside Blood Urea Nitrogen 37 MG/DL Bedside Creatinine 2.3 MG/DL Bedside Glucose 235 MG/DL Calcium Level 8.6 MG/DL Magnesium Level 1.5 MG/DL Total Creatine Kinase 91 U/L Troponin I 0.78 NG/ML B-Type Natriuretic Peptide 551 PG/ML MDM Medical Decision Making Medical Screen Exam Complete: Yes Emergency Medical Condition: Yes Interpretation(s) My review of EMS EKG: Sinus rhythm at a rate of 100, minimal inferior ST elevations, especially 3, suggestive of some lateral depressions in aVL and 2. My review of EKG in the emergency department, sinus rhythm at a rate of 95, normal axis, normal vitals, small QRS voltage, no definite evidence of acute ischemia. No STEMI. LABS: CBC remarkable for mild anemia. Point of care chemistries are remarkable for elevated BUN and creatinine Troponin 0.78 BNP 551 Chest x-ray: Cardiomegaly with positive fluid balance. Small pleural effusions. Differential Diagnosis STEMI, CHF, heart failure, arrhythmia, other Narrative Course Medical decision-making 70-year-old man presents emergent arm pressure-like chest discomfort. EMS EKG suggestive of ST elevation WA. Repeat EKG does not show STEMI. Discussed with cardiology, STEMI alert was canceled. Initial troponin is elevated. Cardiology at the bedside. An started. Possible type II WA. Patient will be admitted for further evaluation. Critical Care Narrative Aggregate critical care time was 40 minutes. Time to perform other separately billable procedures was not included in the critical care time. My time did not include minutes spent treating any other patients simultaneously or on activities that did not directly contribute to the patient's treatment. The services I provided to this patient were to treat and/or prevent clinically significant deterioration that could result in: , disability, WA, other. I provided critical care services requiring my management, as noted below: Chart data review, documentation time, medication orders and management, vital sign assessments/reviewing monitor data, ordering and reviewing lab tests, ordering and interpreting/reviewing x-rays and diagnostic studies, care of the patient and discussion of the patient with the admitting physicians. Zeeshan Lamb MD Feb 02, 2017 13:35
[2017-02-02] MEDS: HEPARIN-D5W 25,000 U/250 ML 250 ML IV PRN (13:39)
--- NOTE | 2017-02-02 15:21 | HHI.HP ---
[facility] Kandy Mullen MD Admission Diagnosis NSTEMI Diagnoses: Travel History International Travel<30 Days: No Contact w/Intl Traveler <30 Da: No Traveled to Known Affected Are: No History of Present Illness 71-year-old male with a history of hypertension, diabetes, atrial fibrillation, ischemic cardiomyopathy with ejection fraction 20% on most recent echocardiogram who presents with a 2 day history of worsening bilateral lower extremity edema, as well as constant left chest, neck pressure starting around 11 PM last night. He also reports that his LifeVest began blinking this morning , and was told by [facility] to come into the ER. Patient states upon receiving Review of Systems Except as stated in HPI: all other systems reviewed are Neg Past Family Social History Past Medical History Hypertension Diabetes mellitus CHF Atrial fibrillation Lymphedema Ischemic cardio myopathy with ejection fraction 20% on most recent echocardiogram last month. CK D Blind. Prosthesis left eye, right eye blind Past Surgical History Multiple eye surgeries Reported Medications Reported Meds & Active Scripts Active Furosemide 80 Mg Tab 80 Mg PO DAILY Aldactone (Spironolactone) 25 Mg Tab 25 Mg PO DAILY Diltiazem CD 24 HR 300 Mg Caper 300 Mg PO DAILY Coreg (Carvedilol) 12.5 Mg Tab 12.5 Mg PO Q12HR Coumadin (Warfarin) 10 Mg Tab 10 Mg PO DAILY@16 Defibrillator Jacket (Device) 1 Ea Device Ea EXTERNAL ONCE Energy = 150 Joules; VT Threshold = 150 BPM; VF Threshold = 200 BPM Use up to 90 days only Aspirin EC (Aspirin) 325 Mg Tabdr 325 Mg PO DAILY Lisinopril 2.5 Mg Tab 2.5 Mg PO DAILY Oxygen (O2) Device Liter ADRI.CANULA CONTINUOUS Oxygen Concentrator Portable Gaseous 2 L/min via Nasal Canula Continuous For 99 months Mupirocin Topical (Mupirocin) 2 % Oint 1 Applic TOPICAL BID Reported Simvastatin 20 Mg Tab 20 Mg PO HS Klor-Con 10 (Potassium Chloride) 10 Meq Tab 10 Meq PO DAILY Metformin ER (Metformin HCl) 500 Mg Nicanor 500 Mg PO DAILY With evening meal Januvia (Sitagliptin Phosphate) 100 Mg Tab 100 Mg PO DAILY Glipizide 10 Mg Tab 10 Mg PO HS Take 30 minutes before a meal Allergies: Coded Allergies: Sulfa (Sulfonamide Antibiotics) (Unverified Allergy, Severe, TONGUE SWELLING, 01/01/17) Family History Patient is uncertain about his parents medical history. Social History Patient quit smoking 11 years ago. Patient reports twice yearly alcohol use. Denies any illicit drug use. Physical Exam Vital Signs Vital Signs Date Time Temp Pulse Resp B/P (MAP) Pulse Ox O2 Delivery O2 Flow Rate FiO2 02/02/17 11:30 95 18 94 Room Air 02/02/17 11:30 98.4 101 18 107/65 (79) 92 Nasal Cannula 2.00 02/02/17 11:30 92 Nasal Cannula 2.00 02/02/17 11:30 92 Nasal Cannula 2.00 02/02/17 11:20 94 18 107/65 (79) 92 Physical Exam GENERAL: This is a well-nourished, well-developed patient, who appears generally fatigued. Somnolent, wakes up for exam. Oriented 3. SKIN: No rashes, ecchymoses or lesions. Cool and dry. HEAD: Atraumatic. Normocephalic. No temporal or scalp tenderness. EYES: Pupils equal round and reactive. Extraocular motions intact. No scleral icterus. No injection or drainage. ENT: Nose without bleeding, purulent drainage or septal hematoma. Throat without erythema, tonsillar hypertrophy or exudate. Uvula midline. Airway patent. NECK: Trachea midline. No lymphadenopathy. Supple, nontender, no meningeal signs. CARDIOVASCULAR: Regular rate and rhythm without murmurs, gallops, or rubs. RESPIRATORY: Clear to auscultation. Breath sounds equal bilaterally. No wheezes , rales, or rhonchi. GASTROINTESTINAL: Abdomen soft, non-tender, nondistended. No hepato-splenomegaly , or palpable masses. No guarding. MUSCULOSKELETAL: Extremities without clubbing, cyanosis No joint tenderness, effusion. No calf tenderness. Negative Homans sign bilaterally. Patient with 2- 3+ bilateral lower extremity edema with faint erythema bilaterally. Slight Blistering bilaterally. NEUROLOGICAL:. Cranial nerves intact intact, with exception of patient blind.. Motor and sensory grossly within normal limits. Five out of 5 muscle strength in all muscle groups. Normal speech. Laboratory Laboratory Tests Test 02/02/17 11:20 White Blood Count 9.1 Red Blood Count 3.94 Hemoglobin 12.1 Bedside Hemoglobin 12.9 Hematocrit 36.5 Bedside Hematocrit 38.0 Mean Corpuscular Volume 92.7 Mean Corpuscular Hemoglobin 30.7 Mean Corpuscular Hemoglobin Concent 33.1 Red Cell Distribution Width 16.5 Platelet Count 272 Mean Platelet Volume 8.4 Neutrophils (%) (Auto) 80.5 Lymphocytes (%) (Auto) 10.6 Monocytes (%) (Auto) 7.0 Eosinophils (%) (Auto) 0.7 Basophils (%) (Auto) 1.2 Neutrophils # (Auto) 7.3 Lymphocytes # (Auto) 1.0 Monocytes # (Auto) 0.6 Eosinophils # (Auto) 0.1 Basophils # (Auto) 0.1 CBC Comment DIFF FINAL Differential Comment Prothrombin Time 11.9 Prothromb Time International Ratio 1.1 Activated Partial Thromboplast Time 24.8 Bedside Sodium 139 Bedside Potassium 4.1 Bedside Chloride 101 Bedside Blood Urea Nitrogen 37 Bedside Creatinine 2.3 Bedside Glucose 235 Calcium Level 8.6 Magnesium Level 1.5 Total Creatine Kinase 91 Troponin I 0.78 B-Type Natriuretic Peptide 551 Result Diagram: 02/02/17 1120 Imaging Last Impressions Chest X-Ray 02/02/17 1123 Signed Impressions: Service Date/Time: Thursday, February 02, 2017 11:25 - CONCLUSION: 1. Cardiomegaly with positive fluid balance. 2. Stable bilateral lower lobe airspace disease with small, left greater than right, pleural effusions. MD Noemi Quijano VTE Risk Assessment Caprinangela VTE Risk Assessment: Mod/High Risk (score >= 2) Caprini Risk Assessment Model Point Value = 1 Point Value = 2 Point Value = 3 Point Value = 5 Age 41-60 Minor surgery BMI > 25 kg/m2 Swollen legs Varicose veins or History of unexplained or recurrent spontaneous Oral contraceptives or hormone replacement Sepsis (< 1 month) Serious lung disease, including pneumonia (< 1 month) Abnormal pulmonary function Acute myocardial infarction Congestive heart failure (< 1 month) History of inflammatory bowel disease Medical patient at bed rest Age 61-74 Arthroscopic surgery Major open surgery (> 45 min) Laparoscopic surgery (> 45 min) Malignancy Confined to bed (> 72 hours) Immobilizing plaster cast Central venous access Age >= 75 History of VTE Family history of VTE Factor V Leiden Prothrombin [id number] Lupus anticoagulant Anticardiolipin antibodies Elevated serum homocysteine Heparin-induced thrombocytopenia Other congenital or acquired thrombophilia Stroke (< 1 month) Elective arthroplasty Hip, pelvis, or leg fracture Acute spinal cord injury (< 1 month) Prophylaxis Regimen Total Risk Factor Score Risk Level Prophylaxis Regimen 0-1 Low Early ambulation 2 Moderate Order ONE of the following: *Sequential Compression Device (SCD) *Heparin 5000 units SQ BID 3-4 Higher Order ONE of the following medications: *Heparin 5000 units SQ TID *Enoxaparin/Lovenox 40 mg SQ daily (WT < 150 kg, CrCl > 30 mL/min) *Enoxaparin/Lovenox 30 mg SQ daily (WT < 150 kg, CrCl > 10-29 mL/min) *Enoxaparin/Lovenox 30 mg SQ BID (WT < 150 kg, CrCl > 30 mL/min) AND/OR *Sequential Compression Device (SCD) 5 or more Highest Order ONE of the following medications: *Heparin 5000 units SQ TID (Preferred with Epidurals) *Enoxaparin/Lovenox 40 mg SQ daily (WT < 150 kg, CrCl > 30 mL/min) *Enoxaparin/Lovenox 30 mg SQ daily (WT < 150 kg, CrCl > 10-29 mL/min) *Enoxaparin/Lovenox 30 mg SQ BID (WT < 150 kg, CrCl > 30 mL/min) AND *Sequential Compression Device (SCD) Assessment and Plan Assessment and Plan //NSTEMI //Acute CHF exacerbation. -Troponin 0.78 on admission. BNP 551. Severe bilateral lower extremity edema. -Diuresis. Strict fluid monitoring. -Continue CHF medications, aspirin, Coreg, lisinopril -Heparin drip. -admit to [facility] on telemetry. -Trend troponins, EKGs. //Acute chronic kidney injury. Creatinine 2.3 from 1.5 baseline. -Suspect cardiorenal. Diuresis. Continue to monitor //Bowel lower extremity venous stasis cellulitis. This is likely exacerbated with CHF. Keep extremities elevated, diuresis. No signs of acute infection. Continue to monitor. //Atrial fibrillation. -Continue Cardizem. inr subtherapeutic. Will be on heparin on admission. ac as per cardiology. //Diabetes mellitus. -Diabetic diet with sliding scale. Nothing by mouth on admission however. //Prophylaxis. SCDs. on heparin drip on admission Discussed Condition With Patient, nurse, ED physician. Physician Certification 2 Midnight Certification Type: Admission for Inpatient Services Order for Inpatient Services The services are ordered in accordance with Medicare regulations or non- Medicare payer requirements, as applicable. In the case of services not specified as inpatient-only, they are appropriately provided as inpatient services in accordance with the 2-midnight benchmark. Estimated LOS (days): 2 days is the estimated time the patient will need to remain in the hospital, assuming treatment plan goals are met and no additional complications. Post-Hospital Plan: Not yet determined Dany Keys MD Feb 02, 2017 15:21
[2017-02-02 16:56] LABS: HEMATOCRIT 37.9 % (39.0-51.0); MEAN CELL VOLUME 92.9 FL (80.0-100.0); MEAN CORPUSCULAR HEMOGLOBIN 31.3 PG (27.0-34.0); MEAN CORPUSCULAR HGB CONC 33.7 % (32.0-36.0); PLATELET COUNT 283 TH/MM3 (150-450); RED BLOOD COUNT 4.08 MIL/MM3 (4.50-5.90); RED CELL DISTRIBUTION WIDTH 16.7 % (11.6-17.2); REVIEW FLAG FINAL; WHITE BLOOD COUNT 7.6 TH/MM3 (4.0-11.0)
[2017-02-02] MEDS: INSULIN ASPART SUPPLEMENTAL SCALE SQ SCH ×2 (17:02→21:12)
[2017-02-02 17:06] LABS: APTT (PATIENT) 33.4 SEC (24.3-30.1); INTERNATIONAL NORMALIZED RATIO 1.1 RATIO
[2017-02-02] MEDS ORDERED: FUROSEMIDE 40 MG/4 ML VIAL IV PUSH SCH (18:00)
[2017-02-02] MEDS ORDERED: HEPARIN SODIUM - IV 10,000 UNITS/10 ML VIAL IV PRN (18:45)
[2017-02-02] MEDS: HEPARIN SODIUM - IV 10,000 UNITS/10 ML VIAL IV PRN (18:53)
[2017-02-02] MEDS ORDERED: MAGNESIUM HYDROXIDE SUSP 30 ML CUP PO ONE (19:15)
[2017-02-02] MEDS ORDERED: DOCUSATE SODIUM 50 MG/SENNA 8.6 MG TAB PO ONE (19:15)
[2017-02-02] MEDS: PRAVASTATIN SOD 40 MG TAB PO SCH (20:08)
[2017-02-02] MEDS: CARVEDILOL 12.5 MG TAB PO SCH ×2 (20:08→21:00)
[2017-02-02 20:09] LABS: APTT (PATIENT) 59.1 SEC (24.3-30.1)
[2017-02-02] MEDS ORDERED: SODIUM CHLORIDE 0.9% FLUSH 10 ML FLUSH IV FLUSH SCH (21:00)
[2017-02-02] MEDS ORDERED: ONDANSETRON ODT 4 MG TAB PO PRN (21:15)
[2017-02-02] MEDS ORDERED: SODIUM CHLOR 0.9% 250 ML INJ 250 ML IV ONE (21:30)
[2017-02-02] MEDS ORDERED: ONDANSETRON HCL 4 MG/2 ML VIAL IV PUSH PRN (21:30)
[2017-02-02 21:49] LABS: HEMOGLOBIN A1a 1.5 %; HEMOGLOBIN Ao 81.5 %; HEMOGLOBIN F 1.3 %
[2017-02-03] VITALS (21 sets, daily range): BP systolic 76–119; BP diastolic 40–75; PULSE 13–83; RESP 18–20; TEMP 97.7–98.2; O2SAT 83–99
[2017-02-03 01:06] LABS: APTT (PATIENT) 49.4 SEC (24.3-30.1)
[2017-02-03 07:37] LABS: AUTOMATED NEUTROPHIL # 8.5 TH/MM3 (1.8-7.7); BASOPHIL % 0.2 % (0.0-2.0); HEMATOCRIT 40.4 % (39.0-51.0); HEMO FLAGS DIFF FINAL; LYMPH % 13.9 % (9.0-44.0); LYMPHOCYTE # 1.5 TH/MM3 (1.0-4.8); MEAN CELL VOLUME 95.6 FL (80.0-100.0); MEAN CORPUSCULAR HGB CONC 32.4 % (32.0-36.0); MONO % 8.1 % (0.0-8.0); NEUT % 77.8 % (16.0-70.0); PLATELET COUNT 238 TH/MM3 (150-450); RED BLOOD COUNT 4.22 MIL/MM3 (4.50-5.90)
[2017-02-03] MEDS ORDERED: EPINEPHrine HCL (1:1000) 1 MG/ML VIAL ONE (07:41)
[2017-02-03 07:44] LABS: APTT (PATIENT) 33.2 SEC (24.3-30.1)
--- NOTE | 2017-02-03 07:48 | HHI.PR ---
Addendum to Inpatient Note Addendum Reason: Additional Documentation Additional Information Was called to code blue @07:30. Arrived to room to see two intensivists stabilizing patient. Femoral pulse was auscultated, patient found to be bradycardic. A/P: -Plan was for patient to be intubated and transferred to ICU. Phyllis Santos MD R1 Feb 03, 2017 07:48
[2017-02-03 07:55] LABS: BLOOD GAS VENOUS HCO3 10 mmol/L (22-26); BLOOD GAS VENOUS O2 CONTENT 1.8 Vol % (9.0-17.0); BLOOD GAS VENOUS O2 HGB SAT 14 % (70-76); BLOOD GAS VENOUS PCO2 38 mmHg (44-48); BLOOD GAS VENOUS pH 7.04 (7.360-7.400); TEMP CORR TO 98.6
[2017-02-03 07:56] LABS: BLOOD GAS VENOUS PO2 22 mmHg (35-40); CRITICAL VALUE YES; DRAW SITE CENTRAL LINE; FIO2 100 %; OXYGEN DEVICE MASK; STAT YES
[2017-02-03] MEDS ORDERED: NOREPINEPHRINE 4 MG/4 ML AMP ONE (08:03)
[2017-02-03] MEDS: EPINEPHrine (1:1000) INJ 2 MG in DEXTROSE 5% IN WATER INJ 250 ML IV PRN ×12 (08:30→20:33)
[2017-02-03] MEDS ORDERED: TERBUTALINE INJ 1 MG/ML AMP SQ PRN ×3 (08:30→16:30)
[2017-02-03 08:33] LABS: BLOOD GAS BASE EXCESS -16.1 mmol/L (-2-2); BLOOD GAS CARBOXYHEMOGLOBIN 0.4 % (0-4); BLOOD GAS HCO3 13 mmol/L (22-26); BLOOD GAS METHEMOGLOBIN 1.2 % (0-2); BLOOD GAS O2 HGB SATURATION 86 % (90-100); BLOOD GAS OXYGEN CONTENT 14.5 Vol % (12.0-20.0); BLOOD GAS PCO2 52 mmHg (38-42); BLOOD GAS PO2 88 mmHg (61-120); BLOOD GAS TOTAL HGB 11.8 G/DL (12.0-16.0); CRITICAL VALUE YES; OXYGEN DEVICE VENTILATOR; TEMP CORR TO 98.6
[2017-02-03 08:34] LABS: DRAW SITE ART LINE; FIO2 100 %; STAT YES; VENT SETTINGS A/C 500/16/5PEEP
[2017-02-03 08:55] LABS: BLOOD GAS BASE EXCESS -16.4 mmol/L (-2-2); BLOOD GAS CARBOXYHEMOGLOBIN 0.4 % (0-4); BLOOD GAS HCO3 12 mmol/L (22-26); BLOOD GAS METHEMOGLOBIN 1.2 % (0-2); BLOOD GAS O2 HGB SATURATION 84 % (90-100); BLOOD GAS OXYGEN CONTENT 13.4 Vol % (12.0-20.0); BLOOD GAS PCO2 45 mmHg (38-42); BLOOD GAS PO2 81 mmHg (61-120); BLOOD GAS TOTAL HGB 11.2 G/DL (12.0-16.0); CRITICAL VALUE YES; FIO2 100 %; OXYGEN DEVICE VENTILATOR; TEMP CORR TO 98.6; VENT SETTINGS A/C16/550/PEEP5
[2017-02-03 08:56] LABS: DRAW SITE ALINE; STAT NO
[2017-02-03 08:58] LABS: AUTOMATED NEUTROPHIL # 8.2 TH/MM3 (1.8-7.7); BASOPHIL % 0.1 % (0.0-2.0); HEMATOCRIT 36.4 % (39.0-51.0); HEMO FLAGS DIFF FINAL; LYMPH % 11.3 % (9.0-44.0); LYMPHOCYTE # 1.1 TH/MM3 (1.0-4.8); MEAN CELL VOLUME 95.8 FL (80.0-100.0); MEAN CORPUSCULAR HEMOGLOBIN 30.8 PG (27.0-34.0); MEAN CORPUSCULAR HGB CONC 32.2 % (32.0-36.0); MONO % 7.2 % (0.0-8.0); NEUT % 81.4 % (16.0-70.0); PLATELET COUNT 220 TH/MM3 (150-450); RED CELL DISTRIBUTION WIDTH 16.9 % (11.6-17.2); WHITE BLOOD COUNT 10.1 TH/MM3 (4.0-11.0)
[2017-02-03] MEDS ORDERED: RESP: ALBUTEROL 2.5 MG/IPRATROPIUM 0.5 MG NEB (PRN) NEB (09:00)
[2017-02-03] MEDS ORDERED: DILTIAZEM-CD 300 MG CAP ER PO SCH (09:00)
[2017-02-03] MEDS: NOREPINEPHRINE INJ 4 MG in SODIUM CHLOR 0.9% 250 ML INJ 246 ML IV PRN ×6 (09:00→23:43)
[2017-02-03] MEDS ORDERED: GLUCAGON 1 MG/ML VIAL OTHER PRN (09:00)
[2017-02-03] MEDS ORDERED: DEXTROSE 50% IN WATER 50 ML VIAL(D50) IV PUSH PRN (09:00)
[2017-02-03] MEDS ORDERED: SODIUM BICARBONATE 8.4% INJ 50 MEQ/50 ML SYR IV PUSH ONE (09:00)
[2017-02-03] MEDS ORDERED: LISINOPRIL 5 MG TAB PO SCH (09:00)
[2017-02-03] MEDS ORDERED: SPIRONOLACTONE 25 MG TAB PO SCH (09:00)
[2017-02-03] MEDS: ASPIRIN EC 325 MG TABEC PO SCH (09:00)
[2017-02-03 09:04] LABS: ANION GAP 22 MEQ/L (5-15); BICARBONATE 13.2 MEQ/L (21.0-32.0); BLOOD UREA NITROGEN 54 MG/DL (7-18); CHLORIDE 104 MEQ/L (98-107); GLOMERULAR FILTRATION RATE 17 ML/MIN (>89); SODIUM (NA) 139 MEQ/L (136-145)
[2017-02-03 09:06] LABS: APTT (PATIENT) 30.9 SEC (24.3-30.1); INTERNATIONAL NORMALIZED RATIO 1.5 RATIO; PROTHROMBIN TIME - PATIENT 17.4 SEC (9.8-11.6)
[2017-02-03] MEDS ORDERED: SODIUM BICARBONATE 8.4% INJ 50 MEQ/50 ML SYR ONE (09:07)
[2017-02-03 09:13] LABS: ALKALINE PHOSPHATASE 65 U/L (45-117); ALT (GPT) 1590 U/L (12-78); AST (GOT) 1918 U/L (15-37); HDL CHOLESTEROL 40.9 MG/DL (40.0-60.0); LDL CHOLESTEROL 25 MG/DL (0-99); TOTAL BILIRUBIN ADULT 1.3 MG/DL (0.2-1.0)
--- NOTE | 2017-02-03 09:16 | RADRPT ---
EXAM DATE/TIME: 02/03/2017 08:27 [facility] COMPARISON: CHEST SINGLE AP, February 02, 2017, 11:25. INDICATIONS : Respiratory failure. Stat post CPR. MEDICAL HISTORY : Hypercholesterolemia. Hypertension Diabetes mellitus type II. SURGICAL HISTORY : None. ENCOUNTER: Subsequent ACUITY: 2 days PAIN SCORE: Non-responsive. LOCATION: Bilateral chest FINDINGS: Endotracheal tube tip in good position. Nasogastric tube enters stomach. Bilateral mostly basilar and dependent lung consolidation with pleural effusions similar to February 02. No pneumothorax. CONCLUSION: 1. Support apparatus in good position. Basilar and dependent airspace disease and pleural effusions s imilar to February 02. Dwain Redding MD on February 03, 2017 at 9:11 Board Certified Radiologist. This report was verified electronically.
--- NOTE | 2017-02-03 09:19 | PD.CONS ---
HPI Service Critical Care Medicine Consult Requested By Primary Care Physician Kandy Mullen MD History of Present Illness This is a 71-year-old male with a history of hypertension, diabetes, atrial fibrillation, ischemic cardiomyopathy with ejection fraction 20% on most recent echocardiogram that presented to the ED on 02/02/17 with a 2 day history of worsening bilateral lower extremity edema, as well as constant left chest, neck pressure. The patient has a medical history significant for ischemic cardiomyopathy and normally wears a life vest at home as well as being O2 dependent. His lifevest as it began blinking at home, and he was informed by the LifeVest central lab technician to report to the ED. The LifeVest was removed in the ED , the patient was evaluated and seen and admitted to see [facility], and cardiology was consulted. Imaging and laboratory studies revealed NSTEMI, the patient was placed on heparin infusion. At 07:30 AM, CODE BLUE cardiac arrest occurred, the patient did not have an IV access, ACLS protocol was initiated, femoral triple-lumen central line was placed, the patient was intubated and received 2 mg of epinephrine in divided doses via endotracheal tube. Initially rhythm asystole, followed by PEA and return of ROSC at 5 minutes. The patient was severely acidotic and received sodium bicarbonate and calcium. Epinephrine infusion was instituted, followed by requirements for norepinephrine and vasopressin. The patient was awakened, responded and follow commands, moving extremities 4, squeezing hands, becoming combative. The patient was placed on fentanyl infusion for ventilator synchrony. The patient was transferred to CVICU. Contacted the patient's sister, for him to continue aggressive measures if needed. Cardiology was informed of the event. ROS - General Review of Systems Except as stated in HPI: all other systems reviewed are Neg PFSH Past Family Social History Past Medical History Hypertension Diabetes mellitus CHF Atrial fibrillation Lymphedema Ischemic cardio myopathy with ejection fraction 20% on most recent echocardiogram last month. CK D Blind. Prosthesis left eye, right eye blind Past Surgical History Multiple eye surgeries Reported Medications Reported Meds & Active Scripts Active Furosemide 80 Mg Tab 80 Mg PO DAILY Aldactone (Spironolactone) 25 Mg Tab 25 Mg PO DAILY Diltiazem CD 24 HR 300 Mg Caper 300 Mg PO DAILY Coreg (Carvedilol) 12.5 Mg Tab 12.5 Mg PO Q12HR Coumadin (Warfarin) 10 Mg Tab 10 Mg PO DAILY@16 Defibrillator Jacket (Device) 1 Ea Device Ea EXTERNAL ONCE Energy = 150 Joules; VT Threshold = 150 BPM; VF Threshold = 200 BPM Use up to 90 days only Aspirin EC (Aspirin) 325 Mg Tabdr 325 Mg PO DAILY Lisinopril 2.5 Mg Tab 2.5 Mg PO DAILY Oxygen (O2) Device Liter ADRI.CANULA CONTINUOUS Oxygen Concentrator Portable Gaseous 2 L/min via Nasal Canula Continuous For 99 months Mupirocin Topical (Mupirocin) 2 % Oint 1 Applic TOPICAL BID Reported Simvastatin 20 Mg Tab 20 Mg PO HS Klor-Con 10 (Potassium Chloride) 10 Meq Tab 10 Meq PO DAILY Metformin ER (Metformin HCl) 500 Mg Nicanor 500 Mg PO DAILY With evening meal Januvia (Sitagliptin Phosphate) 100 Mg Tab 100 Mg PO DAILY Glipizide 10 Mg Tab 10 Mg PO HS Take 30 minutes before a meal Allergies: Coded Allergies: Sulfa (Sulfonamide Antibiotics) (Unverified Allergy, Severe, TONGUE SWELLING, 01/01/17) Family History Patient is uncertain about his parents medical history. Social History Quit smoking 11 years ago. Per reportof medical records twice yearly alcohol use. Denied any illicit drug use. Physical Exam Vital Signs Vital Signs Date Time Temp Pulse Resp B/P (MAP) Pulse Ox O2 Delivery O2 Flow Rate FiO2 02/03/17 05:56 57 02/03/17 05:00 58 02/03/17 04:00 Nasal Cannula 4.00 02/03/17 04:00 60 02/03/17 04:00 98.2 60 18 96/53 (67) 96 02/03/17 03:00 62 02/03/17 02:00 60 02/03/17 01:00 62 02/03/17 00:00 98.0 70 18 97/75 (82) 97 02/03/17 00:00 65 02/02/17 23:00 63 02/02/17 22:00 66 02/02/17 21:00 67 02/02/17 20:00 98.0 67 18 74/58 (63) 95 02/02/17 20:00 65 02/02/17 15:57 97.5 103 18 101/66 (78) 93 02/02/17 15:31 02/02/17 11:30 95 18 94 Room Air 02/02/17 11:30 98.4 101 18 107/65 (79) 92 Nasal Cannula 2.00 02/02/17 11:30 92 Nasal Cannula 2.00 02/02/17 11:30 92 Nasal Cannula 2.00 02/02/17 11:20 94 18 107/65 (79) 92 Physical Exam GENERAL: Well-developed, well-nourished critically ill-appearing male, intubated SKIN: Warm and dry. HEAD: Atraumatic. Normocephalic. EYES: Pupils equal and round. No scleral icterus. No injection or drainage. ENT: No nasal bleeding or discharge. Mucous membranes pink and moist. NECK: Trachea midline. No JVD. CARDIOVASCULAR: Normal rate, regular rhythm. RESPIRATORY: No accessory muscle use. Clear to auscultation. Breath sounds equal bilaterally. GASTROINTESTINAL: Abdomen soft, non-tender, nondistended. No guarding. MUSCULOSKELETAL: Extremities without clubbing, cyanosis, or edema. Venous stasis bilateral lower extremities with 1+ edema. No obvious deformities. NEUROLOGICAL: Postcardiac arrest awake and alert. RASS 0. Followed commands in all 4 extremities. Patient is blind. Placed on fentanyl for ventilator synchrony Laboratory Laboratory Tests Test 02/02/17 11:20 02/02/17 16:40 02/02/17 19:44 02/02/17 23:59 White Blood Count 9.1 7.6 Red Blood Count 3.94 4.08 Hemoglobin 12.1 12.8 Bedside Hemoglobin 12.9 Hematocrit 36.5 37.9 Bedside Hematocrit 38.0 Mean Corpuscular Volume 92.7 92.9 Mean Corpuscular Hemoglobin 30.7 31.3 Mean Corpuscular Hemoglobin Concent 33.1 33.7 Red Cell Distribution Width 16.5 16.7 Platelet Count 272 283 Mean Platelet Volume 8.4 8.5 Neutrophils (%) (Auto) 80.5 Lymphocytes (%) (Auto) 10.6 Monocytes (%) (Auto) 7.0 Eosinophils (%) (Auto) 0.7 Basophils (%) (Auto) 1.2 Neutrophils # (Auto) 7.3 Lymphocytes # (Auto) 1.0 Monocytes # (Auto) 0.6 Eosinophils # (Auto) 0.1 Basophils # (Auto) 0.1 CBC Comment DIFF FINAL Differential Comment Prothrombin Time 11.9 12.0 Prothromb Time International Ratio 1.1 1.1 Activated Partial Thromboplast Time 24.8 33.4 59.1 49.4 Bedside Sodium 139 Bedside Potassium 4.1 Bedside Chloride 101 Bedside Blood Urea Nitrogen 37 Bedside Creatinine 2.3 Bedside Glucose 235 Calcium Level 8.6 Magnesium Level 1.5 Total Creatine Kinase 91 Troponin I 0.78 12.40 31.60 B-Type Natriuretic Peptide 551 623 Hemoglobin A1c 6.7 Test 02/03/17 07:00 02/03/17 07:38 02/03/17 08:00 02/03/17 08:18 White Blood Count 11.0 Red Blood Count 4.22 Hemoglobin 13.1 Hematocrit 40.4 Mean Corpuscular Volume 95.6 Mean Corpuscular Hemoglobin 31.0 Mean Corpuscular Hemoglobin Concent 32.4 Red Cell Distribution Width 17.0 Platelet Count 238 Mean Platelet Volume 9.6 Neutrophils (%) (Auto) 77.8 Lymphocytes (%) (Auto) 13.9 Monocytes (%) (Auto) 8.1 Eosinophils (%) (Auto) 0.0 Basophils (%) (Auto) 0.2 Neutrophils # (Auto) 8.5 Lymphocytes # (Auto) 1.5 Monocytes # (Auto) 0.9 Eosinophils # (Auto) 0.0 Basophils # (Auto) 0.0 CBC Comment DIFF FINAL Differential Comment Activated Partial Thromboplast Time 33.2 Blood Gas Puncture Site CENTRAL LINE ART LINE Blood Gas Patient Temperature 98.6 98.6 Venous Blood pH 7.04 Venous Blood Partial Pressure CO2 38 Venous Blood Partial Pressure O2 22 Venous Blood HCO3 10 Venous Blood Oxygen Saturation 14 Venous Blood Oxygen Content 1.8 Venous Blood Base Excess -19.0 Oxygen Delivery Device MASK VENTILATOR Blood Gas Inspired Oxygen 100 100 Blood Gas HCO3 13 Blood Gas Base Excess -16.1 Blood Gas Oxygen Saturation 86 Arterial Blood pH 7.02 Arterial Blood Partial Pressure CO2 52 Arterial Blood Partial Pressure O2 88 Arterial Blood Oxygen Content 14.5 Arterial Blood Carboxyhemoglobin 0.4 Arterial Blood Methemoglobin 1.2 Blood Gas Hemoglobin 11.8 Blood Gas Ventilator Setting A/C 500/16/5PEEP Result Diagram: 02/03/17 0700 Imaging Last Impressions Chest X-Ray 02/02/17 1123 Signed Impressions: Service Date/Time: Thursday, February 02, 2017 11:25 - CONCLUSION: 1. Cardiomegaly with positive fluid balance. 2. Stable bilateral lower lobe airspace disease with small, left greater than right, pleural effusions. Ralph Wynn MD Septic Shock Reassessment Heart: Regular rate and rhythm Lungs: Crackles Peripheral Pulses: Weak Right Radial Weak Left Radial Weak Right Dorsalis Pedis Weak Left Dorsalis Pedis Capillary Refill: <2 seconds Assessment and Plan Problem List: (1) NSTEMI (non-ST elevation myocardial infarction) ICD Code: I21.4 - Non-ST elevation (NSTEMI) myocardial infarction Status: Acute (2) CHF exacerbation ICD Code: I50.9 - Heart failure, unspecified Status: Acute (3) Stage 3 chronic kidney disease ICD Code: N18.3 - Chronic kidney disease, stage 3 (moderate) Status: Acute (4) CHF (NYHA class IV, ACC/AHA stage D) ICD Code: I50.9 - Heart failure, unspecified Status: Acute (5) ISI (acute kidney injury) ICD Code: N17.9 - Acute kidney failure, unspecified Status: Acute (6) Acute hypoxemic respiratory failure ICD Code: J96.01 - Acute respiratory failure with hypoxia Status: Acute (7) Hypoxia ICD Code: R09.02 - Hypoxemia Status: Acute (8) Blind ICD Code: H54.7 - Unspecified visual loss Status: Chronic (9) Hypercholesteremia ICD Code: E78.00 - Pure hypercholesterolemia, unspecified Status: Chronic (10) Ischemic cardiomyopathy ICD Code: I25.5 - Ischemic cardiomyopathy Status: Acute Assessment and Plan Assessment This is a 71-year-old critically ill male with a long history of ischemic cardiomyopathy status post NSTEMI, now cardiac arrest. The patient is critically ill and is at risk for decompensation or . NSTEMI Status post cardiac arrest(ROSC in 5 mins) Acute hypoxemic and hypercapnic respiratory failure Home O2 dependence Ischemic cardiomyopathy-LifeVest dependent Ischemic cardiomyopathy (EF 20%) Cardiomegaly Acute on chronic kidney disease History of hypertension Hypercholesterolemia Diabetes mellitus Blindness Plan by systems: Neurologic: Fentanyl infusion for ventilator synchrony Post Cardiac arrest patient was GCS 11 T-following commands Respiratory: Obtain O2 sat greater than 92% Follow-up stat chest x-ray Monitor ABG and chest x-rays as indicated Bronchodilators every 6 hours scheduled every 2 hours when necessary Ventilator bundle Cardiovascular: Cardiology following Patient currently on norepinephrine, epinephrine, vasopressin to maintain map of 65 Heparin infusion management per cardiology Renal: Maintain [place] -- Strict I/Os FEN/GI: Electrolyte replacement per ICU protocol Insert OGT LIWS Bowel regimen Zofran for nausea Heme/ID: Monitor CBC Endocrine: Blood glucose monitoring per ICU protocol -- SSI Prophylaxis: GI Prophylaxis Pepcid BID DVT Prophylaxis -- SCDs Heparin infusion Lines: Right femoral central line, right radial arterial line (day 1) Dispo: This patient remains critically ill with one or more organ systems which are or may become a threat to life. I have spent in excess of 89 minutes discontinuously in the care and management of this patient. This time is exclusive of procedures, and includes, but is not limited to, evaluation of the patient, review of the medical record, discussions with family, consultants, nursing staff, or respiratory therapy, and documentation in the medical record. Code Status Full Discussed Condition With Patient's sister, DIRECTOR [employer] at Bedside Argenis Thomas MD Feb 03, 2017 09:19
[2017-02-03 09:23] LABS: MAGNESIUM 1.9 MG/DL (1.5-2.5)
[2017-02-03] MEDS ORDERED: CALCIUM CHLORIDE 10% SOLN 1 GRAM/10 ML SYR ONE (09:34)
[2017-02-03] MEDS ORDERED: FAMOTIDINE 20 MG/2 ML VIAL IV PUSH SCH (10:00)
--- NOTE | 2017-02-03 10:13 | PD.PROCEDR ---
Procedure Note Procedure Endotracheal Intubation Diagnosis: Cardiac arrest Indications: Cardiac arrest Consent: Emergent Anesthesia: No Description of the Procedure: The patient was positioned in the sniffing position. Pre-oxygenation was performed using a [ ]. Anesthesia was induced via rapid sequence. A glidescope 4 was used for laryngoscopy and a Grade 1 view was obtained. A 8.0 cuffed endotracheal tube was inserted atraumatically through the vocal cords. Confirmation of correct endotracheal tube placement was made by equal and bilateral breath sounds and colorimetric CO2 detection. The endotracheal tube was secured at 26 cm at the teeth. There were no immediate complications noted. The patient remained hemodynamically stable throughout the procedure. A chest x-ray has been ordered. I personally performed the procedure. Argenis Thomas MD Feb 03, 2017 10:13
[2017-02-03] MEDS: VASOPRESSIN INJ 40 UNITS in DEXTROSE 5% IN WATER 100ML INJ 98 ML IV SCH ×2 (10:18)
[2017-02-03] MEDS ORDERED: FUROSEMIDE 40 MG/4 ML VIAL ONE (10:34)
[2017-02-03] MEDS: RESP: ALBUTEROL 2.5 MG/IPRATROPIUM 0.5 MG NEB (SCH) NEB ×3 (10:35→20:54)
--- NOTE | 2017-02-03 10:40 | PD.CARD.PN ---
Subjective Subjective Remarks Events overnight/this morning noted Patient in asystole on critical care team arrival, no arrhythmias noted. Intubated. Epi given via the ET tube, rhythm changed to PEA. CPR leading to ROSC. Now intubated and sedated in the ICU, on multiple vasopressor medications Non-invasive monitoring showing Cardiac Index of 2.6 Objective Medications Current Medications Medications (Trade) Dose Ordered Sig/Rosalie Route Start Time Stop Time Status Last Admin (Heparin Inj) 5,000 units UNSCH PRN IV 02/02/17 18:45 (Heparin Inj) 2,500 units UNSCH PRN IV 02/02/17 18:45 02/02/17 18:53 Heparin Sodium/ Dextrose 250 ml @ 10 mls/hr TITRATE PRN IV 02/02/17 12:45 02/02/17 13:39 (NS Flush) 2 ml UNSCH PRN IV FLUSH 02/02/17 13:00 (Narcan Inj) 0.4 mg UNSCH PRN IV PUSH 02/02/17 13:00 (Milk Of Magnesia Liq) 30 ml Q12H PRN PO 02/02/17 13:00 (Senokot) 17.2 mg Q12H PRN PO 02/02/17 13:00 (Dulcolax Supp) 10 mg DAILY PRN RECTAL 02/02/17 13:00 (Lactulose Liq) 30 ml DAILY PRN PO 02/02/17 13:00 (Lasix Inj) 40 mg BID@09,18 IV PUSH 02/02/17 18:00 Future Hold 02/02/17 17:03 (Ecotrin Ec) 325 mg DAILY PO 02/03/17 09:00 (Coreg) 12.5 mg Q12HR PO 02/02/17 21:00 Future Hold (Pravachol) 40 mg HS PO 02/02/17 21:00 02/02/17 20:08 (Zofran Inj) 4 mg Q6HR PRN IV PUSH 02/02/17 21:30 Epinephrine HCl 2 mg/Dextrose 252 ml @ 22.68 mls/ hr TITRATE PRN IV 02/03/17 08:30 Fentanyl Citrate 250 ml @ 5 mls/hr TITRATE PRN IV 02/03/17 08:30 (Brethine Inj) 1 mg UNSCH PRN SQ 02/03/17 08:30 Vasopressin 40 units/Dextrose 100 ml @ 1.5 mls/hr Q24H IV 02/03/17 08:38 02/03/17 10:18 (Peridex 0.12% Liq) 15 ml BID@08,20 MT 02/03/17 20:00 (Duoneb Neb) 1 ampule Q6HR NEB NEB 02/03/17 10:00 (Duoneb Neb) 1 ampule Q2HR NEB PRN NEB 02/03/17 09:00 (D50w (Vial) Inj) 50 ml UNSCH PRN IV PUSH 02/03/17 09:00 (Glucagon Inj) 1 mg UNSCH PRN OTHER 02/03/17 09:00 (NovoLOG SUPPLEMENTAL SCALE) 1 ACHS SLIDING SCALE SQ 02/03/17 12:00 Sodium Bicarbonate 150 meq/Sodium Chloride 1,000 ml @ 50 mls/hr Q20H IV 02/03/17 10:00 (Pepcid Inj) 20 mg Q12HR IV PUSH 02/03/17 10:00 Levofloxacin/ Dextrose 150 ml @ 100 mls/hr Q24H IV 02/03/17 10:15 UNV Vital Signs / I&O Vital Signs Date Time Temp Pulse Resp B/P (MAP) Pulse Ox O2 Delivery O2 Flow Rate FiO2 02/03/17 10:18 68 81/51 02/03/17 10:13 68 86/43 02/03/17 08:30 97.7 68 18 94/57 (69) 83 76/40 (52) 02/03/17 08:30 83 Mechanical Ventilator 100 02/03/17 08:30 68 02/03/17 05:56 57 02/03/17 05:00 58 02/03/17 04:00 Nasal Cannula 4.00 02/03/17 04:00 60 02/03/17 04:00 98.2 60 18 96/53 (67) 96 02/03/17 03:00 62 02/03/17 02:00 60 02/03/17 01:00 62 02/03/17 00:00 98.0 70 18 97/75 (82) 97 02/03/17 00:00 65 02/02/17 23:00 63 02/02/17 22:00 66 02/02/17 21:00 67 02/02/17 20:00 98.0 67 18 74/58 (63) 95 02/02/17 20:00 65 02/02/17 15:57 97.5 103 18 101/66 (78) 93 02/02/17 15:31 02/02/17 11:30 95 18 94 Room Air 02/02/17 11:30 98.4 101 18 107/65 (79) 92 Nasal Cannula 2.00 02/02/17 11:30 92 Nasal Cannula 2.00 02/02/17 11:30 92 Nasal Cannula 2.00 02/02/17 11:20 94 18 107/65 (79) 92 I/O 02/02/17 02/02/17 02/02/17 02/03/17 02/03/17 02/03/17 07:00 15:00 23:00 07:00 15:00 23:00 Intake Total 292 ml 840 ml Balance 292 ml 840 ml Intake Oral 240 ml 480 ml IV Total 52 ml 360 ml Bladder Scan Volume Amount 70 ml # Voids 0 3 # Bowel Movements 0 0 Physical Exam GENERAL: Intubated and sedated SKIN: Warm and dry. HEAD: Atraumatic. Normocephalic. EYES: Gauze over left eye, right eye blind ENT: No nasal bleeding or discharge. Mucous membranes pink and moist. NECK: Trachea midline. No JVD. CARDIOVASCULAR: Regular rate and rhythm. RESPIRATORY: No accessory muscle use. Decreased breath sounds bilaterally GASTROINTESTINAL: Abdomen soft, non-tender, nondistended. Hepatic and splenic margins not palpable. MUSCULOSKELETAL: Extremities with 2+ pitting edema NEUROLOGICAL: Intubated and sedated Laboratory Laboratory Tests Test 02/02/17 11:20 02/02/17 16:40 02/02/17 19:44 02/02/17 23:59 White Blood Count 9.1 TH/MM3 7.6 TH/MM3 Red Blood Count 3.94 MIL/MM3 4.08 MIL/MM3 Hemoglobin 12.1 GM/DL 12.8 GM/DL Bedside Hemoglobin 12.9 G/DL Hematocrit 36.5 % 37.9 % Bedside Hematocrit 38.0 % Mean Corpuscular Volume 92.7 FL 92.9 FL Mean Corpuscular Hemoglobin 30.7 PG 31.3 PG Mean Corpuscular Hemoglobin Concent 33.1 % 33.7 % Red Cell Distribution Width 16.5 % 16.7 % Platelet Count 272 TH/MM3 283 TH/MM3 Mean Platelet Volume 8.4 FL 8.5 FL Neutrophils (%) (Auto) 80.5 % Lymphocytes (%) (Auto) 10.6 % Monocytes (%) (Auto) 7.0 % Eosinophils (%) (Auto) 0.7 % Basophils (%) (Auto) 1.2 % Neutrophils # (Auto) 7.3 TH/MM3 Lymphocytes # (Auto) 1.0 TH/MM3 Monocytes # (Auto) 0.6 TH/MM3 Eosinophils # (Auto) 0.1 TH/MM3 Basophils # (Auto) 0.1 TH/MM3 CBC Comment DIFF FINAL Differential Comment Prothrombin Time 11.9 SEC 12.0 SEC Prothromb Time International Ratio 1.1 RATIO 1.1 RATIO Activated Partial Thromboplast Time 24.8 SEC 33.4 SEC 59.1 SEC 49.4 SEC Bedside Sodium 139 MMOL/L Bedside Potassium 4.1 MMOL/L Bedside Chloride 101 MMOL/L Bedside Blood Urea Nitrogen 37 MG/DL Bedside Creatinine 2.3 MG/DL Bedside Glucose 235 MG/DL Calcium Level 8.6 MG/DL Magnesium Level 1.5 MG/DL Total Creatine Kinase 91 U/L Troponin I 0.78 NG/ML 12.40 NG/ML 31.60 NG/ML B-Type Natriuretic Peptide 551 PG/ML 623 PG/ML Hemoglobin A1c 6.7 % Test 02/03/17 07:00 02/03/17 07:38 02/03/17 08:00 02/03/17 08:18 White Blood Count 11.0 TH/MM3 10.1 TH/MM3 Red Blood Count 4.22 MIL/MM3 3.80 MIL/MM3 Hemoglobin 13.1 GM/DL 11.7 GM/DL Hematocrit 40.4 % 36.4 % Mean Corpuscular Volume 95.6 FL 95.8 FL Mean Corpuscular Hemoglobin 31.0 PG 30.8 PG Mean Corpuscular Hemoglobin Concent 32.4 % 32.2 % Red Cell Distribution Width 17.0 % 16.9 % Platelet Count 238 TH/MM3 220 TH/MM3 Mean Platelet Volume 9.6 FL 9.1 FL Neutrophils (%) (Auto) 77.8 % 81.4 % Lymphocytes (%) (Auto) 13.9 % 11.3 % Monocytes (%) (Auto) 8.1 % 7.2 % Eosinophils (%) (Auto) 0.0 % 0.0 % Basophils (%) (Auto) 0.2 % 0.1 % Neutrophils # (Auto) 8.5 TH/MM3 8.2 TH/MM3 Lymphocytes # (Auto) 1.5 TH/MM3 1.1 TH/MM3 Monocytes # (Auto) 0.9 TH/MM3 0.7 TH/MM3 Eosinophils # (Auto) 0.0 TH/MM3 0.0 TH/MM3 Basophils # (Auto) 0.0 TH/MM3 0.0 TH/MM3 CBC Comment DIFF FINAL DIFF FINAL Differential Comment Activated Partial Thromboplast Time 33.2 SEC 30.9 SEC Blood Gas Puncture Site CENTRAL LINE ART LINE Blood Gas Patient Temperature 98.6 98.6 Venous Blood pH 7.04 Venous Blood Partial Pressure CO2 38 mmHg Venous Blood Partial Pressure O2 22 mmHg Venous Blood HCO3 10 mmol/L Venous Blood Oxygen Saturation 14 % Venous Blood Oxygen Content 1.8 Vol % Venous Blood Base Excess -19.0 mmol/L Oxygen Delivery Device MASK VENTILATOR Blood Gas Inspired Oxygen 100 % 100 % Prothrombin Time 17.4 SEC Prothromb Time International Ratio 1.5 RATIO Blood Urea Nitrogen 54 MG/DL Creatinine 3.58 MG/DL Random Glucose 116 MG/DL Total Protein 5.9 GM/DL Albumin 2.8 GM/DL Calcium Level 9.1 MG/DL Alkaline Phosphatase 65 U/L Aspartate Amino Transf (AST/SGOT) 1918 U/L Alanine Aminotransferase (ALT/SGPT) 1590 U/L Total Bilirubin 1.3 MG/DL Sodium Level 139 MEQ/L Potassium Level 4.0 MEQ/L Chloride Level 104 MEQ/L Carbon Dioxide Level 13.2 MEQ/L Anion Gap 22 MEQ/L Estimat Glomerular Filtration Rate 17 ML/MIN Phosphorus Level 9.4 MG/DL Magnesium Level 1.9 MG/DL B-Type Natriuretic Peptide 497 PG/ML Triglycerides Level 61 MG/DL Cholesterol Level 78 MG/DL LDL Cholesterol 25 MG/DL HDL Cholesterol 40.9 MG/DL Cholesterol/HDL Ratio 1.90 RATIO Blood Gas HCO3 13 mmol/L Blood Gas Base Excess -16.1 mmol/L Blood Gas Oxygen Saturation 86 % Arterial Blood pH 7.02 Arterial Blood Partial Pressure CO2 52 mmHg Arterial Blood Partial Pressure O2 88 mmHg Arterial Blood Oxygen Content 14.5 Vol % Arterial Blood Carboxyhemoglobin 0.4 % Arterial Blood Methemoglobin 1.2 % Blood Gas Hemoglobin 11.8 G/DL Blood Gas Ventilator Setting A/C 500/16/5PEEP Test 02/03/17 08:45 Blood Gas Puncture Site BERNICE Blood Gas Patient Temperature 98.6 Blood Gas HCO3 12 mmol/L Blood Gas Base Excess -16.4 mmol/L Blood Gas Oxygen Saturation 84 % Arterial Blood pH 7.05 Arterial Blood Partial Pressure CO2 45 mmHg Arterial Blood Partial Pressure O2 81 mmHg Arterial Blood Oxygen Content 13.4 Vol % Arterial Blood Carboxyhemoglobin 0.4 % Arterial Blood Methemoglobin 1.2 % Blood Gas Hemoglobin 11.2 G/DL Oxygen Delivery Device VENTILATOR Blood Gas Ventilator Setting A/C16/550/PEEP5 Blood Gas Inspired Oxygen 100 % Imaging Last 24 hours Impressions Chest X-Ray 02/03/17 0000 Signed Impressions: Service Date/Time: Friday, February 03, 2017 08:27 - CONCLUSION: 1. Support apparatus in good position. Basilar and dependent airspace disease and pleural effusions similar to February 02. Dwain Redding MD Chest X-Ray 02/02/17 1123 Signed Impressions: Service Date/Time: Thursday, February 02, 2017 11:25 - CONCLUSION: 1. Cardiomegaly with positive fluid balance. 2. Stable bilateral lower lobe airspace disease with small, left greater than right, pleural effusions. Ralph Wynn MD Assessment and Plan Problem List: (1) NSTEMI (non-ST elevation myocardial infarction) ICD Codes: I21.4 - Non-ST elevation (NSTEMI) myocardial infarction Status: Acute (2) CHF (NYHA class IV, ACC/AHA stage D) ICD Codes: I50.9 - Heart failure, unspecified Status: Acute (3) PEA (Pulseless electrical activity) ICD Codes: I46.9 - Cardiac arrest, cause unspecified (4) ACS (acute coronary syndrome) ICD Codes: I24.9 - Acute ischemic heart disease, unspecified (5) HTN (hypertension) ICD Codes: I10 - Essential (primary) hypertension (6) Cellulitis ICD Codes: L03.90 - Cellulitis, unspecified (7) Hypoxia ICD Codes: R09.02 - Hypoxemia Status: Acute (8) Stage 3 chronic kidney disease ICD Codes: N18.3 - Chronic kidney disease, stage 3 (moderate) Status: Acute (9) CHF exacerbation ICD Codes: I50.9 - Heart failure, unspecified Status: Acute (10) Afib ICD Codes: I48.91 - Unspecified atrial fibrillation Status: Chronic Assessment and Plan 1) PEA arrest s/p CPR Currently stable but critical on multiple vasopressor medications Continue supportive care Unsure of cause, less likely arrhythmia, but possible hypoxia induced with CHF 2) CAD/NSTEMI Continue medical management for now No BB due to hypotension/shock 3) Acute cardiogenic shock/ICM EF 15-20% Most likely due to lactic acidosis and NSTEMI 4) ISI Secondary to NSTEMI/shock 5) Acute liver injury Secondary to NSTEMI/shock Ignacio Coelho DO Feb 03, 2017 10:40
[2017-02-03] MEDS ORDERED: FUROSEMIDE 20 MG/2 ML VIAL IV PUSH ONE (10:45)
[2017-02-03] MEDS: LEVOFLOXACIN 750 MG PREMIX INJ 150 ML IV SCH (11:28)
[2017-02-03] MEDS: SODIUM BICARBONATE 8.4% INJ 150 MEQ in SODIUM CHLOR 0.9% 1000 ML INJ 850 ML IV SCH (11:28)
[2017-02-03] MEDS: INSULIN ASPART SUPPLEMENTAL SCALE SQ SCH ×3 (11:30→20:48)
[2017-02-03] MEDS ORDERED: VITA500T83 PO (14:05)
[2017-02-03] MEDS ORDERED: VITA10002 PO (14:05)
[2017-02-03] MEDS ORDERED: FURO80TA PO (14:05)
[2017-02-03] MEDS ORDERED: BENA20TA PO (14:05)
[2017-02-03] MEDS ORDERED: AMLO10 PO (14:05)
--- NOTE | 2017-02-03 14:27 | EKG ---
Date Performed: 02/03/2017 Time Performed: 08:07:54 PTAGE: 71 years EKG: Probable Sinus rhythm with 1st degree A-V block Prolonged QT interval Indeterminate axis Possible anterior infarct - age u ndetermined Lateral T wave changes are nonspecific Low QRS voltages in limb leads Abnormal ECG PREVIOUS TRACING : 02/02/2017 22.24 Compared to the previous tracing, lateral ST/T wave changes are less prominent DOCTOR: Ignacio Coelho Interpretating Date/Time 02/03/2017 14:27:12
--- NOTE | 2017-02-03 14:47 | EKG ---
Date Performed: 02/02/2017 Time Performed: 22:24:24 PTAGE: 71 years EKG: Undetermined rhythm, probable sinus rhtythn Right axis deviation Possible anterior infarct - age undetermined Inferior/lateral ST-T changes may be due to myocardial ischemia Generalized low QR S voltages Abnormal ECG PREVIOUS TRACING : 02/02/2017 11.21 Compared to the previous tracing, lateral ST/T wave changes now noted DOCTOR: Ignacio Coelho Interpretating Date/Time 02/03/2017 14:46:25
[2017-02-03 16:15] LABS: APTT (PATIENT) 32.2 SEC (24.3-30.1)
[2017-02-03] MEDS ORDERED: PHENYLEPHRINE 40 MG in D5W 500 ML IV PRN (16:30)
--- NOTE | 2017-02-03 18:17 | EKG ---
Date Performed: 02/02/2017 Time Performed: 11:21:44 PTAGE: 71 years EKG: AFIB LOW QRS VOLTAGE IN EXTREMITY LEADS MODERATE INTRAVENTRICULAR CONDUCTION DELAY MODERATE ST DEPRESSION ST/T WAVE CHANGES, POSSIBLE ISCHEMIA ABNORMAL ECG PREVIOUS TRACING : 01/02/2017 09.41 Compared to the previous tracing, rate has decreased, ST/T wave changes are now more prominent DOCTOR: Ignacio Coelho Interpretating Date/Time 02/03/2017 18:16:50
[2017-02-03] MEDS: CHLORHEXIDINE 0.12% (ORAL KIT) 15 ML CUP MT SCH (20:00)
[2017-02-03] MEDS: fentaNYL DRIP 250 ML IV PRN (20:33)
[2017-02-03] MEDS: PRAVASTATIN SOD 40 MG TAB PO SCH (20:48)
[2017-02-03] MEDS ORDERED: NOREPINEPHRINE 16 MG/D5W 250 ML IV PRN ×2 (21:15)
[2017-02-03] MEDS: PHENYLEPHRINE HCL 160 MG/D5W 484 ML ADMIX IV PRN ×2 (22:54)
[2017-02-03] MEDS: EPINEPHrine 8 MG/D5W 250 ML IV PRN ×2 (23:41)
[2017-02-03] MEDS: FAMOTIDINE 20 MG/2 ML VIAL IV PUSH SCH (23:47)
[2017-02-04] VITALS (13 sets, daily range): BP systolic 85–169; BP diastolic 53–94; PULSE 88–114; RESP 18; TEMP 97.8–99.6; O2SAT 93–99
[2017-02-04 00:19] LABS: APTT (PATIENT) 35.5 SEC (24.3-30.1)
[2017-02-04] MEDS: HEPARIN SODIUM - IV 10,000 UNITS/10 ML VIAL IV PRN (01:35)
[2017-02-04] MEDS: [UNRECOGNIZED DRUG - OTHER] IV PRN ×4 (02:37→06:22)
[2017-02-04] MEDS: NOREPINEPHRINE IV PRN ×4 (02:37→06:22)
[2017-02-04] MEDS: RESP: ALBUTEROL 2.5 MG/IPRATROPIUM 0.5 MG NEB (SCH) NEB ×4 (03:09→20:50)
[2017-02-04] MEDS ORDERED: MIDAZOLAM 100 MG/100 ML INJ 100 ML IV PRN (04:00)
[2017-02-04] MEDS: HEPARIN-D5W 25,000 U/250 ML 250 ML IV PRN ×2 (04:19→23:41)
[2017-02-04 04:44] LABS: HEMATOCRIT 38.3 % (39.0-51.0); MEAN CELL VOLUME 95.2 FL (80.0-100.0); MEAN CORPUSCULAR HEMOGLOBIN 30.7 PG (27.0-34.0); MEAN CORPUSCULAR HGB CONC 32.2 % (32.0-36.0); PLATELET COUNT 193 TH/MM3 (150-450); RED BLOOD COUNT 4.03 MIL/MM3 (4.50-5.90); RED CELL DISTRIBUTION WIDTH 16.7 % (11.6-17.2); REVIEW FLAG FINAL; WHITE BLOOD COUNT 11.9 TH/MM3 (4.0-11.0)
[2017-02-04 05:26] LABS: BICARBONATE 17.1 MEQ/L (21.0-32.0); MAGNESIUM 1.6 MG/DL (1.5-2.5); POTASSIUM 4.6 MEQ/L (3.5-5.1)
[2017-02-04 05:52] LABS: CALCIUM-PROTEIN CORRECTED 7.4 MG/DL (8.5-10.1)
[2017-02-04] MEDS: SODIUM BICARBONATE 8.4% INJ 150 MEQ in SODIUM CHLOR 0.9% 1000 ML INJ 850 ML IV SCH (06:00)
[2017-02-04] MEDS: EPINEPHrine 8 MG/D5W 250 ML IV PRN ×2 (06:01)
--- NOTE | 2017-02-04 06:12 | RADRPT ---
EXAM DATE/TIME: 02/04/2017 05:08 [place] COMPARISON: CHEST SINGLE AP, February 03, 2017, 8:27. INDICATIONS : Shortness of breath, cardiac arrest. MEDICAL HISTORY : Hypertension. Diabetes mellitus type II. Hypercholesterolemia. A-Fib SURGICAL HISTORY : None. ENCOUNTER: Subsequent ACUITY: 3 days PAIN SCORE: Non-responsive. LOCATION: Bilateral chest FINDINGS: A single AP semierect view of the chest was obtained and demonstrates increased opacity at the right lung base with fluid extending up the right lateral chest wall. Abnormal opacity is present at the le ft lung base as well in the hemidiaphragm is obscured. Endotracheal tube remains in place with the ti p approximately 3 cm above the james. A nasogastric tube is seen coursing through the esophagus to t he stomach. The heart size appears enlarged. The bony thorax is intact in appearance with multiple ov erlying electrocardiogram leads. CONCLUSION: 1. Increased opacity at the right lung base with fluid now noted extending along the lateral chest wa ll. This is consistent with increasing effusion. 2. Abnormal opacity remains at the left lung base which could represent infiltrate and/or effusion. F indings could indicate congestive heart failure. Franklyn Parsons MD on February 04, 2017 at 6:09 Board Certified Radiologist. This report was verified electronically.
[2017-02-04] MEDS ORDERED: CALCIUM GLUCONATE INJ 2 GM in DEXTROSE 5% IN WATER 100ML INJ 100 ML IV ONE ×2 (07:15)
[2017-02-04] MEDS: BUMETANIDE INJ 1 MG/4 ML VIAL IV PUSH SCH ×3 (07:15→17:08)
[2017-02-04] MEDS: fentaNYL DRIP 250 ML IV PRN ×2 (07:15→20:23)
[2017-02-04 07:19] LABS: APTT (PATIENT) 42.1 SEC (24.3-30.1)
[2017-02-04] MEDS: INSULIN ASPART SUPPLEMENTAL SCALE SQ SCH ×4 (08:00→20:45)
[2017-02-04] MEDS: CHLORHEXIDINE 0.12% (ORAL KIT) 15 ML CUP MT SCH ×2 (08:00→20:45)
[2017-02-04] MEDS: VASOPRESSIN INJ 40 UNITS in DEXTROSE 5% IN WATER 100ML INJ 98 ML IV SCH ×2 (08:38)
[2017-02-04] MEDS: ASPIRIN EC 325 MG TABEC PO SCH (09:00)
--- NOTE | 2017-02-04 09:00 | HHI.CCPN ---
Subjective Remarks/Hospital Course 02/03: This is a 71-year-old male with a history of hypertension, diabetes, atrial fibrillation, ischemic cardiomyopathy with ejection fraction 20% on most recent echocardiogram that presented to the ED on 02/02/17 with a 2 day history of worsening bilateral lower extremity edema, as well as constant left chest, neck pressure. The patient has a medical history significant for ischemic cardiomyopathy and normally wears a life vest at home as well as being O2 dependent. His lifevest as it began blinking at home, and he was informed by the LifeVest counter intelligence technician to report to the ED. The LifeVest was removed in the ED , the patient was evaluated and seen and admitted to see [facility], and cardiology was consulted. Imaging and laboratory studies revealed NSTEMI, the patient was placed on heparin infusion. At 07:30 AM, CODE BLUE cardiac arrest occurred, the patient did not have an IV access, ACLS protocol was initiated, femoral triple-lumen central line was placed, the patient was intubated and received 2 mg of epinephrine in divided doses via endotracheal tube. Initially rhythm asystole, followed by PEA and return of ROSC at 5 minutes. The patient was severely acidotic and received sodium bicarbonate and calcium. Epinephrine infusion was instituted, followed by requirements for norepinephrine and vasopressin. The patient was awakened, responded and follow commands, moving extremities 4, squeezing hands, becoming combative. The patient was placed on fentanyl infusion for ventilator synchrony. The patient was transferred to CVICU. Contacted the patient's sister, for him to continue aggressive measures if needed. Cardiology was informed of the event. Postcardiac arrest awake and alert. RASS 0. Followed commands in all 4 extremities. Patient is blind 02/04: Remains sedated/encephalopathic, orally intubated on mechanical ventilation. Question of tremors/seizures last night for which patient was started on Keppra. On epinephrine 10 mcg/min/Levophed 20 mcg/min /vasopressin 0.04 units/min, heparin/bicarbonate gtt., sedated with Versed gtt. at 3 mg per hour, not responding to painful stimuli. Objective Vital Signs Date Time Temp Pulse Resp B/P (MAP) Pulse Ox O2 Delivery O2 Flow Rate FiO2 02/04/17 07:00 95 Mechanical Ventilator 50 02/04/17 07:00 98.3 89 18 85/55 (65) 88/53 (65) 02/03/17 04:00 4.00 Intake and Output 02/04/17 02/04/17 02/05/17 08:00 16:00 00:00 Intake Total 3325.5 ml Output Total 90 ml Balance 3235.5 ml Result Diagram: 02/04/17 0425 02/04/17 0425 Other Results Laboratory Tests Test 02/03/17 08:45 Blood Gas Puncture Site BERNICE Blood Gas Patient Temperature 98.6 Blood Gas HCO3 12 mmol/L (22-26) Blood Gas Base Excess -16.4 mmol/L (-2-2) Blood Gas Oxygen Saturation 84 % (90-100) Arterial Blood pH 7.05 (7.380-7.420) Arterial Blood Partial Pressure CO2 45 mmHg (38-42) Arterial Blood Partial Pressure O2 81 mmHg (61-120) Arterial Blood Oxygen Content 13.4 Vol % (12.0-20.0) Arterial Blood Carboxyhemoglobin 0.4 % (0-4) Arterial Blood Methemoglobin 1.2 % (0-2) Blood Gas Hemoglobin 11.2 G/DL (12.0-16.0) Oxygen Delivery Device VENTILATOR Blood Gas Ventilator Setting A/C16/550/PEEP5 Blood Gas Inspired Oxygen 100 % Imaging Last Impressions Chest X-Ray 02/02/17 1123 Signed Impressions: Service Date/Time: Thursday, February 02, 2017 11:25 - CONCLUSION: 1. Cardiomegaly with positive fluid balance. 2. Stable bilateral lower lobe airspace disease with small, left greater than right, pleural effusions. Ralph Wynn MD Objective Remarks GENERAL: Well-developed, well-nourished critically ill-appearing male, intubated SKIN: Warm and dry. HEAD: Atraumatic. Normocephalic. EYES: Pupils equal and round. No scleral icterus. No injection or drainage. ENT: No nasal bleeding or discharge. Mucous membranes pink and moist. NECK: Trachea midline. No JVD. CARDIOVASCULAR: Normal rate, regular rhythm. RESPIRATORY: Orally intubated on mechanical ventilation, Clear to auscultation. Breath sounds equal bilaterally. GASTROINTESTINAL: Abdomen soft, non-tender, nondistended. No guarding. MUSCULOSKELETAL: Extremities without clubbing, cyanosis, or edema. Venous stasis bilateral lower extremities with 1+ edema. No obvious deformities. NEUROLOGICAL: Sedated/encephalopathic, orally intubated on mechanical ventilation, currently not responding to painful stimuli. A/P Problem List: (1) NSTEMI (non-ST elevation myocardial infarction) ICD Code: I21.4 - Non-ST elevation (NSTEMI) myocardial infarction Status: Acute (2) CHF exacerbation ICD Code: I50.9 - Heart failure, unspecified Status: Acute (3) Stage 3 chronic kidney disease ICD Code: N18.3 - Chronic kidney disease, stage 3 (moderate) Status: Acute (4) CHF (NYHA class IV, ACC/AHA stage D) ICD Code: I50.9 - Heart failure, unspecified Status: Acute (5) ISI (acute kidney injury) ICD Code: N17.9 - Acute kidney failure, unspecified Status: Acute (6) Acute hypoxemic respiratory failure ICD Code: J96.01 - Acute respiratory failure with hypoxia Status: Acute (7) Hypoxia ICD Code: R09.02 - Hypoxemia Status: Acute (8) Blind ICD Code: H54.7 - Unspecified visual loss Status: Chronic (9) Hypercholesteremia ICD Code: E78.00 - Pure hypercholesterolemia, unspecified Status: Chronic (10) Ischemic cardiomyopathy ICD Code: I25.5 - Ischemic cardiomyopathy Status: Acute Assessment and Plan Assessment This is a 71-year-old critically ill male with a long history of ischemic cardiomyopathy status post NSTEMI, now cardiac arrest. The patient is critically ill and is at risk for decompensation or . NSTEMI Status post cardiac arrest(ROSC in 5 mins) Acute hypoxemic and hypercapnic respiratory failure Home O2 dependence Ischemic cardiomyopathy-LifeVest dependent Ischemic cardiomyopathy (EF 20%) Cardiomegaly Acute on chronic kidney disease History of hypertension Hypercholesterolemia Diabetes mellitus Blindness Plan by systems: Neurologic: Versed infusion for ventilator synchrony Post Cardiac arrest patient was GCS 11 T-following commands Daily sedation vacation, follow neuro status. Started on Keppra for seizure prophylaxis on 02/03. Respiratory: Obtain O2 sat greater than 92% Monitor ABG and chest x-rays as indicated Bronchodilators every 6 hours scheduled every 2 hours when necessary Continue mechanical ventilation, Ventilator bundle. Start C Pap trials with sedation vacation. Cardiovascular: Cardiology following Patient currently on norepinephrine, epinephrine, vasopressin to maintain map of 65 Heparin infusion management per cardiology Renal: Maintain [place] -- Strict I/Os FEN/GI: Electrolyte replacement per ICU protocol Insert OGT LIWS Bowel regimen Zofran for nausea Heme/ID: Monitor CBC Endocrine: Blood glucose monitoring per ICU protocol -- SSI Prophylaxis: GI Prophylaxis Pepcid BID DVT Prophylaxis -- SCDs Heparin infusion Lines: Right femoral central line, right radial arterial line (day 1) Consult palliative care to assist with deciding goals of therapy. Dispo: This patient remains critically ill with one or more organ systems which are or may become a threat to life. I have spent in excess of 40 minutes discontinuously in the care and management of this patient. This time is exclusive of procedures, and includes, but is not limited to, evaluation of the patient, review of the medical record, discussions with family, consultants, nursing staff, or respiratory therapy, and documentation in the medical record. Michael Hager MD Feb 04, 2017 09:00
[2017-02-04] MEDS: FAMOTIDINE 20 MG/2 ML VIAL IV PUSH SCH ×2 (11:00→22:48)
[2017-02-04 12:45] LABS: APTT (PATIENT) 47.8 SEC (24.3-30.1)
--- NOTE | 2017-02-04 13:15 | PD.CARD.PN ---
Subjective Subjective Remarks 02/04/17 No events overnight noted Concern for overall neurological status at this time Continues on multiple vasopressors 02/03/17 Previously patient in asystole on critical care team arrival, no arrhythmias noted. Intubated. Epi given via the ET tube, rhythm changed to PEA. CPR leading to ROSC. Now intubated and sedated in the ICU, on multiple vasopressor medications Objective Medications Current Medications Medications (Trade) Dose Ordered Sig/Rosalie Route Start Time Stop Time Status Last Admin (Heparin Inj) 5,000 units UNSCH PRN IV 02/02/17 18:45 (Heparin Inj) 2,500 units UNSCH PRN IV 02/02/17 18:45 02/04/17 01:35 Heparin Sodium/ Dextrose 250 ml @ 10 mls/hr TITRATE PRN IV 02/02/17 12:45 02/04/17 04:19 (NS Flush) 2 ml UNSCH PRN IV FLUSH 02/02/17 13:00 02/03/17 20:48 (Narcan Inj) 0.4 mg UNSCH PRN IV PUSH 02/02/17 13:00 (Milk Of Magnesia Liq) 30 ml Q12H PRN PO 02/02/17 13:00 (Senokot) 17.2 mg Q12H PRN PO 02/02/17 13:00 (Dulcolax Supp) 10 mg DAILY PRN RECTAL 02/02/17 13:00 (Lactulose Liq) 30 ml DAILY PRN PO 02/02/17 13:00 (Lasix Inj) 40 mg BID@09,18 IV PUSH 02/02/17 18:00 Future Hold 02/02/17 17:03 (Ecotrin Ec) 325 mg DAILY PO 02/03/17 09:00 02/03/17 09:00 (Coreg) 12.5 mg Q12HR PO 02/02/17 21:00 Future Hold (Pravachol) 40 mg HS PO 02/02/17 21:00 02/03/17 20:48 (Zofran Inj) 4 mg Q6HR PRN IV PUSH 02/02/17 21:30 Fentanyl Citrate 250 ml @ 5 mls/hr TITRATE PRN IV 02/03/17 08:30 02/04/17 07:15 Vasopressin 40 units/Dextrose 100 ml @ 1.5 mls/hr Q24H IV 02/03/17 08:38 02/04/17 08:38 (Peridex 0.12% Liq) 15 ml BID@08,20 MT 02/03/17 20:00 02/04/17 08:00 (Duoneb Neb) 1 ampule Q6HR NEB NEB 02/03/17 10:00 02/04/17 09:58 (Duoneb Neb) 1 ampule Q2HR NEB PRN NEB 02/03/17 09:00 (D50w (Vial) Inj) 50 ml UNSCH PRN IV PUSH 02/03/17 09:00 (Glucagon Inj) 1 mg UNSCH PRN OTHER 02/03/17 09:00 (NovoLOG SUPPLEMENTAL SCALE) 1 ACHS SLIDING SCALE SQ 02/03/17 12:00 02/04/17 08:00 Sodium Bicarbonate 150 meq/Sodium Chloride 1,000 ml @ 50 mls/hr Q20H IV 02/03/17 10:00 02/04/17 06:00 Levofloxacin/ Dextrose 150 ml @ 100 mls/hr Q48H IV 02/03/17 11:00 02/03/17 11:28 (Brethine Inj) 1 mg UNSCH PRN SQ 02/03/17 12:15 (Pepcid Inj) 10 mg Q12H IV PUSH 02/03/17 23:00 02/04/17 11:00 Norepinephrine Bitartrate 16 mg/ Sodium Chloride 262 ml @ 1.96 mls/hr TITRATE PRN IV 02/03/17 21:15 02/04/17 06:22 Phenylephrine HCl 160 mg/Dextrose 500 ml @ 7.5 mls/hr TITRATE PRN IV 02/03/17 21:15 02/03/17 22:54 Epinephrine HCl 8 mg/Dextrose 250 ml @ 5.62 mls/hr TITRATE PRN IV 02/03/17 21:15 02/04/17 06:01 Midazolam HCl 100 ml @ 2 mls/hr TITRATE PRN IV 02/04/17 04:00 02/04/17 04:02 (Bumex Inj) 2 mg BID@09,18 IV PUSH 02/04/17 07:00 02/04/17 07:15 Vital Signs / I&O Vital Signs Date Time Temp Pulse Resp B/P (MAP) Pulse Ox O2 Delivery O2 Flow Rate FiO2 02/04/17 12:00 50 02/04/17 11:00 89 02/04/17 11:00 98.0 89 18 95/57 (70) 97 91/56 (68) 02/04/17 08:38 88 98/53 02/04/17 08:30 98 50 02/04/17 08:00 50 02/04/17 07:00 95 Mechanical Ventilator 50 02/04/17 07:00 98.3 89 18 85/55 (65) 95 88/53 (65) 02/04/17 07:00 89 02/04/17 06:35 93 50 02/04/17 06:30 94 86/46 02/04/17 06:25 93 102/51 02/04/17 06:22 92 106/58 02/04/17 06:01 98 102/66 02/04/17 05:00 95 158/66 02/04/17 04:30 107 140/69 02/04/17 04:10 99 40 02/04/17 04:00 50 02/04/17 04:00 106 138/69 02/04/17 04:00 106 138/69 02/04/17 03:30 115 166/94 02/04/17 03:19 98.2 114 18 166/94 (118) 97 169/82 (111) 02/04/17 03:19 114 02/04/17 03:00 114 169/82 02/04/17 02:37 83 112/56 02/04/17 01:21 95 40 02/04/17 00:11 50 02/03/17 23:43 81 106/54 02/03/17 23:41 81 109/52 02/03/17 23:00 81 02/03/17 23:00 98.0 83 20 119/68 (85) 96 106/54 (71) 02/03/17 22:55 76 117/55 02/03/17 22:54 78 116/56 02/03/17 22:27 98 40 02/03/17 20:45 98 50 02/03/17 20:33 74 94/56 02/03/17 20:06 50 02/03/17 19:21 96 Mechanical Ventilator 50 02/03/17 19:21 98.0 81 20 108/59 (75) 96 93/53 (66) 02/03/17 19:17 76 83/47 02/03/17 19:00 77 02/03/17 19:00 71 82/47 02/03/17 18:14 74 87/87 02/03/17 18:00 73 86/52 02/03/17 17:25 99 50 02/03/17 16:41 98 79/50 02/03/17 16:01 80 84/49 02/03/17 16:00 98.0 82 18 104/64 (77) 99 85/53 (64) 02/03/17 16:00 99 Mechanical Ventilator 60 02/03/17 16:00 83 83/49 02/03/17 16:00 100 02/03/17 15:37 70 85/48 02/03/17 15:37 80 94/64 02/03/17 15:30 73 78/49 02/03/17 15:00 99 60 02/03/17 14:09 75 89/54 02/03/17 14:06 76 90/54 02/03/17 14:00 76 81/50 I/O 02/03/17 02/03/17 02/03/17 02/04/17 02/04/17 02/04/17 07:00 15:00 23:00 07:00 15:00 23:00 Intake Total 840 ml 1142 ml 1044 ml 3325.5 ml 120 ml Output Total 950 ml 90 ml Balance 840 ml 1142 ml 94 ml 3235.5 ml 120 ml Intake Oral 480 ml IV Total 360 ml 1142 ml 1044 ml 3325.5 ml 120 ml Output Urine Total 50 ml 40 ml Gastric Drainage Total 900 ml 50 ml Bladder Scan Volume Amount 266 ml # Voids 3 # Bowel Movements 0 0 Physical Exam GENERAL: Intubated and sedated SKIN: Warm and dry. HEAD: Atraumatic. Normocephalic. EYES: Gauze over left eye, right eye blind ENT: No nasal bleeding or discharge. Mucous membranes pink and moist. NECK: Trachea midline. No JVD. CARDIOVASCULAR: Regular rate and rhythm. RESPIRATORY: No accessory muscle use. Decreased breath sounds bilaterally GASTROINTESTINAL: Abdomen soft, non-tender, nondistended. Hepatic and splenic margins not palpable. MUSCULOSKELETAL: Extremities with 2+ pitting edema NEUROLOGICAL: Intubated and sedated Laboratory Laboratory Tests Test 02/03/17 15:30 02/03/17 18:00 02/03/17 23:33 02/04/17 04:25 Activated Partial Thromboplast Time 32.2 SEC 35.5 SEC Nasal Screen MRSA (PCR) MRSA NOT DETECTED White Blood Count 11.9 TH/MM3 Red Blood Count 4.03 MIL/MM3 Hemoglobin 12.4 GM/DL Hematocrit 38.3 % Mean Corpuscular Volume 95.2 FL Mean Corpuscular Hemoglobin 30.7 PG Mean Corpuscular Hemoglobin Concent 32.2 % Red Cell Distribution Width 16.7 % Platelet Count 193 TH/MM3 Mean Platelet Volume 9.4 FL Blood Urea Nitrogen 60 MG/DL Creatinine 4.29 MG/DL Random Glucose 265 MG/DL Total Protein 6.1 GM/DL Calcium Level 6.9 MG/DL Phosphorus Level 8.1 MG/DL Magnesium Level 1.6 MG/DL Sodium Level 135 MEQ/L Potassium Level 4.6 MEQ/L Chloride Level 100 MEQ/L Carbon Dioxide Level 17.1 MEQ/L Anion Gap 18 MEQ/L Estimat Glomerular Filtration Rate 14 ML/MIN Protein Corrected Calcium 7.4 MG/DL Test 02/04/17 06:13 02/04/17 12:00 Activated Partial Thromboplast Time 42.1 SEC 47.8 SEC Imaging Last 24 hours Impressions Chest X-Ray 02/04/17 0600 Signed Impressions: Service Date/Time: Saturday, February 04, 2017 05:08 - CONCLUSION: 1. Increased opacity at the right lung base with fluid now noted extending along the lateral chest wall. This is consistent with increasing effusion. 2. Abnormal opacity remains at the left lung base which could represent infiltrate and/or effusion. Findings could indicate congestive heart failure. Franklyn Parsons MD Assessment and Plan Problem List: (1) NSTEMI (non-ST elevation myocardial infarction) ICD Codes: I21.4 - Non-ST elevation (NSTEMI) myocardial infarction Status: Acute (2) CHF (NYHA class IV, ACC/AHA stage D) ICD Codes: I50.9 - Heart failure, unspecified Status: Acute (3) PEA (Pulseless electrical activity) ICD Codes: I46.9 - Cardiac arrest, cause unspecified (4) ACS (acute coronary syndrome) ICD Codes: I24.9 - Acute ischemic heart disease, unspecified (5) HTN (hypertension) ICD Codes: I10 - Essential (primary) hypertension (6) Cellulitis ICD Codes: L03.90 - Cellulitis, unspecified (7) Hypoxia ICD Codes: R09.02 - Hypoxemia Status: Acute (8) Stage 3 chronic kidney disease ICD Codes: N18.3 - Chronic kidney disease, stage 3 (moderate) Status: Acute (9) CHF exacerbation ICD Codes: I50.9 - Heart failure, unspecified Status: Acute (10) Afib ICD Codes: I48.91 - Unspecified atrial fibrillation Status: Chronic Assessment and Plan 1) PEA arrest s/p CPR Currently stable but critical on multiple vasopressor medications Continue supportive care Unsure of cause, less likely arrhythmia, but possible hypoxia induced with CHF 2) CAD/NSTEMI Continue medical management for now No BB due to hypotension/shock 3) Acute cardiogenic shock/ICM EF 15-20% Most likely due to lactic acidosis and NSTEMI 4) ISI Secondary to NSTEMI/shock 5) Acute liver injury Secondary to NSTEMI/shock Ignacio Coelho DO Feb 04, 2017 13:15
--- NOTE | 2017-02-04 13:43 | PD.CONS ---
HPI Service Nephrology Consult Requested By Dr. Hager Reason for Consult Acute renal failure and chronic kidney disease Primary Care Physician Kandy Mullen MD History of Present Illness Patient is a 71-year-old white male with history of diabetes, legal blindness, chronic kidney disease, cardiomyopathy, lymphedema who has LifeVest placed for cardiomyopathy with EF of 20%, his LifeVest to start blinking he came to the emergency this was taken off and he had a cardiac arrest requiring resuscitation and return of his rhythm, he is unconscious unable to provide any history review of records showed he was admitted 2 weeks ago and seen by Dr. Malone for edema and CKD. Review of Systems ROS Limitations: Clinical Condition Past Family Social History Allergies: Coded Allergies: Sulfa (Sulfonamide Antibiotics) (Unverified Allergy, Severe, TONGUE SWELLING, 01/01/17) Past Medical History Hypertension Diabetes mellitus CHF Atrial fibrillation Lymphedema Ischemic cardio myopathy with ejection fraction 20% on most recent echocardiogram last month. CK D Blind. Prosthesis left eye, right eye blind Past Surgical History Right foot surgery Multiple eye surgeries Reported Medications Reported Meds & Active Scripts Active Furosemide 80 Mg Tab 80 Mg PO DAILY Aldactone (Spironolactone) 25 Mg Tab 25 Mg PO DAILY Diltiazem CD 24 HR 300 Mg Caper 300 Mg PO DAILY Coreg (Carvedilol) 12.5 Mg Tab 12.5 Mg PO Q12HR Coumadin (Warfarin) 10 Mg Tab 10 Mg PO DAILY@16 Defibrillator Jacket (Device) 1 Ea Device Ea EXTERNAL ONCE Energy = 150 Joules; VT Threshold = 150 BPM; VF Threshold = 200 BPM Use up to 90 days only Aspirin EC (Aspirin) 325 Mg Tabdr 325 Mg PO DAILY Lisinopril 2.5 Mg Tab 2.5 Mg PO DAILY Oxygen (O2) Device Liter ADRI.CANULA CONTINUOUS Oxygen Concentrator Portable Gaseous 2 L/min via Nasal Canula Continuous For 99 months Mupirocin Topical (Mupirocin) 2 % Oint 1 Applic TOPICAL BID Reported Vitamin B-12 (Cyanocobalamin) 1,000 Mcg Tab 1,000 Mcg PO DAILY Vitamin C ER (Ascorbic Acid) 500 Mg Nicanor 1,000 Mg PO DAILY Furosemide 80 Mg Tab 80 Mg PO DAILY Norvasc (Amlodipine Besylate) 10 Mg Tab 10 Mg PO DAILY Benazepril (Benazepril HCl) 20 Mg Tab 20 Mg PO BID Simvastatin 20 Mg Tab 20 Mg PO HS Klor-Con 10 (Potassium Chloride) 10 Meq Tab 10 Meq PO DAILY Metformin ER (Metformin HCl) 500 Mg Nicanor 1,000 Mg PO DAILY With evening meal Januvia (Sitagliptin Phosphate) 100 Mg Tab 100 Mg PO DAILY Glipizide 10 Mg Tab 10 Mg PO HS Take 30 minutes before a meal Active Ordered Medications Current Medications Medications (Trade) Dose Ordered Sig/Rosalie Route Start Time Stop Time Status Last Admin (Heparin Inj) 5,000 units UNSCH PRN IV 02/02/17 18:45 (Heparin Inj) 2,500 units UNSCH PRN IV 02/02/17 18:45 02/04/17 01:35 Heparin Sodium/ Dextrose 250 ml @ 10 mls/hr TITRATE PRN IV 02/02/17 12:45 02/04/17 04:19 (NS Flush) 2 ml UNSCH PRN IV FLUSH 02/02/17 13:00 02/03/17 20:48 (Narcan Inj) 0.4 mg UNSCH PRN IV PUSH 02/02/17 13:00 (Milk Of Magnesia Liq) 30 ml Q12H PRN PO 02/02/17 13:00 (Senokot) 17.2 mg Q12H PRN PO 02/02/17 13:00 (Dulcolax Supp) 10 mg DAILY PRN RECTAL 02/02/17 13:00 (Lactulose Liq) 30 ml DAILY PRN PO 02/02/17 13:00 (Lasix Inj) 40 mg BID@09,18 IV PUSH 02/02/17 18:00 Future Hold 02/02/17 17:03 (Ecotrin Ec) 325 mg DAILY PO 02/03/17 09:00 02/03/17 09:00 (Coreg) 12.5 mg Q12HR PO 02/02/17 21:00 Future Hold (Pravachol) 40 mg HS PO 02/02/17 21:00 02/03/17 20:48 (Zofran Inj) 4 mg Q6HR PRN IV PUSH 02/02/17 21:30 Fentanyl Citrate 250 ml @ 5 mls/hr TITRATE PRN IV 02/03/17 08:30 02/04/17 07:15 Vasopressin 40 units/Dextrose 100 ml @ 1.5 mls/hr Q24H IV 02/03/17 08:38 02/04/17 08:38 (Peridex 0.12% Liq) 15 ml BID@08,20 MT 02/03/17 20:00 02/04/17 08:00 (Duoneb Neb) 1 ampule Q6HR NEB NEB 02/03/17 10:00 02/04/17 09:58 (Duoneb Neb) 1 ampule Q2HR NEB PRN NEB 02/03/17 09:00 (D50w (Vial) Inj) 50 ml UNSCH PRN IV PUSH 02/03/17 09:00 (Glucagon Inj) 1 mg UNSCH PRN OTHER 02/03/17 09:00 (NovoLOG SUPPLEMENTAL SCALE) 1 ACHS SLIDING SCALE SQ 02/03/17 12:00 02/04/17 08:00 Sodium Bicarbonate 150 meq/Sodium Chloride 1,000 ml @ 50 mls/hr Q20H IV 02/03/17 10:00 02/04/17 06:00 Levofloxacin/ Dextrose 150 ml @ 100 mls/hr Q48H IV 02/03/17 11:00 02/03/17 11:28 (Brethine Inj) 1 mg UNSCH PRN SQ 02/03/17 12:15 (Pepcid Inj) 10 mg Q12H IV PUSH 02/03/17 23:00 02/04/17 11:00 Norepinephrine Bitartrate 16 mg/ Sodium Chloride 262 ml @ 1.96 mls/hr TITRATE PRN IV 02/03/17 21:15 02/04/17 06:22 Phenylephrine HCl 160 mg/Dextrose 500 ml @ 7.5 mls/hr TITRATE PRN IV 02/03/17 21:15 02/03/17 22:54 Epinephrine HCl 8 mg/Dextrose 250 ml @ 5.62 mls/hr TITRATE PRN IV 02/03/17 21:15 02/04/17 06:01 Midazolam HCl 100 ml @ 2 mls/hr TITRATE PRN IV 02/04/17 04:00 02/04/17 04:02 (Bumex Inj) 2 mg BID@09,18 IV PUSH 02/04/17 07:00 02/04/17 07:15 Family History Noncontributory Social History Previous history of smoking and alcohol use Physical Exam Vital Signs Vital Signs Date Time Temp Pulse Resp B/P (MAP) Pulse Ox O2 Delivery O2 Flow Rate FiO2 02/04/17 12:00 50 02/04/17 11:00 89 02/04/17 11:00 98.0 89 18 95/57 (70) 97 91/56 (68) 02/04/17 08:38 88 98/53 02/04/17 08:30 98 50 02/04/17 08:00 50 02/04/17 07:00 95 Mechanical Ventilator 50 02/04/17 07:00 98.3 89 18 85/55 (65) 95 88/53 (65) 02/04/17 07:00 89 02/04/17 06:35 93 50 02/04/17 06:30 94 86/46 02/04/17 06:25 93 102/51 02/04/17 06:22 92 106/58 02/04/17 06:01 98 102/66 02/04/17 05:00 95 158/66 02/04/17 04:30 107 140/69 02/04/17 04:10 99 40 02/04/17 04:00 50 02/04/17 04:00 106 138/69 02/04/17 04:00 106 138/69 02/04/17 03:30 115 166/94 02/04/17 03:19 98.2 114 18 166/94 (118) 97 169/82 (111) 02/04/17 03:19 114 02/04/17 03:00 114 169/82 02/04/17 02:37 83 112/56 02/04/17 01:21 95 40 02/04/17 00:11 50 02/03/17 23:43 81 106/54 02/03/17 23:41 81 109/52 02/03/17 23:00 81 02/03/17 23:00 98.0 83 20 119/68 (85) 96 106/54 (71) 02/03/17 22:55 76 117/55 02/03/17 22:54 78 116/56 02/03/17 22:27 98 40 02/03/17 20:45 98 50 02/03/17 20:33 74 94/56 02/03/17 20:06 50 02/03/17 19:21 96 Mechanical Ventilator 50 02/03/17 19:21 98.0 81 20 108/59 (75) 96 93/53 (66) 02/03/17 19:17 76 83/47 02/03/17 19:00 77 02/03/17 19:00 71 82/47 02/03/17 18:14 74 87/87 02/03/17 18:00 73 86/52 02/03/17 17:25 99 50 02/03/17 16:41 98 79/50 02/03/17 16:01 80 84/49 02/03/17 16:00 98.0 82 18 104/64 (77) 99 85/53 (64) 02/03/17 16:00 99 Mechanical Ventilator 60 02/03/17 16:00 83 83/49 02/03/17 16:00 100 02/03/17 15:37 70 85/48 02/03/17 15:37 80 94/64 02/03/17 15:30 73 78/49 02/03/17 15:00 99 60 02/03/17 14:09 75 89/54 02/03/17 14:06 76 90/54 02/03/17 14:00 76 81/50 Physical Exam GENERAL: Well-nourished, well-developed patient. On ventilator SKIN: Warm and dry. HEAD: Normocephalic. EYES: Blind NECK: Supple, trachea midline. No JVD or lymphadenopathy. CARDIOVASCULAR: Irregular RESPIRATORY: Breath sounds equal bilaterally. No accessory muscle use. GASTROINTESTINAL: Abdomen soft, non-tender, nondistended. EXTREMITIES: 3+ edema. Cyanosis, mottling seen NEUROLOGICAL: Obtunded Laboratory Laboratory Tests Test 02/03/17 15:30 02/03/17 18:00 02/03/17 23:33 02/04/17 04:25 Activated Partial Thromboplast Time 32.2 35.5 Nasal Screen MRSA (PCR) MRSA NOT DETECTED White Blood Count 11.9 Red Blood Count 4.03 Hemoglobin 12.4 Hematocrit 38.3 Mean Corpuscular Volume 95.2 Mean Corpuscular Hemoglobin 30.7 Mean Corpuscular Hemoglobin Concent 32.2 Red Cell Distribution Width 16.7 Platelet Count 193 Mean Platelet Volume 9.4 Blood Urea Nitrogen 60 Creatinine 4.29 Random Glucose 265 Total Protein 6.1 Calcium Level 6.9 Phosphorus Level 8.1 Magnesium Level 1.6 Sodium Level 135 Potassium Level 4.6 Chloride Level 100 Carbon Dioxide Level 17.1 Anion Gap 18 Estimat Glomerular Filtration Rate 14 Protein Corrected Calcium 7.4 Test 02/04/17 06:13 02/04/17 12:00 Activated Partial Thromboplast Time 42.1 47.8 Result Diagram: 02/04/1742402/04/17424 Imaging Last Impressions Chest X-Ray 02/04/17 0600 Signed Impressions: Service Date/Time: Saturday, February 04, 2017 05:08 - CONCLUSION: 1. Increased opacity at the right lung base with fluid now noted extending along the lateral chest wall. This is consistent with increasing effusion. 2. Abnormal opacity remains at the left lung base which could represent infiltrate and/or effusion. Findings could indicate congestive heart failure. Franklyn Parsons MD Assessment and Plan Problem List: (1) ISI (acute kidney injury) ICD Codes: N17.9 - Acute kidney failure, unspecified Status: Acute Plan: Patient has underlying cardiogenic shock AMI and congestive heart failure with cardiac arrest Poor chances of recovery as he has underlying CK D Try diuretics Consider dialysis Dr. Stahl will follow (2) Acidosis, metabolic ICD Codes: E87.2 - Acidosis Plan: On bicarbonate drip continued to monitor consider dialysis/CRRT as he is on vasopressors (3) CKD (chronic kidney disease) stage 3, GFR 30-59 ml/min ICD Codes: N18.3 - Chronic kidney disease, stage 3 (moderate) Status: Chronic Plan: Patient was seen by Dr. Malone (4) Acute hypoxemic respiratory failure ICD Codes: J96.01 - Acute respiratory failure with hypoxia Status: Acute Plan: Intubated (5) PEA (Pulseless electrical activity) ICD Codes: I46.9 - Cardiac arrest, cause unspecified Plan: Poor prognosis Abbey Cool MD Feb 04, 2017 13:43
[2017-02-04] MEDS: PRAVASTATIN SOD 40 MG TAB PO SCH (22:48)
[2017-02-05] VITALS (13 sets, daily range): BP systolic 90–110; BP diastolic 52–67; PULSE 83–115; RESP 9–18; TEMP 99.9–101; O2SAT 90–100
[2017-02-05] MEDS: VASOPRESSIN INJ 40 UNITS in DEXTROSE 5% IN WATER 100ML INJ 98 ML IV SCH ×2 (02:47)
[2017-02-05] MEDS: RESP: ALBUTEROL 2.5 MG/IPRATROPIUM 0.5 MG NEB (SCH) NEB ×2 (04:06→08:49)
[2017-02-05] MEDS: SODIUM BICARBONATE 8.4% INJ 150 MEQ in SODIUM CHLOR 0.9% 1000 ML INJ 850 ML IV SCH (04:16)
[2017-02-05 05:10] LABS: AUTOMATED NEUTROPHIL # 7.8 TH/MM3 (1.8-7.7); BASOPHIL % 0.2 % (0.0-2.0); HEMATOCRIT 37.6 % (39.0-51.0); HEMO FLAGS DIFF FINAL; LYMPH % 6.5 % (9.0-44.0); LYMPHOCYTE # 0.6 TH/MM3 (1.0-4.8); MEAN CELL VOLUME 94.2 FL (80.0-100.0); MEAN CORPUSCULAR HEMOGLOBIN 30.2 PG (27.0-34.0); MEAN CORPUSCULAR HGB CONC 32.1 % (32.0-36.0); MONO % 6.5 % (0.0-8.0); NEUT % 86.8 % (16.0-70.0); PLATELET COUNT 155 TH/MM3 (150-450); RED BLOOD COUNT 3.99 MIL/MM3 (4.50-5.90); RED CELL DISTRIBUTION WIDTH 16.4 % (11.6-17.2)
[2017-02-05 05:15] LABS: APTT (PATIENT) 76.7 SEC (24.3-30.1)
[2017-02-05 05:48] LABS: BICARBONATE 23.1 MEQ/L (21.0-32.0); POTASSIUM 5.4 MEQ/L (3.5-5.1); TOTAL BILIRUBIN ADULT 0.9 MG/DL (0.2-1.0)
[2017-02-05 05:52] LABS: CALCIUM-PROTEIN CORRECTED 6.6 MG/DL (8.5-10.1)
[2017-02-05] MEDS: PHENYLEPHRINE HCL 160 MG/D5W 484 ML ADMIX IV PRN ×2 (05:55)
[2017-02-05] MEDS: EPINEPHrine 8 MG/D5W 250 ML IV PRN ×2 (06:09)
[2017-02-05] MEDS ORDERED: CALCIUM GLUCONATE INJ 2 GM in SODIUM CHLORIDE 0.9% INJ 100 ML IV SCH (08:00)
[2017-02-05] MEDS: CHLORHEXIDINE 0.12% (ORAL KIT) 15 ML CUP MT SCH (08:28)
--- NOTE | 2017-02-05 08:29 | HHI.CCPN ---
Subjective Remarks/Hospital Course 02/03: This is a 71-year-old male with a history of hypertension, diabetes, atrial fibrillation, ischemic cardiomyopathy with ejection fraction 20% on most recent echocardiogram that presented to the ED on 02/02/17 with a 2 day history of worsening bilateral lower extremity edema, as well as constant left chest, neck pressure. The patient has a medical history significant for ischemic cardiomyopathy and normally wears a life vest at home as well as being O2 dependent. His lifevest as it began blinking at home, and he was informed by the LifeVest optical engineering technician to report to the ED. The LifeVest was removed in the ED , the patient was evaluated and seen and admitted to see [facility], and cardiology was consulted. Imaging and laboratory studies revealed NSTEMI, the patient was placed on heparin infusion. At 07:30 AM, CODE BLUE cardiac arrest occurred, the patient did not have an IV access, ACLS protocol was initiated, femoral triple-lumen central line was placed, the patient was intubated and received 2 mg of epinephrine in divided doses via endotracheal tube. Initially rhythm asystole, followed by PEA and return of ROSC at 5 minutes. The patient was severely acidotic and received sodium bicarbonate and calcium. Epinephrine infusion was instituted, followed by requirements for norepinephrine and vasopressin. The patient was awakened, responded and follow commands, moving extremities 4, squeezing hands, becoming combative. The patient was placed on fentanyl infusion for ventilator synchrony. The patient was transferred to CVICU. Contacted the patient's sister, for him to continue aggressive measures if needed. Cardiology was informed of the event. Postcardiac arrest awake and alert. RASS 0. Followed commands in all 4 extremities. Patient is blind 02/04: Remains sedated/encephalopathic, orally intubated on mechanical ventilation. Question of tremors/seizures last night for which patient was started on Keppra. On epinephrine 10 mcg/min/Levophed 20 mcg/min /vasopressin 0.04 units/min, heparin/bicarbonate gtt., sedated with Versed gtt. at 3 mg per hour, not responding to painful stimuli. 02/05: Remains sedated, orally intubated on mechanical ventilation. Reportedly arouses off sedation and moves all 4 extremities reaching for ET tube. Remains on epinephrine 10 mics per minute, Levophed 20 mics per minute, vasopressin 0.04 units per minute, Erik-Synephrine 210 mics per minute. Also on heparin and bicarbonate drip as well as Versed/fentanyl for sedation. Objective Vital Signs Date Time Temp Pulse Resp B/P (MAP) Pulse Ox O2 Delivery O2 Flow Rate FiO2 02/05/17 08:15 95 40 02/05/17 06:09 83 104/59 02/05/17 03:42 100.9 18 02/04/17 20:00 Mechanical Ventilator 2.00 Intake and Output 02/05/17 02/05/17 02/06/17 08:00 16:00 00:00 Intake Total 2188.7 ml Output Total 105 ml Balance 2083.7 ml Result Diagram: 02/05/17 0445 02/05/17 0445 Imaging Last Impressions Chest X-Ray 02/02/17 1123 Signed Impressions: Service Date/Time: Thursday, February 02, 2017 11:25 - CONCLUSION: 1. Cardiomegaly with positive fluid balance. 2. Stable bilateral lower lobe airspace disease with small, left greater than right, pleural effusions. Ralph Wynn MD Objective Remarks GENERAL: Well-developed, well-nourished critically ill-appearing male, intubated SKIN: Warm and dry. HEAD: Atraumatic. Normocephalic. EYES: Pupils equal and round. No scleral icterus. No injection or drainage. ENT: No nasal bleeding or discharge. Mucous membranes pink and moist. NECK: Trachea midline. No JVD. CARDIOVASCULAR: Normal rate, regular rhythm. RESPIRATORY: Orally intubated on mechanical ventilation, Clear to auscultation. Breath sounds equal bilaterally. GASTROINTESTINAL: Abdomen soft, non-tender, nondistended. No guarding. MUSCULOSKELETAL: Extremities without clubbing, cyanosis, or edema. Venous stasis bilateral lower extremities with 1+ edema. No obvious deformities. NEUROLOGICAL: Sedated/encephalopathic, orally intubated on mechanical ventilation, currently not responding to painful stimuli. A/P Problem List: (1) NSTEMI (non-ST elevation myocardial infarction) ICD Code: I21.4 - Non-ST elevation (NSTEMI) myocardial infarction Status: Acute (2) CHF exacerbation ICD Code: I50.9 - Heart failure, unspecified Status: Acute (3) Stage 3 chronic kidney disease ICD Code: N18.3 - Chronic kidney disease, stage 3 (moderate) Status: Acute (4) CHF (NYHA class IV, ACC/AHA stage D) ICD Code: I50.9 - Heart failure, unspecified Status: Acute (5) ISI (acute kidney injury) ICD Code: N17.9 - Acute kidney failure, unspecified Status: Acute (6) Acute hypoxemic respiratory failure ICD Code: J96.01 - Acute respiratory failure with hypoxia Status: Acute (7) Hypoxia ICD Code: R09.02 - Hypoxemia Status: Acute (8) Blind ICD Code: H54.7 - Unspecified visual loss Status: Chronic (9) Hypercholesteremia ICD Code: E78.00 - Pure hypercholesterolemia, unspecified Status: Chronic (10) Ischemic cardiomyopathy ICD Code: I25.5 - Ischemic cardiomyopathy Status: Acute Assessment and Plan Assessment This is a 71-year-old critically ill male with a long history of ischemic cardiomyopathy status post NSTEMI, now cardiac arrest. The patient is critically ill and is at risk for decompensation or . NSTEMI Status post cardiac arrest(ROSC in 5 mins) Acute hypoxemic and hypercapnic respiratory failure Home O2 dependence Ischemic cardiomyopathy-LifeVest dependent Ischemic cardiomyopathy (EF 20%) Fever possible sepsis- Cardiogenic shock Acute on chronic kidney disease History of hypertension Hypercholesterolemia Diabetes mellitus Blindness Plan by systems: Neurologic: Versed/ fentanyl infusion for ventilator synchrony Post Cardiac arrest patient was GCS 11 T-following commands Daily sedation vacation, follow neuro status. Started on Keppra for seizure prophylaxis on 02/03. Respiratory: Obtain O2 sat greater than 92% Monitor ABG and chest x-rays as indicated Bronchodilators every 6 hours scheduled every 2 hours when necessary Continue mechanical ventilation, Ventilator bundle. Hold off on C Pap trials due to significant hemodynamic instability and worsening renal function. Cardiovascular: Cardiology following Patient currently on norepinephrine, epinephrine, phenylephrine, vasopressin to maintain map of 65 Heparin infusion management per cardiology Renal: Maintain [place] -- Strict I/Os FEN/GI: Electrolyte replacement per ICU protocol Insert OGT LIWS Bowel regimen Zofran for nausea Heme/ID: Monitor CBC. [place] cultures ordered. Starting empiric antibiotic coverage with IV cefepime on 02/05 Endocrine: Blood glucose monitoring per ICU protocol -- SSI Prophylaxis: GI Prophylaxis Pepcid BID DVT Prophylaxis -- SCDs Heparin infusion Lines: Right femoral central line, right radial arterial line (day 3) Consulted palliative care to assist with deciding goals of therapy as patient appears to be in severe cardiogenic shock with multiorgan failure with extremely poor prognosis. I doubt that he will tolerated renal replacement therapy in view of his extremely high pressor requirement. Dispo: This patient remains critically ill with one or more organ systems which are or may become a threat to life. I have spent in excess of 40 minutes discontinuously in the care and management of this patient. This time is exclusive of procedures, and includes, but is not limited to, evaluation of the patient, review of the medical record, discussions with family, consultants, nursing staff, or respiratory therapy, and documentation in the medical record. Michael Hager MD Feb 05, 2017 08:29
[2017-02-05] MEDS ORDERED: ACETAMINOPHEN 650 MG/20.3 ML UDC OG-TUBE PRN (08:30)
[2017-02-05] MEDS: fentaNYL DRIP 250 ML IV PRN (08:40)
[2017-02-05] MEDS: INSULIN ASPART SUPPLEMENTAL SCALE SQ SCH ×2 (09:17→11:48)
[2017-02-05] MEDS: ASPIRIN EC 325 MG TABEC PO SCH (09:38)
[2017-02-05] MEDS: BUMETANIDE INJ 1 MG/4 ML VIAL IV PUSH SCH (09:39)
[2017-02-05] MEDS ORDERED: CEFEPIME INJ 1,000 MG in SODIUM CHLORIDE 0.9% INJ 100 ML IV SCH (10:00)
[2017-02-05 10:06] LABS: BACTERIA, URINE MOD /hpf; BLOOD, URINE LARGE (NEG); GLUCOSE,URINE NEG (NEG); KETONE, URINE NEG (NEG); NITRITE,URINE NEG (NEG); PH, URINE 5.5 (5.0-8.5); SQUAMOUS EPITHELIAL CELL URINE 1 /hpf (0-5)
[2017-02-05 10:08] LABS: URINE COLOR AMBER (YELLW/STRAW)
[2017-02-05 10:09] LABS: COMMENT (UR) CATH-CULTURE IND; CULTURE IF INDICATED CATH CULTURE IND
--- NOTE | 2017-02-05 10:54 | PD.CONS ---
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 71-year-old male with ischemic cardiomyopathy now status post NSTEMI with cardiogenic shock, liver shock, VDRF and renal failure. His prognosis is very poor and per my discussion with his sister, continuing aggressive treatment in this manner would be against his wishes. Per that discussion, exhibits were sent to the sister for review for withdrawing ventilator support. Pending receipt of those forms. Palliative care will continue to follow the patient during hospital course as condition evolves, to assist patient/decision-maker with understanding of their medical conditions, weighing benefits/burdens of treatment options, for clarification of goals of treatment. Additionally will assist with any symptoms of palliative concern. . Thank you for the opportunity to participate in the care of Mr. Rodriguez. Attestation To help prompt me to consider important information that might be impacting today's encounter and assessment, information from prior notes written by myself or my colleagues may have been "brought forward" into today's note. My signature on this note, however, is an attestation that I personally performed the exam, history, and/or decision-making noted today, and, unless otherwise indicated, the interactions with patient, family, and staff as well as the review of records all occurred today. I also attest that the listed assessment and stated plan reflect my best clinical judgment today based on the combination of historical information, prior notes, and today's exam/ interactions. When time spent is documented, it refers only to time spent today by the signer, or if indicated, combined time spent today by collaborating physician/nurse practitioner. . Yu Nevarez Feb 05, 2017 10:54
[2017-02-05] MEDS ORDERED: DIGOXIN 0.5 MG/2 ML VIAL IV PUSH ONE (11:15)
[2017-02-05] MEDS: FAMOTIDINE 20 MG/2 ML VIAL IV PUSH SCH (11:16)
[2017-02-05] MEDS: LEVOFLOXACIN 750 MG PREMIX INJ 150 ML IV SCH (11:17)
--- NOTE | 2017-02-05 11:35 | PD.CARD.PN ---
Subjective Subjective Remarks sedated, intubated critically ill very poor prognosis Objective Medications Current Medications Medications (Trade) Dose Ordered Sig/Rosalei Route Start Time Stop Time Status Last Admin (Heparin Inj) 5,000 units UNSCH PRN IV 02/02/17 18:45 (Heparin Inj) 2,500 units UNSCH PRN IV 02/02/17 18:45 02/04/17 01:35 Heparin Sodium/ Dextrose 250 ml @ 10 mls/hr TITRATE PRN IV 02/02/17 12:45 02/04/17 23:41 (NS Flush) 2 ml UNSCH PRN IV FLUSH 02/02/17 13:00 02/03/17 20:48 (Narcan Inj) 0.4 mg UNSCH PRN IV PUSH 02/02/17 13:00 (Milk Of Magnesia Liq) 30 ml Q12H PRN PO 02/02/17 13:00 (Senokot) 17.2 mg Q12H PRN PO 02/02/17 13:00 (Dulcolax Supp) 10 mg DAILY PRN RECTAL 02/02/17 13:00 (Lactulose Liq) 30 ml DAILY PRN PO 02/02/17 13:00 (Lasix Inj) 40 mg BID@09,18 IV PUSH 02/02/17 18:00 Future Hold 02/02/17 17:03 (Ecotrin Ec) 325 mg DAILY PO 02/03/17 09:00 02/05/17 09:38 (Coreg) 12.5 mg Q12HR PO 02/02/17 21:00 Future Hold (Pravachol) 40 mg HS PO 02/02/17 21:00 02/04/17 22:48 (Zofran Inj) 4 mg Q6HR PRN IV PUSH 02/02/17 21:30 Fentanyl Citrate 250 ml @ 5 mls/hr TITRATE PRN IV 02/03/17 08:30 02/05/17 08:40 Vasopressin 40 units/Dextrose 100 ml @ 1.5 mls/hr Q24H IV 02/03/17 08:38 02/05/17 02:47 (Peridex 0.12% Liq) 15 ml BID@08,20 MT 02/03/17 20:00 02/05/17 08:28 (Duoneb Neb) 1 ampule Q6HR NEB NEB 02/03/17 10:00 02/05/17 08:49 (Duoneb Neb) 1 ampule Q2HR NEB PRN NEB 02/03/17 09:00 (D50w (Vial) Inj) 50 ml UNSCH PRN IV PUSH 02/03/17 09:00 (Glucagon Inj) 1 mg UNSCH PRN OTHER 02/03/17 09:00 (NovoLOG SUPPLEMENTAL SCALE) 1 ACHS SLIDING SCALE SQ 02/03/17 12:00 02/05/17 09:17 Sodium Bicarbonate 150 meq/Sodium Chloride 1,000 ml @ 50 mls/hr Q20H IV 02/03/17 10:00 02/05/17 04:16 Levofloxacin/ Dextrose 150 ml @ 100 mls/hr Q48H IV 02/03/17 11:00 02/05/17 11:17 (Brethine Inj) 1 mg UNSCH PRN SQ 02/03/17 12:15 (Pepcid Inj) 10 mg Q12H IV PUSH 02/03/17 23:00 02/05/17 11:16 Norepinephrine Bitartrate 16 mg/ Sodium Chloride 262 ml @ 1.96 mls/hr TITRATE PRN IV 02/03/17 21:15 02/04/17 06:22 Phenylephrine HCl 160 mg/Dextrose 500 ml @ 7.5 mls/hr TITRATE PRN IV 02/03/17 21:15 02/05/17 05:55 Epinephrine HCl 8 mg/Dextrose 250 ml @ 5.62 mls/hr TITRATE PRN IV 02/03/17 21:15 02/05/17 06:09 Midazolam HCl 100 ml @ 2 mls/hr TITRATE PRN IV 02/04/17 04:00 02/04/17 04:02 (Bumex Inj) 2 mg BID@09,18 IV PUSH 02/04/17 07:00 02/05/17 09:39 (Tylenol 650 Mg/ 20 ml Liq) 650 mg Q6H PRN OG-TUBE 02/05/17 08:30 Cefepime HCl 1000 mg/Sodium Chloride 100 ml @ 200 mls/hr Q12H IV 02/05/17 10:00 02/05/17 09:40 Vital Signs / I&O Vital Signs Date Time Temp Pulse Resp B/P (MAP) Pulse Ox O2 Delivery O2 Flow Rate FiO2 02/05/17 10:35 96 40 02/05/17 08:15 95 40 02/05/17 08:00 40 02/05/17 07:00 95 Mechanical Ventilator 40 02/05/17 07:00 99.9 83 18 110/62 (78) 94 105/60 (75) 02/05/17 07:00 83 02/05/17 06:09 83 104/59 02/05/17 05:55 83 95/57 02/05/17 04:55 40 02/05/17 04:03 96 40 02/05/17 03:42 85 02/05/17 03:42 100.9 88 18 108/67 (81) 95 97/57 (70) 02/05/17 02:47 87 98/57 02/05/17 00:55 99 45 02/05/17 00:28 45 02/05/17 00:00 45 02/04/17 23:00 99.2 88 18 108/66 (80) 97 105/64 (78) 02/04/17 23:00 90 02/04/17 22:03 95 50 02/04/17 20:45 95 50 02/04/17 20:00 99.6 88 18 102/64 (77) 95 02/04/17 20:00 50 02/04/17 20:00 90 02/04/17 20:00 95 Mechanical Ventilator 2.00 50 02/04/17 17:46 89 107/65 02/04/17 17:46 89 106/55 02/04/17 17:46 89 106/55 02/04/17 16:00 50 02/04/17 15:54 95 50 02/04/17 15:00 97.8 96 18 106/64 (78) 96 94/59 (71) 02/04/17 15:00 96 02/04/17 12:00 50 I/O 02/04/17 02/04/17 02/04/17 02/05/17 02/05/17 02/05/17 07:00 15:00 23:00 07:00 15:00 23:00 Intake Total 3325.5 ml 120 ml 1969.7 ml 2188.7 ml 100 ml Output Total 90 ml 50 ml 95 ml 10 ml Balance 3235.5 ml 120 ml 1919.7 ml 2093.7 ml 90 ml IV Total 3325.5 ml 120 ml 1969.7 ml 2118.7 ml 100 ml Tube Irrigant 70 ml Output Urine Total 40 ml 50 ml 95 ml Gastric Drainage Total 50 ml 10 ml # Bowel Movements 0 0 Physical Exam GENERAL: Well-nourished, well-developed patient. Sedated , intubated SKIN: Warm and dry. HEAD: Normocephalic. EYES: No scleral icterus. No injection or drainage. NECK: Supple, trachea midline. + JVD or lymphadenopathy. CARDIOVASCULAR: IRR IRR no gallops, or rubs. RESPIRATORY: Breath sounds equal bilaterally. No accessory muscle use. GASTROINTESTINAL: Abdomen soft, non-tender, nondistended. EXTREMITIES: +cyanosis, or ++++edema. Laboratory Laboratory Tests Test 02/04/17 12:00 02/05/17 04:45 02/05/17 09:00 Activated Partial Thromboplast Time 47.8 SEC 76.7 SEC White Blood Count 9.0 TH/MM3 Red Blood Count 3.99 MIL/MM3 Hemoglobin 12.1 GM/DL Hematocrit 37.6 % Mean Corpuscular Volume 94.2 FL Mean Corpuscular Hemoglobin 30.2 PG Mean Corpuscular Hemoglobin Concent 32.1 % Red Cell Distribution Width 16.4 % Platelet Count 155 TH/MM3 Mean Platelet Volume 9.1 FL Neutrophils (%) (Auto) 86.8 % Lymphocytes (%) (Auto) 6.5 % Monocytes (%) (Auto) 6.5 % Eosinophils (%) (Auto) 0.0 % Basophils (%) (Auto) 0.2 % Neutrophils # (Auto) 7.8 TH/MM3 Lymphocytes # (Auto) 0.6 TH/MM3 Monocytes # (Auto) 0.6 TH/MM3 Eosinophils # (Auto) 0.0 TH/MM3 Basophils # (Auto) 0.0 TH/MM3 CBC Comment DIFF FINAL Differential Comment Blood Urea Nitrogen 68 MG/DL Creatinine 5.16 MG/DL Random Glucose 167 MG/DL Total Protein 5.4 GM/DL Albumin 2.6 GM/DL Calcium Level 5.9 MG/DL Alkaline Phosphatase 104 U/L Aspartate Amino Transf (AST/SGOT) 4870 U/L Alanine Aminotransferase (ALT/SGPT) 4758 U/L Total Bilirubin 0.9 MG/DL Sodium Level 137 MEQ/L Potassium Level 5.4 MEQ/L Chloride Level 99 MEQ/L Carbon Dioxide Level 23.1 MEQ/L Anion Gap 15 MEQ/L Estimat Glomerular Filtration Rate 11 ML/MIN Protein Corrected Calcium 6.6 MG/DL Urine Color PAGE Urine Turbidity CLOUDY Urine pH 5.5 Urine Specific [place] 1.019 Urine Protein 100 mg/dL Urine Glucose (UA) NEG mg/dL Urine Ketones NEG mg/dL Urine Occult Blood LARGE Urine Nitrite NEG Urine Bilirubin NEG Urine Urobilinogen LESS THAN 2.0 MG/DL Urine Leukocyte Esterase LARGE Urine RBC /hpf Urine WBC 107 /hpf Urine WBC Clumps RARE Urine Squamous Epithelial Cells 1 /hpf Urine Bacteria MOD /hpf Urine Yeast (Budding) OCC Microscopic Urinalysis Comment CATH-CULTURE IND Imaging Last Impressions Chest X-Ray 02/04/17 0600 Signed Impressions: Service Date/Time: Saturday, February 04, 2017 05:08 - CONCLUSION: 1. Increased opacity at the right lung base with fluid now noted extending along the lateral chest wall. This is consistent with increasing effusion. 2. Abnormal opacity remains at the left lung base which could represent infiltrate and/or effusion. Findings could indicate congestive heart failure. Franklyn Parsons MD Assessment and Plan Problem List: (1) NSTEMI (non-ST elevation myocardial infarction) ICD Codes: I21.4 - Non-ST elevation (NSTEMI) myocardial infarction Status: Acute Plan: 1) PEA arrest s/p CPR Currently stable but critical on multiple vasopressor medications Continue supportive care Unsure of cause, less likely arrhythmia, but possible hypoxia induced with CHF 2) CAD/NSTEMI Continue medical management for now No BB due to hypotension/shock 3) Acute cardiogenic shock/ICM EF 15-20% Overall very poor prognosis, multi-organ failure. No plans to do LHC at this time Continue aggressive medical management Agree with Palliative Care consult Case discuss with Dr. Hager/Video Game Designer (2) CHF (NYHA class IV, ACC/AHA stage D) ICD Codes: I50.9 - Heart failure, unspecified Status: Acute (3) PEA (Pulseless electrical activity) ICD Codes: I46.9 - Cardiac arrest, cause unspecified (4) ACS (acute coronary syndrome) ICD Codes: I24.9 - Acute ischemic heart disease, unspecified (5) HTN (hypertension) ICD Codes: I10 - Essential (primary) hypertension (6) Cellulitis ICD Codes: L03.90 - Cellulitis, unspecified (7) Hypoxia ICD Codes: R09.02 - Hypoxemia Status: Acute (8) Stage 3 chronic kidney disease ICD Codes: N18.3 - Chronic kidney disease, stage 3 (moderate) Status: Acute (9) CHF exacerbation ICD Codes: I50.9 - Heart failure, unspecified Status: Acute (10) Afib ICD Codes: I48.91 - Unspecified atrial fibrillation Status: Chronic [place]-Bahman Moody MD Feb 05, 2017 11:35
[2017-02-05 12:12] LABS: APTT (PATIENT) 63.4 SEC (24.3-30.1)
--- NOTE | 2017-02-05 15:05 | HHI.NPPN ---
Subjective History of Present Illness 71-year-old white male with history of diabetes, legal blindness, chronic kidney disease, cardiomyopathy, lymphedema who has LifeVest placed for cardiomyopathy with EF of 20%, his LifeVest to start blinking he came to the emergency this was taken off. He was diagnosed with AMI, seen by cardiology. Later in AM, he had a cardiac arrest requiring resuscitation and return of his rhythm, intubated and transfer to [facility] [place]. Additional Remarks Patient remain on the vent. and on multiple pressors. Review of Systems General General Remarks Intubated and unresponsive. Objective Data Data 02/05/17 02/06/17 18:59 06:59 Intake Total 100 ml Output Total 10 ml Balance 90 ml IV Total 100 ml Gastric Drainage Total 10 ml Vital Signs Date Time Temp Pulse Resp B/P (MAP) Pulse Ox O2 Delivery O2 Flow Rate FiO2 02/05/17 14:00 112 02/05/17 13:00 100.1 114 9 98/62 (74) 98 90/55 (67) 02/05/17 12:29 115 02/05/17 12:25 90 100 02/05/17 12:00 40 02/05/17 11:00 101.0 112 18 99/52 (68) 93 98/66 (77) 02/05/17 11:00 83 02/05/17 10:35 96 40 02/05/17 08:15 95 40 02/05/17 08:00 40 02/05/17 07:00 95 Mechanical Ventilator 40 02/05/17 07:00 99.9 83 18 110/62 (78) 94 105/60 (75) 02/05/17 07:00 83 02/05/17 06:09 83 104/59 02/05/17 05:55 83 95/57 02/05/17 04:55 40 02/05/17 04:03 96 40 02/05/17 03:42 85 02/05/17 03:42 100.9 88 18 108/67 (81) 95 97/57 (70) 02/05/17 02:47 87 98/57 02/05/17 00:55 99 45 02/05/17 00:28 45 02/05/17 00:00 45 02/04/17 23:00 99.2 88 18 108/66 (80) 97 105/64 (78) 02/04/17 23:00 90 02/04/17 22:03 95 50 02/04/17 20:45 95 50 02/04/17 20:00 99.6 88 18 102/64 (77) 95 02/04/17 20:00 50 02/04/17 20:00 90 02/04/17 20:00 95 Mechanical Ventilator 2.00 50 02/04/17 17:46 89 107/65 02/04/17 17:46 89 106/55 02/04/17 17:46 89 106/55 02/04/17 16:00 50 02/04/17 15:54 95 50 02/04/17 15:00 97.8 96 18 106/64 (78) 96 94/59 (71) 02/04/17 15:00 96 -: 02/05/17 0445 02/05/17 0445 Microbiology 02/05/17 Aerobic Blood Culture, Received Pending 02/05/17 Anaerobic Blood Culture, Received Pending 02/05/17 Aerobic Blood Culture, Received Pending 02/05/17 Anaerobic Blood Culture, Received Pending 02/05/17 Gram Stain, Received Pending 02/05/17 Sputum Culture, Received Pending 02/05/17 Urine Culture, Received Pending Physical Exam General Appearance Remarks Intubated and unresponsive. Eyes Eye Exam: Pupils Equal Throat Throat Exam: Oral Mucosa [place] & Moist Neck Neck Exam: Neck Supple Pulmonary Resp Exam: Crackles, Rhonchi, Decreased Bases, Diminished Breath Sounds, Poor Inspiratory Effort Cardiology CV Exam: Irregular, Arrhythmia Gastrointestinal/Abdomen GI Exam: Soft, Non-Tender, Distended Extremeties Extremities Exam: Moderate Edema, Pitting Edema, Dependent Edema Neurologic Neuro Exam: Unresponsive Assessment/Plan Problem List: (1) ISI (acute kidney injury) ICD Codes: N17.9 - Acute kidney failure, unspecified Status: Acute Plan: Patient has underlying cardiogenic shock AMI and congestive heart failure with cardiac arrest Poor chances of recovery as he has underlying CK D Has been in shock status. Family is considering with drawl of care. Palliative care is following the patient. (2) Acidosis, metabolic ICD Codes: E87.2 - Acidosis Plan: On bicarbonate drip continued to monitor consider dialysis/CRRT as he is on vasopressors if family want to continue aggressive treatment. (3) CKD (chronic kidney disease) stage 3, GFR 30-59 ml/min ICD Codes: N18.3 - Chronic kidney disease, stage 3 (moderate) Status: Chronic (4) Acute hypoxemic respiratory failure ICD Codes: J96.01 - Acute respiratory failure with hypoxia Status: Acute Plan: Intubated (5) PEA (Pulseless electrical activity) ICD Codes: I46.9 - Cardiac arrest, cause unspecified Plan: Poor prognosis Cuco Malone MD Feb 05, 2017 15:05
[2017-02-05] MEDS ORDERED: BISACODYL 10 MG SUPP RECTAL PRN (15:30)
[2017-02-05] MEDS ORDERED: LORazepam 2 MG/ML VIAL IV PUSH PRN ×3 (15:30)
[2017-02-05] MEDS ORDERED: HYOSCYAMINE 0.5 MG/ML AMP IV PUSH ONE (15:30)
[2017-02-05] MEDS ORDERED: LORazepam 2 MG/ML VIAL IV PUSH ONE ×2 (15:30→16:00)
[2017-02-05] MEDS ORDERED: ACETAMINOPHEN 650 MG SUPP RECTAL PRN (15:30)
[2017-02-05] MEDS ORDERED: HYDROmorphone HCL PF 2 MG/ML VIAL IV PUSH PRN ×2 (15:30)
[2017-02-05] MEDS ORDERED: HYOSCYAMINE 0.5 MG/ML AMP IV PUSH PRN (15:30)
[2017-02-05] MEDS ORDERED: fentaNYL DRIP 250 ML IV PRN (15:45)
[2017-02-05] MEDS ORDERED: FUROSEMIDE 20 MG/2 ML VIAL IV PUSH PRN (16:00)
[2017-02-05] MEDS ORDERED: LORazepam 2 MG/ML VIAL IV PUSH SCH (20:00)
== END 2017-02-05 16:56 | disposition expired ==
LOC: NEPC 11:14 → NEDA 12:59 → HCIS 15:12 → HCPC 21:37 → HCVI 02-03 07:50 → HIMW 02-05 12:20
PROVIDERS: ADMIT Anesthesiology; ATTEND Anesthesiology
PROC: 5A1945Z Respiratory Ventilation, 24-96 Consecutive Hours (ICD-10-PCS; principal; 2017-02-03)
PROC: 03HY32Z Insertion of Monitoring Device into Upper Artery, Percutaneous Approach (ICD-10-PCS; 2017-02-03)
PROC: 0BH17EZ Insertion of Endotracheal Airway into Trachea, Via Natural or Artificial Opening (ICD-10-PCS; 2017-02-03)
PROC: 06HY33Z Insertion of Infusion Device into Lower Vein, Percutaneous Approach (ICD-10-PCS; 2017-02-03)
DX: I21.4 Non-ST elevation (NSTEMI) myocardial infarction (principal); I50.23 Acute on chronic systolic (congestive) heart failure; K72.00 Acute and subacute hepatic failure without coma; Z51.5 Encounter for palliative care; R57.0 Cardiogenic shock; J96.01 Acute respiratory failure with hypoxia; J96.02 Acute respiratory failure with hypercapnia; G93.40 Encephalopathy, unspecified; L03.115 Cellulitis of right lower limb; E87.2 Acidosis; N17.9 Acute kidney failure, unspecified; L03.116 Cellulitis of left lower limb; I13.0 Hypertensive heart and chronic kidney disease with heart failure and stage 1 through stage 4 chronic kidney disease, or unspecified chronic kidney disease; Z66 Do not resuscitate; N18.3 Chronic kidney disease, stage 3 (moderate); E11.22 Type 2 diabetes mellitus with diabetic chronic kidney disease; I48.91 Unspecified atrial fibrillation; I87.8 Other specified disorders of veins; I25.5 Ischemic cardiomyopathy; I89.0 Lymphedema, not elsewhere classified; E78.00 Pure hypercholesterolemia, unspecified; H54.8 Legal blindness, as defined in USA; E87.5 Hyperkalemia; R56.9 Unspecified convulsions; Z79.01 Long term (current) use of anticoagulants; Z79.84 Long term (current) use of oral hypoglycemic drugs; Z87.891 Personal history of nicotine dependence; Z88.2 Allergy status to sulfonamides; Z91.14 Patient's other noncompliance with medication regimen; Z97.0 Presence of artificial eye; Z99.81 Dependence on supplemental oxygen
CPT/HCPCS: 31500; 36620; 71010; 80048; 80053; 80061; 81001; 82310; 82435; 82550; 82565; 82805; 82947; 82948; 83036; 83735; 83880; 84100; 84132; 84155; 84295; 84484; 84520; 85025; 85027; 85610; 85730; 87040; 87070; 87086; 87205; 87641; 93005; 94002; 94003; 94640; 94664; 96374; J0171; J0610; J0692; J1160; J1644; J1815; J1940; J1956; J1980; J2060; J2250; J2370; J3010; J7030; J7050; J7060